=== PATIENT | male | born 1945 | race Caucasian/White ===

== ENCOUNTER 2018-02-11 10:30 | Day surgery (SDC) | payer MEDICARE, OTHER ==
[2018-02-05 13:27] VITALS: BMI 43.4
[2018-02-11 10:22] VITALS: PULSE 77; TEMP 98.1
[2018-02-11 10:30] LABS: Glucose,Whole Blood 316 mg/dL (75-99)
[~2018-02-11 10:30] MED LIST: ALPRAZolam 0.25 MG TAB PO PRN; ALPRAZolam 0.5 MG TAB PO PRN; ASPIRIN 325 MG TAB PO STA; ATORVASTATIN 80 MG TAB PO ONE; INSULIN ASPART 100 UNIT/ML 1 ML 10 ML VIAL SQ ONE; NITROGLYCERIN SL TABS 0.4 MG TAB SUBLINGUAL PRN; SODIUM CHLORIDE 0.9% 1,000 ML in EMPTY BAG 1 BAG IV ONE
[2018-02-11] MEDS ORDERED: IV FLUID CONTINUATION 1,000 ML IV ONE (11:02)
[2018-02-11] MEDS ORDERED: diphenhydrAMINE 50 MG/ML 1 ML VIAL ONE (11:04)
[2018-02-11] MEDS ORDERED: MIDAZOLAM 2 MG/2 ML VIAL ONE (11:04)
[2018-02-11] MEDS ORDERED: VERAPAMIL 2.5 MG/ML 2 ML AMP ONE (11:05)
[2018-02-11] MEDS ORDERED: diphenhydrAMINE 50 MG/ML 1 ML VIAL IVP ONE (11:20)
[2018-02-11] MEDS ORDERED: MIDAZOLAM 2 MG/2 ML VIAL IV ONE (11:20)
[2018-02-11] MEDS ORDERED: LIDOCAINE 2% SYG (PF) 100 MG/5 ML MISCELLANE ONE (11:27)
[2018-02-11] MEDS: VERAPAMIL SYRINGE (5 MG/10 ML) INTRAARTER ONE ×2 (11:31→11:59)
[2018-02-11] MEDS ORDERED: HEPARIN SODIUM 1,000 UN/ML (10ML VL) ONE (11:32)
[2018-02-11] MEDS ORDERED: HEPARIN SODIUM 1,000 UN/ML (10ML VL) IV ONE (11:33)
[2018-02-11] MEDS ORDERED: NITROGLYCERIN SL TABS 0.4 MG TAB SUBLINGUAL ONE ×4 (11:34→12:10)
[2018-02-11] MEDS ORDERED: IOPAMIDOL-370 100ML BTL INJ ONE ×2 (11:44→11:58)
[2018-02-11] MEDS ORDERED: RX INFO: IV CONTRAST WAS GIVEN 1 EACH MISC MISCELLANE PRN (12:10)
[2018-02-11] MEDS ORDERED: NON-FORMULARY DRUG (Dulaglutide [Trulicity] 1.5 MG) SQ SCH (12:30)
[2018-02-11] MEDS ORDERED: SODIUM CHLORIDE 0.9% 1,000 ML IV SCH (12:30)
--- NOTE | 2018-02-11 12:46 | CC ---
CARDIAC CATHETERIZATION REPORT DATE OF SERVICE: 02/11/2018 PROCEDURE: Left heart catheterization and coronary angiography. PERFORMED BY: Dr. Kike Cadena. Moderate conscious sedation time was 40 minutes. Patient was monitored very closely for his oxygen saturation, hemodynamics and EKG. He was administered a combination of Versed and Benadryl. CLINICAL INFORMATION: Mr. Erasto Rivas is a 72-year-old obese gentleman with history of hypertension, hyperlipidemia, type 2 diabetes mellitus with a positive stress test. He also has sleep apnea syndrome, but has been reluctant to have any sleep study performed. Because of an abnormal Lexiscan stress test with a moderate area of reversible defect to the lateral wall, he was advised coronary angiography. He also has significant risk factors as well. PROCEDURE NOTE: Under local anesthesia and strict aseptic precautions, a 6-Uruguayan introducer was placed in the right radial artery. I used Ultimate 1 catheter and performed selective coronary angiography of the left system. I then used a standard right Juliana catheter and performed selective coronary angiography of the right coronary artery. The same Ultimate 1 catheter was used to check LV pressures, but LV gram was not performed. There was extreme tortuosity in the innominate artery and also ascending aorta. LV pressures were obtained, but LV gram was not performed. I recommended that we will perform intervention from the right femoral approach at a later date. CARDIAC CATHETERIZATION FINDINGS: The left ventricular end-diastolic pressure was about 14 mmHg without any gradient across the aortic valve. CORONARY ANGIOGRAPHY FINDINGS: LEFT MAIN CORONARY ARTERY: A short patent disease-free vessel that bifurcates into LAD and circumflex. LEFT ANTERIOR DESCENDING CORONARY ARTERY: Good caliber vessel extends along the anterior wall gives off septal and diagonal branches runs all the way to the apex, has no significant disease, has minor diffuse irregularities in the distal one-third. No significant disease is noted. LEFT POSTERIOR CIRCUMFLEX CORONARY ARTERY: This vessel was not very well seen on multiple injections because of extreme obesity and also because of inadequate filling of this vessel. However, there appears to be a proximal lesion which is very eccentric best seen in the ANDORRAN cranial projection and this is about a 60% to 70% lesion and then it gives off an obtuse marginal which also has another 60% to 70% lesion and after the proximal lesion, there is an AV groove branch that comes off. The circumflex therefore has a proximal lesion as well as an obtuse marginal lesion of anywhere from 60% to 70% which could be significant when better angiograms are obtained. The groove branch appears to be small in caliber and diffusely diseased. RIGHT CORONARY ARTERY: This is a dominant vessel, it is of a good caliber and distribution. In the middle one-third, there is a long area of disease of about 60%. The caliber of the vessel then improves and then again distally before it bifurcates there is an eccentric 70% stenosis which I believe is a significant lesion. There is a lot of eccentricity in the lesion. It was best seen in the ANDORRAN cranial projection. The entire vessel is irregular and diseased and then the caliber improves and it trifurcates into 3 different branches mostly in the PDA distribution and also one branch in the PLV distribution. Distal RCA before bifurcation has therefore an eccentric 70% lesion and mid RCA has about a 60% lesion. RCA is a dominant vessel. LEFT VENTRICULOGRAM: This was not performed. FINAL IMPRESSION: This patient has a right dominant system, slightly elevated filling pressures. There is a distal RCA disease of about 70% just before bifurcation, also involves some smaller branches. Mid RCA has a 50% to 60% lesion. The circumflex is a nondominant one very proximally has an eccentric 60% to 70% lesion and the obtuse marginal also has an independent lesion. The LAD is free of significant disease. Left ventriculogram was not performed. RECOMMENDATIONS: I am recommending that we will pursue medical therapy. I will see him in the office in one week. He will be discharged today. I will recommend intervention of the RCA and probably circumflex as well after I get better angiograms. The patient will have elective PCI of RCA and will look at circumflex as well. The rationale, risks, benefits, and options related to this procedure were explained to the patient and . I will see him in the office and bring him back in 2 weeks. MMODL / IJN: [id number] /
--- NOTE | 2018-02-11 12:46 | LTR ---
February 11, 2018 Re: Erasto Rivas Dear Dr. Ron: Thank you for the opportunity to participate in the care of Mr. Rivas. This gentleman has significant disease in the distal RCA and moderate disease in the circumflex as well. I will perform PCI of RCA from the right femoral approach in the next couple of weeks. We will pursue medical therapy in the interim. I will also assess the significance of circumflex lesion as well. Thank you for your referral and please call for questions. With kindest regards. Sincerely yours, MD TIM Bunn / NICHON: [id number] /
[2018-02-11] MEDS ORDERED: amLODIPine 5 MG TAB PO STA ×2 (13:36→17:00)
[2018-02-11] MEDS ORDERED: NITROGLYCERIN SL TABS 0.4 MG TAB SUBLINGUAL STA (13:38)
[2018-02-11] MEDS ORDERED: ACARBOSE 50 MG PO SCH (16:00)
[2018-02-11] MEDS ORDERED: INSULIN ASPART 100 UNIT/ML 1 ML 10 ML VIAL SQ ONE ×2 (16:46→16:57)
[2018-02-11 16:48] LABS: Glucose,Whole Blood 290 mg/dL (75-99)
[2018-02-11] MEDS ORDERED: INSULIN LISPRO 20 UNIT SQ SCH ×2 (17:30→21:00)
[2018-02-11 17:32] VITALS: RESP 20
[2018-02-11 17:45] VITALS: BP 164/76
[2018-02-11] MEDS ORDERED: INSULIN DEGLUDEC 60 UNIT SQ SCH (21:00)
[2018-02-11] MEDS ORDERED: FENOFIBRATE 160 MG TAB PO SCH (21:00)
[2018-02-11] MEDS ORDERED: POTASSIUM CHLORIDE ER 10 MEQ TAB.ER.PRT PO SCH (21:00)
[2018-02-12] MEDS ORDERED: INSULIN ASPART 100 UNIT/ML 1 ML 10 ML VIAL SQ SCH (07:30)
[2018-02-12] MEDS ORDERED: LISINOPRIL 20 MG TAB PO SCH (09:00)
[2018-02-12] MEDS ORDERED: FUROSEMIDE 20 MG TAB PO SCH (09:00)
[2018-02-12] MEDS ORDERED: METOPROLOL TARTRATE 50 MG TAB PO SCH (09:00)
[2018-02-12] MEDS ORDERED: ATORVASTATIN 20 MG TAB PO SCH (09:00)
[2018-02-12] MEDS ORDERED: ASPIRIN 81 MG PO SCH (09:00)
== END 2018-02-11 14:20 | disposition home or self-care (01) ==
LOC: CATHCVL 10:30
PROVIDERS: ATTEND Internal Medicine Interventional Cardiology
DX: I77.1 Stricture of artery (principal); I25.110 Atherosclerotic heart disease of native coronary artery with unstable angina pectoris; I10 Essential (primary) hypertension; E78.00 Pure hypercholesterolemia, unspecified; E78.5 Hyperlipidemia, unspecified; F17.210 Nicotine dependence, cigarettes, uncomplicated; E11.9 Type 2 diabetes mellitus without complications; Z79.4 Long term (current) use of insulin; Z79.82 Long term (current) use of aspirin; Z79.899 Other long term (current) drug therapy; Z88.8 Allergy status to other drugs, medicaments and biological substances
CPT/HCPCS: 93458; C1769; C1894; J2250; J1200; J2001; J1644; Q9967

== ENCOUNTER → 2018-02-19 | Outpatient (CLI) | payer MEDICARE, OTHER ==
[2018-02-19 15:28] LABS: HCT 39.6 % (39.0-53.0); MCH 30.9 pg (25.0-35.0); MCHC 32.9 g/dL (31.0-37.0); MCV 93.9 fL (80.0-100.0); Mean Platelet Volume 7.2; Platelet Count 263 k/uL (150-450); RBC 4.22 m/uL (4.30-5.90); RDW 13.3 % (11.5-15.5)
[2018-02-19 15:36] LABS: Calcium 9.6 mg/dL (8.4-10.2); Potassium 5.1 mmol/L (3.5-5.1)
== END ==
LOC: LABPAT 14:20
PROVIDERS: ATTEND Internal Medicine Interventional Cardiology
DX: Z01.812 Encounter for preprocedural laboratory examination (principal); I25.118 Atherosclerotic heart disease of native coronary artery with other forms of angina pectoris; I10 Essential (primary) hypertension; E78.2 Mixed hyperlipidemia; I25.10 Atherosclerotic heart disease of native coronary artery without angina pectoris
CPT/HCPCS: 36415; 80048; 85027

== ENCOUNTER 2018-02-28 09:14 | Day surgery (SDC) | payer MEDICARE, OTHER ==
[2018-02-21 12:46] VITALS: BMI 44.5
[~2018-02-28 09:14] MED LIST changes: -ATORVASTATIN 80 MG TAB PO ONE; +ATORVASTATIN 80 MG TAB PO STA; -INSULIN ASPART 100 UNIT/ML 1 ML 10 ML VIAL SQ ONE
[2018-02-28] MEDS ORDERED: SODIUM CHLORIDE 0.9% 1,000 ML IV ONE (09:45)
[2018-02-28 09:52] LABS: Glucose,Whole Blood 307 mg/dL (75-99)
[2018-02-28 10:02] LABS: Basophils % (A) 1 %; Eosinophils # (A) 0.3 k/uL (0-0.7); Eosinophils % (A) 4 %; HCT 40.9 % (39.0-53.0); HGB 13.4 gm/dL (13.0-17.5); Lymphocytes # (A) 1.3 k/uL (1.0-4.8); Lymphocytes % (A) 21 %; MCH 30.6 pg (25.0-35.0); MCHC 32.7 g/dL (31.0-37.0); MCV 93.7 fL (80.0-100.0); Mean Platelet Volume 6.9; Monocytes # (A) 0.3 k/uL (0-1.0); Monocytes % (A) 5 %; Neutrophils # (A) 4.3 k/uL (1.3-7.7); Neutrophils % (A) 67 %; Platelet Count 296 k/uL (150-450); RBC 4.37 m/uL (4.30-5.90); RDW 13.4 % (11.5-15.5); WBC 6.4 k/uL (3.8-10.6)
[2018-02-28 10:07] LABS: Anion Gap 12 mmol/L; Blood Urea Nitrogen 19 mg/dL (9-20); Calcium 9.7 mg/dL (8.4-10.2); Carbon Dioxide 28 mmol/L (22-30); Chloride 101 mmol/L (98-107); Glucose 323 mg/dL (74-99); Potassium 4.6 mmol/L (3.5-5.1); Sodium 141 mmol/L (137-145)
[2018-02-28] MEDS: INSULIN ASPART 100 UNIT/ML 1 ML 10 ML VIAL SQ SCH ×4 (10:24→21:10)
[2018-02-28] MEDS ORDERED: diphenhydrAMINE 50 MG/ML 1 ML VIAL ONE (10:42)
[2018-02-28] MEDS ORDERED: LIDOCAINE 1% INJ 10MG/ML (20 ML MDV) ONE (10:42)
[2018-02-28] MEDS ORDERED: MIDAZOLAM 2 MG/2 ML VIAL ONE (10:42)
[2018-02-28] MEDS ORDERED: MIDAZOLAM 2 MG/2 ML VIAL IVP ONE (10:43)
[2018-02-28] MEDS ORDERED: diphenhydrAMINE 50 MG/ML 1 ML VIAL IVP ONE (10:43)
[2018-02-28] MEDS ORDERED: LIDOCAINE 1% INJ 10MG/ML (20 ML MDV) SQ ONE ×2 (10:44→10:45)
[2018-02-28] MEDS ORDERED: NITROGLYCERIN SL TABS 0.4 MG TAB SUBLINGUAL ONE ×3 (10:58→11:26)
[2018-02-28] MEDS: NITROGLYCERIN SL TABS 0.4 MG TAB SUBLINGUAL ONE ×3 (10:59→11:27)
[2018-02-28] MEDS ORDERED: BIVALIRUDIN BOLUS 250 MG/50 ML IV ONE (11:07)
[2018-02-28] MEDS ORDERED: BIVALIRUDIN 250 MG in SODIUM CHLORIDE 0.9% 50 ML IV ONE ×2 (11:07→11:25)
[2018-02-28] MEDS ORDERED: IOPAMIDOL-370 100ML BTL INJ ONE ×2 (11:26→11:33)
[2018-02-28] MEDS ORDERED: NITROGLYCERIN 1000MCG/10ML SYRINGE INTRACORON ONE (11:30)
[2018-02-28] MEDS ORDERED: TICAGRELOR 90 MG TAB ONE (11:35)
[2018-02-28] MEDS ORDERED: TICAGRELOR 90 MG TAB PO ONE (11:39)
[2018-02-28] MEDS ORDERED: ATROPINE SULFATE 0.1 MG/ML 10ML SYRINGE IV PRN (11:45)
[2018-02-28] MEDS ORDERED: NITROGLYCERIN SL TABS 0.4 MG TAB SUBLINGUAL PRN (11:45)
[2018-02-28] MEDS ORDERED: ZOLPIDEM 5 MG TAB PO PRN (11:45)
[2018-02-28] MEDS ORDERED: RX INFO: IV CONTRAST WAS GIVEN 1 EACH MISC MISCELLANE PRN (11:45)
[2018-02-28] MEDS ORDERED: MAG HYDROX/AL HYDROX/SIMETH 30 ML CUP PO PRN (11:45)
[2018-02-28] MEDS: SODIUM CHLORIDE 0.9% 1,000 ML IV SCH (12:33)
[2018-02-28 12:53] LABS: Glucose,Whole Blood 284 mg/dL (75-99)
[2018-02-28] MEDS ORDERED: MORPHINE SULFATE 2 MG/ML SYRINGE IVP STA (13:32)
[2018-02-28] MEDS ORDERED: amLODIPine 5 MG TAB PO STA (13:33)
[2018-02-28] MEDS ORDERED: NITROGLYCERIN SL TABS 0.4 MG TAB SUBLINGUAL STA (13:33)
[2018-02-28] MEDS ORDERED: MORPHINE SULFATE 4 MG/ML SYRINGE ONE (13:46)
[2018-02-28 16:32] LABS: Glucose,Whole Blood 305 mg/dL (75-99)
[2018-02-28] MEDS: ACARBOSE 25 MG TAB PO SCH (17:25)
[2018-02-28] MEDS ORDERED: INSULIN ASPART 100 UNIT/ML 1 ML 10 ML VIAL SQ SCH ×2 (17:30→21:00)
[2018-02-28] MEDS ORDERED: amLODIPine 5 MG TAB PO PRN (18:50)
[2018-02-28 20:41] LABS: Glucose,Whole Blood 235 mg/dL (75-99)
[2018-02-28] MEDS ORDERED: INSULIN DETEMIR 100 UNIT/ML 10 ML VIAL SQ SCH (21:00)
[2018-02-28] MEDS: POTASSIUM CHLORIDE ER 10 MEQ TAB.ER.PRT PO SCH (21:11)
--- NOTE | 2018-02-28 21:35 | PTCA ---
PERCUTANEOUSTRANS CORORONARY ANGIOGRAPHY DATE OF SERVICE: 02/28/2018. PROCEDURE PERFORMED: PTCA and stenting of proximal circumflex coronary artery as well as first obtuse marginal branch of circumflex with drug-eluting stents. PERFORMED BY: Dr. Selene Cadena. SEDATION: Moderate conscious sedation time was 53 minutes. CLINICAL INFORMATION: Mr. Erasto Rivas is a 72-year-old gentleman, history of type 2 diabetes, hypertension, hyperlipidemia, with abnormal stress test. His cardiac cath a week ago revealed that his RCA was dominant, had 2 areas of disease of 60-70 percent and I could not get a good image of circumflex because of a radial cath which was technically somewhat difficult given the tortuosity of his aorta and brachial artery. I therefore brought him in for the procedure were to check the AA. From the right femoral approach, 1st circumflex coronary artery injections and then consider intervention either of circumflex alone or of the RCA as well. He was brought in with this plan after explanation of the risks, benefits, and options. PROCEDURE NOTE: Under local anesthesia and strict aseptic precautions, a 6-Liberian introducer was placed in the right femoral artery. I had difficulty because of obesity and a lot of soft tissue between the femoral artery and the skin. I had to use a regular needle with a long wire and with this I was able to gain access. A 6-Liberian introducer was placed. I performed selective coronary angiography of the left coronary artery and noted that the circumflex had a 70% to 80% proximal lesion and the first obtuse marginal also had a 70% lesion. I recommend intervention of this vessel and to do RCA in a staged fashion in a couple of weeks. The patient was administered Angiomax as per bolus and protocol. He received 180 mg of Brilinta. I used a standard left Juliana guide catheter to cannulate the left coronary artery and a Whisper wire was used to cross the lesion wire was kept in the circumflex marginal. Predilatation was performed with a 2.5 caliber 12 mm long Trek balloon. I could not advance the stent to the first obtuse marginal and therefore I used a run- through wire as a mahsa wire. With the whisper as a mahsa wire and using the stent over the run-through wire, I advanced and positioned a 12 mm long 2.75 caliber Xience stent and deployed this in the first obtuse marginal. I then advanced and positioned an 8 mm long 3.0 caliber Xience stent in the proximal circumflex. Both stents were deployed at 13 atmospheres. Excellent angiographic result was achieved. Patient did not have symptoms or EKG changes. Excellent result was achieved. The sheath was taken out and Angio-Seal device used to secure hemostasis and he was sent to the room in stable condition. Results and findings were discussed in detail with the patient and family members. I expect he will be discharged tomorrow if he remains stable. MMODL / IJN: [id number] /
--- NOTE | 2018-02-28 21:41 | LTR ---
DATE OF SERVICE: 02/28/[address] Ron: Thank you for the opportunity to participate in the care of Mr. Rivas. Please find enclosed my detailed cardiac cath report for the records. I performed PCI of circumflex with excellent result. I will bring him back to perform staged intervention of RCA at a later date. Thank you for your referral and please call for questions. With kindest regards, Sincerely yours, MMAFSANEHL / IJN: [id number] /
[2018-03-01 03:18] VITALS: RESP 18
[2018-03-01 06:31] LABS: Glucose,Whole Blood 211 mg/dL (75-99)
[2018-03-01] MEDS: SODIUM CHLORIDE 0.9% 1,000 ML IV SCH (06:50)
[2018-03-01] MEDS: ACARBOSE 25 MG TAB PO SCH (07:04)
[2018-03-01] MEDS: INSULIN ASPART 100 UNIT/ML 1 ML 10 ML VIAL SQ SCH (07:05)
[2018-03-01 07:08] LABS: Basophils % (A) 1 %; Eosinophils # (A) 0.2 k/uL (0-0.7); Eosinophils % (A) 3 %; HCT 36.3 % (39.0-53.0); HGB 11.8 gm/dL (13.0-17.5); Lymphocytes % (A) 20 %; MCH 30.6 pg (25.0-35.0); MCHC 32.6 g/dL (31.0-37.0); Mean Platelet Volume 6.9; Monocytes # (A) 0.4 k/uL (0-1.0); Monocytes % (A) 7 %; Neutrophils # (A) 3.6 k/uL (1.3-7.7); Neutrophils % (A) 68 %; Platelet Count 246 k/uL (150-450); RBC 3.86 m/uL (4.30-5.90); RDW 13.5 % (11.5-15.5); WBC 5.2 k/uL (3.8-10.6)
[2018-03-01 07:19] LABS: Anion Gap 10 mmol/L; Blood Urea Nitrogen 19 mg/dL (9-20); Calcium 8.8 mg/dL (8.4-10.2); Carbon Dioxide 28 mmol/L (22-30); Chloride 103 mmol/L (98-107); Glucose 203 mg/dL (74-99); Potassium 4.2 mmol/L (3.5-5.1); Sodium 141 mmol/L (137-145)
[2018-03-01] MEDS ORDERED: INSULIN ASPART 100 UNIT/ML 1 ML 10 ML VIAL SQ SCH (07:30)
[2018-03-01] MEDS: POTASSIUM CHLORIDE ER 10 MEQ TAB.ER.PRT PO SCH (08:05)
[2018-03-01] MEDS ORDERED: amLODIPine 5 MG TAB PO SCH (09:00)
[2018-03-01] MEDS ORDERED: LISINOPRIL 20 MG TAB PO SCH (09:00)
[2018-03-01] MEDS ORDERED: METOPROLOL TARTRATE 50 MG TAB PO SCH (09:00)
[2018-03-01] MEDS ORDERED: ASPIRIN 81 MG PO SCH (09:00)
[2018-03-01] MEDS ORDERED: FENOFIBRATE 160 MG TAB PO SCH (09:00)
[2018-03-01] MEDS ORDERED: FUROSEMIDE 20 MG TAB PO SCH (09:00)
[2018-03-01] MEDS ORDERED: CLOPIDOGREL 75 MG TAB PO SCH (09:00)
[2018-03-01 10:12] VITALS: BP 149/73
[2018-03-01 10:30] VITALS: PULSE 89; TEMP 97.3
--- NOTE | 2018-03-01 20:18 | DS ---
DISCHARGE SUMMARY DATE OF ADMISSION: 02/28/2018 DATE OF DISCHARGE: 03/01/2018. DIAGNOSES: 1. Unstable angina. 2. Hypertension. 3. Type 2 diabetes mellitus. 4. Obesity. 5. Hypercholesterolemia. Mr. Rivas was admitted to the hospital for elective PCI. He underwent a cardiac cath from right radial approach a couple of weeks ago and was found to have significant disease in dominant RCA, but I did not get a good opacification of the left system, specifically the circumflex. He was advised a repeat catheterization and intervention of possibly circumflex and in a staged manner of RCA. Coronary angiography was performed from right femoral approach. He had a significant lesion in the circumflex proximally as well as in the first obtuse marginal. Both these lesions were addressed with a drug-eluting stent with excellent result. Post- procedure course was unremarkable. He is asymptomatic. He was slightly hypertensive, received an additional dose of Norvasc yesterday. He is asymptomatic at the time of my evaluation, resting comfortably. His right groin has a small area of ecchymosis. No hematoma or bruit is noted. Vital signs are stable. Physical exam revealed a blood pressure of 146/80, pulse rate 70 per minute. S1, S2 heard normally. Lungs are clear. Abdomen and lower extremity exam unchanged. We advise that he can be discharged today with the understanding that he should do limited activity for 48 hours and I will see him in the office within one week. Discharge instructions regarding activity, diet and medications, including dual antiplatelet therapy, were given. Patient will be discharged home later on today. MMODL / IJN: [id number] /
[2018-03-01] MEDS ORDERED: ATORVASTATIN 20 MG TAB PO SCH (21:00)
[2018-03-04] MEDS ORDERED: Dulaglutide [Trulicity] 1.5 MG SQ SCH (09:00)
== END 2018-03-01 11:15 | disposition home or self-care (01) ==
LOC: CATHCVL 09:14 → 6SEL 12:53 → CATHCVL 03-01 11:15
PROVIDERS: ATTEND Internal Medicine Interventional Cardiology
DX: I25.110 Atherosclerotic heart disease of native coronary artery with unstable angina pectoris (principal); I10 Essential (primary) hypertension; E78.2 Mixed hyperlipidemia; E66.9 Obesity, unspecified; E11.8 Type 2 diabetes mellitus with unspecified complications; Z79.4 Long term (current) use of insulin; Z79.899 Other long term (current) drug therapy; Z68.41 Body mass index [BMI] 40.0-44.9, adult; Z79.82 Long term (current) use of aspirin; Z88.8 Allergy status to other drugs, medicaments and biological substances; Z72.0 Tobacco use
CPT/HCPCS: 80048 ×2; 85025 ×2; C9600; C9601; C1760; C1769 ×4; C1887 ×2; C1725; C1894; C1874; J2250; J1200; J2001; J2270; J0583; Q9967

== ENCOUNTER → 2018-03-14 | Outpatient (CLI) | payer MEDICARE, OTHER ==
[2018-03-14 08:25] LABS: HCT 38.3 % (39.0-53.0); HGB 12.6 gm/dL (13.0-17.5); MCH 31.3 pg (25.0-35.0); MCHC 32.9 g/dL (31.0-37.0); MCV 95.2 fL (80.0-100.0); Platelet Count 249 k/uL (150-450); RBC 4.02 m/uL (4.30-5.90); RDW 13.5 % (11.5-15.5); WBC 6.8 k/uL (3.8-10.6)
[2018-03-14 08:35] LABS: Magnesium 1.6 mg/dL (1.6-2.3); Potassium 4.7 mmol/L (3.5-5.1)
== END | disposition home or self-care (01) ==
LOC: LABPAT 06:39
PROVIDERS: ATTEND Internal Medicine Interventional Cardiology
DX: Z01.812 Encounter for preprocedural laboratory examination (principal); I25.10 Atherosclerotic heart disease of native coronary artery without angina pectoris; E78.2 Mixed hyperlipidemia; E11.9 Type 2 diabetes mellitus without complications
CPT/HCPCS: 36415; 80051; 82565; 82947; 83735; 84520; 85027

== ENCOUNTER 2018-03-20 09:23 | Day surgery (SDC) | payer MEDICARE, OTHER ==
[~2018-03-20 09:23] MED LIST changes: +ASPIRIN 325 MG TAB PO ONE; -ASPIRIN 325 MG TAB PO STA; +ATORVASTATIN 80 MG TAB PO ONE; -ATORVASTATIN 80 MG TAB PO STA; +diphenhydrAMINE 25 MG CAP PO STA
[2018-03-20] MEDS ORDERED: INSULIN ASPART 100 UNIT/ML 1 ML 10 ML VIAL SQ ONE (10:02)
[2018-03-20 10:18] LABS: Glucose,Whole Blood 281 mg/dL (75-99)
[2018-03-20] MEDS ORDERED: MIDAZOLAM 2 MG/2 ML VIAL ONE (10:57)
[2018-03-20] MEDS ORDERED: diphenhydrAMINE 50 MG/ML 1 ML VIAL ONE (10:57)
[2018-03-20] MEDS ORDERED: LIDOCAINE 1% INJ 10MG/ML (20 ML MDV) ONE (10:57)
[2018-03-20] MEDS ORDERED: MIDAZOLAM 2 MG/2 ML VIAL IV ONE (11:23)
[2018-03-20] MEDS ORDERED: diphenhydrAMINE 50 MG/ML 1 ML VIAL IVP ONE (11:23)
[2018-03-20] MEDS ORDERED: LIDOCAINE 1% INJ 10MG/ML (20 ML MDV) SQ ONE ×2 (11:30)
[2018-03-20] MEDS ORDERED: NITROGLYCERIN SL TABS 0.4 MG TAB SUBLINGUAL ONE ×4 (11:34→11:40)
[2018-03-20] MEDS: NITROGLYCERIN 1000MCG/10ML SYRINGE INTRACORON ONE ×5 (11:37→12:01)
[2018-03-20] MEDS ORDERED: amLODIPine 5 MG TAB ONE (11:40)
[2018-03-20] MEDS ORDERED: amLODIPine 5 MG TAB PO ONE (11:41)
[2018-03-20] MEDS ORDERED: BIVALIRUDIN BOLUS 250 MG/50 ML IV ONE (11:45)
[2018-03-20] MEDS ORDERED: BIVALIRUDIN 250 MG in SODIUM CHLORIDE 0.9% 50 ML IV ONE (11:46)
[2018-03-20] MEDS ORDERED: IOPAMIDOL-370 125ML BTL INJ ONE (11:54)
[2018-03-20] MEDS ORDERED: CLOPIDOGREL 75 MG TAB ONE (12:01)
[2018-03-20] MEDS ORDERED: CLOPIDOGREL 75 MG TAB PO ONE (12:01)
[2018-03-20] MEDS ORDERED: IOPAMIDOL-370 100ML BTL INJ ONE (12:02)
[2018-03-20] MEDS ORDERED: MAG HYDROX/AL HYDROX/SIMETH 30 ML CUP PO PRN (12:07)
[2018-03-20] MEDS ORDERED: NITROGLYCERIN SL TABS 0.4 MG TAB SUBLINGUAL PRN (12:07)
[2018-03-20] MEDS ORDERED: RX INFO: IV CONTRAST WAS GIVEN 1 EACH MISC MISCELLANE PRN (12:07)
[2018-03-20] MEDS ORDERED: ATROPINE SULFATE 0.1 MG/ML 10ML SYRINGE IV PRN (12:07)
[2018-03-20] MEDS ORDERED: ZOLPIDEM 5 MG TAB PO PRN (12:07)
[2018-03-20 13:30] VITALS: BMI 43.7
[2018-03-20] MEDS: SODIUM CHLORIDE 0.9% 1,000 ML IV SCH (13:35)
--- NOTE | 2018-03-20 15:32 | CC ---
CARDIAC CATHETERIZATION REPORT DATE OF SERVICE: 03/20/2018. PROCEDURE PERFORMED: 1. Selective coronary angiography of the left circumflex coronary artery. 2. PTCA and stenting of proximal and distal RCA with a drug-eluting stents. PERFORMED BY: Dr. Selene Cadena. Moderate conscious sedation time was 30 minutes. Patient was monitored closely and was administered Versed and Benadryl. Oxygen saturation, hemodynamics and EKG were monitored closely. CLINICAL INFORMATION: Mr. Erasto Rivas is a gentleman with history of type 2 diabetes, hypertension, hyperlipidemia, CAD who underwent stenting of proximal circumflex and obtuse marginal on 02/28/2018, was brought in for elective PCI of RCA which had 2 long lesions and RCA was a dominant vessel. Risks, benefits, options and rationale were explained. PROCEDURE NOTE: Under local anesthesia and strict aseptic precautions, a 6-Divehi introducer was placed in the right femoral artery. I used a standard left Juliana catheter. I performed selective coronary angiography of the left coronary artery noted the circumflex was widely patent with very good flow. I then turned my attention to the RCA. A [facility] 6- Divehi guide catheter was used to cannulate the RCA. A run-through wire was used to cross the lesion. I used a 2.5 caliber 18 mm long Xience stent and deployed this in the distal RCA lesion with excellent angiographic result. Patient did not have any chest pain or EKG changes. I then addressed the proximal lesion with a 2.75 x 23 mm Xience drug-eluting stent. This was deployed at 14 atmospheres. Patient had excellent angiographic result without complication. The sheath was taken out and Angio-Seal device used to secure hemostasis. Patient received Angiomax bolus and infusion and he was already on aspirin and Plavix. He received additional 150 mg of Plavix. Patient tolerated procedure well without complication. Results were discussed with the patient and and I expect he will be discharged tomorrow if he remains stable. MMODL / IJN: [id number] /
[2018-03-20 16:55] LABS: Glucose,Whole Blood 274 mg/dL (75-99)
[2018-03-20] MEDS: ACARBOSE 25 MG TAB PO SCH ×2 (17:24→21:32)
[2018-03-20] MEDS ORDERED: INSULIN ASPART 100 UNIT/ML 1 ML 10 ML VIAL SQ SCH ×2 (17:30→21:00)
[2018-03-20] MEDS ORDERED: INSULIN DETEMIR 100 UNIT/ML 10 ML VIAL SQ SCH (21:00)
[2018-03-20] MEDS ORDERED: ATORVASTATIN 20 MG TAB PO SCH (21:00)
[2018-03-20] MEDS: amLODIPine 5 MG TAB PO SCH (21:32)
[2018-03-20] MEDS: POTASSIUM CHLORIDE ER 10 MEQ TAB.ER.PRT PO SCH (21:32)
[2018-03-20 21:47] LABS: Glucose,Whole Blood 202 mg/dL (75-99)
[2018-03-21 06:31] LABS: Glucose,Whole Blood 138 mg/dL (75-99)
[2018-03-21] MEDS: SODIUM CHLORIDE 0.9% 1,000 ML IV SCH (06:43)
[2018-03-21 06:55] LABS: Basophils % (A) 1 %; Eosinophils # (A) 0.3 k/uL (0-0.7); Eosinophils % (A) 4 %; HCT 38.9 % (39.0-53.0); Lymphocytes # (A) 1.2 k/uL (1.0-4.8); Lymphocytes % (A) 20 %; MCH 31.3 pg (25.0-35.0); MCHC 33.5 g/dL (31.0-37.0); MCV 93.4 fL (80.0-100.0); Mean Platelet Volume 6.7; Monocytes # (A) 0.5 k/uL (0-1.0); Monocytes % (A) 8 %; Neutrophils % (A) 66 %; Platelet Count 268 k/uL (150-450); RBC 4.17 m/uL (4.30-5.90); RDW 13.4 % (11.5-15.5)
[2018-03-21 07:14] LABS: Anion Gap 8 mmol/L; Blood Urea Nitrogen 15 mg/dL (9-20); Calcium 9.7 mg/dL (8.4-10.2); Carbon Dioxide 26 mmol/L (22-30); Chloride 105 mmol/L (98-107); Glucose 142 mg/dL (74-99); Potassium 4.3 mmol/L (3.5-5.1); Sodium 139 mmol/L (137-145)
[2018-03-21] MEDS ORDERED: INSULIN ASPART 100 UNIT/ML 1 ML 10 ML VIAL SQ SCH (07:30)
--- NOTE | 2018-03-21 07:33 | DS ---
DISCHARGE SUMMARY DATE OF ADMISSION: 03/20/2018 DATE OF DISCHARGE: 03/21/2018 DIAGNOSES: Unstable angina, hypertension, type 2 diabetes, hypercholesterolemia. PROCEDURES PERFORMED: PTCA and stenting of the dominant RCA in proximal and distal locations with 2 drug- eluting stents. Mr. Rivas was brought in for elective PCI of RCA. About 2 weeks ago, he underwent stenting of circumflex. I verified the patency of circumflex and then performed stenting of RCA uneventfully. Postprocedure course was uneventful. He is doing well this morning. PHYSICAL EXAMINATION: Blood pressure is 150/70, pulse rate is 70 per minute. No JVD or carotid bruit. S1, S2 with a short systolic murmur is audible. Lungs are clear. Abdomen is soft, nontender. Lower extremities reveal normal pulses. The right groin is clean and dry. Pulses excellent. EKG is unremarkable, revealed sinus mechanism with first-degree AV block. His laboratory data are pending. He will be discharged today once the laboratory data is reviewed. I will see him in the office in one week. Discharge instructions regarding activity, diet and medications were given. Patient has all his medications at home. No additional scripts are necessary at this time. MMODL / IJN: [id number] /
[2018-03-21 07:48] VITALS: BP 189/104; PULSE 99; RESP 16; TEMP 97
[2018-03-21] MEDS: ACARBOSE 25 MG TAB PO SCH (08:20)
[2018-03-21] MEDS: amLODIPine 5 MG TAB PO SCH (08:20)
[2018-03-21] MEDS: POTASSIUM CHLORIDE ER 10 MEQ TAB.ER.PRT PO SCH (08:20)
[2018-03-21] MEDS ORDERED: CLOPIDOGREL 75 MG TAB PO SCH (09:00)
[2018-03-21] MEDS ORDERED: LISINOPRIL 20 MG TAB PO SCH (09:00)
[2018-03-21] MEDS ORDERED: FENOFIBRATE 160 MG TAB PO SCH (09:00)
[2018-03-21] MEDS ORDERED: FUROSEMIDE 20 MG TAB PO SCH (09:00)
[2018-03-21] MEDS ORDERED: ASPIRIN 81 MG PO SCH (09:00)
[2018-03-21] MEDS ORDERED: METOPROLOL TARTRATE 50 MG TAB PO SCH (09:00)
== END 2018-03-21 09:12 | disposition home or self-care (01) ==
LOC: CATHCVL 09:23 → 3SCARD 12:03 → CATHCVL 03-21 09:12 → 3SCARD 03-21 09:15
PROVIDERS: ATTEND Internal Medicine Interventional Cardiology
DX: I25.110 Atherosclerotic heart disease of native coronary artery with unstable angina pectoris (principal); I44.0 Atrioventricular block, first degree; Z95.5 Presence of coronary angioplasty implant and graft; E11.9 Type 2 diabetes mellitus without complications; I10 Essential (primary) hypertension; E78.2 Mixed hyperlipidemia; Z79.02 Long term (current) use of antithrombotics/antiplatelets; Z79.4 Long term (current) use of insulin; Z79.899 Other long term (current) drug therapy; Z79.82 Long term (current) use of aspirin; Z72.0 Tobacco use; Z88.8 Allergy status to other drugs, medicaments and biological substances
CPT/HCPCS: 80048; 85025; C9600; C1760; C1887; C1769 ×3; C1894; C1874; J2250; J1200; J2001; J0583; Q9967 ×2; 93454

== ENCOUNTER 2020-05-04 17:04 | Observation (INO) | payer MEDICARE ==
[2020-05-04] MEDS ORDERED: INSULIN DETEMIR (LEVEMIR) 100 UNIT/ML SYR SQ SCH (21:00)
[2020-05-04] MEDS ORDERED: ATORVASTATIN 40 MG TAB PO SCH (21:00)
[2020-05-04] MEDS: SODIUM CHLORIDE 0.9% 1,000 ML IV SCH (21:02)
[2020-05-04 21:33] LABS: Glucose,Whole Blood 152 mg/dL (75-99)
[2020-05-04] MEDS: METOPROLOL TARTRATE 25 MG TAB PO SCH (21:38)
[2020-05-05] MEDS: METOPROLOL TARTRATE 25 MG TAB PO SCH (06:09)
[2020-05-05 06:16] LABS: Glucose,Whole Blood 185 mg/dL (75-99)
[2020-05-05 08:01] VITALS: RESP 16; TEMP 98.2
[2020-05-05 08:21] LABS: Basophils % (A) 0 %; Eosinophils # (A) 0.2 k/uL (0-0.7); Eosinophils % (A) 2 %; HCT 44.9 % (39.0-53.0); HGB 14.5 gm/dL (13.0-17.5); Lymphocytes # (A) 1.6 k/uL (1.0-4.8); Lymphocytes % (A) 23 %; MCH 30.8 pg (25.0-35.0); MCHC 32.3 g/dL (31.0-37.0); MCV 95.2 fL (80.0-100.0); Mean Platelet Volume 6.8; Monocytes # (A) 0.4 k/uL (0-1.0); Monocytes % (A) 6 %; Neutrophils # (A) 4.7 k/uL (1.3-7.7); Neutrophils % (A) 67 %; Platelet Count 262 k/uL (150-450); RBC 4.72 m/uL (4.30-5.90); RDW 13.4 % (11.5-15.5)
[2020-05-05 08:42] LABS: Potassium 4.2 mmol/L (3.5-5.1)
[2020-05-05] MEDS ORDERED: CLOPIDOGREL 75 MG TAB PO SCH (09:00)
[2020-05-05] MEDS ORDERED: POTASSIUM CHLORIDE ER 20 MEQ TAB.ER PO SCH (09:00)
[2020-05-05] MEDS ORDERED: ASPIRIN 81 MG PO SCH (09:00)
[2020-05-05] MEDS ORDERED: FUROSEMIDE 20 MG TAB PO SCH (09:00)
[2020-05-05] MEDS ORDERED: amLODIPine 5 MG TAB PO SCH (09:00)
[2020-05-05] MEDS ORDERED: FENOFIBRATE 160 MG TAB PO SCH (09:00)
[2020-05-05] MEDS ORDERED: SODIUM CHLORIDE 0.9% 1,000 ML IV ONE (10:40)
[2020-05-05] MEDS ORDERED: LIDOCAINE 1% INJ 10MG/ML (20 ML MDV) ONE (10:45)
[2020-05-05] MEDS: MIDAZOLAM 2 MG/2 ML VIAL IV ONE ×2 (10:59→11:05)
[2020-05-05] MEDS ORDERED: fentaNYL (PF) 50 MCG/ML 2 ML AMP IV ONE (11:05)
[2020-05-05] MEDS ORDERED: fentaNYL (PF) 50 MCG/ML 2 ML AMP ONE (11:05)
[2020-05-05] MEDS ORDERED: LIDOCAINE 1% INJ 10MG/ML (20 ML MDV) SQ ONE (11:06)
[2020-05-05] MEDS: NITROGLYCERIN 1000MCG/10ML SYRINGE INTRACORON ONE ×3 (11:16→11:46)
[2020-05-05] MEDS ORDERED: BIVALIRUDIN BOLUS 250 MG/50 ML IV ONE (11:27)
[2020-05-05] MEDS ORDERED: BIVALIRUDIN 250 MG in SODIUM CHLORIDE 0.9% 50 ML IV ONE (11:28)
[2020-05-05] MEDS ORDERED: IOPAMIDOL-370 100ML BTL INJ ONE (11:43)
[2020-05-05] MEDS ORDERED: amLODIPine 5 MG TAB ONE (11:44)
[2020-05-05] MEDS ORDERED: IOPAMIDOL-370 50ML BTL INJ ONE (11:46)
[2020-05-05] MEDS ORDERED: CLOPIDOGREL 75 MG TAB PO ONE (11:46)
[2020-05-05] MEDS ORDERED: amLODIPine 5 MG TAB PO ONE (11:46)
[2020-05-05] MEDS ORDERED: CLOPIDOGREL 75 MG TAB ONE (11:47)
[2020-05-05] MEDS ORDERED: HYDROmorphone 0.5 MG/0.5 ML SYRINGE IVP ONE (11:54)
[2020-05-05] MEDS: INSULIN ASPART (NovoLOG) 100 UNIT/ML VIAL SQ SCH ×3 (12:39→17:09)
[2020-05-05 12:44] LABS: Glucose,Whole Blood 343 mg/dL (75-99)
[2020-05-05] MEDS ORDERED: SODIUM CHLORIDE 0.9% 1,000 ML IV SCH (12:45)
[2020-05-05] MEDS: SODIUM CHLORIDE 0.9% 1,000 ML IV SCH (12:53)
--- NOTE | 2020-05-05 13:09 | CC ---
CARDIAC CATHETERIZATION REPORT DATE OF SERVICE: 05/05/2020 PROCEDURE: Cardiac catheterization and PCI report. PROCEDURES: 1. Left heart catheterization and coronary angiography. 2. PTCA and stenting of a tortuous circumflex marginal coronary artery with a drug- eluting stent. PERFORMED BY: Dr. Kike Cadena. Moderate conscious sedation time was 52 minutes. Patient was administered Versed, fentanyl and Dilaudid. Oxygen saturation, hemodynamics and EKG were monitored closely. CLINICAL INFORMATION: Mr. Erasto Rivas is a 74-year-old gentleman with a known history of type 2 diabetes with mild renal dysfunction, hypertension, hyperlipidemia and CAD. In February of 2018, he underwent stenting of a circumflex in the proximal portion as well as the circumflex marginal. He also had stenting of proximal and distal RCA performed on March 20. Because of an abnormal stress test and symptoms of angina, he was advised cardiac catheterization and brought into the hospital yesterday for IV hydration. His creatinine came down to 1.17. He was brought in for the procedure after due discussion regarding risks, benefits, and options. PROCEDURE NOTE: Under local anesthesia and strict aseptic precautions, a 6-Lebanese introducer was placed in the right femoral artery. I had to use an Amplatz wire and a 7-Lebanese dilator to gain access. Using standard Juliana catheters, I performed coronary angiography in the same right Juliana catheter was used to check LV pressure but LV gram was not performed. Following this, I went ahead and performed stenting of a lesion in the circumflex marginal just proximal to the previously placed stent. A drug-eluting stent was used. Excellent result was achieved. The sheath was then taken out and Angio-Seal device used to secure hemostasis and patient was sent to the room in a stable condition. CARDIAC CATHETERIZATION FINDINGS: The left ventricular end-diastolic pressure was about 30 mmHg without any gradient across the aortic valve. CORONARY ANGIOGRAPHY FINDINGS: RIGHT CORONARY ARTERY: A dominant vessel which is widely patent at the site of previous stenting in the proximal and distal portion. No significant disease. Distally bifurcates into branches which have mild to diffuse disease. Widely patent RCA in both proximal and distal areas where there was stenting performed. LEFT MAIN CORONARY ARTERY: Large patent disease-free vessel that bifurcates into LAD and circumflex. LEFT ANTERIOR DESCENDING CORONARY ARTERY: Good caliber vessel extends along the anterior wall, gives off septal and diagonal branches, runs all the way to the apex supplying a sizable amount of myocardium, curves over the apex to supply the inferoapical portion. There are minor irregularities no more than 30% to 35% narrowing in the good caliber LAD system. LEFT POSTERIOR CIRCUMFLEX CORONARY ARTERY: Nondominant vessel, which is widely patent at the site of previous stenting in the proximal circumflex in a tortuous area. The first obtuse marginal is also widely patent at the site of stenting, but proximal to the stent there was a 90% stenosis noted and also beyond the stent there was an area of about 40% narrowing. Flow is good. LV-gram was not performed. FINAL IMPRESSION: This patient has a right dominant system. No significant gradient across aortic valve with normal filling pressures. RCA that was stented in the proximal and distal portion is widely patent. Circumflex in the proximal portion is widely patent and the first obtuse marginal is also patent but just before the stented segment has a 90% stenosis and also distal to the stented segment is a 40% to 50% narrowing. LAD is free of significant disease. RECOMMENDATIONS: I recommended PCI of circumflex that was performed in the same setting. PCI PROCEDURE DETAILS: A JL4 guide catheter of 6-Lebanese caliber was used. A whisper wire was used to cross the lesion. Using a 2.5 caliber 20 mm NC Trek balloon. I pre-dilated the lesion. I then used another a mahsa wire. This was a run-through wire. With the whisper wire as the body and run-through wire as the main wire, I advanced a 23 mm long to 23 mm long 3.0 caliber Xience stent with some effort and deployed this at 12 atmospheres. Patient did not have any chest pain or EKG changes. Excellent angiographic result was achieved without complication. The sheath was taken out and Angio-Seal device used to secure hemostasis. Patient was already on aspirin and Plavix but he received additional 150 mg of Plavix. He also received Angiomax bolus and infusion as per protocol. The sheath was taken out and Angio-Seal device used to secure hemostasis and patient was sent to the room in stable condition. Results were discussed with the patient as well as with his by phone. MMODL / IJN: [id number] /
[2020-05-05 14:46] VITALS: BP 188/87; PULSE 80
[2020-05-05 16:57] LABS: Glucose,Whole Blood 183 mg/dL (75-99)
== END 2020-05-05 18:43 | disposition home or self-care (01) ==
LOC: 1SOBS 17:04 → INTOOBSV 17:04
PROVIDERS: ADMIT Internal Medicine Interventional Cardiology; ATTEND Internal Medicine Interventional Cardiology
DX: I25.110 Atherosclerotic heart disease of native coronary artery with unstable angina pectoris (principal); E11.9 Type 2 diabetes mellitus without complications; I10 Essential (primary) hypertension; E78.5 Hyperlipidemia, unspecified; Z95.5 Presence of coronary angioplasty implant and graft; N28.9 Disorder of kidney and ureter, unspecified; R94.39 Abnormal result of other cardiovascular function study; E78.00 Pure hypercholesterolemia, unspecified; Z87.891 Personal history of nicotine dependence
CPT/HCPCS: 93005; 93458; 80048; 85025; G0378; G0379; C9600; C1769 ×5; C1760; C1887; C1894; C1874; J2250; J2001; J3010; J0583; J1170; Q9967 ×2

== ENCOUNTER → 2021-02-16 | Outpatient (CLI) | payer MEDICARE ==
[2021-02-16 11:30] VITALS: BP 169/78; PULSE 81; RESP 18; TEMP 98
--- NOTE | 2021-02-16 12:07 | P.PAINCN ---
History of Present Illness - Reason for Consult Consult date: 02/16/21 - Chief Complaint lumbar back pain - History of Present Illness Mr. Rivas is a 75-year-old pleasant male came to [facility] pain clinic for initial evaluation, referred by his neurosurgeon for intervention procedure. Patient has ongoing chronic low back pain for many years. He tried physical therapy movements beneficial his MRI showed left side L4-L5, and L5-S1 neural foraminal narrowing without spinal canal stenosis. Patient tried different modalities of treatment including accupuncture, physical therapy, stretching exercises at home, and medications. He described his pain is aching, throbbing type of pain. Sometimes his pain radiating to his mid thigh area on left side. He rated his pain is 7-8 out of 10 in severity. Sometimes he has difficulty walking, doing his activities of daily living.his pain some days worse than others. Activities making his pain worse. Resting, medications sometimes helping in relieving his pain. Denied any bowel or bladder problems. Denied any suicidal tendency/homicidal ideas. Patient denied any red flag symptoms secondary to pain. Review of Systems 2- Ears : No ear ache , no tinnitus , no ear discharge , no change in hearing 3-Nose, Mouth ,Throat ; no bleeding gums, no sore throat , no epistaxis , no hoarseness , no nose pain , no voice change 4-Cardiovascular : Denies chest pain, denies lightheadedness , no orthopnea , no palpitation , no paroxysmal nocturnal dyspnea no syncope , no leg edema , no irregular heartbeat 5-Respiratory : Denies cough , no dyspnea , no hemoptysis , no sleep apnea, no wheezing , no excessive sputum 6-Gastrointestinal : No jaundice , no nausea , no vomiting ,No abdominal pain , no bloating , no coffee-ground emesis , no hematochezia , No melena , 7-Genitourinary : No hematuria , no discharge , no urinary frequency , no urinary hesitancy , no incontinence, No dysuria 8-Musculoskeletal : No gait dysfunction , report low back pain , 9- Neurological : no ataxia , no aphasia ,no balance difficulties , no change in visions , no change in speech , no tremor , no vertigo , no sezure , no memory loss 10-Psychatric : no anexity ,no depression , no suicidal ideation , no change in appetite , no memory loss , no hallucination 11- Endocrine : no cold intolerence , no nocturia , no polyuria , no polydypsia , no heat intolerance 12-Hematologic : no easy bleeding , no easy brusing , 13-Allergic / immunology : no angioedema , no wheezing ,no allergic rhinitis no glutean intolerence 14-Integumentary : no brttle nails , no change hair / nails , no hirsutism no depigmentation , no foot/leg ulcers Past Medical History Past Medical History: Coronary Artery Disease (CAD), Diabetes Mellitus, Hypertension, Osteoarthritis (OA) History of Any Multi-Drug Resistant Organisms: None Reported Past Surgical History: Heart Catheterization With Stent, Orthopedic Surgery Additional Past Surgical History / Comment(s): Right knee arthroscopy, bilateral cataract surgery, 5 cardiac stents. Past Anesthesia/Blood Transfusion Reactions: Previous Problems w/ Anesthesia Additional Past Anesthesia/Blood Transfusion Reaction / Comm: states pt has letter from previous knee surgery in 2010 that indicates that Erasto was a difficult intubation with difficult airway anterior. Date of Last Stent Placement:: 04/2019 Past Psychological History: No Psychological Hx Reported Smoking Status: Former smoker Past Alcohol Use History: Occasional Additional Past Alcohol Use History / Comment(s): Smoked 15 years, 1ppd, quit 16+ years ago. Past Drug Use History: None Reported - Past Family History Mother Family Medical History: Cancer Additional Family Medical History / Comment(s): Stomach cancer. Medications and Allergies Home Medications Medication Instructions Recorded Confirmed Type Aspirin [Adult Low Dose Aspirin EC] 81 mg PO DAILY 02/05/18 02/15/21 History Furosemide [Lasix] 20 mg PO DAILY 02/05/18 02/15/21 History INSULIN LISPRO (humaLOG) [humaLOG] 50 units SQ TID-W/MEALS 02/05/18 02/15/21 History Insulin Degludec [Tresiba 50 unit SQ HS 02/05/18 02/15/21 History Flextouch U-100 Pen] Metoprolol Tartrate [Lopressor] 50 mg PO BID 02/05/18 02/15/21 History Potassium Chloride ER [K-Dur 10] 10 meq PO BID 02/05/18 02/15/21 History Rosuvastatin [Crestor] 10 mg PO DAILY 02/05/18 02/15/21 History Fenofibrate Nanocrystallized 145 mg PO Q48H 02/28/18 02/15/21 History [Fenofibrate] Clopidogrel [Plavix] 75 mg PO DAILY #30 tab 03/01/18 02/15/21 Rx Nitroglycerin Sl Tabs [Nitrostat] 0.4 mg SUBLINGUAL Q5M PRN tab 03/20/18 02/15/21 Rx Fish Oil/Dha/Epa [Fish Oil 1,200 1,200 mg PO DAILY 05/04/20 02/15/21 History mg Fish Oil] Flaxseed Oil 1,000 mg PO DAILY 05/04/20 02/15/21 History amLODIPine [Norvasc] 5 mg PO W/SUPPER 05/04/20 02/15/21 History metFORMIN HCL [Glucophage] 500 mg PO PC-SUPPER 05/04/20 02/15/21 History Dulaglutide [Trulicity] 0.75 mg SQ MO 05/05/20 02/15/21 History Timolol 0.5% Ophth Soln [Timoptic 1 drop BOTH EYES DAILY 05/05/20 02/15/21 History 0.5% Ophth Soln] Gabapentin 300 mg PO TID PRN 02/15/21 02/15/21 History Allergies Allergy/AdvReac Type Severity Reaction Status Date / Time cyclobenzaprine Allergy Itching Verified 02/15/21 14:00 [From Flexeril] Physical Exam Vitals: Vital Signs Temp Pulse Resp BP Pulse Ox 02/16/21 11:24 98.0 F 81 18 169/78 95 General: Well-developed, well-nourished, no acute distress HEENT: Normocephalic, and atraumatic Neck: Supple, no neck swelling Psychiatric: Appropriate mood, and affect [employer] DES[employer] INTERN: No focal neurological deficits Musculoskeletal: Upper extremity: Normal strength, and range of motion. Sensation grossly intact Lower extremity: Normal strength, and decreased range of motion secondary to sandeep n Lumbar spine: Paravertebral tenderness: positive Lumbar facet load test : positive Sacroiliac joint tenderness: Positive Thigh thrust test: not performed secondary to pain SI joint compression test: Positive Fabere test: not performed secondary to pain Results Results: MRI of the lumbar spine done on01/01/2021 showed Minor degenerative disc changes in the lower lumbar spine. No fractures. Mild left side L4-L5, and L5-S1 neural foraminal narrowing without change. No fractures seen. No spinal canal stenosis. Assessment and Plan Assessment: lumbar spondylosis without myelopathy. Left side L4-L5, and L5-S1 neural foraminal narrowing Myofascial pain syndrome, and chronic pain syndrome Plan: 1 Opioid, and psychological risk tools, and scores were reviewed. Diagnoses, prognosis, and multiple treatment options including but not limited to physical therapy, interventional therapy, adjunct medication therapy, narcotic medication, and surgical options were discussed with the patient. And all questions were answered to the patient's satisfaction. #2 patient was thoroughly discussed regarding the treatment plan, and alternatives. #3 Patient was counseled on importance of regular exercise. Including meir chi, aerobic exercises as tolerated. Which helps for chronic pain, and overall well- being. Patient also counseled regarding importance of weight control rolling chronic pain, and overall other health issues. By altering diet habits, minimizing sugar intake, and processed foods helps in minimizing Inflammation. #4 consultation: none #5 investigations: MAPS -reviewed, urine drug test-not done #6 interventional procedures:lumbar L4-L5 epidural steroid injection#1 under fluoroscopic guidance. Procedure, complications, alternatives discussed with the patient. #7 medications : none none from the pain clinic #8 morphine milligrams equivalents dose ( MME) per day: none from the pain clinic #9 TENS unit's, and percussion massage device #10 disposition scheduled to follow up with pain clinic for above-mentioned procedure Time with Patient: Greater than 30 PQRS Measure Charge Sheet Measure #130: Documentation of Current Meds in Medical Chart: Patient's medications documented in chart Measure #226: Tobacco Use: Screen & Cessation Intervention: Pt not a tobacco user Measure #111: Pneumonia Vaccination: Pneumococcal vaccine administered or previously received Measure #47: Advance Care Plan: Advance care planning discussed & documented, plan or surrogate given Measure #408: Opioid Therapy Follow-up Evaluation: Patient had NO f/u eval minimum every 3 months during opioid therapy Measure #317: Preventitive Care & Scrn High Bld Press & F/U: Pre-hypertensive or hypertensive BP documented, pt will f/u with PCP Measure #128: Body Mass Index (BMI) Screening & Follow-up: BMI documented ABOVE normal parameters - f/u documented Measure #131: Pain Assessment & Follow-up: Pain positive & plan documented Measure #431: Unhealthy Alcohol Use Preventative Care & Scrn: Patient not identified as an unhealthy alcohol user Mode of Arrival: Ambulatory - Pain Location Lower Back Non-Pharmacological Interventions: Chiropractic Treatment, Heat, Ice, Physical Therapy Pharmacological Interventions: Medication PQRS Narrative: Smoking Status Former smoker Blood Pressure 169/78 Pain Intensity [Lower Back] 6 Scale Used Numeric (1 - 10) Hx Alcohol Use (MH) Yes Home Medications: Ambulatory Orders Aspirin [Adult Low Dose Aspirin EC] 81 mg PO DAILY 02/05/18 Furosemide [Lasix] 20 mg PO DAILY 02/05/18 INSULIN LISPRO (humaLOG) [humaLOG] 50 units SQ TID-W/MEALS 02/05/18 Insulin Degludec [Tresiba Flextouch U-100 Pen] 50 unit SQ HS 02/05/18 Metoprolol Tartrate [Lopressor] 50 mg PO BID 02/05/18 Potassium Chloride ER [K-Dur 10] 10 meq PO BID 02/05/18 Rosuvastatin [Crestor] 10 mg PO DAILY 02/05/18 Fenofibrate Nanocrystallized [Fenofibrate] 145 mg PO Q48H 02/28/18 Clopidogrel [Plavix] 75 mg PO DAILY #30 tab 03/01/18 Nitroglycerin Sl Tabs [Nitrostat] 0.4 mg SUBLINGUAL Q5M PRN tab 03/20/18 Fish Oil/Dha/Epa [Fish Oil 1,200 mg Fish Oil] 1,200 mg PO DAILY 05/04/20 Flaxseed Oil 1,000 mg PO DAILY 05/04/20 amLODIPine [Norvasc] 5 mg PO W/SUPPER 05/04/20 metFORMIN HCL [Glucophage] 500 mg PO PC-SUPPER 05/04/20 Dulaglutide [Trulicity] 0.75 mg SQ MO 05/05/20 Timolol 0.5% Ophth Soln [Timoptic 0.5% Ophth Soln] 1 drop BOTH EYES DAILY 05/05/20 Gabapentin 300 mg PO TID PRN 02/15/21
== END | disposition home or self-care (01) ==
LOC: PNWHC3 10:56
DX: M51.36 Other intervertebral disc degeneration, lumbar region (principal)
CPT/HCPCS: 99211

== ENCOUNTER 2021-03-22 06:18 | Day surgery (SDC) | payer MEDICARE ==
[2021-03-21 09:21] VITALS: BMI 43.0
[2021-03-22] MEDS ORDERED: LACTATED RINGERS 1,000 ML IV ONE (06:55)
[2021-03-22] MEDS ORDERED: INSULIN ASPART (NovoLOG) 100 UNIT/ML VIAL SQ ONE (07:01)
[2021-03-22] MEDS ORDERED: MIDAZOLAM 2 MG/2 ML VIAL ONE (07:03)
[2021-03-22] MEDS ORDERED: LIDOCAINE 1% INJ 10MG/ML (20 ML MDV) ONE (07:03)
[2021-03-22] MEDS ORDERED: fentaNYL (PF) 50 MCG/ML 2 ML AMP ONE (07:03)
[2021-03-22] MEDS ORDERED: IOPAMIDOL M200 10 ML VIAL ONE (07:03)
[2021-03-22] MEDS ORDERED: methylPREDNISolone ACETATE 40 MG/ML 1 ML VIAL ONE (07:03)
[2021-03-22 07:05] VITALS: TEMP 97.2
[2021-03-22 07:08] LABS: Glucose,Whole Blood 276 mg/dL (75-99)
[2021-03-22] MEDS ORDERED: IV FLUID CONTINUATION 1,000 ML IV ONE (07:39)
--- NOTE | 2021-03-22 07:39 | P.PCN ---
Date of Procedure: 03/22/21 Description of Procedure: 1. L4-L5 Epidural steroid injection under fluoroscopic guidance #05/23 , 2. Lumbar epidurogram PREOPERATIVE DIAGNOSIS: Lumbar degenerative disc disease, and Lumbar stenosis POSTOPERATIVE DIAGNOSIS: Lumbar degenerative disc disease, and Lumbar spine stenosis SURGEON: Tomi Dill ANESTHESIA: Local with 1% lidocaine, and IV sedation : Versed 1 mg , and 50 g of fentanyl EBL: None. Specimen removed: None Fluoroscopic image: saved to electronic medical records PROCEDURE INDICATION: The patient had history of Lumbar degenerative disc disease and Lumbar spinal stenosis. Failed to conservative therapy. Presented for epidural steroid injection. PROCEDURE DESCRIPTION: The patient was seen and identified in the preoperative area. Risks, benefits, complications, and alternatives were discussed with the patient. The patient agreed to proceed with the procedure and signed the consent. IV was started, and vital signs were stable. Patient was taken to the procedure area, and time out was completed. The patient was placed in the prone position on procedure table and a pillow was placed under the abdomen to reduce lumbar lordosis. The lumbosacral area was prepped and draped in the usual sterile fashion. Critical pause was taken. Vital signs were closely monitored during the procedure. Using anterior-posterior fluoroscopy, the L4-L5 interlaminar space was identified, and skin and deeper tissues were localized with 1% lidocaine. Using anterior-posterior fluoroscopy, lateral fluoroscopy, and [id number] technique, a 20 gauge 3.5 Tuohy epidural needle entered the epidural space. After negative aspiration of CSF and blood with no paresthesias, 2 ml of Feavpx150 contrast dye was injected and an excellent epidurogram was seen. Again after negative aspiration of CSF and blood with no paresthesias, 8 mL of block solution was injected into the epidural space. Block solution contained 40 mg of Depo-Medrol, and 7 mL of preservative-free normal saline. Needle was withdrawn intact, skin was cleansed, and bandages were applied. COMPLICATIONS: None. DISPOSITION / PLANS: The patient was placed in a supine position and transferred to the recovery area in a stable condition for observation. Patient was discharged from the recovery room after meeting discharge criteria. Home discharge instructions given to the patient by the staff. The patient was reexamined prior to discharge. The patient will schedule a follow up in the clinic in 4 weeks
[2021-03-22] MEDS ORDERED: LACTATED RINGERS 1,000 ML IV SCH (07:45)
[2021-03-22 07:46] LABS: Glucose,Whole Blood 294 mg/dL (75-99)
[2021-03-22 08:04] VITALS: BP 147/84; PULSE 77; RESP 18
--- NOTE | 2021-03-22 11:18 | FL ---
Fluoroscopy HISTORY: Pain 18 seconds fluoroscopy time supplied to the referring clinician. 3 intraoperative C-arm images docum ent the procedure. See dictated report from anesthesia.
== END 2021-03-22 08:12 | disposition home or self-care (01) ==
LOC: ORPAIN 06:18
DX: M51.36 Other intervertebral disc degeneration, lumbar region (principal); M48.061 Spinal stenosis, lumbar region without neurogenic claudication; Z95.5 Presence of coronary angioplasty implant and graft; Z98.890 Other specified postprocedural states; Z79.02 Long term (current) use of antithrombotics/antiplatelets; Z88.8 Allergy status to other drugs, medicaments and biological substances
CPT/HCPCS: 62323; J2250; J1030; J2001 ×2; J3010; Q9966; 99152

== ENCOUNTER → 2021-04-18 | Outpatient (CLI) | payer MEDICARE ==
[2021-04-18 13:09] VITALS: BP 139/70; PULSE 80; RESP 18; TEMP 96.7
--- NOTE | 2021-04-18 13:37 | P.PN ---
Subjective Progress Note Date: 04/18/21 This is a follow-up visit for this 75 years old male with a chronic history of severe low back pain, he is diagnosed with lumbar degenerative disc disease, foraminal stenosis and lumbar spondylosis with lumbar facet arthropathy, simply we have done lumbar epidural steroid injection at the L4 5 level. Patient reported that pain improved significantly he continued to feel some stiffness in his low back area and he has pain with radiation to the buttock, he denies any fever or night sweats he denies any change in the bowel movement or urination, he is able to ambulate on his own but he feels some weakness in his lower extremity, he is done physical therapy without any benefit and he has done chiropractors without any benefit and he continues to use Motrin [id number] for pain Objective - Vital Signs Vital signs: Vital Signs Temp 96.7 F L 04/18/21 13:03 Pulse 80 04/18/21 13:03 Resp 18 04/18/21 13:03 BP 139/70 04/18/21 13:03 Pulse Ox 94 L 04/18/21 13:03 Intake & Output 04/17/21 04/18/21 04/18/21 18:59 06:59 18:59 Weight 136.078 kg - Exam Physical Examinations : -Constitutiona : Cooperative , not in acute distress . -HEENT : nech : supple , no Lymphadenopathy , normal thyroid size . : eyes : no ptosis , no icterus, no photophobia . - neurologic : Cranial nerve II to XII intact , no focal neurological deffecit . -psychatric : alert , oriented X 3 , appropriate affect , intact judgment and insight . -Lymphatic : no Lymphadenopathy . - musculoskeltal : Lumber spine moter stegnth lower extremities ,thigh and legs 5/5 Right side , 5/5 Left side deep tendon reflexes : normal Knee Jerk , normal ankle Jerk lumber facet Loading Test =positive Right , positive Left Range of motion of the lumbar spine Flexion 30 degrees, extension 10 degrees strait leg raising test = positive at 45 degree Fabere test= positive Right , and positive LT . tenderness over the Sacroiliac joint on the Right , and Left sides . MRI of the lumbar spine= lumbar degenerative disc disease and lumbar foraminal stenosis Assessment and Plan Plan: Assessment and plan=1-lumbar foraminal stenosis. 2-lumbar degenerative disc disease. 3-lumbar spondylosis and lumbar facet arthropathy. 4 coronary artery disease with current use of Plavix. he could benefit from repeat lumbar epidural steroid injection at L4 5 levels but he has to hold Plavix for 1 week before the procedure. - PQRS measures = - Patient's medications are documented in the chart. -Tobacco use is negative and counseling.Given. -Patient's has not received pneumococcal vaccine. -Advanced care planning discussed, patient not eligible. -Opiate contract not signed. -Pain positive and follow-up visit/procedure is scheduled. -Patient's blood pressure measured [139/70 ] , and documented in the record ,and patient will follow up with the primary care. -Patient's weight was measured and body mass index [ 44 ] above the,normal limits and counseling was done. and patient instructed to follow-up with the primary care physician. -Patient was not identified as an unhealthy alcohol user Time with Patient: Less than 30
== END | disposition home or self-care (01) ==
LOC: PNWHC3 12:48
PROVIDERS: ATTEND Specialist
DX: M47.896 Other spondylosis, lumbar region (principal); M51.36 Other intervertebral disc degeneration, lumbar region; M48.061 Spinal stenosis, lumbar region without neurogenic claudication; I25.10 Atherosclerotic heart disease of native coronary artery without angina pectoris
CPT/HCPCS: 99211

== ENCOUNTER 2021-06-14 11:34 | Day surgery (SDC) | payer MEDICARE ==
[2021-06-09 09:25] VITALS: BMI 44.3
[~2021-06-14 11:34] MED LIST changes: -ALPRAZolam 0.25 MG TAB PO PRN; -ALPRAZolam 0.5 MG TAB PO PRN; -ASPIRIN 325 MG TAB PO ONE; -ATORVASTATIN 80 MG TAB PO ONE; +LACTATED RINGERS 1,000 ML IV SCH; -NITROGLYCERIN SL TABS 0.4 MG TAB SUBLINGUAL PRN; -SODIUM CHLORIDE 0.9% 1,000 ML in EMPTY BAG 1 BAG IV ONE; -diphenhydrAMINE 25 MG CAP PO STA
[2021-06-14 11:54] VITALS: RESP 18; TEMP 97.8
[2021-06-14] MEDS ORDERED: LACTATED RINGERS 1,000 ML IV ONE (11:54)
[2021-06-14 12:01] LABS: Glucose,Whole Blood 193 mg/dL (75-99)
[2021-06-14 12:54] LABS: Glucose,Whole Blood 185 mg/dL (75-99)
[2021-06-14] MEDS ORDERED: fentaNYL (PF) 50 MCG/ML 2 ML AMP ONE (12:55)
[2021-06-14] MEDS ORDERED: MIDAZOLAM 2 MG/2 ML VIAL ONE (12:55)
[2021-06-14] MEDS ORDERED: IOPAMIDOL M200 10 ML VIAL ONE (12:55)
[2021-06-14] MEDS ORDERED: methylPREDNISolone ACETATE 40 MG/ML 1 ML VIAL ONE (12:55)
[2021-06-14] MEDS ORDERED: IV FLUID CONTINUATION 1,000 ML IV ONE (13:14)
--- NOTE | 2021-06-14 13:14 | P.PCN ---
Date of Procedure: 06/14/21 Procedure(s) Performed: PREOPERATIVE DIAGNOSIS: 1- Lumbar Degenerative Disc Diseases 2-Lumbar spondylosis with Facet arthropathy without myelopathy POSTOPERATIVE DIAGNOSIS: Same as preop diagnosis. PROCEDURE 1. Lumbar epidural steroid injection under fluoroscopic guidance at the L4-5 level. (Fluoroscopy imaging was available in radiology department) 2. Lumbar epidurogram. ANESTHESIA: Local with 1% lidocaine 3 ml and , moderate sedation with intravenous Versed 1 mg ,and fentanyle 50 Mcg EBL: Minimal PROCEDURE INDICATION: The patient with low back pain and radiculitis symptoms unresponsive to conservative treatment. Fluoroscopy was used to optimize visualization of the needle placement and to maximize safety. PROCEDURE DESCRIPTION / TECHNIQUE: The patient was seen and identified in the preoperative area. Risks, benefits, complications including but not limited to infections ,bleeding ,allergic reaction to the medications ,nerve damage and not complete pain releife , and alternatives were discussed with the patient. The patient agreed to proceed with the procedure and signed the consent. IV was started, and vital signs were stable. Patient was taken to the OR and time out was completed. The patient was placed in the prone position on procedure table and a pillow was placed under the abdomen to reduce lumbar lordosis. The lumbosacral area was prepped and draped in the usual sterile fashion.ere closely monitored during the procedure. Consc ious sedation was used during the procedure to decrease patients anxiety. Vital signs was monitered during the entire procedure. Using anterior-posterior fluoroscopy, the L4-5 interlaminar space was identified and the skin over this site was marked and then infiltrated with 1% lidocaine subcutaneously. Subsequently, a 20-gauge Tuohy epidural needle was inserted and advanced toward the epidural space using the ``Loss of resistance technique and guided by AP and lateral fluoroscopy. The correct needle position in the epidural space was verified with the injection of 2 mL of the water soluble c ontrast dye Isovue 200 contrast and observing an excellent epidurogram with the epidural spread of the dye, after negative aspiration for blood and CSF and in the absence of paresthesias. Again after negative aspiration, a 6 ml mixture containing 40 mg of Depo-medrol , and 2 ml of preservative free Normal Saline, and 2 ml of preservative free lidocaine 1% solution was injected and a washout of epidurogram was seen. Needle was withdrawn intact, skin was cleansed, and bandages were applied. COMPLICATIONS: None DISPOSITION / PLANS: The patient was placed in a supine position and transferred to the recovery area in a stable condition for observation. There was no evidence of lower extremity motor or sensory deficit after the procedure. Patient was discharged from the recovery room after meeting discharge criteria. Home discharge instructions were given to the patient by the staff. The patient was reexamined prior to discharge. The patient will schedule a follow up in the clinic in 2-4 weeks.
[2021-06-14 13:21] VITALS: PULSE 78
[2021-06-14 13:46] VITALS: BP 156/67
--- NOTE | 2021-06-14 13:50 | FL ---
EXAMINATION TYPE: FL guided pain mgmt statistic DATE OF EXAM: 06/14/2021 HISTORY: Fluoroscopy time 6 seconds of fluoroscopy provided. IMPRESSION: 1. Fluoroscopy time.
== END 2021-06-14 13:51 | disposition home or self-care (01) ==
LOC: ORPAIN 11:34
PROVIDERS: ATTEND Specialist
DX: M51.16 Intervertebral disc disorders with radiculopathy, lumbar region (principal); M47.26 Other spondylosis with radiculopathy, lumbar region; I25.10 Atherosclerotic heart disease of native coronary artery without angina pectoris; E11.9 Type 2 diabetes mellitus without complications; Z79.02 Long term (current) use of antithrombotics/antiplatelets; Z88.8 Allergy status to other drugs, medicaments and biological substances
CPT/HCPCS: 62323; J2250; J1030; J3010; Q9966; 99152

== ENCOUNTER → 2021-07-07 | Outpatient (CLI) | payer MEDICARE ==
[2021-07-07 14:05] VITALS: BP 188/73; PULSE 78; RESP 18; TEMP 97.8
--- NOTE | 2021-07-07 14:18 | P.PN ---
Subjective Progress Note Date: 07/07/21 Principal diagnosis: A 76 yr old male with at side with a history of severe and chronic low back pain secondary to lumbar degenerative disc diseases and lumbar spondylosis with facet arthropathy presents today for evaluation of LESI L4-L5. Patient states he experienced 100% pain relief with the procedure and is still currently pain free. Patient admits to tightness in the right aspect of his lumbar spine that only experiences 30% relief with the procedure. Denies provocation, radiation of pain, tingling, numbness or weakness. Pain is alleviated with LESI injection, physical therapy 2 years ago, chiropractic treatments 6 months ago, daily stretching, repositioning and rest. Interventional pain procedures completed include LESI of the L4-L5 on 06/14/20 Patient is currently on no pain medicine or muscle relaxers Patient denies any side effects of the medication(s), denies excessive drowsiness or sleepiness, denies suicidal ideation and reports that the current pain medication is helping to control the pain and improve activities of daily living. Patient denies any motor or sensory deficits. Patient denies any fever or night sweats, denies any change in the bowel movements or urination. Physical Examination: -Constitutional: Cooperative. Not in acute distress . -HEENT: Neck is supple. No lymphadenopathy. No thyromegaly. Normal thyroid size. Eyes: No ptosis , no icterus, no photophobia. ENT: No auditory deficits. Normal oropharynx. No Thrush. - Respiratory: Chest clear to auscultations bilaterally. No wheezing. No rhonchi. - Cardiovascular: Regular rate and rhythm. S1 / S2 , no S3 , no S4. - Gastrointestinal: Abdomen soft no tenderness. Bowel sounds positive in all four quadrants. No organomegaly. - Genitourinary: Deferred. - Neurologic: Cranial nerve II to XII intact. No focal neurological deficits. - Psychatric: Alert & oriented x 3. Matching mood & appropriate affect. Judgment and insight intact. - Lymphatic: No Lymphadenopathy. - Musculoskeletal: Cervical spine: Muscle bulk/ tone/ strength in the bilateral upper extremities normal. Facet loading test cervical area positive. Lumbar spine: Motor bulk/ tone/ strength lower extremities , thigh and legs : 5/5 Deep tendon reflexes : Normal Knee Jerk. Normal Ankle Jerk . Vertebral body tenderness to palpation over Lumbar Facet Loading Test positive Paraspinal muscle spasm is noted over the right L4- L5, L5- S1 Straight Leg Raise: positive at 30 degrees right side/ left side Gaenslen's Test positive Sacral spine : Severe tenderness over the Sacroiliac joint: right side / left side Range of motion: Flexion of the lumbar spine <60 degrees Range of motion: Extension of the lumbar spine <20 degrees Gaenslen's Test positive Chikis test: positive right side / left side Assessment and plan: Chronic low back pain secondary to lumbar degenerative disc disease , lumbar spondylosis with facet arthropathy without myelopathy Diagnoses, prognosis and treatment options including but not limited to physical therapy, surgical interventions, interventional therapies and medication management including narcotics and adjuvant medication were discussed. All patient questions answered MAPS reviewed and it was appropriate. Prescription refill for Robaxin 500 mg up to twice a day when necessary spasms #60 with 1 refill I have spent 31 minutes on patient care today. Dr David was available by phone for the evaluation of this patient. The time was used to review the medical records including relevant urine studies and Prescription history (MAPs), review of the available imaging, evaluation and examination of the patient, coordination of care with the medical staff and if applicable referring physicians, as well as creation of the medical record Objective - Vital Signs Vital signs: Vital Signs Temp 97.8 F 07/07/21 13:54 Pulse 78 07/07/21 13:54 Resp 18 07/07/21 13:54 BP 188/73 07/07/21 13:54 Pulse Ox 95 07/07/21 13:54 PQRS Measure Charge Sheet Mode of Arrival: Ambulatory - Pain Location Lower Back Non-Pharmacological Interventions: Chiropractic Treatment, Heat, Home Exercise, Inactivity Pharmacological Interventions: Epidural, PRN Medication PQRS Narrative: Smoking Status Former smoker Blood Pressure 188/73 Pain Intensity [Lower Back] 2 Scale Used Numeric (1 - 10) Hx Alcohol Use (MH) Yes Home Medications: Ambulatory Orders Aspirin [Adult Low Dose Aspirin EC] 81 mg PO DAILY 02/05/18 Furosemide [Lasix] 20 mg PO DAILY 02/05/18 INSULIN LISPRO (humaLOG) [humaLOG] 50 units SQ TID-W/MEALS 02/05/18 Insulin Degludec [Tresiba Flextouch U-100 Pen] 50 unit SQ HS 02/05/18 Metoprolol Tartrate [Lopressor] 50 mg PO BID 02/05/18 Potassium Chloride ER [K-Dur 10] 10 meq PO BID 02/05/18 Rosuvastatin [Crestor] 10 mg PO 1900 02/05/18 Fenofibrate Nanocrystallized [Fenofibrate] 145 mg PO Q48H 02/28/18 Clopidogrel [Plavix] 75 mg PO DAILY #30 tab 03/01/18 Nitroglycerin Sl Tabs [Nitrostat] 0.4 mg SUBLINGUAL Q5M PRN tab 03/20/18 Fish Oil/Dha/Epa [Fish Oil 1,200 mg Fish Oil] 1,200 mg PO DAILY 05/04/20 Flaxseed Oil 1,000 mg PO DAILY 05/04/20 amLODIPine [Norvasc] 5 mg PO W/SUPPER 05/04/20 metFORMIN HCL [Glucophage] 500 mg PO PC-SUPPER 05/04/20 Dulaglutide [Trulicity] 0.75 mg SQ MO 05/05/20 Timolol 0.5% Ophth Soln [Timoptic 0.5% Ophth Soln] 1 drop BOTH EYES DAILY 05/05/20
== END | disposition home or self-care (01) ==
LOC: PNWHC3 13:28
PROVIDERS: ATTEND Physician Assistant Medical
DX: M51.36 Other intervertebral disc degeneration, lumbar region (principal); M47.896 Other spondylosis, lumbar region; M46.96 Unspecified inflammatory spondylopathy, lumbar region
CPT/HCPCS: 99211

== ENCOUNTER → 2021-10-21 | Outpatient (CLI) | payer MEDICARE | END | disposition home or self-care (01) | LOC: RADCTMAIN 07:54 | PROVIDERS: ATTEND Internal Medicine Interventional Cardiology | DX: I73.9 Peripheral vascular disease, unspecified (principal) | CPT/HCPCS: 82565; 84520 ==

== ENCOUNTER → 2021-12-01 | Outpatient (CLI) | payer MEDICARE ==
--- NOTE | 2021-12-01 16:39 | US ---
EXAMINATION TYPE: US kidneys/renal and bladder DATE OF EXAM: 12/01/2021 COMPARISON: NONE CLINICAL HISTORY: N18.3 CKD,E11.9 DM. Recent abnormal labs, CKD stage 3 EXAM MEASUREMENTS: Right Kidney: 11.9 x 6.4 x 6.4 cm Left Kidney: 13.1 x 7.3 x 6.2 cm Very large patient, with large/hard abdomen- difficult to penetrate and visualize organs Right Kidney: Limited visualization, no evidence of hydro, possible hypoechoic lesion mid/lateral= 3. 0 x 2.6 x 2.8 cm Left Kidney: Limited visualization, no evidence of hydro, possible cyst lower pole= 5.5 x 4.2 x 4.7 c m Bladder: wnl Bilateral Jets seen: No Suboptimal study due to large body habitus. Right kidney has 3.0 x 2.6 cm hypoechoic to anechoic lesi on. No gross right-sided hydronephrosis. Bladder adequately distended. Left kidney has incidental 5.5 cm exophytic thin-walled cyst lower pole level. IMPRESSION: No hydronephrosis seen bilaterally. Suboptimal study. Cannot exclude 3.0 cm simple cyst i n the right kidney. Consider further investigation with contrast-enhanced renal protocol CT or MRI.
== END | disposition home or self-care (01) ==
LOC: RADUSWWP 15:17
PROVIDERS: ATTEND Internal Medicine Interventional Cardiology
DX: E11.9 Type 2 diabetes mellitus without complications (principal); N18.30 Chronic kidney disease, stage 3 unspecified
CPT/HCPCS: 76770

== ENCOUNTER → 2021-12-08 | Outpatient (CLI) | payer MEDICARE ==
[2021-12-08 09:55] VITALS: BP 179/80; PULSE 76; RESP 18; TEMP 98.1
--- NOTE | 2021-12-08 10:16 | P.PAINPG ---
PQRS Measure Charge Sheet Comment: A 76 yr old male with a history of severe and chronic low back pain secondary to lumbar degenerative disc diseases and lumbar spondylosis with facet arthropathy presents today for LBP radiating towards the L hip. Pain level is 0/10 in intensity but escalates as high as 6/10 in intensity with sitting for periods of 30 min or more. Pain is sharp/ shooting towards the L glutes and L inner groin. Pain is alleviated with medications, topicals, home based exercise regimen, repositioning and rest. Interventional pain procedures completed include LESI L4-L5 Patient is currently on Robaxin Patient denies any side effects of the medication(s), denies excessive drowsiness or sleepiness, denies suicidal ideation and reports that the current pain medication is helping to control the pain and improve activities of daily living. Patient denies any motor or sensory deficits. Patient denies any fever or night sweats, denies any change in the bowel movements or urination. Physical Examination: -Constitutional: Cooperative. Not in acute distress . - Neurologic: Cranial nerve II to XII intact. No focal neurological deficits. - Psychatric: Alert & oriented x 3. Matching mood & appropriate affect. Judgment and insight intact. - Musculoskeletal: Cervical spine: Muscle bulk/ tone/ strength in the bilateral upper extremities normal Vertebral body tenderness to palpation over Spurling test positive Distraction test positive Facet loading test positive Thoracic spine Muscle bulk / tone/ strength in the bilateral paraspinal muscles normal Vertebral body tender to palpation over Facet loading test positive Lumbar spine: Motor bulk/ tone/ strength lower extremities , thigh and legs : 5/5 Deep tendon reflexes : Normal Knee Jerk. Normal Ankle Jerk . Vertebral body tenderness to palpation over Lumbar Facet Loading Test positive Straight Leg Raise: positive at 30 degrees right side/ left side Gaenslen's Test positive Sacral spine : Severe tenderness over the Sacroiliac joint: right side / left side Range of motion: Flexion of the lumbar spine <60 degrees Range of motion: Extension of the lumbar spine <20 degrees Gaenslen's Test positive L side Chikis test: positive right side / left side +L Thigh Thrust Test Sacral Thrust Test L side Assessment and plan: Chronic low back pain secondary to lumbar degenerative disc disease , L Sacroiliitis Recommendation of L SI joint injection. May need a series of injections, up to every 3 months, for optimal pain relief. Risks, benefits of procedure discussed and pt verbalized understanding. Admits to anticoagulant use and denies a medical history of diabetes. Protocol for discontinuation/ continuation of medications stephen procedure discussed. All patient questions answered MAPS reviewed and it was appropriate. I have spent less than 30 minutes on patient care today. Dr David was available by phone for the evaluation of this patient. The time was used to review the medical records including relevant urine studies and Prescription history (MAPs), review of the available imaging, evaluation and examination of the patient, coordination of care with the medical staff and if applicable referring physicians, as well as creation of the medical record PQRS Narrative: Smoking Status Former smoker Hx Alcohol Use (MH) Yes Home Medications: Ambulatory Orders Aspirin [Adult Low Dose Aspirin EC] 81 mg PO DAILY 02/05/18 Furosemide [Lasix] 20 mg PO DAILY 02/05/18 INSULIN LISPRO (humaLOG) [humaLOG] 50 units SQ TID-W/MEALS 02/05/18 Insulin Degludec [Tresiba Flextouch U-100 Pen] 50 unit SQ HS 02/05/18 Metoprolol Tartrate [Lopressor] 50 mg PO BID 02/05/18 Potassium Chloride ER [K-Dur 10] 10 meq PO BID 02/05/18 Rosuvastatin [Crestor] 10 mg PO 1900 02/05/18 Fenofibrate Nanocrystallized [Fenofibrate] 145 mg PO Q48H 02/28/18 Clopidogrel [Plavix] 75 mg PO DAILY #30 tab 03/01/18 Nitroglycerin Sl Tabs [Nitrostat] 0.4 mg SUBLINGUAL Q5M PRN tab 03/20/18 Fish Oil/Dha/Epa [Fish Oil 1,200 mg Fish Oil] 1,200 mg PO DAILY 05/04/20 amLODIPine [Norvasc] 5 mg PO W/SUPPER 05/04/20 flaxseed oiL [Flaxseed Oil] 1,000 mg PO DAILY 05/04/20 metFORMIN HCL [Glucophage] 500 mg PO PC-SUPPER 05/04/20 Dulaglutide [Trulicity] 0.75 mg SQ MO 05/05/20 Timolol 0.5% Ophth Soln [Timoptic 0.5% Ophth Soln] 1 drop BOTH EYES DAILY 05/05/20 Controlled Substance Measures - Controlled Substance Measures Is patient prescribed a controlled substance at discharge?: No
== END | disposition home or self-care (01) ==
LOC: PNWHC3 09:05
PROVIDERS: ATTEND Specialist
DX: M51.36 Other intervertebral disc degeneration, lumbar region (principal); M46.1 Sacroiliitis, not elsewhere classified
CPT/HCPCS: 99211

== ENCOUNTER 2022-01-19 05:58 | Day surgery (SDC) | payer MEDICARE ==
[2022-01-18 12:37] VITALS: BMI 42.3
[2022-01-19] MEDS ORDERED: LACTATED RINGERS 1,000 ML IV SCH ×2 (06:02→07:15)
[2022-01-19] MEDS ORDERED: LIDOCAINE 1% (10MG/ML) FOR IV START INTRADERMA PRN (06:02)
[2022-01-19 06:47] LABS: Glucose,Whole Blood 311 mg/dL (70-110)
[2022-01-19 06:52] VITALS: RESP 16; TEMP 97
[2022-01-19] MEDS ORDERED: INSULIN ASPART (NovoLOG) 100 UNIT/ML VIAL SQ ONE (06:53)
[2022-01-19] MEDS ORDERED: IOPAMIDOL M200 10 ML VIAL ONE (07:00)
[2022-01-19] MEDS ORDERED: fentaNYL (PF) 50 MCG/ML 2 ML AMP ONE (07:00)
[2022-01-19] MEDS ORDERED: TRIAMCINOLONE ACETONIDE 40 MG/ML 1 ML VIAL ONE (07:00)
[2022-01-19] MEDS ORDERED: MIDAZOLAM 2 MG/2 ML VIAL ONE (07:00)
[2022-01-19] MEDS ORDERED: IV FLUID CONTINUATION 750 ML IV ONE (07:16)
--- NOTE | 2022-01-19 07:18 | P.PCN ---
Date of Procedure: 01/19/22 Description of Procedure: PREOPERATIVE DIAGNOSIS: Sacroiliac joint dysfunction POSTOPERATIVE DIAGNOSIS: Sacroiliac joint dysfunction. PROCEDURES: 1. Left side Sacroiliac joint steroid injection #1 out of 2 2. Sacroiliac joint arthrogram. SURGEON: Tomi Dill ANESTHESIA: Local and IV sedation : Versed 2 mg, and fentanyl 50 g Sedation supervision start time : :07:00 am sedation Supervision end time: 0709 am EBL: None. Specimen removed: None Fluoroscopic image: saved to electronic medical records. PROCEDURE INDICATIONS: This patient with a history of chronic low back pain, and sacroiliac joint dysfunction. Patient tried conservative therapy. Came here for intervention management. PROCEDURE DESCRIPTION: The patient was seen and identified in the preoperative area. Risks, benefits, complications, and alternatives were discussed with the patient. The patient agreed to proceed with the procedure and signed the consent. IV was started, and vital signs were stable. Patient was taken to the OR and time out was completed. The patient was placed in the prone position on procedure table and a pillow was placed under the abdomen to reduce lumbar lordosis. The lumbosacral area was prepped and draped in the usual sterile fashion. Critical pause was taken. Vital signs were closely monitored during the procedure. For the left side, the fluoroscopic camera was placed in right oblique view and left SI joint lower pole was identified. Skin entry point was infiltrated with 1% lidocaine and 22-gauge 5 inch spinal needle was introduced into the inferior one-third of SI joint and after penetrating into the joint arthrogram was done. 0.5 ml of [id number] contrast was injected after negative aspiration for blood, and air and negative for paresthesia. Good spread of the contrast into the SI joint has been seen. Then again after negative aspiration of spinal fluid and blood and negative for neurological symptoms, 3 mL of a solution containing total 2 mL of 1% preservative-free lidocaine mixed with 40 mg of Kenalog was injected. Needle was withdrawn intact. Needle was withdrawn intact. Skin was cleansed, and bandages were applied. COMPLICATIONS: None. DISPOSITION / PLANS: The patient was placed in a supine position and transferred to the recovery area in a stable condition for observation and was discharged from the recovery room after meeting discharge criteria. Home discharge instructions given to the patient by the staff. The patient was reexamined prior to discharge. The patient will schedule for follow-up visit with the pain clinic in 4 weeks duration.
[2022-01-19 07:26] LABS: Glucose,Whole Blood 320 mg/dL (70-110)
[2022-01-19 07:39] VITALS: BP 142/68; PULSE 83
--- NOTE | 2022-01-19 07:39 | FL ---
Intraoperative/procedural fluoroscopic services were provided for left sacroiliac joint injection. To dennis fluoroscopy time is 2 seconds with a total of 1 submitted image to PACS. Please see the operative note for further details.
== END 2022-01-19 07:58 | disposition home or self-care (01) ==
LOC: ORPAIN 05:58
DX: M53.3 Sacrococcygeal disorders, not elsewhere classified (principal); I10 Essential (primary) hypertension; E11.9 Type 2 diabetes mellitus without complications; E78.00 Pure hypercholesterolemia, unspecified; I25.10 Atherosclerotic heart disease of native coronary artery without angina pectoris; Z88.6 Allergy status to analgesic agent
CPT/HCPCS: J2250; J3301; J3010; Q9966; G0260; 27096

== ENCOUNTER → 2022-03-16 | Outpatient (CLI) | payer MEDICARE ==
[2022-03-16 10:09] VITALS: BP 167/79; PULSE 69; RESP 18; TEMP 98.3
--- NOTE | 2022-03-16 14:34 | P.PAINPG ---
PQRS Measure Charge Sheet Comment: A 76 yr old male w at side with a history of severe and chronic low back pain secondary to BL Sacroiliitis presents today for evaluation s/p L SI injection. Pt states he experienced 90% pain relief x 4 wks s/p procedure. Pain level is currently at 0/10 in intensity, constant, localized in the L lower lumbar spine/ tailbone, dull in character without shooting pain. Pain is provoked by standing from a sitting position where a "jolt" will be elicited. Pain is alleviated with medications (Tyl), topicals, injections, PT 10 yrs ago, chiropractic treatments 3 times per week last year, repositioning and rest. Interventional pain procedures completed include L SI x1 Patient is currently on Tyl Patient denies any side effects of the medication(s), denies excessive drowsiness or sleepiness, denies suicidal ideation and reports that the current pain medication is helping to control the pain and improve activities of daily living. Patient denies any motor or sensory deficits. Patient denies any fever or night sweats, denies any change in the bowel movements or urination. Physical Examination: -Constitutional: Cooperative. Not in acute distress . - Neurologic: Cranial nerve II to XII intact. No focal neurological deficits. - Psychatric: Alert & oriented x 3. Matching mood & appropriate affect. Judgment and insight intact. - Musculoskeletal: Cervical spine: Muscle bulk/ tone/ strength in the bilateral upper extremities normal Vertebral body tenderness to palpation over Spurling test positive Distraction test positive Facet loading test positive Thoracic spine Muscle bulk / tone/ strength in the bilateral paraspinal muscles normal Vertebral body tender to palpation over Facet loading test positive Lumbar spine: Motor bulk/ tone/ strength lower extremities , thigh and legs : 5/5 Deep tendon reflexes : Normal Knee Jerk. Normal Ankle Jerk . Vertebral body tenderness to palpation over Lumbar Facet Loading Test positive Straight Leg Raise: positive at 30 degrees right side/ left side Gaenslen's Test positive Sacral spine : Severe tenderness over the Sacroiliac joint: right side / left side Range of motion: Flexion of the lumbar spine <60 degrees Range of motion: Extension of the lumbar spine <20 degrees Gaenslen's Test positive Chikis test: positive right side / left side Thigh Thrust Test Sacral Thrust Test Assessment and plan: Chronic low back pain secondary to BL Sacroiliitis Pt exhibited sufficient and substantial pain relief w prior procedure. He will manage residual pain w home modalities and may return to the clinic on an as needed basis. All patient questions answered I have spent less than 30 minutes on patient care today. Dr David was available by phone for the evaluation of this patient. The time was used to review the medical records including relevant urine studies and Prescription history (MAPs), review of the available imaging, evaluation and examination of the patient, coordination of care with the medical staff and if applicable referring physicians, as well as creation of the medical record PQRS Narrative: Smoking Status Former smoker Hx Alcohol Use (MH) Yes Home Medications: Ambulatory Orders Aspirin [Adult Low Dose Aspirin EC] 81 mg PO DAILY 02/05/18 Furosemide [Lasix] 20 mg PO DAILY 02/05/18 INSULIN LISPRO (humaLOG) [humaLOG] 50 units SQ TID-W/MEALS 02/05/18 Insulin Degludec [Tresiba Flextouch U-100 Pen] 50 unit SQ HS 02/05/18 Metoprolol Tartrate [Lopressor] 100 mg PO HS 02/05/18 Potassium Chloride ER [K-Dur 10] 10 meq PO BID 02/05/18 Rosuvastatin [Crestor] 10 mg PO 1900 02/05/18 Fenofibrate Nanocrystallized [Fenofibrate] 145 mg PO Q48H 02/28/18 Clopidogrel [Plavix] 75 mg PO DAILY #30 tab 03/01/18 Nitroglycerin Sl Tabs [Nitrostat] 0.4 mg SUBLINGUAL Q5M PRN tab 03/20/18 Fish Oil/Dha/Epa [Fish Oil 1,200 mg Fish Oil] 1,200 mg PO DAILY 05/04/20 amLODIPine [Norvasc] 5 mg PO W/SUPPER 05/04/20 flaxseed oiL [Flaxseed Oil] 1,000 mg PO DAILY 05/04/20 metFORMIN HCL [Glucophage] 500 mg PO PC-SUPPER 05/04/20 Dulaglutide [Trulicity] 0.75 mg SQ MO 05/05/20 Timolol 0.5% Ophth Soln [Timoptic 0.5% Ophth Soln] 1 drop BOTH EYES DAILY 05/05/20 Metoprolol Tartrate [Lopressor] 100 mg PO QAM 01/18/22 Losartan [Cozaar] 50 mg PO DAILY 01/19/22 Controlled Substance Measures - Controlled Substance Measures Is patient prescribed a controlled substance at discharge?: No
== END ==
LOC: PNWHC3 09:42
PROVIDERS: ATTEND Specialist
DX: M46.1 Sacroiliitis, not elsewhere classified (principal); M54.50 Low back pain, unspecified; Z87.891 Personal history of nicotine dependence; Z88.2 Allergy status to sulfonamides
CPT/HCPCS: 99211

== ENCOUNTER 2022-05-12 11:00 | Inpatient (IN) | payer MEDICARE ==
--- NOTE | 2022-05-12 11:22 | ED ---
General Adult HPI - General Chief complaint: Shortness of Breath Stated complaint: sob Time Seen by Provider: 05/12/22 11:05 Source: patient, family, RN notes reviewed Mode of arrival: wheelchair Limitations: no limitations - History of Present Illness Initial comments: Patient is a pleasant 76-year-old male presenting to the emergency department with dyspnea. Onset of symptoms was less than a week ago. No history of similar symptoms previously. Patient does have some leg swelling however this is chronic and unchanged. Patient has minimal chest discomfort. Patient denies any congestion however states she has noticed some congestion with him. No fevers. Patient states he is only able to walk around 3 feet before becoming very short of breath. Patient has to rest before even making it to the restroom. - Related Data Home Medications Medication Instructions Recorded Confirmed Aspirin [Adult Low Dose Aspirin EC] 81 mg PO DAILY 02/05/18 03/16/22 Furosemide [Lasix] 20 mg PO DAILY 02/05/18 03/16/22 INSULIN LISPRO (humaLOG) [humaLOG] 50 units SQ TID-W/MEALS 02/05/18 03/16/22 Insulin Degludec [Tresiba 50 unit SQ HS 02/05/18 03/16/22 Flextouch U-100 Pen] Metoprolol Tartrate [Lopressor] 100 mg PO HS 02/05/18 03/16/22 Potassium Chloride ER [K-Dur 10] 10 meq PO BID 02/05/18 03/16/22 Rosuvastatin [Crestor] 10 mg PO 1900 02/05/18 03/16/22 Fenofibrate Nanocrystallized 145 mg PO Q48H 02/28/18 03/16/22 [Fenofibrate] Fish Oil/Dha/Epa [Fish Oil 1,200 1,200 mg PO DAILY 05/04/20 03/16/22 mg Fish Oil] amLODIPine [Norvasc] 5 mg PO W/SUPPER 05/04/20 03/16/22 flaxseed oiL [Flaxseed Oil] 1,000 mg PO DAILY 05/04/20 03/16/22 metFORMIN HCL [Glucophage] 500 mg PO PC-SUPPER 05/04/20 03/16/22 Dulaglutide [Trulicity] 0.75 mg SQ MO 05/05/20 03/16/22 Timolol 0.5% Ophth Soln [Timoptic 1 drop BOTH EYES DAILY 05/05/20 03/16/22 0.5% Ophth Soln] Metoprolol Tartrate [Lopressor] 100 mg PO QAM 01/18/22 03/16/22 Losartan [Cozaar] 50 mg PO DAILY 01/19/22 03/16/22 Previous Rx's Medication Instructions Recorded Clopidogrel [Plavix] 75 mg PO DAILY #30 tab 03/01/18 Nitroglycerin Sl Tabs [Nitrostat] 0.4 mg SUBLINGUAL Q5M PRN tab 03/20/18 Allergies Allergy/AdvReac Type Severity Reaction Status Date / Time cyclobenzaprine Allergy Itching Verified 05/12/22 12:48 [From Flexeril] Review of Systems ROS Statement: Those systems with pertinent positive or pertinent negative responses have been documented in the HPI. ROS Other: All systems not noted in ROS Statement are negative. Constitutional: Denies: fever Eyes: Denies: eye pain ENT: Denies: ear pain Respiratory: Reports: as per HPI, dyspnea. Denies: cough Cardiovascular: Reports: as per HPI Endocrine: Denies: fatigue Gastrointestinal: Denies: abdominal pain Genitourinary: Denies: dysuria Musculoskeletal: Denies: back pain Skin: Denies: rash Neurological: Denies: weakness Past Medical History Past Medical History: Coronary Artery Disease (CAD), Diabetes Mellitus, Eye Disorder, Hearing Disorder / Deafness, Hypertension, Osteoarthritis (OA) Additional Past Medical History / Comment(s): GLAUCOMA. Hard of hearing. History of Any Multi-Drug Resistant Organisms: None Reported Past Surgical History: Heart Catheterization With Stent, Orthopedic Surgery Additional Past Surgical History / Comment(s): Right knee arthroscopy, bilateral cataract surgery, 5 cardiac stents, pain clinic procedure. Past Anesthesia/Blood Transfusion Reactions: Previous Problems w/ Anesthesia Additional Past Anesthesia/Blood Transfusion Reaction / Comment(s): states pt has letter from previous knee surgery in 2010 that indicates that Erasto was a difficult intubation with difficult airway anterior. Date of Last Stent Placement:: 04/2019 Past Psychological History: No Psychological Hx Reported Smoking Status: Former smoker Past Alcohol Use History: None Reported Past Drug Use History: None Reported - Past Family History Mother Family Medical History: Cancer Additional Family Medical History / Comment(s): Stomach cancer. General Exam Limitations: no limitations General appearance: alert Head exam: Present: normocephalic Eye exam: Present: normal appearance Neck exam: Present: normal inspection Respiratory exam: Present: normal lung sounds bilaterally Cardiovascular Exam: Present: regular rate, normal rhythm GI/Abdominal exam: Present: soft. Absent: tenderness Extremities exam: Present: pedal edema. Absent: calf tenderness Neurological exam: Present: alert Psychiatric exam: Present: normal affect, normal mood Skin exam: Present: normal color Course Vital Signs 05/12/22 05/12/22 05/12/22 11:01 11:04 12:45 Temperature 98.6 F 98.1 F Pulse Rate 82 63 Respiratory 24 20 16 Rate Blood Pressure 175/75 183/80 O2 Sat by Pulse 84 L 96 Oximetry EKG Findings - EKG Results: EKG: interpreted by ERMD (First-degree AV block), sinus rhythm, normal axis, normal QRS, normal ST/T Medical Decision Making - Medical Decision Making Patient reevaluated. Patient and family updated. Case discussed with Dr. Bruce, who admits for Dr. Shabazz. - Lab Data Result diagrams: 05/12/22 11:00 05/12/22 11:00 Lab Results 05/12/22 05/12/22 05/12/22 Range/Units 11:00 11:00 11:00 WBC 7.4 (3.8-10.6) k/uL RBC 4.38 (4.30-5.90) m/uL Hgb 13.4 (13.0-17.5) gm/dL Hct 41.7 (39.0-53.0) % MCV 95.2 (80.0-100.0) fL MCH 30.5 (25.0-35.0) pg MCHC 32.0 (31.0-37.0) g/dL RDW 14.5 (11.5-15.5) % Plt Count 256 (150-450) k/uL MPV 7.9 Neutrophils % 67 % Lymphocytes % 20 % Monocytes % 6 % Eosinophils % 3 % Basophils % 1 % Neutrophils # 5.0 (1.3-7.7) k/uL Lymphocytes # 1.5 (1.0-4.8) k/uL Monocytes # 0.5 (0-1.0) k/uL Eosinophils # 0.3 (0-0.7) k/uL Basophils # 0.1 (0-0.2) k/uL Hypochromasia Moderate PT 9.9 (9.0-12.0) sec INR 0.9 (<1.2) APTT 24.6 (22.0-30.0) sec D-Dimer 0.40 (<0.60) mg/L FEU Sodium 141 (137-145) mmol/L Potassium 4.2 (3.5-5.1) mmol/L Chloride 106 (98-107) mmol/L Carbon Dioxide 29 (22-30) mmol/L Anion Gap 6 mmol/L BUN 26 H (9-20) mg/dL Creatinine 1.54 H (0.66-1.25) mg/dL Est GFR (CKD-EPI)AfAm 50 (>60 ml/min/1.73 sqM) Est GFR (CKD-EPI)NonAf 43 (>60 ml/min/1.73 sqM) Glucose 272 H (74-99) mg/dL Plasma Lactic Acid Sage (0.7-2.0) mmol/L Calcium 7.9 L (8.4-10.2) mg/dL Total Bilirubin 0.3 (0.2-1.3) mg/dL AST 19 (17-59) U/L ALT 19 (4-49) U/L Alkaline Phosphatase 53 (38-126) U/L Troponin I (0.000-0.034) ng/mL NT-Pro-B Natriuret Pep pg/mL Total Protein 6.6 (6.3-8.2) g/dL Albumin 3.5 (3.5-5.0) g/dL Influenza Type A (PCR) (Not Detectd) Influenza Type B (PCR) (Not Detectd) RSV (PCR) (Not Detectd) SARS-CoV-2 (PCR) (Not Detectd) 05/12/22 05/12/22 05/12/22 Range/Units 11:00 11:00 11:00 WBC (3.8-10.6) k/uL RBC (4.30-5.90) m/uL Hgb (13.0-17.5) gm/dL Hct (39.0-53.0) % MCV (80.0-100.0) fL MCH (25.0-35.0) pg MCHC (31.0-37.0) g/dL RDW (11.5-15.5) % Plt Count (150-450) k/uL MPV Neutrophils % % Lymphocytes % % Monocytes % % Eosinophils % % Basophils % % Neutrophils # (1.3-7.7) k/uL Lymphocytes # (1.0-4.8) k/uL Monocytes # (0-1.0) k/uL Eosinophils # (0-0.7) k/uL Basophils # (0-0.2) k/uL Hypochromasia PT (9.0-12.0) sec INR (<1.2) APTT (22.0-30.0) sec D-Dimer (<0.60) mg/L FEU Sodium (137-145) mmol/L Potassium (3.5-5.1) mmol/L Chloride (98-107) mmol/L Carbon Dioxide (22-30) mmol/L Anion Gap mmol/L BUN (9-20) mg/dL Creatinine (0.66-1.25) mg/dL Est GFR (CKD-EPI)AfAm (>60 ml/min/1.73 sqM) Est GFR (CKD-EPI)NonAf (>60 ml/min/1.73 sqM) Glucose (74-99) mg/dL Plasma Lactic Acid Sage 1.9 (0.7-2.0) mmol/L Calcium (8.4-10.2) mg/dL Total Bilirubin (0.2-1.3) mg/dL AST (17-59) U/L ALT (4-49) U/L Alkaline Phosphatase (38-126) U/L Troponin I <0.012 (0.000-0.034) ng/mL NT-Pro-B Natriuret Pep 622 pg/mL Total Protein (6.3-8.2) g/dL Albumin (3.5-5.0) g/dL Influenza Type A (PCR) (Not Detectd) Influenza Type B (PCR) (Not Detectd) RSV (PCR) (Not Detectd) SARS-CoV-2 (PCR) (Not Detectd) 05/12/22 Range/Units 12:02 WBC (3.8-10.6) k/uL RBC (4.30-5.90) m/uL Hgb (13.0-17.5) gm/dL Hct (39.0-53.0) % MCV (80.0-100.0) fL MCH (25.0-35.0) pg MCHC (31.0-37.0) g/dL RDW (11.5-15.5) % Plt Count (150-450) k/uL MPV Neutrophils % % Lymphocytes % % Monocytes % % Eosinophils % % Basophils % % Neutrophils # (1.3-7.7) k/uL Lymphocytes # (1.0-4.8) k/uL Monocytes # (0-1.0) k/uL Eosinophils # (0-0.7) k/uL Basophils # (0-0.2) k/uL Hypochromasia PT (9.0-12.0) sec INR (<1.2) APTT (22.0-30.0) sec D-Dimer (<0.60) mg/L FEU Sodium (137-145) mmol/L Potassium (3.5-5.1) mmol/L Chloride (98-107) mmol/L Carbon Dioxide (22-30) mmol/L Anion Gap mmol/L BUN (9-20) mg/dL Creatinine (0.66-1.25) mg/dL Est GFR (CKD-EPI)AfAm (>60 ml/min/1.73 sqM) Est GFR (CKD-EPI)NonAf (>60 ml/min/1.73 sqM) Glucose (74-99) mg/dL Plasma Lactic Acid Sage (0.7-2.0) mmol/L Calcium (8.4-10.2) mg/dL Total Bilirubin (0.2-1.3) mg/dL AST (17-59) U/L ALT (4-49) U/L Alkaline Phosphatase (38-126) U/L Troponin I (0.000-0.034) ng/mL NT-Pro-B Natriuret Pep pg/mL Total Protein (6.3-8.2) g/dL Albumin (3.5-5.0) g/dL Influenza Type A (PCR) Not Detected (Not Detectd) Influenza Type B (PCR) Not Detected (Not Detectd) RSV (PCR) Not Detected (Not Detectd) SARS-CoV-2 (PCR) Not Detected (Not Detectd) - Radiology Data Interpreted by me: Chest x-ray concerning for CHF Disposition Clinical Impression: Congestive heart failure Disposition: ADMITTED IP TO THIS HOSP Is patient prescribed a controlled substance at d/c from ED?: No Referrals: Wellington Ron MD [Primary Care Provider] - 1-2 days Time of Disposition: 13:25
--- NOTE | 2022-05-12 11:47 | XR ---
EXAMINATION TYPE: XR chest 2V DATE OF EXAM: 05/12/2022 COMPARISON: NONE HISTORY: Difficulty in breathing. TECHNIQUE: Frontal and lateral views of the chest are obtained. FINDINGS: There is cardiomegaly with small to moderate-sized bilateral pleural effusions and mild to moderate bilateral interstitial edema. Multilevel spurring in thoracic spine is present. IMPRESSION: Findings consistent with CHF exacerbation are present as detailed above.
[2022-05-12 12:01] LABS: Basophils # (A) 0.1 k/uL (0-0.2); Basophils % (A) 1 %; Eosinophils # (A) 0.3 k/uL (0-0.7); Eosinophils % (A) 3 %; HCT 41.7 % (39.0-53.0); HGB 13.4 gm/dL (13.0-17.5); Hypochromasia Moderate; Lymphocytes # (A) 1.5 k/uL (1.0-4.8); Lymphocytes % (A) 20 %; MCH 30.5 pg (25.0-35.0); MCV 95.2 fL (80.0-100.0); Mean Platelet Volume 7.9; Monocytes # (A) 0.5 k/uL (0-1.0); Monocytes % (A) 6 %; Neutrophils % (A) 67 %; Platelet Count 256 k/uL (150-450); RBC 4.38 m/uL (4.30-5.90); RDW 14.5 % (11.5-15.5); WBC 7.4 k/uL (3.8-10.6)
[2022-05-12 12:06] LABS: Albumin 3.5 g/dL (3.5-5.0); Calcium 7.9 mg/dL (8.4-10.2); Potassium 4.2 mmol/L (3.5-5.1); Total Bilirubin 0.3 mg/dL (0.2-1.3); Total Protein 6.6 g/dL (6.3-8.2)
[2022-05-12 12:11] LABS: INR 0.9 (<1.2); Partial Thromboplastin Time 24.6 sec (22.0-30.0); Prothrombin Time 9.9 sec (9.0-12.0)
[2022-05-12] MEDS ORDERED: FUROSEMIDE 10 MG/ML 4 ML VIAL IV STA (13:06)
[2022-05-12] MEDS ORDERED: ASPIRIN 325 MG TAB PO STA (13:25)
[2022-05-12] MEDS ORDERED: NITROGLYCERIN SL TABS 0.4 MG TAB SUBLINGUAL PRN (13:50)
[2022-05-12] MEDS ORDERED: DEXTROSE 50% SYRINGE 50 ML IVP PRN ×2 (13:53)
[2022-05-12] MEDS ORDERED: INSULIN ASPART (NovoLOG) 100 UNIT/ML VIAL SQ SCH ×2 (14:00→18:30)
[2022-05-12 14:50] LABS: Glucose,Whole Blood 204 mg/dL (70-110)
[2022-05-12] MEDS: amLODIPine 10 MG TAB PO SCH (15:01)
[2022-05-12] MEDS: INSULIN ASPART (NovoLOG) 100 UNIT/ML VIAL SQ SCH ×4 (15:02→20:38)
[2022-05-12] MEDS: HEPARIN SODIUM,PORCINE/PF 5,000 UNIT/0.5 ML SYRINGE SQ SCH ×2 (15:02→21:40)
--- NOTE | 2022-05-12 16:25 | P.NPCON ---
History of Present Illness - Reason for Consult Consult date: 05/12/22 acute renal failure - Chief Complaint Shortness of breath. - History of Present Illness Coming to the hospital with the above complaints. He denies having similar complaints in the past. X-ray showed pulmonary vascular congestion. He has history of coronary artery disease status post stents, unclear history of CHF. He does take Lasix 20 mg by mouth daily at home. He admits making urine but does have incomplete emptying the bladder. Denies nausea vomiting diarrhea, no NSAID use or recent contrast studies. His line creatinine 0.8-1.0 MG per DL, recently in October 2021 creatinine was 1.5 MG per DL, creatinine today is around 1.6 MG per DL. Review of Systems Constitutional: Reports as per HPI Past Medical History Past Medical History: Coronary Artery Disease (CAD), Diabetes Mellitus, Eye Disorder, Hearing Disorder / Deafness, Hypertension, Osteoarthritis (OA) Additional Past Medical History / Comment(s): GLAUCOMA. Hard of hearing. History of Any Multi-Drug Resistant Organisms: None Reported Past Surgical History: Heart Catheterization With Stent, Orthopedic Surgery Additional Past Surgical History / Comment(s): Right knee arthroscopy, bilateral cataract surgery, 5 cardiac stents, pain clinic procedure. Past Anesthesia/Blood Transfusion Reactions: Previous Problems w/ Anesthesia Additional Past Anesthesia/Blood Transfusion Reaction / Comment(s): states pt has letter from previous knee surgery in 2010 that indicates that Erasto was a difficult intubation with difficult airway anterior. Date of Last Stent Placement:: 04/2019 Past Psychological History: No Psychological Hx Reported Smoking Status: Former smoker Past Alcohol Use History: None Reported Past Drug Use History: None Reported - Past Family History Mother Family Medical History: Cancer Additional Family Medical History / Comment(s): Stomach cancer. Medications and Allergies Home Medications Medication Instructions Recorded Confirmed Type Aspirin [Adult Low Dose Aspirin EC] 81 mg PO DAILY 02/05/18 05/12/22 History Furosemide [Lasix] 20 mg PO DAILY 02/05/18 05/12/22 History INSULIN LISPRO (humaLOG) [humaLOG] See Protocol SQ 5XD PRN 02/05/18 05/12/22 History Metoprolol Tartrate [Lopressor] 50 mg PO HS 02/05/18 05/12/22 History Potassium Chloride ER [K-Dur 10] 10 meq PO BID 02/05/18 05/12/22 History Rosuvastatin [Crestor] 10 mg PO DAILY 02/05/18 05/12/22 History Fenofibrate Nanocrystallized 145 mg PO Q48H 02/28/18 05/12/22 History [Fenofibrate] Clopidogrel [Plavix] 75 mg PO DAILY #30 tab 03/01/18 05/12/22 Rx Nitroglycerin Sl Tabs [Nitrostat] 0.4 mg SUBLINGUAL Q5M PRN tab 03/20/1805/12 Rx Fish Oil/Dha/Epa [Fish Oil 1,200 1,200 mg PO DAILY 05/04/20 05/12/22 History mg Fish Oil] amLODIPine [Norvasc] 5 mg PO W/SUPPER 05/04/20 05/12/22 History flaxseed oiL [Flaxseed Oil] 1,000 mg PO DAILY 05/04/20 05/12/22 History metFORMIN HCL [Glucophage] 500 mg PO PC-SUPPER 05/04/20 05/12/22 History Dulaglutide [Trulicity] 0.75 mg SQ MO 05/05/20 05/12/22 History Timolol 0.5% Ophth Soln [Timoptic 1 drop BOTH EYES DAILY 05/05/20 05/12/22 History 0.5% Ophth Soln] Metoprolol Tartrate [Lopressor] 100 mg PO QAM 01/18/22 05/12/22 History Cholecalciferol [Vitamin D3 (10 10 mcg PO DAILY 05/12/22 05/12/22 History Mcg = 400 Iu)] Cyanocobalamin [Vitamin B-12] 500 mcg PO DAILY 05/12/22 05/12/22 History Elderberry Fruit and Flower [Black 1 cap PO DAILY 05/12/22 05/12/22 History Elderberry 575 mg Cap] INSULIN LISPRO (HumaLOG) [humaLOG] 30 units SQ PC-BRKFST 05/12/22 05/12/22 History INSULIN LISPRO (HumaLOG) [humaLOG] 30 units SQ PC-LUNCH 05/12/22 05/12/22 History INSULIN LISPRO (HumaLOG) [humaLOG] 30 units SQ PC-SUPPER 05/12/22 05/12/22 History INSULIN LISPRO (HumaLOG) [humaLOG] 35 units SQ PC-BRKFST 05/12/22 05/12/22 History Insulin Glargine,Hum.rec.anlog 50 units SQ HS 05/12/22 05/12/22 History [Julio Milian] Losartan Potassium 100 mg PO DAILY 05/12/22 05/12/22 History Allergies Allergy/AdvReac Type Severity Reaction Status Date / Time cyclobenzaprine Allergy Itching Verified 05/12/22 12:48 [From Flexeril] Physical Exam Vitals: Vital Signs Temp Pulse Resp BP Pulse Ox 05/12/22 15:09 97.8 F 82 16 173/84 94 L 05/12/22 14:00 94 L 05/12/22 12:45 98.1 F 63 16 183/80 96 05/12/22 11:04 20 05/12/22 11:01 98.6 F 82 24 175/75 84 L Intake and Output 05/12/22 05/12/22 05/12/22 06:59 14:59 22:59 Other: Weight 133.81 kg No acute distress S1-S2 heard Decreased breath sounds Abdomen distended Edema Results - Lab Results Most recent lab results Calcium 7.9 mg/dL (8.4-10.2) L 05/12/22 11:00 05/12/22 11:00 05/12/22 11:00 Assessment and Plan Assessment: #1 acute kidney injury suspect CRS. Rule out urinary retention. -Baseline creatinine 0.8-1.0 MG per DL. Lately creatinine around 1.5 MG per DL. #2 hypertension, uncontrolled. On losartan at home. #3 volume overload #4 CAD with CHF #5 diabetes Plan: #1 agree with Lasix, currently at 40 mg milligrams every 8. #2 continue with losartan for now. #3 check urine analysis, urine electrolytes. #4 daily renal labs #5 strict ins and outs.
[2022-05-12 16:31] LABS: Glucose,Whole Blood 148 mg/dL (70-110)
--- NOTE | 2022-05-12 16:57 | US ---
EXAMINATION TYPE: US kidneys/renal and bladder DATE OF EXAM: 05/12/2022 COMPARISON: NONE CLINICAL HISTORY: brooke. BROOKE, known left renal cyst, no symptoms EXAM MEASUREMENTS: Right Kidney: 13.3 x 6.5 x 6.0 cm Left Kidney: 12.7 x 5.8 x 7.7 cm Right Kidney: No hydronephrosis or masses seen Left Kidney: inferior pole cyst = 5.6 x 5.1 x 4.9cm Bladder: not distended There is no evidence for hydronephrosis at this point in time. No nephrolithiasis is seen. No cheyanne s are identified. The urinary bladder is anechoic. Bilateral ureteral jets are seen. There is no cortical thinning or abnormal echotexture. IMPRESSION: No significant abnormality seen.
[2022-05-12] MEDS ORDERED: NITROGLYCERIN OINT 1 INCH/GM PACKET TOPICAL SCH (18:00)
[2022-05-12 18:33] LABS: Appearance,Urine Clear (Clear); Bacteria,Urine Rare /hpf; Bilirubin,Urine Negative (Negative); Blood,Urine Negative (Negative); Color,Urine Colorless; Glucose,Urine (UA) 2+ (Negative); Hyaline Casts,Urine 1 /lpf (0-2); Ketones,Urine Negative (Negative); Leukocyte Esterase,Urine Negative (Negative); Mucus,Urine Rare /hpf; Nitrite,Urine Negative (Negative); Protein,Urine 3+ (Negative); RBC,Urine 1 /hpf (0-5); Specific Gravity,Urine 1.011 (1.001-1.035); Squamous Epithelial Cell,Urine <1 /hpf (0-4); Urobilinogen,Urine <2.0 mg/dL (<2.0); WBC,Urine 1 /hpf (0-5)
[2022-05-12 18:34] LABS: Creatinine,Urine Random 34.5 mg/dL
[2022-05-12 20:07] LABS: Glucose,Whole Blood 73 mg/dL (70-110)
[2022-05-12] MEDS: METOPROLOL TARTRATE 50 MG TAB PO SCH (20:48)
[2022-05-12] MEDS: POTASSIUM CHLORIDE ER 10 MEQ TAB.ER.PRT PO SCH (20:48)
[2022-05-12] MEDS: FENOFIBRATE 160 MG TAB PO SCH (20:48)
[2022-05-12] MEDS: FUROSEMIDE 10 MG/ML 4 ML VIAL IV SCH (20:49)
[2022-05-12 21:33] LABS: Glucose,Whole Blood 72 mg/dL (70-110)
[2022-05-13 00:06] LABS: Glucose,Whole Blood 77 mg/dL (70-110)
--- NOTE | 2022-05-13 00:32 | HP ---
HISTORY AND PHYSICAL CHIEF COMPLAINT: Shortness of breath. HISTORY OF PRESENT ILLNESS: This is a 76-year-old gentleman with a past medical history of multiple medical problems including CAD, diabetes mellitus, was complaining of increasing weakness, shortness of breath and generalized swelling and swelling of the bilateral legs. The patient came to [facility]. Chest x-ray showed evidence of CHF There is no history of any fever, rigors, chills. PAST MEDICAL HISTORY: Reviewed, include CAD, diabetes mellitus. The rest of the history in the chart is also reviewed. HOME MEDICATIONS: Again reviewed include insulin. Dose and rest of medications reviewed. ALLERGIES: Flexeril. FAMILY HISTORY: History of stomach cancer in family. SOCIAL HISTORY: Previous history of smoking. REVIEW OF SYSTEMS: Fourteen-point review of systems negative except as mentioned earlier. PHYSICAL EXAMINATION: VITAL SIGNS: Pulse is 63, blood pressure 183/80, respirations 16. HEENT: Conjunctivae normal. NECK: No JVD. CARDIOVASCULAR: S1, S2. RESPIRATORY: Breath sounds diminished at the bases. A few scattered rhonchi and crackles. ABDOMEN: Soft, obese. LEGS: Bilateral leg edema. NERVOUS SYSTEM: Higher functions as mentioned earlier. No focal deficits. SKIN: No ulcer, rash, or bleeding. JOINTS: No active deforming arthropathy. LABS: CBC within normal limits. The rest of the labs noted. ASSESSMENT: 1. Generalized swelling, shortness of breath, possible congestive heart failure acute exacerbation. 2. Diabetes mellitus, type 2. 3. Hypertension. 4. Degenerative joint disease. 5. History of coronary artery disease. RECOMMENDATIONS: This is a 76-year-old gentleman who presented with multiple complex medical issues, we will monitor the patient closely, initiate aggressive diuresis, fluid restriction. Cardiology consultation. Cardiac workup, including 2D echo. Resume the home medications. Monitor closely. Prognosis guarded because of multiple complex medical history which we discussed at length with the patient and his family at the bedside. Further recommendations to follow. MMODL / IJN: [id number] / MTDD
[2022-05-13] MEDS: INSULIN DETEMIR (LEVEMIR) 100 UNIT/ML SYR SQ SCH ×2 (03:22→22:21)
[2022-05-13] MEDS: FUROSEMIDE 10 MG/ML 4 ML VIAL IV SCH ×3 (04:39→22:18)
[2022-05-13 07:24] LABS: Glucose,Whole Blood 133 mg/dL (70-110)
[2022-05-13] MEDS: INSULIN ASPART (NovoLOG) 100 UNIT/ML VIAL SQ SCH ×8 (07:29→22:20)
[2022-05-13 08:42] LABS: Basophils % (A) 1 %; Eosinophils # (A) 0.2 k/uL (0-0.7); Eosinophils % (A) 3 %; HCT 40.4 % (39.0-53.0); HGB 12.7 gm/dL (13.0-17.5); Hypochromasia Marked; Lymphocytes # (A) 1.7 k/uL (1.0-4.8); Lymphocytes % (A) 26 %; MCH 30.7 pg (25.0-35.0); MCHC 31.5 g/dL (31.0-37.0); MCV 97.5 fL (80.0-100.0); Mean Platelet Volume 7.8; Monocytes # (A) 0.5 k/uL (0-1.0); Monocytes % (A) 7 %; Neutrophils # (A) 3.9 k/uL (1.3-7.7); Neutrophils % (A) 61 %; Platelet Count 256 k/uL (150-450); RBC 4.14 m/uL (4.30-5.90); WBC 6.5 k/uL (3.8-10.6)
[2022-05-13 08:59] LABS: Calcium 7.9 mg/dL (8.4-10.2); Potassium 4.4 mmol/L (3.5-5.1)
[2022-05-13] MEDS ORDERED: ASPIRIN 325 MG TAB PO SCH (09:00)
[2022-05-13] MEDS ORDERED: NON FORMULARY DRUG (Flaxseed Oil [Flaxseed Oil] 1,000 MG Capsule) PO SCH (09:00)
[2022-05-13] MEDS: ASPIRIN 81 MG PO SCH (09:01)
[2022-05-13] MEDS: HEPARIN SODIUM,PORCINE/PF 5,000 UNIT/0.5 ML SYRINGE SQ SCH ×2 (09:01→22:18)
[2022-05-13] MEDS: ATORVASTATIN 20 MG TAB PO SCH (09:02)
[2022-05-13] MEDS: amLODIPine 10 MG TAB PO SCH (09:02)
[2022-05-13] MEDS: CLOPIDOGREL 75 MG TAB PO SCH (09:02)
[2022-05-13] MEDS: CYANOCOBALAMIN 500 MCG TAB PO SCH (09:02)
[2022-05-13] MEDS: POTASSIUM CHLORIDE ER 10 MEQ TAB.ER.PRT PO SCH ×2 (09:02→22:18)
[2022-05-13] MEDS: METOPROLOL TARTRATE 50 MG TAB PO SCH ×2 (09:02→22:18)
[2022-05-13] MEDS: LOSARTAN 50 MG TAB PO SCH (09:02)
[2022-05-13] MEDS: TIMOLOL 0.5% OPHTH DROPS 5 ML BTL BOTH EYES SCH (09:03)
[2022-05-13] MEDS: CHOLECALCIFEROL 10 MCG (400 IU) TABLET PO SCH (09:03)
--- NOTE | 2022-05-13 11:39 | CA ---
Transthoracic Echo Report Name: Erasto Rivas Age: 76 Gender: M : 1945 Exam Date: 05/13/2022 09:15 Exam Location: [facility] Ht (in): 70 Wt (lb): 311 Ordering Physician: Lima Bruce MD Attending/Referring Phys: Arts Administrator Or Manager Emma Alexander RDCS Procedure CPT: Indications: chf Cardiac Hx: Technical Quality: Fair Contrast 1: Total Dose (mL): Contrast 2: Total Dose (mL): MEASUREMENTS (Male / Female) Normal Values 2D ECHO LV Diastolic Diameter PLAX 3.4 cm 4.2 - 5.9 / 3.9 - 5.3 cm LV Systolic Diameter PLAX 2.6 cm IVS Diastolic Thickness 2.2 cm 0.6 - 1.0 / 0.6 - 0.9 cm LVPW Diastolic Thickness 2.1 cm 0.6 - 1.0 / 0.6 - 0.9 cm LV Relative Wall Thickness 1.3 LA Volume 107.7 cm??? 18 - 58 / 22 - 52 cm??? M-MODE Aortic Root Diameter MM 3.4 cm LA Systolic Diameter MM 5.0 cm LA Ao Ratio MM 1.5 AV Cusp Separation MM 2.3 cm DOPPLER AV Peak Velocity 125.4 cm/s AV Peak Gradient 6.3 mmHg MV Peak Velocity 146.5 cm/s MV Peak Gradient 8.6 mmHg MV Mean Velocity 77.4 cm/s MV Mean Gradient 3.0 mmHg MV Velocity Time Integral 24.5 cm FINDINGS Left Ventricle Severely increased left ventricular wall thickness. Normal left ventricular systolic function with no obvious regional wall motion abnormalities. Left ventricular ejection fraction is estimated at 55 %. Right Ventricle Right ventricle not well visualized. Right Atrium Right atrium not well visualized. Left Atrium Severely increased left atrial volume. Mildly increased left atrial area. Mitral Valve Mild mitral regurgitation. Moderate mitral annular calcification. Aortic Valve No aortic valve stenosis or regurgitation. Tricuspid Valve Structurally normal tricuspid valve. Mild tricuspid regurgitation. Pulmonic Valve Trace pulmonic regurgitation. Pericardium No pericardial effusion. Aorta Normal size aortic root and proximal ascending aorta. CONCLUSIONS Concentric left ventricular hypertrophy with normal LV function Mild mitral regurgitation Previewed by: Dr. Jian Case MD (Electronically Signed) Final Date: 13 May 2022 11:37
[2022-05-13 11:41] VITALS: BMI 44.6
[2022-05-13 12:08] LABS: Glucose,Whole Blood 206 mg/dL (70-110)
--- NOTE | 2022-05-13 15:45 | P.PN ---
Subjective Progress Note Date: 05/13/22 Follow-up for acute kidney injury. Urine output of 2 L in the last 24 hours. Still has lower extremity edema. Denies any nausea vomiting or diarrhea. Denies incomplete emptying of the bladder. Objective - Vital Signs Vital signs: Vital Signs Temp 97.5 F L 05/13/22 09:00 Pulse 53 L 05/13/22 12:16 Resp 17 05/13/22 09:00 BP 182/66 05/13/22 12:16 Pulse Ox 94 L 05/13/22 12:16 FiO2 Intake & Output 05/12/22 05/13/22 05/13/22 18:59 06:59 18:59 Intake Total 240 358 Output Total 700 1580 400 Balance -460 -1580 -42 Weight 139.7 kg 141.3 kg 141.3 kg Intake: Oral 240 358 Output: Urine 700 1580 400 Other: Voiding Method Urinal Toilet Urinal - Exam No acute distress S1-S2 heard Decreased breath sounds Abdomen distended Edema - Labs CBC & Chem 7: 05/13/22 08:18 05/13/22 08:18 Labs: Abnormal Lab Results - Last 24 Hours (Table) 05/12/22 05/12/22 05/12/22 Range/Units 11:00 16:29 18:16 RBC (4.30-5.90) m/uL Hgb (13.0-17.5) gm/dL Carbon Dioxide (22-30) mmol/L BUN (9-20) mg/dL Creatinine (0.66-1.25) mg/dL Glucose (74-99) mg/dL POC Glucose (mg/dL) 148 H (70-110) mg/dL Hemoglobin A1c 7.7 H (0.0-6.0) % Calcium (8.4-10.2) mg/dL Urine Protein 3+ H (Negative) Urine Glucose (UA) 2+ H (Negative) Urine Bacteria Rare H (None) /hpf Urine Mucus Rare H (None) /hpf 05/13/22 05/13/22 05/13/22 Range/Units 07:21 08:18 08:18 RBC 4.14 L (4.30-5.90) m/uL Hgb 12.7 L (13.0-17.5) gm/dL Carbon Dioxide 34 H (22-30) mmol/L BUN 24 H (9-20) mg/dL Creatinine 1.68 H (0.66-1.25) mg/dL Glucose 230 H (74-99) mg/dL POC Glucose (mg/dL) 133 H (70-110) mg/dL Hemoglobin A1c (0.0-6.0) % Calcium 7.9 L (8.4-10.2) mg/dL Urine Protein (Negative) Urine Glucose (UA) (Negative) Urine Bacteria (None) /hpf Urine Mucus (None) /hpf 05/13/22 Range/Units 12:05 RBC (4.30-5.90) m/uL Hgb (13.0-17.5) gm/dL Carbon Dioxide (22-30) mmol/L BUN (9-20) mg/dL Creatinine (0.66-1.25) mg/dL Glucose (74-99) mg/dL POC Glucose (mg/dL) 206 H (70-110) mg/dL Hemoglobin A1c (0.0-6.0) % Calcium (8.4-10.2) mg/dL Urine Protein (Negative) Urine Glucose (UA) (Negative) Urine Bacteria (None) /hpf Urine Mucus (None) /hpf Assessment and Plan Assessment: #1 acute kidney injury suspect CRS. -With proteinuria quantify to rule out nephrotic syndrome. -Baseline creatinine 0.8-1.0 MG per DL. Lately creatinine around 1.5 MG per DL. #2 hypertension, uncontrolled. On losartan at home. #3 volume overload #4 CAD with CHF #5 diabetes Plan: #1 agree with Lasix, currently at 40 mg milligrams every 8. #2 continue with losartan for now. Renal function stable. #3 proteinuria on UA, quantify to rule out nephrotic syndrome #4 daily renal labs #5 strict ins and outs.
[2022-05-13 17:11] LABS: Glucose,Whole Blood 83 mg/dL (70-110)
[2022-05-13] MEDS: hydrALAZINE HCL 50 MG TAB PO SCH ×2 (17:15→23:56)
[2022-05-13 20:56] LABS: Glucose,Whole Blood 183 mg/dL (70-110)
[2022-05-13 22:15] LABS: Glucose,Whole Blood 232 mg/dL (70-110)
--- NOTE | 2022-05-13 22:44 | CONS ---
CONSULTATION CHIEF COMPLAINT: Shortness of breath and leg edema. HISTORY: This is a 76-year-old gentleman with history of coronary artery disease, status post prior angioplasty; hypertension; diabetes; dyslipidemia, who has been becoming progressively short of breath for the last several weeks. He does not have any chest pain. Denies any PND or orthopnea, but also had significant bilateral leg edema. An echocardiogram shows concentric left ventricular hypertrophy with normal LV systolic function. Chest x-ray showed changes suggestive of congestive heart failure. He has evidence of renal insufficiency. PAST MEDICAL HISTORY: Significant for coronary artery disease, status post angioplasty; hypertension; diabetes; dyslipidemia. MEDICATIONS: At home included: 1. Trulicity. 2. Aspirin. 3. Plavix. 4. Norvasc. 5. Insulin. 6. Lopressor. 7. Losartan. ALLERGIES: Allergic to Flexeril. FAMILY HISTORY: Negative for premature coronary artery disease. SOCIAL HISTORY: Negative for current smoking, EtOH abuse, or drug abuse. REVIEW OF SYSTEMS: HEENT: Unremarkable. CARDIAC: As described above. RESPIRATORY: As described above. GI: Negative. GENITOURINARY: Negative. ALLERGY/IMMUNOLOGY: Negative. SKIN: Negative. MUSCULOSKELETAL: Significant for arthritis. PSYCHOSOCIAL: Negative. DERM: Negative. CONSTITUTIONAL: Negative. ONCOLOGICAL: Negative. SEGMENTAL PAVER INSTALLER: Negative. Rest of the system review is not relevant. PHYSICAL EXAMINATION: VITAL SIGNS: The patient is afebrile. Heart rate is 85 beats per minute. Blood pressure is 163/78. Respiratory rate is 18. CHEST: Reveals good air entry bilaterally. HEART: Reveals first and second heart sounds. S4 is heard. ABDOMEN: Soft. EXTREMITIES: Revealed bilateral pitting edema. DIAGNOSTIC DATA: EKG shows sinus rhythm with nonspecific ST-T wave changes. Echocardiogram showed normal LV systolic function. ASSESSMENT: 1. Acute-onset diastolic heart failure. 2. Uncontrolled hypertension. 3. Coronary artery disease, status post angioplasty. 4. Acute renal insufficiency. PLAN: We will try to control the blood pressure with Norvasc, beta-blockers, and losartan. If this does not get us optimal blood pressure control, we will add hydralazine to what he is on. The patient is on IV Lasix, which I am going to continue. I will also check a D-dimer to rule out pulmonary embolism. MMODL / IJN: [id number] /
[2022-05-14 02:06] LABS: Glucose,Whole Blood 212 mg/dL (70-110)
[2022-05-14] MEDS: FUROSEMIDE 10 MG/ML 4 ML VIAL IV SCH ×3 (05:59→20:48)
[2022-05-14 07:33] LABS: Glucose,Whole Blood 115 mg/dL (70-110)
[2022-05-14] MEDS: INSULIN ASPART (NovoLOG) 100 UNIT/ML VIAL SQ SCH ×8 (07:36→20:49)
[2022-05-14] MEDS: hydrALAZINE HCL 50 MG TAB PO SCH ×3 (09:02→20:48)
[2022-05-14] MEDS: ASPIRIN 81 MG PO SCH (09:02)
[2022-05-14] MEDS: METOPROLOL TARTRATE 50 MG TAB PO SCH ×2 (09:02→20:48)
[2022-05-14] MEDS: LOSARTAN 50 MG TAB PO SCH (09:02)
[2022-05-14] MEDS: POTASSIUM CHLORIDE ER 10 MEQ TAB.ER.PRT PO SCH ×2 (09:02→20:49)
[2022-05-14] MEDS: CLOPIDOGREL 75 MG TAB PO SCH (09:02)
[2022-05-14] MEDS: amLODIPine 10 MG TAB PO SCH (09:02)
[2022-05-14] MEDS: ATORVASTATIN 20 MG TAB PO SCH (09:02)
[2022-05-14] MEDS: CYANOCOBALAMIN 500 MCG TAB PO SCH (09:02)
[2022-05-14] MEDS: HEPARIN SODIUM,PORCINE/PF 5,000 UNIT/0.5 ML SYRINGE SQ SCH ×2 (09:03→20:48)
[2022-05-14] MEDS: TIMOLOL 0.5% OPHTH DROPS 5 ML BTL BOTH EYES SCH (09:03)
[2022-05-14] MEDS: CHOLECALCIFEROL 10 MCG (400 IU) TABLET PO SCH (09:03)
--- NOTE | 2022-05-14 10:58 | P.PN ---
Subjective Progress Note Date: 05/14/22 Principal diagnosis: 76-year-old male seen in consultation because of acute kidney injury from cardiorenal syndrome Came in because of shortness of breath and congestive heart failure. Started on the Lasix. He is known with coronary disease diabetes mellitus. Baseline creatinine is 0.8 mg to 1 mg. His responded well to Lasix, with urine output of 34 20 mL His creatinine on admission was 1.54 and as of yesterday was 1.68 today's labs are pending Objective - Vital Signs Vital signs: Vital Signs Temp 98.3 F 05/14/22 08:55 Pulse 89 05/14/22 09:51 Resp 18 05/14/22 09:51 BP 166/70 05/14/22 08:55 Pulse Ox 94 L 05/14/22 08:55 FiO2 Intake & Output 05/13/22 05/14/22 05/14/22 18:59 06:59 18:59 Intake Total 598 180 Output Total 1600 1820 1100 Balance -1002 -1820 -920 Weight 141.3 kg 136.3 kg Intake: Oral 598 180 Output: Urine 1600 1820 1100 Other: Voiding Method Toilet Urinal Urinal Urinal On examination awake alert oriented HEENT exam no JVP neck is supple no facial asymmetry He is on nasal cannula oxygen Lungs are clear to auscultation good air entry bilaterally Heart sounds unremarkable for any murmur rub gallop Abdomen soft nontender. Extremity exam was 2+ edema Neurologically awake alert oriented - Labs CBC & Chem 7: 05/13/22 08:18 05/13/22 08:18 Labs: Abnormal Lab Results - Last 24 Hours (Table) 05/13/22 05/13/22 05/13/22 Range/Units 12:05 20:55 22:13 POC Glucose (mg/dL) 206 H 183 H 232 H (70-110) mg/dL 05/14/22 05/14/22 Range/Units 02:05 07:30 POC Glucose (mg/dL) 212 H 115 H (70-110) mg/dL Assessment and Plan Assessment: Impression 1. Acute kidney injury secondary to cardiorenal syndrome responding with good urine output on Lasix. Creatinine went up from 1.54-1.6 yesterday today's labs are pending 2. Congestive heart failure improved 3. Bicarb is 34 secondary to diuretics. We will watch it. Recommendation 1. Maintain Lasix 40 mg every 8 hours 2. Labs tomorrow
[2022-05-14] MEDS ORDERED: hydrALAZINE HCL 50 MG TAB PO STA (11:50)
--- NOTE | 2022-05-14 11:55 | P.PN ---
Subjective Progress Note Date: 05/14/22 HISTORY OF PRESENT ILLNESS This is a 76-year-old male with past medical history of coronary artery disease status post prior angioplasty, hypertension, diabetes, hyperlipidemia. Patient presented to progressive shortness of breath over the past several weeks. No chest pain. Positive bilateral lower extremity edema. Echocardiogram reveals concentric left undergone hypertrophy with normal LV systolic function. Chest x-ray suggestive heart failure. Patient was started on Lasix 40 mg IV every 8 hours. Blood pressure was noted to be elevated and hydralazine was added to his home regime. 05/14 Patient states that his breathing is significantly improved from yesterday. Also edema is improved from yesterday. D-dimer came back at 0.5. BMP ordered for today. He has been maintained on Lasix 40 mg IV every 8 hours. And feels he is diuresing well. Blood pressure has been elevated despite changes made yesterday and hydralazine will be increased to 100 mg every 8 hours. REVIEW OF SYSTEMS Constitutional: No fever, no chills. No weakness, fatigue or lethargy. EENT: No headache. No dizziness. Lungs: No shortness of breath, cough, no sputum production. No wheezing. Cardiovascular: No chest pain, no lower extremity edema. No palpitations. No paroxysmal nocturnal dyspnea. No orthopnea. No lightheadedness or dizziness. No syncopal episodes. Abdominal: No abdominal pain. No nausea, vomiting. No diarrhea. No constipation. No bloody or tarry stools. No loss of appetite. Genitourinary: No dysuria.. No urinary retention. Musculoskeletal: No myalgias. No muscle weakness, no gait dysfunction, no frequent falls. No back pain. No neck pain. Integumentary: No wounds, no lesions. No rash or pruritus. No unusual bruising. Neurologic: No aphasia. No facial droop. No change in mentation. No head injury. No headache. No paralysis. No paresthesia. Psychiatric: No depression. No anxiety. Endocrine: No abnormal blood sugars. PHYSICAL EXAMINATION Gen: This is a 76-year-old male. He is resting in the chair and appears to be comfortable VS: reviewed HEENT: Head is atraumatic, normocephalic. Pupils equal, round. Sclerae is anicteric. NECK: Supple. No JVD. No lymphadenopathy. No thyromegaly. LUNGS: Clear to auscultation. No wheezes or rhonchi. No intercostal retractions. HEART: Regular rate and rhythm. No murmur. ABDOMEN: Soft. Bowel sounds are present. No masses. No tenderness. EXTREMITIES: 1+ pedal edema. No calf tenderness. NEUROLOGICAL: Patient is awake, alert and oriented x3. Cranial nerves 2 through 12 are grossly intact. ASSESSMENT Acute onset diastolic heart failure Uncontrolled hypertension and hypertensive cardio vascular disease Coronary artery disease status post angioplasty Acute renal failure PLAN Continue patient on Lasix IV 40 mg every 8 hours Monitor I&O, daily weights, electrolyte and renal function Increase hydralazine to 100 mg every 8 hours Continue amlodipine 10 mg daily, losartan 100 mg daily, Lopressor 100 mg in the a.m. and 50 mild grams at bedtime Also continue patient on aspirin and Lipitor. Further recommendations to follow based upon clinical course Thank you kindly for this consultation. Nurse practitioner note has been reviewed, I agree with documented findings and plan of care. Patient was seen and examined. Objective - Vital Signs Vital signs: Vital Signs Temp 98.3 F 05/14/22 08:55 Pulse 89 05/14/22 09:51 Resp 18 05/14/22 09:51 BP 166/70 05/14/22 08:55 Pulse Ox 94 L 05/14/22 08:55 FiO2 Intake & Output 05/13/22 05/14/22 05/14/22 18:59 06:59 18:59 Intake Total 598 Output Total 1600 1820 1100 Balance -1002 -1820 -1100 Weight 141.3 kg 136.3 kg Intake: Oral 598 Output: Urine 1600 1820 1100 Other: Voiding Method Toilet Urinal Urinal Urinal - Labs CBC & Chem 7: 05/13/22 08:18 05/13/22 08:18 Labs: Abnormal Lab Results - Last 24 Hours (Table) 05/13/22 05/13/22 05/13/22 Range/Units 12:05 20:55 22:13 POC Glucose (mg/dL) 206 H 183 H 232 H (70-110) mg/dL 05/14/22 05/14/22 Range/Units 02:05 07:30 POC Glucose (mg/dL) 212 H 115 H (70-110) mg/dL
[2022-05-14 12:04] LABS: Calcium 7.9 mg/dL (8.4-10.2)
[2022-05-14 12:24] LABS: Glucose,Whole Blood 158 mg/dL (70-110)
[2022-05-14 17:06] LABS: Glucose,Whole Blood 306 mg/dL (70-110)
[2022-05-14 20:09] LABS: Glucose,Whole Blood 188 mg/dL (70-110)
[2022-05-14] MEDS: FENOFIBRATE 160 MG TAB PO SCH (20:48)
[2022-05-14] MEDS: INSULIN DETEMIR (LEVEMIR) 100 UNIT/ML SYR SQ SCH (20:49)
--- NOTE | 2022-05-14 21:33 | PN ---
PROGRESS NOTE DATE OF SERVICE: 05/13/2022 SUBJECTIVE: This is a 76-year-old gentleman, who was admitted with CHF acute exacerbation and also renal failure. No chest pain. No palpitations. No fever. Cardiology is following the patient closely. The bladder ultrasound showed no abnormality. OBJECTIVE: VITAL SIGNS: Pulse is 53, blood pressure 132/66, respirations 17. HEENT: Conjunctivae are normal. NECK: No jugular venous distention. CARDIOVASCULAR: S1 and S2. RESPIRATORY: Breath sounds diminished at the bases. A few scattered rhonchi. ABDOMEN: Soft. LEGS: Bilateral leg edema. NERVOUS SYSTEM: Nonfocal. LABORATORY DATA: Creatinine 1.68. ASSESSMENT: 1. Generalized swelling, shortness of breath, possible congestive heart failure acute exacerbation. 2. Diabetes mellitus, type 2. 3. Hypertension. 4. Chronic kidney disease, stage 3. 5. Degenerative joint disease. 6. History of coronary artery disease. RECOMMENDATIONS: Recommend to continue current medications and symptomatic treatment. Closely follow with Nephrology and Cardiology. Guarded prognosis. Further recommendations to follow. See orders for details. MMODL / IJN: [id number] /
[2022-05-15 02:24] LABS: Glucose,Whole Blood 71 mg/dL (70-110)
--- NOTE | 2022-05-15 03:54 | PN ---
PROGRESS NOTE DATE OF SERVICE: 05/14/2022 SUBJECTIVE: This 76-year-old gentleman admitted with CHF exacerbation, closely monitored, no chest pain, no palpitations, no fever. The patient is still on Lasix 40 IV q.8. Renal functions are 1.82. OBJECTIVE: VITAL SIGNS: Pulse is 71, blood pressure 160/70, respirations 18. CHEST: A few scattered rhonchi and crackles. ABDOMEN: Soft. NERVOUS SYSTEM: Nonfocal. LABORATORY DATA: Reviewed. ASSESSMENT: 1. Congestive heart failure acute exacerbation. 2. Diabetes mellitus, type 2. 3. Hypertension. 4. Chronic kidney disease, stage 3. 5. Degenerative joint disease. 6. History of coronary artery disease. RECOMMENDATIONS: Continue current medications, symptomatic treatment. Otherwise, closely follow. Repeat labs. Continue the diuretics. Monitor fluid restriction. Cardiology and Nephrology evaluation. Further recommendations to follow. TIM / REYES: [id number] /
[2022-05-15] MEDS: FUROSEMIDE 10 MG/ML 4 ML VIAL IV SCH (04:27)
[2022-05-15] MEDS: hydrALAZINE HCL 50 MG TAB PO SCH ×3 (04:27→20:43)
[2022-05-15 06:11] LABS: Glucose,Whole Blood 158 mg/dL (70-110)
[2022-05-15] MEDS: INSULIN ASPART (NovoLOG) 100 UNIT/ML VIAL SQ SCH ×8 (06:34→20:44)
[2022-05-15 07:20] LABS: Glucose,Whole Blood 148 mg/dL (70-110)
[2022-05-15] MEDS: HEPARIN SODIUM,PORCINE/PF 5,000 UNIT/0.5 ML SYRINGE SQ SCH ×2 (08:38→20:43)
[2022-05-15] MEDS: METOPROLOL TARTRATE 50 MG TAB PO SCH ×2 (08:39→20:43)
[2022-05-15] MEDS: TIMOLOL 0.5% OPHTH DROPS 5 ML BTL BOTH EYES SCH (08:39)
[2022-05-15] MEDS: LOSARTAN 50 MG TAB PO SCH (08:39)
[2022-05-15] MEDS: amLODIPine 10 MG TAB PO SCH (08:40)
[2022-05-15] MEDS: CLOPIDOGREL 75 MG TAB PO SCH (08:40)
[2022-05-15] MEDS: ATORVASTATIN 20 MG TAB PO SCH (08:40)
[2022-05-15] MEDS: CYANOCOBALAMIN 500 MCG TAB PO SCH (08:40)
[2022-05-15] MEDS: ASPIRIN 81 MG PO SCH (08:40)
[2022-05-15] MEDS: POTASSIUM CHLORIDE ER 10 MEQ TAB.ER.PRT PO SCH ×2 (08:40→20:43)
[2022-05-15] MEDS: CHOLECALCIFEROL 10 MCG (400 IU) TABLET PO SCH (08:40)
[2022-05-15 08:46] LABS: Basophils % (A) 0 %; Eosinophils # (A) 0.2 k/uL (0-0.7); Eosinophils % (A) 3 %; HCT 38.6 % (39.0-53.0); HGB 12.4 gm/dL (13.0-17.5); Hypochromasia Moderate; Lymphocytes # (A) 1.4 k/uL (1.0-4.8); Lymphocytes % (A) 22 %; MCH 31.1 pg (25.0-35.0); MCHC 32.2 g/dL (31.0-37.0); MCV 96.3 fL (80.0-100.0); Mean Platelet Volume 7.9; Monocytes # (A) 0.4 k/uL (0-1.0); Monocytes % (A) 7 %; Neutrophils # (A) 4.3 k/uL (1.3-7.7); Neutrophils % (A) 67 %; Platelet Count 255 k/uL (150-450); WBC 6.4 k/uL (3.8-10.6)
[2022-05-15 08:56] LABS: Calcium 7.7 mg/dL (8.4-10.2); Potassium 3.6 mmol/L (3.5-5.1)
[2022-05-15] MEDS ORDERED: DULAGLUTIDE 0.75 MG/0.5 ML SQ SCH (09:00)
--- NOTE | 2022-05-15 11:08 | P.PN ---
Subjective Progress Note Date: 05/15/22 Principal diagnosis: 76-year-old male seen in consultation because of acute kidney injury from cardiorenal syndrome Came in because of shortness of breath and congestive heart failure. Started on the Lasix. He is known with coronary disease diabetes mellitus. Baseline creatinine is 0.8 mg to 1 mg. His responded well to Lasix, with urine output of 34 20 mL, 3325 over the last 2 days His vital signs are stable His creatinine on admission was 1.54, 1.68, 1.8 to , 1.76 this morning He continues to feel short of breath is on oxygen nasal cannula. Denies any chest pain dizziness. Good appetite Objective - Vital Signs Vital signs: Vital Signs Temp 98.4 F 05/15/22 07:30 Pulse 92 05/15/22 07:30 Resp 18 05/15/22 07:30 BP 155/67 05/15/22 07:30 Pulse Ox 92 L 05/15/22 07:30 FiO2 Intake & Output 05/14/22 05/15/22 05/15/22 18:59 06:59 18:59 Intake Total 600 180 Output Total 1100 2225 400 Balance -500 -2225 -220 Weight 135.1 kg Intake: Oral 600 180 Output: Urine 1100 2225 400 Other: Voiding Method Urinal Urinal Urinal On examination awake alert oriented HEENT exam no JVP neck is supple no facial asymmetry He is on nasal cannula oxygen Lungs are clear to auscultation good air entry bilaterally Heart sounds unremarkable for any murmur rub gallop Abdomen soft nontender. Extremity exam was 2+ edema Neurologically awake alert oriented - Labs CBC & Chem 7: 05/15/22 08:26 05/15/22 08:26 Labs: Abnormal Lab Results - Last 24 Hours (Table) 05/14/22 05/14/22 05/14/22 Range/Units 11:22 12:23 17:04 RBC (4.30-5.90) m/uL Hgb (13.0-17.5) gm/dL Hct (39.0-53.0) % Carbon Dioxide 37 H (22-30) mmol/L BUN 26 H (9-20) mg/dL Creatinine 1.82 H (0.66-1.25) mg/dL Glucose 167 H (74-99) mg/dL POC Glucose (mg/dL) 158 H 306 H (70-110) mg/dL Calcium 7.9 L (8.4-10.2) mg/dL 05/14/22 05/15/22 05/15/22 Range/Units 20:08 06:09 07:19 RBC (4.30-5.90) m/uL Hgb (13.0-17.5) gm/dL Hct (39.0-53.0) % Carbon Dioxide (22-30) mmol/L BUN (9-20) mg/dL Creatinine (0.66-1.25) mg/dL Glucose (74-99) mg/dL POC Glucose (mg/dL) 188 H 158 H 148 H (70-110) mg/dL Calcium (8.4-10.2) mg/dL 05/15/22 05/15/22 Range/Units 08:26 08:26 RBC 4.00 L (4.30-5.90) m/uL Hgb 12.4 L (13.0-17.5) gm/dL Hct 38.6 L (39.0-53.0) % Carbon Dioxide 34 H (22-30) mmol/L BUN 32 H (9-20) mg/dL Creatinine 1.76 H (0.66-1.25) mg/dL Glucose 205 H (74-99) mg/dL POC Glucose (mg/dL) (70-110) mg/dL Calcium 7.7 L (8.4-10.2) mg/dL Assessment and Plan Assessment: Impression 1. Acute kidney injury secondary to cardiorenal syndrome responding with good urine output on Lasix 40 IV every 8. Creatinine 1.54 on admission, patient did 1.8 to 06/01/2024 yesterday and is 1.7 seconds this morning 2. Congestive heart failure improved 3. Mild metabolic alkalosis secondary to diuretics Bicarb is 32 We will watch it. Recommendation 1. Will change the Lasix to Demadex in preparation for his discharge was started 80 mg a day 2. Labs tomorrow
[2022-05-15] MEDS: TORSEMIDE 20 MG TAB PO SCH (12:15)
[2022-05-15 12:21] LABS: Glucose,Whole Blood 70 mg/dL (70-110)
--- NOTE | 2022-05-15 12:56 | P.PN ---
Subjective Progress Note Date: 05/15/22 HISTORY OF PRESENT ILLNESS This is a 76-year-old male with past medical history of coronary artery disease status post prior angioplasty, hypertension, diabetes, hyperlipidemia. Patient presented to progressive shortness of breath over the past several weeks. No chest pain. Positive bilateral lower extremity edema. Echocardiogram reveals concentric left undergone hypertrophy with normal LV systolic function. Chest x-ray suggestive heart failure. Patient was started on Lasix 40 mg IV every 8 hours. Blood pressure was noted to be elevated and hydralazine was added to his home regime. 05/14 Patient states that his breathing is significantly improved from yesterday. Also edema is improved from yesterday. D-dimer came back at 0.5. BMP ordered for today. He has been maintained on Lasix 40 mg IV every 8 hours. And feels he is diuresing well. Blood pressure has been elevated despite changes made yesterday and hydralazine will be increased to 100 mg every 8 hours. 05/15 The patient states he is having some shortness of breath with exertion. No chest pain. No lightheadedness or dizziness. Lower extremity edema is improving. Potassium today 3.6, BUN 32 and creatinine 1.76. He is on Lasix 40 mg IV every 8 hours and diuresing well. Nephrology has transitioned IV Lasix to Demadex 80 mg daily oral Echocardiogram reveals concentric left ventricular hypertrophy with normal LV fu nction. Mild mitral regurgitation. PHYSICAL EXAMINATION Gen: This is a 76-year-old male. He is resting in the chair and appears to be comfortable VS: reviewed HEENT: Head is atraumatic, normocephalic. Pupils equal, round. Sclerae is anicteric. NECK: Supple. No JVD. No lymphadenopathy. No thyromegaly. LUNGS: Clear to auscultation. No wheezes or rhonchi. No intercostal retraction s. HEART: Regular rate and rhythm. No murmur. ABDOMEN: Soft. Bowel sounds are present. No masses. No tenderness. EXTREMITIES: 1+ pedal edema. No calf tenderness. NEUROLOGICAL: Patient is awake, alert and oriented x3. Cranial nerves 2 through 12 are grossly intact. ASSESSMENT Acute onset diastolic heart failure Uncontrolled hypertension and hypertensive cardio vascular disease Coronary artery disease status post angioplasty Acute renal failure PLAN IV Lasix transitioned to Demadex 80 mg oral daily by nephrology Monitor I&O, daily weights, electrolyte and renal function Continue increased dose of hydralazine 100 mg every 8 hours Continue amlodipine 10 mg daily, losartan 100 mg daily, Lopressor 100 mg in the a.m. and 50 mg at bedtime Also continue patient on aspirin and Lipitor. Further recommendations to follow based upon clinical course Thank you kindly for this consultation. Nurse practitioner note has been reviewed, I agree with documented findings and plan of care. Patient was seen and examined. Objective - Vital Signs Vital signs: Vital Signs Temp 98.4 F 05/15/22 07:30 Pulse 92 05/15/22 07:30 Resp 18 05/15/22 07:30 BP 155/67 05/15/22 07:30 Pulse Ox 92 L 05/15/22 07:30 FiO2 Intake & Output 05/14/22 05/15/22 05/15/22 18:59 06:59 18:59 Intake Total 600 180 Output Total 1100 2225 400 Balance -500 -2225 -220 Weight 135.1 kg Intake: Oral 600 180 Output: Urine 1100 2225 400 Other: Voiding Method Urinal Urinal Urinal - Labs CBC & Chem 7: 05/15/22 08:26 05/15/22 08:26 Labs: Abnormal Lab Results - Last 24 Hours (Table) 05/14/22 05/14/22 05/14/22 Range/Units 11:22 12:23 17:04 RBC (4.30-5.90) m/uL Hgb (13.0-17.5) gm/dL Hct (39.0-53.0) % Carbon Dioxide 37 H (22-30) mmol/L BUN 26 H (9-20) mg/dL Creatinine 1.82 H (0.66-1.25) mg/dL Glucose 167 H (74-99) mg/dL POC Glucose (mg/dL) 158 H 306 H (70-110) mg/dL Calcium 7.9 L (8.4-10.2) mg/dL 05/14/22 05/15/22 05/15/22 Range/Units 20:08 06:09 07:19 RBC (4.30-5.90) m/uL Hgb (13.0-17.5) gm/dL Hct (39.0-53.0) % Carbon Dioxide (22-30) mmol/L BUN (9-20) mg/dL Creatinine (0.66-1.25) mg/dL Glucose (74-99) mg/dL POC Glucose (mg/dL) 188 H 158 H 148 H (70-110) mg/dL Calcium (8.4-10.2) mg/dL 05/15/22 05/15/22 Range/Units 08:26 08:26 RBC 4.00 L (4.30-5.90) m/uL Hgb 12.4 L (13.0-17.5) gm/dL Hct 38.6 L (39.0-53.0) % Carbon Dioxide 34 H (22-30) mmol/L BUN 32 H (9-20) mg/dL Creatinine 1.76 H (0.66-1.25) mg/dL Glucose 205 H (74-99) mg/dL POC Glucose (mg/dL) (70-110) mg/dL Calcium 7.7 L (8.4-10.2) mg/dL
[2022-05-15 16:54] LABS: Glucose,Whole Blood 237 mg/dL (70-110)
[2022-05-15 19:55] LABS: Glucose,Whole Blood 241 mg/dL (70-110)
[2022-05-15] MEDS: INSULIN DETEMIR (LEVEMIR) 100 UNIT/ML SYR SQ SCH (20:43)
--- NOTE | 2022-05-15 21:52 | PN ---
PROGRESS NOTE DATE OF SERVICE: 05/15/2022 SUBJECTIVE: This 76-year-old gentleman, who was admitted with CHF acute exacerbation, also had diabetes mellitus type 2. The patient is being closely monitored. No chest pain. No palpitations. No fever. Nephrology is following the patient closely also. OBJECTIVE: VITAL SIGNS: Pulse is 77, blood pressure 152/79, respirations 18. CHEST: Few scattered rhonchi. ABDOMEN: Soft. LEGS: No edema. NERVOUS SYSTEM: Nonfocal. LABORATORY DATA: Creatinine 1.76. ASSESSMENT: 1. Congestive heart failure acute exacerbation. 2. Acute renal failure. 3. Diabetes mellitus, type 2. 4. Hypertension. 5. Chronic kidney disease, stage 3. 6. Degenerative joint disease. 7. History of coronary artery disease. RECOMMENDATIONS: I recommend to continue current management and symptomatic treatment. Repeat labs. Continue with diuretics. Closely follow with Nephrology and Cardiology. Probable discharge in the next 24 to 48 hours. MMODL / IJN: [id number] /
[2022-05-16 01:59] LABS: Glucose,Whole Blood 118 mg/dL (70-110)
[2022-05-16] MEDS: hydrALAZINE HCL 50 MG TAB PO SCH ×2 (03:15→12:26)
[2022-05-16 03:30] VITALS: RESP 18
[2022-05-16 06:19] LABS: Glucose,Whole Blood 82 mg/dL (70-110)
[2022-05-16] MEDS: INSULIN ASPART (NovoLOG) 100 UNIT/ML VIAL SQ SCH ×4 (06:40→12:26)
[2022-05-16] MEDS: TIMOLOL 0.5% OPHTH DROPS 5 ML BTL BOTH EYES SCH (06:50)
--- NOTE | 2022-05-16 07:28 | XR ---
EXAMINATION TYPE: XR chest 1V portable DATE OF EXAM: 05/16/2022 Comparison: 05/12/2022 Clinical History: 76-year-old male Pleural effusion Findings: Heart mildly enlarged. Mild interstitial prominence. Ongoing small bilateral pleural effusions with b ibasilar opacities. Impression: Correlate for ongoing CHF with mild pulmonary vascular congestion. Ongoing small bilateral pleural ef fusions with adjacent atelectasis and/or consolidation.
[2022-05-16 07:36] LABS: Glucose,Whole Blood 83 mg/dL (70-110)
[2022-05-16 08:01] LABS: Basophils % (A) 1 %; Eosinophils # (A) 0.3 k/uL (0-0.7); Eosinophils % (A) 4 %; HGB 12.5 gm/dL (13.0-17.5); Hypochromasia Moderate; Lymphocytes # (A) 1.3 k/uL (1.0-4.8); Lymphocytes % (A) 19 %; MCH 30.2 pg (25.0-35.0); MCHC 31.3 g/dL (31.0-37.0); MCV 96.5 fL (80.0-100.0); Monocytes # (A) 0.5 k/uL (0-1.0); Monocytes % (A) 8 %; Neutrophils # (A) 4.4 k/uL (1.3-7.7); Neutrophils % (A) 67 %; Platelet Count 270 k/uL (150-450); RBC 4.14 m/uL (4.30-5.90); WBC 6.6 k/uL (3.8-10.6)
[2022-05-16 08:14] LABS: Potassium 3.8 mmol/L (3.5-5.1)
[2022-05-16] MEDS: ATORVASTATIN 20 MG TAB PO SCH (09:37)
[2022-05-16] MEDS: CLOPIDOGREL 75 MG TAB PO SCH (09:37)
[2022-05-16] MEDS: HEPARIN SODIUM,PORCINE/PF 5,000 UNIT/0.5 ML SYRINGE SQ SCH (09:37)
[2022-05-16] MEDS: ASPIRIN 81 MG PO SCH (09:37)
[2022-05-16] MEDS: LOSARTAN 50 MG TAB PO SCH (09:37)
[2022-05-16] MEDS: amLODIPine 10 MG TAB PO SCH (09:37)
[2022-05-16] MEDS: CYANOCOBALAMIN 500 MCG TAB PO SCH (09:38)
[2022-05-16] MEDS: CHOLECALCIFEROL 10 MCG (400 IU) TABLET PO SCH (09:38)
[2022-05-16] MEDS: POTASSIUM CHLORIDE ER 10 MEQ TAB.ER.PRT PO SCH (09:38)
[2022-05-16] MEDS: TORSEMIDE 20 MG TAB PO SCH (09:38)
[2022-05-16] MEDS: METOPROLOL TARTRATE 50 MG TAB PO SCH (09:38)
[2022-05-16 09:47] LABS: Glucose,Whole Blood 170 mg/dL (70-110)
[2022-05-16 12:18] LABS: Glucose,Whole Blood 176 mg/dL (70-110)
[2022-05-16 13:01] VITALS: BP 144/68; PULSE 77; TEMP 97.8
--- NOTE | 2022-05-16 13:05 | P.PN ---
Subjective Patient is seen in follow-up for acute kidney injury on chronic kidney disease. Patient has chronic kidney disease stage III with baseline creatinine near 1.5 secondary to diabetic kidney disease. Edema improved. On oral torsemide. Has been voiding. No vomiting or diarrhea. No chest pain or shortness of breath. Vital signs are stable. General: Awake. No acute distress. HEENT: Head exam is unremarkable. LUNGS: Breath sounds decreased. HEART: Rate and Rhythm are regular. ABDOMEN: Soft, no distention. EXTREMITITES: 1+ edema. Objective - Vital Signs Vital signs: Vital Signs Temp 98.1 F 05/16/22 07:30 Pulse 91 05/16/22 07:30 Resp 18 05/16/22 07:30 BP 130/64 05/16/22 07:30 Pulse Ox 93 L 05/16/22 07:30 FiO2 Intake & Output 05/15/22 05/16/22 05/16/22 18:59 06:59 18:59 Intake Total 780 180 Output Total 1400 1300 200 Balance -620 -1300 -20 Weight 135.1 kg Intake: Oral 780 180 Output: Urine 1400 1300 200 Other: Voiding Method Urinal Urinal Urinal # Bowel Movements 0 - Labs CBC & Chem 7: 05/16/22 07:43 05/16/22 07:43 Labs: Abnormal Lab Results - Last 24 Hours (Table) 05/15/22 05/15/22 05/16/22 Range/Units 16:53 19:53 01:57 RBC (4.30-5.90) m/uL Hgb (13.0-17.5) gm/dL Carbon Dioxide (22-30) mmol/L BUN (9-20) mg/dL Creatinine (0.66-1.25) mg/dL POC Glucose (mg/dL) 237 H 241 H 118 H (70-110) mg/dL Calcium (8.4-10.2) mg/dL 05/16/22 05/16/22 05/16/22 Range/Units 07:43 07:43 09:46 RBC 4.14 L (4.30-5.90) m/uL Hgb 12.5 L (13.0-17.5) gm/dL Carbon Dioxide 38 H (22-30) mmol/L BUN 33 H (9-20) mg/dL Creatinine 1.97 H (0.66-1.25) mg/dL POC Glucose (mg/dL) 170 H (70-110) mg/dL Calcium 8.0 L (8.4-10.2) mg/dL 05/16/22 Range/Units 12:17 RBC (4.30-5.90) m/uL Hgb (13.0-17.5) gm/dL Carbon Dioxide (22-30) mmol/L BUN (9-20) mg/dL Creatinine (0.66-1.25) mg/dL POC Glucose (mg/dL) 176 H (70-110) mg/dL Calcium (8.4-10.2) mg/dL Assessment and Plan Plan: Assessment: 1. Acute kidney injury mostly prerenal secondary to cardiorenal syndrome. Creatinine 1.92 today. 2. Chronic kidney disease stage III with baseline creatinine near 1.5 secondary to diabetic kidney disease. 3. Volume overload. 4. Acute on chronic diastolic CHF. 5. Diabetes mellitus. 6. Hypertension with chronic any disease. Stable. Plan: Maintain torsemide. Advised patient to follow low salt diet and 40-45 pounds fluid restriction per day upon discharge. Also advised to monitor his weight closely at home and to notify physician if develops worsening edema of gains more than 3 pounds in 1 week duration. Repeat BMP and magnesium level 2-3 days post discharge. Follow up outpatient in 1 week. Case discussed with primary team. If GFR remains stable, will benefit from [id number] inhibitor.
--- NOTE | 2022-05-16 20:28 | DS ---
DISCHARGE SUMMARY FINAL DIAGNOSES: 1. Acute on chronic diastolic dysfunction. 2. Congestive heart failure acute exacerbation. 3. Acute renal failure. 4. Diabetes mellitus, type 2. 5. Hypertension. 6. Chronic kidney disease, stage 3. 7. Degenerative joint disease. 8. History of coronary artery disease. DISCHARGE DISPOSITION: The patient will be discharged in stable condition and guarded prognosis. Discharge cleared by Cardiology and Nephrology. HISTORY OF PRESENT ILLNESS: This 76-year-old gentleman was admitted with CHF acute exacerbation. The patient also had some renal failure. Creatinine is 1.97. Nephrology and Cardiology saw the patient. The patient improved significantly. PHYSICAL EXAMINATION: VITAL SIGNS: Stable. CARDIOVASCULAR: S1, S2 normal. ABDOMEN: Soft. NERVOUS SYSTEM: No focal deficit. DISCHARGE MEDICATIONS: 1. Resume the home medications. 2. Stop the Lasix. 3. Demadex 80 mg p.o. daily. 4. Hydralazine 100 mg q.8. 5. Norvasc 10 mg daily. Follow up with Dr. Ron in 2 to 3 days. CBC and BMP. Follow up with Dr. Eduardo. I recommend to follow up with Dr. Korin Case as recommended. Once again, the patient will be discharged in stable condition and guarded prognosis. MMODL / IJN: [id number] /
--- NOTE | 2022-05-17 09:02 | PN ---
PROGRESS NOTE SUBJECTIVE: This gentleman has diabetes with chronic kidney disease, cardiac cath with previous PCI, and also peripheral artery disease. He came in with shortness of breath. There was no evidence of heart failure even though chest x-ray shows increased vascular markings, his BNP is normal, he is not in heart failure, and echo revealed good systolic function. The patient has some diastolic dysfunction and poor conditioning. There is no evidence of any clear-cut pneumonia. Vitals are stable. Labs revealed creatinine is up to 1.6. The patient's diuresis is being addressed by Nephrology. I am suggesting that he can be discharged on current medical therapy. Follow with Nephrology in 1 week, and I will see him in the office in 2 weeks. PHYSICAL EXAMINATION: VITALS: Stable. NECK: JVD 1 cm. No carotid bruit. HEART: S1, S2 heard normally, short systolic murmur in left sternal border. LUNGS: Reveal improved air entry. ABDOMEN: Soft. LOWER EXTREMITIES: Reveal bilateral mild edema. CENTRAL NERVOUS SYSTEM: Grossly no focal deficits. MMODL / IJN: [id number] /
== END 2022-05-16 15:25 | disposition home or self-care (01) | DRG 291 ==
LOC: EC 11:00 → 3SCARD 13:27
PROVIDERS: ADMIT Hospitalist; ATTEND Hospitalist
PROC: B246ZZ4 Ultrasonography of Right and Left Heart, Transesophageal (ICD-10-PCS; principal; 2022-05-13)
DX: I13.0 Hypertensive heart and chronic kidney disease with heart failure and stage 1 through stage 4 chronic kidney disease, or unspecified chronic kidney disease (principal); I50.33 Acute on chronic diastolic (congestive) heart failure; N17.9 Acute kidney failure, unspecified; E87.3 Alkalosis; Z20.822 Contact with and (suspected) exposure to COVID-19; M19.90 Unspecified osteoarthritis, unspecified site; I25.10 Atherosclerotic heart disease of native coronary artery without angina pectoris; N18.30 Chronic kidney disease, stage 3 unspecified; E11.22 Type 2 diabetes mellitus with diabetic chronic kidney disease; E11.51 Type 2 diabetes mellitus with diabetic peripheral angiopathy without gangrene; T50.2X5A Adverse effect of carbonic-anhydrase inhibitors, benzothiadiazides and other diuretics, initial encounter; I34.0 Nonrheumatic mitral (valve) insufficiency; E78.5 Hyperlipidemia, unspecified; H91.90 Unspecified hearing loss, unspecified ear; Z79.02 Long term (current) use of antithrombotics/antiplatelets; Z79.4 Long term (current) use of insulin; Z79.82 Long term (current) use of aspirin; Z79.84 Long term (current) use of oral hypoglycemic drugs; Z79.899 Other long term (current) drug therapy; Z87.891 Personal history of nicotine dependence; Z95.5 Presence of coronary angioplasty implant and graft; Z88.1 Allergy status to other antibiotic agents; X58.XXXA Exposure to other specified factors, initial encounter; Z98.42 Cataract extraction status, left eye; Z98.41 Cataract extraction status, right eye
CPT/HCPCS: 36415; 71045; 71046; 76770; 80048; 80053; 81001; 82570; 83036; 83605; 83880; 84300; 84484; 84540; 85025; 85379; 85610; 85730; 87636; 93005; 93306; 94760; 96372; 96374; 99285

== ENCOUNTER → 2022-10-25 | Outpatient (CLI) | payer MEDICARE ==
[2022-10-25 13:17] VITALS: BP 145/79; PULSE 83; RESP 18; TEMP 97.7
--- NOTE | 2022-10-25 14:53 | P.PAINPG ---
PQRS Measure Charge Sheet Comment: A 77 yr old male with a history of severe and chronic LBP secondary to lumbar DDD and spondylosis with facet arthropathy without myelopathy presents today for evaluation. Pain level is provoked at 6 /10 in intensity, intermittent, localized in the lumbar spine, tight in character w shooting towards the BLEs. Pain is provoked by standing/ walking for periods of 10 min or more. Pain is alleviated with PT yrs ago, medications, topical, sitting, repositioning and rest. Interventional pain procedures completed include JOHNATHON L4-L5 x2, L SI x1 Patient is currently on Robaxin Patient denies any side effects of the medication(s), denies excessive drowsiness or sleepiness, denies suicidal ideation and reports that the current pain medication is helping to control the pain and improve activities of daily living. Patient denies any motor or sensory deficits. Patient denies any fever or night sweats, denies any change in the bowel movements or urination. Physical Examination: -Constitutional: Cooperative. Not in acute distress . - Neurologic: Cranial nerve II to XII intact. No focal neurological deficits. - Psychatric: Alert & oriented x 3. Matching mood & appropriate affect. Judgment and insight intact. - Musculoskeletal: Cervical spine: Muscle bulk/ tone/ strength in the bilateral upper extremities normal Vertebral body tenderness to palpation over Spurling test positive Distraction test positive Facet loading test positive TTP Thoracic spine Muscle bulk / tone/ strength in the bilateral paraspinal muscles normal Vertebral body tender to palpation over Facet loading test positive TTP Lumbar spine: Motor bulk/ tone/ strength lower extremities , thigh and legs : 5/5 Deep tendon reflexes : Normal Knee Jerk. Normal Ankle Jerk . Vertebral body tenderness to palpation over L4 Angel Test positive Lumbar Facet Loading Test positive Straight Leg Raise: positive at 30 degrees right side/ left side Gaenslen's Test positive Sacral spine : Severe tenderness over the Sacroiliac joint: right side / left side Range of motion: Flexion of the lumbar spine <60 degrees Range of motion: Extension of the lumbar spine <20 degrees Gaenslen's Test positive right side / left side Chikis test: positive right side / left side Thigh Thrust Test positive right side / left side Sacral Thrust Test positive right side / left side Assessment and plan: Chronic LBP secondary to lumbar DDD, spondylosis with facet arthropathy without myelopathy Recommendation of JOHNATHON L4-L5. May need a series of injections for optimal pain relief. Risks, benefits of procedure discussed and pt verbalized understanding. Admits to anticoagulant use or medical history of diabetes. Protocol for discontinuation/ continuation of medications stephen procedure discussed. Minimal anesthesia provided, if clinically indicated, consisting of Versed and Fentanyl. Discontinue Robaxin. Start Zanaflex TID prn spasms #90 w 1 RF. All questions answered. I have spent less than 30 minutes on patient care today. Dr David was available by phone for the evaluation of this patient. The time was used to review the medical records including relevant urine studies and Prescription history (MAPs), review of the available imaging, evaluation and examination of the patient, coordination of care with the medical staff and if applicable referring physicians, as well as creation of the medical record PQRS Narrative: Smoking Status Former smoker Hx Alcohol Use (MH) Yes Home Medications: Ambulatory Orders Aspirin [Adult Low Dose Aspirin EC] 81 mg PO DAILY 02/05/18 INSULIN LISPRO (humaLOG) [humaLOG] See Protocol SQ 5XD PRN 02/05/18 Metoprolol Tartrate [Lopressor] 50 mg PO HS 02/05/18 Potassium Chloride ER [K-Dur 10] 10 meq PO BID 02/05/18 Rosuvastatin [Crestor] 10 mg PO DAILY 02/05/18 Fenofibrate Nanocrystallized [Fenofibrate] 145 mg PO Q48H 02/28/18 Clopidogrel [Plavix] 75 mg PO DAILY #30 tab 03/01/18 Nitroglycerin Sl Tabs [Nitrostat] 0.4 mg SUBLINGUAL Q5M PRN tab 03/20/18 Fish Oil/Dha/Epa [Fish Oil 1,200 mg Fish Oil] 1,200 mg PO DAILY 05/04/20 flaxseed oiL [Flaxseed Oil] 1,000 mg PO DAILY 05/04/20 metFORMIN HCL [Glucophage] 500 mg PO PC-SUPPER 05/04/20 Dulaglutide [Trulicity] 0.75 mg SQ MO 05/05/20 Timolol 0.5% Ophth Soln [Timoptic 0.5% Ophth Soln] 1 drop BOTH EYES DAILY 05/05/20 Metoprolol Tartrate [Lopressor] 100 mg PO QAM 01/18/22 Cholecalciferol [Vitamin D3 (10 Mcg = 400 Iu)] 10 mcg PO DAILY 05/12/22 Cyanocobalamin [Vitamin B-12] 500 mcg PO DAILY 05/12/22 Elderberry Fruit and Flower [Black Elderberry 575 mg Cap] 1 cap PO DAILY 05/12/22 INSULIN LISPRO (HumaLOG) [humaLOG] 30 units SQ PC-BRKFST 05/12/22 INSULIN LISPRO (HumaLOG) [humaLOG] 30 units SQ PC-LUNCH 05/12/22 INSULIN LISPRO (HumaLOG) [humaLOG] 30 units SQ PC-SUPPER 05/12/22 INSULIN LISPRO (HumaLOG) [humaLOG] 35 units SQ PC-BRKFST 05/12/22 Insulin Glargine,Hum.rec.anlog [Toujeo Solostar] 50 units SQ HS 05/12/22 Losartan Potassium 100 mg PO DAILY 05/12/22 Torsemide [Demadex] 80 mg PO DAILY 30 Days #120 tab 05/16/22 amLODIPine [Norvasc] 10 mg PO DAILY 30 Days #30 tab 05/16/22 hydrALAZINE HCL [Apresoline] 100 mg PO Q8H 30 Days #180 tab 05/16/22 Controlled Substance Measures - Controlled Substance Measures Is patient prescribed a controlled substance at discharge?: No
== END ==
LOC: PNWHC3 12:34
PROVIDERS: ATTEND Specialist
DX: M51.36 Other intervertebral disc degeneration, lumbar region (principal); M47.816 Spondylosis without myelopathy or radiculopathy, lumbar region; E11.9 Type 2 diabetes mellitus without complications; Z87.891 Personal history of nicotine dependence; G89.29 Other chronic pain; Z79.4 Long term (current) use of insulin; Z88.8 Allergy status to other drugs, medicaments and biological substances; Z79.84 Long term (current) use of oral hypoglycemic drugs; Z79.82 Long term (current) use of aspirin; Z79.85 Long-term (current) use of injectable non-insulin antidiabetic drugs
CPT/HCPCS: 99211

== ENCOUNTER 2022-11-28 07:34 | Day surgery (SDC) | payer MEDICARE ==
[2022-11-23 10:19] VITALS: BMI 42.3
[2022-11-28 08:13] VITALS: PULSE 77; TEMP 97.2
[2022-11-28 08:24] LABS: Glucose,Whole Blood 292 mg/dL (70-110)
[2022-11-28] MEDS ORDERED: INSULIN ASPART (NovoLOG) 100 UNIT/ML VIAL SQ ONE (08:37)
[2022-11-28] MEDS ORDERED: IOPAMIDOL M200 10 ML VIAL ONE (08:46)
[2022-11-28] MEDS ORDERED: ROPIVACAINE 5 MG/ML 20 ML AMPULE ONE (08:46)
[2022-11-28] MEDS ORDERED: TRIAMCINOLONE ACETONIDE 40 MG/ML 1 ML VIAL ONE (08:46)
--- NOTE | 2022-11-28 08:55 | P.PCN ---
Date of Procedure: 11/28/22 Surgeon: Jose Perry Pathology: none sent Condition: stable Disposition: PACU Description of Procedure: PREOPERATIVE DIAGNOSIS: Lumbar stenosis Lumbar DDD POSTOPERATIVE DIAGNOSIS: 1-Lumbar stenosis 2-Lumbar Degenerative Disc Diseases PROCEDURE 1. Lumbar epidural steroid injection under fluoroscopic guidance at the L4-5 level. 2. Lumbar epidurogram. ANESTHESIA: Local only with 1% lidocaine EBL: Minimal PROCEDURE INDICATION: The patient with low back pain and radiculitis symptoms unresponsive to conservative treatment. Fluoroscopy was used to optimize visualization of the needle placement and to maximize safety. PROCEDURE DESCRIPTION / TECHNIQUE: The patient was seen and identified in the preoperative area. Risks, benefits, complications including but not limited to infections ,bleeding ,allergic reaction to the medications ,nerve damage and not complete pain relief , and alternatives were discussed with the patient. The patient agreed to proceed with the procedure and signed the consent. IV was started, and vital signs were stable. Patient was taken to the OR and time out was completed. The patient was placed in the prone position on procedure table and a pillow was placed under the abdomen to reduce lumbar lordosis. The lumbosacral area was prepped and draped in the usual sterile fashion with ChloraPrep.Patient was closely monitored during the procedure. Conscious sedation was used during the procedure to decrease patients anxiety. Vital signs were monitered during the entire procedure. Using anterior-posterior fluoroscopy, the L4-5 interlaminar space was identified and the skin over this site was marked and then infiltrated with 1% lidocaine subcutaneously. Subsequently, a 20-gauge Tuohy epidural needle was inserted and advanced toward the epidural space using the Loss of resistance to air technique and guided by AP and lateral fluoroscopy. The correct needle position in the epidural space was verified with the injection of 1 mL of the water soluble contrast dye Omnipaque 180 contrast and observing an excellent epidurogram with the epidural spread of the dye, after negative aspiration for blood and CSF and in the absence of paresthesias. Again after negative aspiration, a 7 ml mixture containing 40 mg of Kenalog and 5 ml of preservative free Normal Saline, and 2 ml of preservative free Ropivacaine 0.5% solution was injected and a washout of epidurogram was seen. Needle was withdrawn intact, skin was cleansed, and bandages were applied. patient tolerated procedure well and was transferred to PACU in stable condition.A copy of the needle placement picture was saved to the fluoroscopy machine. COMPLICATIONS: None
[2022-11-28 09:01] VITALS: RESP 18
[2022-11-28 09:08] LABS: Glucose,Whole Blood 294 mg/dL (70-110)
--- NOTE | 2022-11-28 09:13 | FL ---
Intraoperative/procedural fluoroscopic services were provided. Total fluoroscopy time is 3.1 seconds with a total of 1 submitted images to PACS. Please see the operative/procedural note for further deta ils. DAP: [id number] mGym2
[2022-11-28 09:22] VITALS: BP 119/67
== END 2022-11-28 09:32 | disposition home or self-care (01) ==
LOC: ORPAIN 07:34
PROVIDERS: ATTEND Anesthesiology
DX: M51.16 Intervertebral disc disorders with radiculopathy, lumbar region (principal); M48.061 Spinal stenosis, lumbar region without neurogenic claudication; I25.10 Atherosclerotic heart disease of native coronary artery without angina pectoris; E11.9 Type 2 diabetes mellitus without complications; Z88.2 Allergy status to sulfonamides
CPT/HCPCS: 62323; J3301; Q9966; J2795

== ENCOUNTER → 2022-12-20 | Outpatient (CLI) | payer MEDICARE ==
[2022-12-20 14:52] VITALS: BP 125/73; PULSE 86; RESP 16; TEMP 98.4
--- NOTE | 2022-12-20 15:16 | P.PAINPG ---
PQRS Measure Charge Sheet Comment: HISTORY OF PRESENT ILLNESS: A 77 yr old male w at side with a history of severe and chronic LBP secondary to lumbar DDD and spondylosis with facet arthropathy without myelopathy presents today for evaluation s/p JOHNATHON L4-L5. Pt states he experienced 50 % pain relief x 3 wks s/p procedure. Pain level is provoked at 6 /10 in intensity, intermittent, localized in the lumbar spine, tight in character w shooting towards the BLEs. Pain is provoked by standing/ walking for periods of 10 min or more. Pain is alleviated with PT yrs ago, physician guided home exercises and stretches 3-5 times weekly since his stent w PT years ago, medications, topical, sitting, repositioning and rest. Oswestry axial pain score of 28. Interventional pain procedures completed include JOHNATHON L4-L5 x3, L SI x1 Patient is currently on Robaxin Patient denies any side effects of the medication(s), denies excessive drowsiness or sleepiness, denies suicidal ideation and reports that the current pain medication is helping to control the pain and improve activities of daily living. Patient denies any motor or sensory deficits. Patient denies any fever or night sweats, denies any change in the bowel movements or urination. Physical Examination: -Constitutional: Cooperative. Not in acute distress . - Neurologic: Cranial nerve II to XII intact. No focal neurological deficits. - Psychatric: Alert & oriented x 3. Matching mood & appropriate affect. Judgment and insight intact. - Musculoskeletal: Cervical spine: Muscle bulk/ tone/ strength in the bilateral upper extremities normal Vertebral body tenderness to palpation over Spurling test positive Distraction test positive Facet loading test positive TTP Thoracic spine Muscle bulk / tone/ strength in the bilateral paraspinal muscles normal Vertebral body tender to palpation over Facet loading test positive TTP Lumbar spine: Motor bulk/ tone/ strength lower extremities , thigh and legs : 5/5 Deep tendon reflexes : Normal Knee Jerk. Normal Ankle Jerk . Vertebral body tenderness to palpation Angel Test positive Taut bands w twitch response over BL L1-S1 Lumbar Facet Loading Test positive Straight Leg Raise: positive at 30 degrees right side/ left side Gaenslen's Test positive Sacral spine : Severe tenderness over the Sacroiliac joint: right side / left side Range of motion: Flexion of the lumbar spine <60 degrees Range of motion: Extension of the lumbar spine <20 degrees Gaenslen's Test positive right side / left side Chikis test: positive right side / left side Thigh Thrust Test positive right side / left side Sacral Thrust Test positive right side / left side Assessment and plan: Chronic LBP secondary to lumbar DDD, spondylosis with facet arthropathy without myelopathy Recommendation of BL Lumbosacral TPIs. May need a series of injections for optimal pain relief. Risks, benefits of procedure discussed and pt verbalized understanding. Admits to anticoagulant use or medical history of diabetes. Protocol for discontinuation/ continuation of medications stephen procedure discussed. Minimal anesthesia provided, if clinically indicated, consisting of Versed and Fentanyl. Zanaflex TID prn spasms. All questions answered. I have spent less than 30 minutes on patient care today. Dr David was available by phone for the evaluation of this patient. The time was used to review the medical records including relevant urine studies and Prescription history (MAPs), review of the available imaging, evaluation and examination of the patient, coordination of care with the medical staff and if applicable referring physicians, as well as creation of the medical record PQRS Narrative: Smoking Status Former smoker Hx Alcohol Use (MH) Yes Home Medications: Ambulatory Orders Aspirin [Adult Low Dose Aspirin EC] 81 mg PO DAILY 02/05/18 INSULIN LISPRO (humaLOG) [humaLOG] See Protocol SQ TID-W/MEALS PRN 02/05/18 Metoprolol Tartrate [Lopressor] 50 mg PO W/LUNCH 02/05/18 Potassium Chloride ER [K-Dur 10] 10 meq PO BID 02/05/18 Rosuvastatin [Crestor] 10 mg PO DAILY 02/05/18 Fenofibrate Nanocrystallized [Fenofibrate] 145 mg PO Q48H 02/28/18 Clopidogrel [Plavix] 75 mg PO DAILY #30 tab 03/01/18 Nitroglycerin Sl Tabs [Nitrostat] 0.4 mg SUBLINGUAL Q5M PRN tab 03/20/18 metFORMIN HCL [Glucophage] 500 mg PO DAILY 05/04/20 Dulaglutide [Trulicity] 1.5 mg SQ Q7D 05/05/20 Timolol 0.5% Ophth Soln [Timoptic 0.5% Ophth Soln] 1 drop BOTH EYES DAILY 05/05/20 Metoprolol Tartrate [Lopressor] 100 mg PO QAM 01/18/22 INSULIN LISPRO (HumaLOG) [humaLOG] 30 units SQ TID-W/MEALS 05/12/22 Insulin Glargine,Hum.rec.anlog [Toujeo Solostar] 50 units SQ HS 05/12/22 Losartan Potassium 100 mg PO DAILY 05/12/22 Empagliflozin [Jardiance] 10 mg PO DAILY 11/23/22 Furosemide [Lasix] 20 mg PO BID 11/23/22 Metoprolol Tartrate [Lopressor] 50 mg PO W/SUPPER 11/23/22 amLODIPine [Norvasc] 5 mg PO DAILY 11/23/22 Controlled Substance Measures - Controlled Substance Measures Is patient prescribed a controlled substance at discharge?: No
== END ==
LOC: PNWHC3 13:50
PROVIDERS: ATTEND Specialist
DX: M51.37 Other intervertebral disc degeneration, lumbosacral region (principal); M47.817 Spondylosis without myelopathy or radiculopathy, lumbosacral region; G89.29 Other chronic pain; Z87.891 Personal history of nicotine dependence; Z79.82 Long term (current) use of aspirin; Z88.8 Allergy status to other drugs, medicaments and biological substances
CPT/HCPCS: 99211

== ENCOUNTER 2023-01-09 06:46 | Day surgery (SDC) | payer MEDICARE ==
[2023-01-09] MEDS ORDERED: LACTATED RINGERS 1,000 ML IV SCH (07:00)
[2023-01-09 07:20] VITALS: TEMP 96.8
[2023-01-09 07:26] LABS: Glucose,Whole Blood 110 mg/dL (70-110)
[2023-01-09] MEDS ORDERED: ROPIVACAINE 5 MG/ML 20 ML AMPULE ONE (07:42)
[2023-01-09] MEDS ORDERED: TRIAMCINOLONE ACETONIDE 40 MG/ML 1 ML VIAL ONE (07:42)
--- NOTE | 2023-01-09 07:50 | P.PCN ---
Date of Procedure: 01/09/23 Description of Procedure: Pre and postop diagnosis: Lumbar Myofascial pain syndrome Procedure: Trigger point injections X 4 Muscle group X right side lumbar paraspinal muscles, and bilateral iliocostal lumborum muscle Surgeon: Tomi Dill Anesthesia: None Complications: None Estimated blood loss: None Specimen removed: None Procedure indications: Patient had a history of myofascial pain syndrome. Patient tried conservative therapy. Came here for intervention procedure for better pain relief. Procedure description: Patient was seen and identified in the holding area risk benefits competitions alternative discussed with the patient. Patient agreed to proceed for the procedure signed the consent. Patient taken to the procedure area. Timeout was completed. A total number of 4 - trigger point area was marked with a sterile marker. After ChloraPrep used to clean the area. Critical pause was taken. Using 25-gauge 1-1/2 inch needle entered in each market site 2mL of block solution injected at each level. The block solution containing 8ml of 0.5% preservative-free ropivacaine with Kenlog 40 MG. Needle removed intact skin cleaned and Band-Aid applied. Patient tolerated the procedure well. Disposition: Patient discharge home after meeting the discharge criteria from the recovery. Patient scheduled to follow up with the pain clinic in 4 weeks for follow-up visit.
[2023-01-09 07:54] VITALS: RESP 18
[2023-01-09 08:09] VITALS: BP 117/59; PULSE 80
== END 2023-01-09 08:14 | disposition home or self-care (01) ==
LOC: ORPAIN 06:46
DX: M79.18 Myalgia, other site (principal); I48.91 Unspecified atrial fibrillation; E11.22 Type 2 diabetes mellitus with diabetic chronic kidney disease; N18.9 Chronic kidney disease, unspecified; Z79.4 Long term (current) use of insulin; Z79.84 Long term (current) use of oral hypoglycemic drugs; I25.10 Atherosclerotic heart disease of native coronary artery without angina pectoris; F32.A Depression, unspecified; M19.90 Unspecified osteoarthritis, unspecified site; Z95.1 Presence of aortocoronary bypass graft; Z98.890 Other specified postprocedural states; Z79.899 Other long term (current) drug therapy
CPT/HCPCS: 20553; J3301; J2795

== ENCOUNTER → 2023-02-01 | Outpatient (CLI) | payer MEDICARE ==
[2023-02-01 16:08] VITALS: BP 128/76; PULSE 84; RESP 116; TEMP 97.8
--- NOTE | 2023-02-01 16:08 | P.PAINPG ---
PQRS Measure Charge Sheet Comment: HISTORY OF PRESENT ILLNESS: A 77 yr old male w at side with a history of severe and chronic LBP secondary to lumbar DDD and spondylosis with facet arthropathy without myelopathy presents today for evaluation s/p Lumbar TPIs. Pt states he experienced 60 % pain relief x 3 wks s/p procedure. Pt no longer has pain, but pressure/ tightness is provoked at 6 /10 in intensity, intermittent, localized in the lumbar spine, tight in character w shooting towards the BLEs. It is provoked by standing/ walking for periods of 10 min or more. Pain is alleviated with PT yrs ago, physician guided home exercises and stretches 3-5 times weekly since his stent w PT years ago, medications, topical, sitting, repositioning and rest. Oswestry axial pain score of 28. Interventional pain procedures completed include JOHNATHON L4-L5 x3, L SI x1, Lumbar TPIs Patient is currently on Robaxin Patient denies any side effects of the medication(s), denies excessive drowsiness or sleepiness, denies suicidal ideation and reports that the current pain medication is helping to control the pain and improve activities of daily living. Patient denies any motor or sensory deficits. Patient denies any fever or night sweats, denies any change in the bowel movements or urination. Physical Examination: -Constitutional: Cooperative. Not in acute distress . - Neurologic: Cranial nerve II to XII intact. No focal neurological deficits. - Psychatric: Alert & oriented x 3. Matching mood & appropriate affect. Judgment and insight intact. - Musculoskeletal: Cervical spine: Muscle bulk/ tone/ strength in the bilateral upper extremities normal Vertebral body tenderness to palpation over Spurling test positive Distraction test positive Facet loading test positive TTP Thoracic spine Muscle bulk / tone/ strength in the bilateral paraspinal muscles normal Vertebral body tender to palpation over Facet loading test positive TTP Lumbar spine: Motor bulk/ tone/ strength lower extremities , thigh and legs : 5/5 Deep tendon reflexes : Normal Knee Jerk. Normal Ankle Jerk . Vertebral body tenderness to palpation Angel Test positive Taut bands w twitch response over BL L1-S1 Lumbar Facet Loading Test positive Straight Leg Raise: positive at 30 degrees right side/ left side Gaenslen's Test positive Sacral spine : Severe tenderness over the Sacroiliac joint: right side / left side Range of motion: Flexion of the lumbar spine <60 degrees Range of motion: Extension of the lumbar spine <20 degrees Gaenslen's Test positive right side / left side Chikis test: positive right side / left side Thigh Thrust Test positive right side / left side Sacral Thrust Test positive right side / left side Assessment and plan: Chronic LBP secondary to lumbar DDD, spondylosis with facet arthropathy without myelopathy Recommendation of PT w a focus on therapeutic massage x 6 wks Dx: M 51.36. All questions answered. I have spent less than 30 minutes on patient care today. Dr David was available by phone for the evaluation of this patient. The time was used to review the medical records including relevant urine studies and Prescription h istory (MAPs), review of the available imaging, evaluation and examination of the patient, coordination of care with the medical staff and if applicable referring physicians, as well as creation of the medical record PQRS Narrative: Smoking Status Former smoker Hx Alcohol Use (MH) Yes Home Medications: Ambulatory Orders Aspirin [Adult Low Dose Aspirin EC] 81 mg PO DAILY 02/05/18 INSULIN LISPRO (humaLOG) [humaLOG] See Protocol SQ TID-W/MEALS PRN 02/05/18 Potassium Chloride ER [K-Dur 10] 10 meq PO BID 02/05/18 Rosuvastatin [Crestor] 10 mg PO DAILY 02/05/18 Fenofibrate Nanocrystallized [Fenofibrate] 145 mg PO Q48H 02/28/18 Clopidogrel [Plavix] 75 mg PO DAILY #30 tab 03/01/18 Nitroglycerin Sl Tabs [Nitrostat] 0.4 mg SUBLINGUAL Q5M PRN tab 03/20/18 metFORMIN HCL [Glucophage] 500 mg PO DAILY 05/04/20 Dulaglutide [Trulicity] 1.5 mg SQ Q7D 05/05/20 Timolol 0.5% Ophth Soln [Timoptic 0.5% Ophth Soln] 1 drop BOTH EYES DAILY 05/05/20 Metoprolol Tartrate [Lopressor] 100 mg PO QAM 01/18/22 INSULIN LISPRO (HumaLOG) [humaLOG] 30 units SQ TID-W/MEALS 05/12/22 Insulin Glargine,Hum.rec.anlog [Toujeo Solostar] 50 units SQ HS 05/12/22 Losartan Potassium 100 mg PO DAILY 05/12/22 Empagliflozin [Jardiance] 10 mg PO DAILY 11/23/22 Furosemide [Lasix] 20 mg PO BID 11/23/22 amLODIPine [Norvasc] 5 mg PO DAILY 11/23/22 Controlled Substance Measures - Controlled Substance Measures Is patient prescribed a controlled substance at discharge?: No
== END ==
LOC: PNWHC3 13:40
PROVIDERS: ATTEND Specialist
DX: M51.37 Other intervertebral disc degeneration, lumbosacral region (principal); M47.817 Spondylosis without myelopathy or radiculopathy, lumbosacral region; G89.29 Other chronic pain; Z87.891 Personal history of nicotine dependence; Z79.82 Long term (current) use of aspirin; Z88.8 Allergy status to other drugs, medicaments and biological substances
CPT/HCPCS: 99211

== ENCOUNTER 2023-05-03 07:27 | Inpatient (IN) | payer MEDICARE ==
[2023-05-03] MEDS ORDERED: SODIUM CHLORIDE 0.9% 500 ML 250 ML IV STA (07:50)
[2023-05-03 07:59] LABS: Glucose,Whole Blood 329 mg/dL (70-110)
--- NOTE | 2023-05-03 08:01 | ED ---
General Adult HPI - General Chief complaint: Fall Stated complaint: sob weakness fall hit head Time Seen by Provider: 05/03/23 07:41 Source: patient, family, RN notes reviewed, old records reviewed Mode of arrival: wheelchair Limitations: no limitations - History of Present Illness Initial comments: Patient is a 77-year-old male who presents emergency Department for evaluation for progressive weakness, shortness of breath, fall. Patient has been feeling more progressively weak and short of breath for multiple weeks to months. Seems to be worse over the last few weeks. Patient has a history of CAD with history of angioplasty, diabetes, hypertension. States he's been feeling more progressively weak with shortness of breath for multiple weeks. The turning point today was that he fell. He states he may have hit his head. Denies any pain or injuries. Denies any back pain. Denies any chest pain, abdominal pain, nausea, vomiting, constipation. States at rest she has no shortness breath with it but with any exertion it is worse. Denies any worsening leg edema. Denies any worsening orthopnea. Denies any PND. States he is compliant with medications. Has been seen at outside hospitals but discharged home has not yet followed up with his physicians. Presents for further evaluation at this time. Does endorse a mild nonproductive cough. Has decreased oral intake at home. - Related Data Home Medications Medication Instructions Recorded Confirmed Aspirin [Adult Low Dose Aspirin EC] 81 mg PO W/BRKFST 02/05/18 05/03/23 INSULIN LISPRO (humaLOG) [humaLOG] See Protocol SQ BID-W/MEALS 02/05/18 05/03/23 Potassium Chloride ER [K-Dur 10] 10 meq PO BID-W/MEALS 02/05/18 05/03/23 Rosuvastatin [Crestor] 10 mg PO PC-SUPPER 02/05/18 05/03/23 Fenofibrate Nanocrystallized 145 mg PO Q2D@1800 02/28/18 05/03/23 [Fenofibrate] metFORMIN HCL [Glucophage] 500 mg PO PC-SUPPER 05/04/20 05/03/23 Dulaglutide [Trulicity] 1.5 mg SQ Q7D 05/05/20 05/03/23 Timolol 0.5% Ophth Soln [Timoptic 1 drop BOTH EYES DAILY 05/05/20 05/03/23 0.5% Ophth Soln] Metoprolol Tartrate [Lopressor] 100 mg PO W/BRKFST 01/18/22 05/03/23 Insulin Glargine,Hum.rec.anlog 50 units SQ HS 05/12/22 05/03/23 [Noejessica Solostar] Losartan Potassium 100 mg PO W/LUNCH 05/12/22 05/03/23 Empagliflozin [Jardiance] 10 mg PO DAILY 11/23/22 05/03/23 Furosemide [Lasix] 40 mg PO W/BRKFST 11/23/22 05/03/23 Clopidogrel [Plavix] 75 mg PO W/LUNCH 05/03/23 05/03/23 Isosorbide Mononitrate ER [Imdur] 30 mg PO W/BRKFST 05/03/23 05/03/23 Metoprolol Tartrate [Lopressor] 50 mg PO AC-BID@1200,1800 05/03/23 05/03/23 Nitroglycerin Sl Tabs [Nitrostat] 0.4 mg SL Q5M PRN 05/03/23 05/03/23 Tamsulosin [Flomax] 0.4 mg PO W/LUNCH 05/03/23 05/03/23 amLODIPine [Norvasc] 5 mg PO BID-W/MEALS 05/03/23 05/03/23 cycloSPORINE 0.05% OPHTH SOLN 1 drop BOTH EYES BID 05/03/23 05/03/23 [Restasis] polyethylene glycoL 3350 [Miralax] 17 gm PO DAILY PRN 05/03/23 05/03/23 Allergies Allergy/AdvReac Type Severity Reaction Status Date / Time cyclobenzaprine Allergy Itching Verified 05/03/23 07:39 [From Flexeril] Review of Systems ROS Statement: Those systems with pertinent positive or pertinent negative responses have been documented in the HPI. Review of Systems: CONST: Denies fever EYES: Denies blurry vision ENT: Denies nasal congestion C/V: Denies Chest pain RESP: Endorses exertional dyspnea GI: Denies abdominal pain : Denies dysuria SKIN: Denies rash. MSK: Denies joint pain. NEURO: Denies headache ROS Other: All systems not noted in ROS Statement are negative. Past Medical History Past Medical History: Coronary Artery Disease (CAD), Diabetes Mellitus, Eye Disorder, Hearing Disorder / Deafness, Hypertension, Osteoarthritis (OA) Additional Past Medical History / Comment(s): GLAUCOMA. Hard of hearing. History of Any Multi-Drug Resistant Organisms: None Reported Past Surgical History: Heart Catheterization With Stent, Orthopedic Surgery Additional Past Surgical History / Comment(s): Right knee arthroscopy, bilateral cataract surgery, 5 cardiac stents, pain clinic procedure. Past Anesthesia/Blood Transfusion Reactions: Previous Problems w/ Anesthesia Additional Past Anesthesia/Blood Transfusion Reaction / Comment(s): states pt has letter from previous knee surgery in 2010 that indicates that Erasto was a difficult intubation with difficult airway anterior. Date of Last Stent Placement:: 04/2019 Past Psychological History: No Psychological Hx Reported Smoking Status: Former smoker Past Alcohol Use History: None Reported Past Drug Use History: None Reported - Past Family History Mother Family Medical History: Cancer Additional Family Medical History / Comment(s): Stomach cancer. Father Family Medical History: CVA/TIA General Exam - General Exam Comments Initial Comments: General: Appears in no acute distress. HEAD: Normal with no signs of head trauma. Negative snyder sign. Negative raccoon eyes. EYES: PERRLA, EOMI, conjunctiva normal, no discharge. Pupils are 3 mm equal bilaterally. ENT: Hearing grossly intact, normal oropharynx. RESPIRATORY: No obvious wheezes or rhonchi. Somewhat reduced breath sounds bilaterally possibly secondary to body habitus. Hypoxic on room air to 88-89% C/V: Regular rate and rhythm. S1 and S2 auscultated, mild bilateral lower extremity symmetrical edema, peripheral pulses 2+ and intact throughout ABD: Abd is soft, nontender, nondistended EXT: Normal range of motion, no obvious deformity. Pelvis stable. No midline spinal tenderness palpation or deformities. SKIN: No rashes or lesions observed on exposed skin. NEURO: Alert and oriented x 4. GCS of 15. No focal deficits. Generalized weakness. Limitations: no limitations Course Vital Signs 05/03/23 05/03/23 05/03/23 07:35 08:00 08:30 Temperature 98.6 F Pulse Rate 104 H 92 92 Respiratory 20 14 16 Rate Blood Pressure 74/40 143/65 137/62 O2 Sat by Pulse 88 L 95 95 Oximetry 05/03/23 05/03/23 05/03/23 09:00 09:30 10:00 Temperature Pulse Rate 89 90 88 Respiratory 20 14 14 Rate Blood Pressure 104/52 139/64 154/73 O2 Sat by Pulse 97 95 95 Oximetry Medical Decision Making - Medical Decision Making Was pt. sent in by a medical professional or institution (, [place], SEC ACCOUNTANT, urgent care, hospital, or prison...) When possible be specific @ -No Did you speak to anyone other than the patient for history (EMS, parent, family, police, friend...)? What history was obtained from this source @ -I spoke with patient's and son who agreed with patient's recent past medical history. Did you review nursing and triage notes (agree or disagree)? Why? @ -I reviewed and agree with nursing and triage notes Were old charts reviewed (outside hosp., previous admission, EMS record, old EKG, old radiological studies, urgent care reports/EKG's, prison records)? Report findings @ -Old charts reviewed Differential Diagnosis (chest pain, altered mental status, abdominal pain women, abdominal pain men, vaginal bleeding, weakness, fever, dyspnea, syncope, headache, dizziness, GI bleed, back pain, seizure, CVA, palpatations, mental health, musculoskeletal)? @ -Differential Dyspnea: Coronary syndrome, arrhythmia, tamponade, asthma, COPD, pulmonary embolism, pneumonia, pneumothorax, pulmonary effusion, anaphylaxis, diabetic ketoacidosis, flailed chest, pulmonary contusion, diaphragmatic rupture, anemia, neuromuscular, this is not meant to be an all-inclusive list. Differential Weakness: Hypoglycemia, shock, sepsis, hyponatremia, anemia, infection, HI, ETOH, adverse medicine reaction, overdose, stroke, this is not meant to be an all-inclusive list. EKG interpreted by me (3pts min.). @ -As above X-rays interpreted by me (1pt min.). @ -Chest x-ray does reveal pulmonary vascular congestion as well as bilateral pleural effusions. CT interpreted by me (1pt min.). @ -CT brain shows no obvious acute intracranial process. U/S interpreted by me (1pt. min.). @ -None done What testing was considered but not performed or refused? (CT, X-rays, U/S, labs)? Why? @ -None What meds were considered but not given or refused? Why? @ -None Did you discuss the management of the patient with other professionals (professionals i.e. , PA, SEC ACCOUNTANT, lab, RT, psych nurse, high school social science teacher, trail maintenance worker, teacher, commanding officer traffic division, case mgr)? Give summary @ -I spoke with the admitting team, JOE Aguirre of [facility] who accepted the patient. Was smoking cessation discussed for >3mins.? @ -No Was critical care preformed (if so, how long)? @ -yes, 35 min Were there social determinants of health that impacted care today? How? (Denny elessness, low income, unemployed, alcoholism, drug addiction, transportation, low edu. Level, literacy, decrease access to med. care, longterm, rehab)? @ -No Was there de-escalation of care discussed even if they declined (Discuss DNR or withdrawal of care, Hospice)? DNR status @ -No What co-morbidities impacted this encounter? (DM, HTN, Smoking, COPD, CAD, Cancer, CVA, ARF, Chemo, Hep., AIDS, mental health diagnosis, sleep apnea, morbid obesity)? @ -None Was patient admitted / discharged? Hospital course, mention meds given and route, prescriptions, significant lab abnormalities, going to OR and other pertinent info. @ -Based on the patient's presentation and physical exam, presents primarily for progressive weakness and dyspnea for multiple weeks, associated with the fall today on Plavix. Believes he may have hit his head. No loss of consciousness. Vital signs remarkable for mild hypoxia on room air to 88-89%. Patient was found to be slightly hypotensive in triage but immediate blood pressure resulted in normal blood pressure. We will continue to monitor. Patient will not be given IV fluids at this time as he does have a history of CHF. This could be contributory to his current symptoms and therefore we will continue to monitor. Patient was in agreement this plan. We will obtain cardiopulmonary workup as well as CT brain. Patient placed on 2 L nasal cannula oxygen. Family and patient in agreement this plan. Patient does not meet cr iteria for trauma activation. EKG shows no signs of acute ischemia.Past x-ray shows findings concerning for CHF. Patient's BNP does support this. Slightly elevated troponin likely secondary to CHF. Patient is also hyperglycemic. Remainder the workup unremarkable. Urine is still pending at this time. I discussed the findings with the patient. He will be admitted to the hospital at this time. He was in agreement this plan. I spoke with the admitting team, JOE Aguirre of [facility] who accepted the patient. Cardiology consulted. We'll continue with diuretics IV Lasix. After patient was administered, urinalysis returned positive for UTI. I ordered urine culture and placed patient on Rocephin. Undiagnosed new problem with uncertain prognosis? @ -No Drug Therapy requiring intensive monitoring for toxicity (Heparin, Nitro, Insulin, Cardizem)? @ -No Were any procedures done? @ -No Diagnosis/symptom? @ -CHF, hypoxic respiratory failure, elevated troponin, UTI Acute, or Chronic, or Acute on Chronic? @ -Acute Uncomplicated (without systemic symptoms) or Complicated (systemic symptoms)? @ -Complicated Side effects of treatment? @ -none Exacerbation, Progression, or Severe Exacerbation] @ -no Poses a threat to life or bodily function? @ -Yes - Lab Data Result diagrams: 05/03/23 07:52 05/03/23 07:52 Lab Results 05/03/23 05/03/23 05/03/23 Range/Units 07:52 07:52 07:52 WBC 15.9 H (3.8-10.6) k/uL RBC 4.13 L (4.30-5.90) m/uL Hgb 12.0 L (13.0-17.5) gm/dL Hct 39.2 (39.0-53.0) % MCV 94.8 (80.0-100.0) fL MCH 29.1 (25.0-35.0) pg MCHC 30.8 L (31.0-37.0) g/dL RDW 15.2 (11.5-15.5) % Plt Count 363 (150-450) k/uL MPV 7.5 Neutrophils % 89 % Lymphocytes % 5 % Monocytes % 5 % Eosinophils % 1 % Basophils % 0 % Neutrophils # 14.1 H (1.3-7.7) k/uL Lymphocytes # 0.8 L (1.0-4.8) k/uL Monocytes # 0.8 (0-1.0) k/uL Eosinophils # 0.1 (0-0.7) k/uL Basophils # 0.0 (0-0.2) k/uL Hypochromasia Marked PT 11.6 (10.0-12.5) sec INR 1.1 (<1.2) APTT 27.6 (22.0-30.0) sec Sodium (137-145) mmol/L Potassium (3.5-5.1) mmol/L Chloride (98-107) mmol/L Carbon Dioxide (22-30) mmol/L Anion Gap mmol/L BUN (9-20) mg/dL Creatinine (0.66-1.25) mg/dL Est GFR (CKD-EPI)AfAm (>60 ml/min/1.73 sqM) Est GFR (CKD-EPI)NonAf (>60 ml/min/1.73 sqM) Glucose (74-99) mg/dL POC Glucose (mg/dL) (70-110) mg/dL POC Glu Test Fixture Designer ID Plasma Lactic Acid Sage (0.7-2.0) mmol/L Calcium (8.4-10.2) mg/dL Magnesium (1.6-2.3) mg/dL Total Bilirubin (0.2-1.3) mg/dL AST (17-59) U/L ALT (4-49) U/L Alkaline Phosphatase (38-126) U/L Troponin I (0.000-0.034) ng/mL NT-Pro-B Natriuret Pep pg/mL Total Protein (6.3-8.2) g/dL Albumin (3.5-5.0) g/dL Urine Color Yellow Urine Appearance Cloudy (Clear) Urine pH 5.0 (5.0-8.0) Ur Specific [place] 1.020 (1.001-1.035) Urine Protein 4+ H (Negative) Urine Glucose (UA) 4+ (Negative) Urine Ketones Trace (Negative) Urine Blood Moderate (Negative) Urine Nitrite Positive (Negative) Urine Bilirubin Negative (Negative) Urine Urobilinogen 0.2 (<2.0) mg/dL Ur Leukocyte Esterase Small (Negative) Urine RBC 8 H (0-5) /hpf Urine WBC 180 H (0-5) /hpf Urine WBC Clumps Many H (None) /hpf Ur Squamous Epith Cells 1 (0-4) /hpf Urine Bacteria Many H (None) /hpf Hyaline Casts 21 H (0-2) /lpf Urine Mucus Occasional H (None) /hpf Influenza Type A (PCR) (Not Detectd) Influenza Type B (PCR) (Not Detectd) RSV (PCR) (Not Detectd) SARS-CoV-2 (PCR) (Not Detectd) 05/03/23 05/03/23 05/03/23 Range/Units 07:52 07:52 07:52 WBC (3.8-10.6) k/uL RBC (4.30-5.90) m/uL Hgb (13.0-17.5) gm/dL Hct (39.0-53.0) % MCV (80.0-100.0) fL MCH (25.0-35.0) pg MCHC (31.0-37.0) g/dL RDW (11.5-15.5) % Plt Count (150-450) k/uL MPV Neutrophils % % Lymphocytes % % Monocytes % % Eosinophils % % Basophils % % Neutrophils # (1.3-7.7) k/uL Lymphocytes # (1.0-4.8) k/uL Monocytes # (0-1.0) k/uL Eosinophils # (0-0.7) k/uL Basophils # (0-0.2) k/uL Hypochromasia PT (10.0-12.5) sec INR (<1.2) APTT (22.0-30.0) sec Sodium 137 (137-145) mmol/L Potassium 4.4 (3.5-5.1) mmol/L Chloride 100 (98-107) mmol/L Carbon Dioxide 22 (22-30) mmol/L Anion Gap 15 mmol/L BUN 27 H (9-20) mg/dL Creatinine 1.99 H (0.66-1.25) mg/dL Est GFR (CKD-EPI)AfAm 36 (>60 ml/min/1.73 sqM) Est GFR (CKD-EPI)NonAf 31 (>60 ml/min/1.73 sqM) Glucose 336 H (74-99) mg/dL POC Glucose (mg/dL) (70-110) mg/dL POC Glu Test Fixture Designer ID Plasma Lactic Acid Sage 1.7 (0.7-2.0) mmol/L Calcium 9.0 (8.4-10.2) mg/dL Magnesium 1.9 (1.6-2.3) mg/dL Total Bilirubin 0.7 (0.2-1.3) mg/dL AST 17 (17-59) U/L ALT 15 (4-49) U/L Alkaline Phosphatase 69 (38-126) U/L Troponin I 0.041 H* (0.000-0.034) ng/mL NT-Pro-B Natriuret Pep 1880 pg/mL Total Protein 6.9 (6.3-8.2) g/dL Albumin 3.6 (3.5-5.0) g/dL Urine Color Urine Appearance (Clear) Urine pH (5.0-8.0) Ur Specific [place] (1.001-1.035) Urine Protein (Negative) Urine Glucose (UA) (Negative) Urine Ketones (Negative) Urine Blood (Negative) Urine Nitrite (Negative) Urine Bilirubin (Negative) Urine Urobilinogen (<2.0) mg/dL Ur Leukocyte Esterase (Negative) Urine RBC (0-5) /hpf Urine WBC (0-5) /hpf Urine WBC Clumps (None) /hpf Ur Squamous Epith Cells (0-4) /hpf Urine Bacteria (None) /hpf Hyaline Casts (0-2) /lpf Urine Mucus (None) /hpf Influenza Type A (PCR) (Not Detectd) Influenza Type B (PCR) (Not Detectd) RSV (PCR) (Not Detectd) SARS-CoV-2 (PCR) (Not Detectd) 05/03/23 05/03/23 05/03/23 Range/Units 07:52 07:56 12:36 WBC (3.8-10.6) k/uL RBC (4.30-5.90) m/uL Hgb (13.0-17.5) gm/dL Hct (39.0-53.0) % MCV (80.0-100.0) fL MCH (25.0-35.0) pg MCHC (31.0-37.0) g/dL RDW (11.5-15.5) % Plt Count (150-450) k/uL MPV Neutrophils % % Lymphocytes % % Monocytes % % Eosinophils % % Basophils % % Neutrophils # (1.3-7.7) k/uL Lymphocytes # (1.0-4.8) k/uL Monocytes # (0-1.0) k/uL Eosinophils # (0-0.7) k/uL Basophils # (0-0.2) k/uL Hypochromasia PT (10.0-12.5) sec INR (<1.2) APTT (22.0-30.0) sec Sodium (137-145) mmol/L Potassium (3.5-5.1) mmol/L Chloride (98-107) mmol/L Carbon Dioxide (22-30) mmol/L Anion Gap mmol/L BUN (9-20) mg/dL Creatinine (0.66-1.25) mg/dL Est GFR (CKD-EPI)AfAm (>60 ml/min/1.73 sqM) Est GFR (CKD-EPI)NonAf (>60 ml/min/1.73 sqM) Glucose (74-99) mg/dL POC Glucose (mg/dL) 329 H 297 H (70-110) mg/dL POC Glu Test Fixture Designer ID Danyell ShadiaSherry Silver Plasma Lactic Acid Sage (0.7-2.0) mmol/L Calcium (8.4-10.2) mg/dL Magnesium (1.6-2.3) mg/dL Total Bilirubin (0.2-1.3) mg/dL AST (17-59) U/L ALT (4-49) U/L Alkaline Phosphatase (38-126) U/L Troponin I (0.000-0.034) ng/mL NT-Pro-B Natriuret Pep pg/mL Total Protein (6.3-8.2) g/dL Albumin (3.5-5.0) g/dL Urine Color Urine Appearance (Clear) Urine pH (5.0-8.0) Ur Specific [place] (1.001-1.035) Urine Protein (Negative) Urine Glucose (UA) (Negative) Urine Ketones (Negative) Urine Blood (Negative) Urine Nitrite (Negative) Urine Bilirubin (Negative) Urine Urobilinogen (<2.0) mg/dL Ur Leukocyte Esterase (Negative) Urine RBC (0-5) /hpf Urine WBC (0-5) /hpf Urine WBC Clumps (None) /hpf Ur Squamous Epith Cells (0-4) /hpf Urine Bacteria (None) /hpf Hyaline Casts (0-2) /lpf Urine Mucus (None) /hpf Influenza Type A (PCR) Not Detected (Not Detectd) Influenza Type B (PCR) Not Detected (Not Detectd) RSV (PCR) Not Detected (Not Detectd) SARS-CoV-2 (PCR) Not Detected (Not Detectd) - EKG Data -: EKG Interpreted by Me EKG Comments: 12-lead Electrocardiogram Interpretation Note EKG was reviewed and interpreted by myself. 12-lead ECG performed at 0751 is interpreted by me as revealing normal sinus rhythm at a rate of 97 beats per minute. [place] is normal. VA interval is 180 ms, QRS duration is 115 ms, QTc is 422 ms.. There were no ST or T wave abnormalities to suggest myocardial ischemia or injury. R wave progression across the precordium was satisfactory. By my interpretation this EKG is non-diagnostic for acute ischemia. Critical Care Time Critical Care Time: Yes Total Critical Care Time: 35 Disposition Clinical Impression: UTI (urinary tract infection), CHF (congestive heart failure), Hypoxic respiratory failure, Elevated troponin Disposition: ADMITTED IP TO THIS [facility] Condition: Stable Referrals: Wellington Ron MD [Primary Care Provider] - 1-2 days Time of Disposition: 09:15
[2023-05-03 08:12] LABS: Basophils % (A) 0 %; Eosinophils # (A) 0.1 k/uL (0-0.7); Eosinophils % (A) 1 %; HCT 39.2 % (39.0-53.0); Hypochromasia Marked; Lymphocytes # (A) 0.8 k/uL (1.0-4.8); Lymphocytes % (A) 5 %; MCH 29.1 pg (25.0-35.0); MCHC 30.8 g/dL (31.0-37.0); MCV 94.8 fL (80.0-100.0); Mean Platelet Volume 7.5; Monocytes # (A) 0.8 k/uL (0-1.0); Monocytes % (A) 5 %; Neutrophils # (A) 14.1 k/uL (1.3-7.7); Neutrophils % (A) 89 %; Platelet Count 363 k/uL (150-450); RBC 4.13 m/uL (4.30-5.90); RDW 15.2 % (11.5-15.5); WBC 15.9 k/uL (3.8-10.6)
[2023-05-03 08:25] LABS: ALT 15 U/L (4-49); AST 17 U/L (17-59); African American GFR (CKD) 36 (>60 ml/min/1.73 sqM); Albumin 3.6 g/dL (3.5-5.0); Alkaline Phosphatase 69 U/L (38-126); Anion Gap 15 mmol/L; Blood Urea Nitrogen 27 mg/dL (9-20); Carbon Dioxide 22 mmol/L (22-30); Chloride 100 mmol/L (98-107); Glucose 336 mg/dL (74-99); Magnesium 1.9 mg/dL (1.6-2.3); Non-African American GFR(CKD) 31 (>60 ml/min/1.73 sqM); Potassium 4.4 mmol/L (3.5-5.1); Sodium 137 mmol/L (137-145); Total Bilirubin 0.7 mg/dL (0.2-1.3); Total Protein 6.9 g/dL (6.3-8.2)
[2023-05-03 08:28] LABS: INR 1.1 (<1.2); Partial Thromboplastin Time 27.6 sec (22.0-30.0); Prothrombin Time 11.6 sec (10.0-12.5)
[2023-05-03 08:32] LABS: NT-Pro-B-Type Natriuretic Pept 1880 pg/mL
--- NOTE | 2023-05-03 08:33 | CT ---
EXAMINATION TYPE: CT brain wo con CT DLP: 1095.2 mGycm, Automated exposure control for dose reduction was used. DATE OF EXAM: 05/03/2023 8:21 AM COMPARISON: None. CLINICAL INDICATION:Male, 77 years old with history of fall, Fall TECHNIQUE: Brain: Axial CT images of the brain were obtained with coronal and sagittal reformats created and rev iewed. Contrast used: None. Oral contrast used: None. FINDINGS: Brain: Extra-axial spaces: No abnormal extra-axial fluid collections. Ventricular system: Dilatation in proportion to cerebral atrophy. Cerebral parenchyma: Cerebral atrophy. No acute intraparenchymal hemorrhage or mass effect. The manning -white junction is well differentiated. Scattered hypoattenuating areas are seen within the white mat ter. Cerebellum: Unremarkable. Mass effect: No evidence of midline shift. Intracranial vasculature: Atherosclerotic calcifications of the intracranial vessels. Soft tissues: Normal. Calvarium/osseous structures: No depressed skull fracture. Paranasal sinuses and mastoid air cells: Mild scattered paranasal sinus disease. Visualized orbits: Lateral aphakia IMPRESSION: 1. No acute intracranial process. 2. Nonspecific white matter changes, likely secondary to chronic small vessel ischemic disease.
--- NOTE | 2023-05-03 08:41 | XR ---
EXAMINATION TYPE: XR chest 2V DATE OF EXAM: 05/03/2023 COMPARISON: 05/16/2022 HISTORY: Shortness of breath TECHNIQUE: Frontal and lateral views of the chest are obtained. FINDINGS: Scattered senescent parenchymal changes noted. Hyperinflation compatible with COPD. Persistent small right basilar effusion. Underlying atelectasis or infiltrate difficult to exclude. S mall left-sided effusion suggested as well. Heart size is stable. Mediastinal structures are stable and grossly unremarkable. No evidence for hilar prominence. Degenerative changes dorsal spine. IMPRESSION: 1. Persistent small right basilar effusion. Underlying atelectasis or infiltrate difficult to exclude . Small left-sided effusion suggested as well.
[2023-05-03] MEDS ORDERED: ASPIRIN 81 MG PO STA (08:55)
[2023-05-03] MEDS ORDERED: NALOXONE 0.4 MG/ML 1 ML VIAL IV PRN (09:28)
[2023-05-03] MEDS ORDERED: ONDANSETRON 4 MG/2 ML VIAL IVP PRN (09:28)
[2023-05-03] MEDS ORDERED: DEXTROSE 50% SYRINGE 50 ML IVP PRN ×2 (09:32)
[2023-05-03] MEDS: FUROSEMIDE 10 MG/ML 4 ML VIAL IV SCH ×2 (10:31→21:37)
[2023-05-03] MEDS: cycloSPORINE 0.05% OPHTH 0.4 ML DROPERETTE BOTH EYES SCH ×2 (10:33→23:30)
[2023-05-03] MEDS: amLODIPine 5 MG TAB PO SCH ×2 (10:33→19:12)
[2023-05-03] MEDS: ISOSORBIDE MONONITRATE ER 30 MG TAB.ER.24H PO SCH (10:34)
[2023-05-03] MEDS: POTASSIUM CHLORIDE ER 10 MEQ TAB.ER.PRT PO SCH ×2 (10:34→19:12)
[2023-05-03] MEDS: METOPROLOL TARTRATE 50 MG TAB PO SCH ×3 (10:34→19:13)
[2023-05-03] MEDS: TIMOLOL 0.5% OPHTH DROPS 5 ML BTL BOTH EYES SCH (10:35)
[2023-05-03] MEDS ORDERED: NON FORMULARY DRUG (Dulaglutide [Trulicity] 0.75 MG/0.5 ML Pen.Injctr) SQ SCH (12:00)
--- NOTE | 2023-05-03 12:10 | P.HPIM ---
History of Present Illness Patient was on 7-year-old male came in with compensative shortness of breath and progressive weakness patient has shortness of breath upon ablation. Patient had a normal ejection fraction the past but here patient chest x-ray did show pulmonary edema. Patient denied any chest pain at this time patient denied any orthopnea actually he doesn't know if she had has orthopnea as patient usually sleeps in the chair denied any paroxysmal nocturnal dyspnea. Denied any fever was comparing of dry cough. Patient has minimally elevated BNP of 1800. Flu,RSV are negative. Patient denied any chest pain but does have minimally elevated troponin of 0.41 patient's baseline creatinine is around 1.7 present creatinine is 1.99 patient does have highly elevated blood sugars patient is on multiple medications for uncontrolled elevated blood sugars at home. REVIEW OF SYSTEMS: CONSTITUTIONAL: No fever HEENT: No recent visual problems or hearing problems. Denied any sore throat. CARDIOVASCULAR: No chest pain, orthopnea, PND, no palpitations, no syncope. PULMONARY: no hemoptysis. GASTROINTESTINAL: No diarrhea, no nausea, no vomiting, no abdominal pain. NEUROLOGICAL: No headaches, no weakness, no numbness. HEMATOLOGICAL: Denies any bleeding or petechiae. GENITOURINARY: Denies any burning micturition, frequency, or urgency. MUSCULOSKELETAL/RHEUMATOLOGICAL: Denies any joint pain, swelling, or any muscle pain. ENDOCRINE: Denies any polyuria or polydipsia. The rest of the 14-point review of systems is negative. PHYSICAL EXAMINATION: GENERAL: The patient is alert and oriented x3, not in any acute distress. Well developed, well nourished. HEENT: Pupils are round and equally reacting to light. EOMI. No scleral icterus. No conjunctival pallor. Normocephalic, atraumatic. No pharyngeal erythema. No thyromegaly. CARDIOVASCULAR: S1 and S2 present. No murmurs, rubs, or gallops. PULMONARY: Chest is clear to auscultation, no wheezing or crackles. ABDOMEN: Soft, nontender, nondistended, normoactive bowel sounds. No palpable organomegaly. MUSCULOSKELETAL: No joint swelling or deformity. EXTREMITIES: No cyanosis, clubbing, mild bilateral pitting pedal edema NEUROLOGICAL: Gross neurological examination did not reveal any focal deficits. SKIN: No rashes. Assessment and plan -Shortness of breath possibly congestive heart failure exacerbation, patient doesn't have any significant elevation of BNP because of which are the other consideration is atypical pneumonia will obtain urinary Legionella and Mycopla sma antigen along with pro-calcitonin patient will be continued on IV Lasix. -Uncontrolled elevated blood sugars patient will be resumed on 9 his home regimen including SGLP inhibitors. -Carotid artery disease with stents in the past last and was 2 years ago patient remains on nebulized beta therapy will be continued cardiology will evaluate the patient -hypertension patient will be resumed on home medications - chronic kidney disease stage IV secondary to diabetic nephropathy -Mild elevated troponin secondary to chronic kidney disease and heart failure exacerbation -Osteoarthritis -Mild possible acute renal failure secondary to prerenal azotemia from cut his heart failure expected to improve with IV Lasix -Hyperlipidemia -Benign prostatic hypertrophy -Generalized deconditioning physical therapy and occupational Evaluation DVT prophylaxis: Subcutaneous heparin Past Medical History Past Medical History: Coronary Artery Disease (CAD), Diabetes Mellitus, Eye Disorder, Hearing Disorder / Deafness, Hypertension, Osteoarthritis (OA) Additional Past Medical History / Comment(s): GLAUCOMA. Hard of hearing. History of Any Multi-Drug Resistant Organisms: None Reported Past Surgical History: Heart Catheterization With Stent, Orthopedic Surgery Additional Past Surgical History / Comment(s): Right knee arthroscopy, bilateral cataract surgery, 5 cardiac stents, pain clinic procedure. Past Anesthesia/Blood Transfusion Reactions: Previous Problems w/ Anesthesia Additional Past Anesthesia/Blood Transfusion Reaction / Comment(s): states pt has letter from previous knee surgery in 2010 that indicates that Erasto was a difficult intubation with difficult airway anterior. Date of Last Stent Placement:: 04/2019 Past Psychological History: No Psychological Hx Reported Smoking Status: Former smoker Past Alcohol Use History: None Reported Past Drug Use History: None Reported - Past Family History Mother Family Medical History: Cancer Additional Family Medical History / Comment(s): Stomach cancer. Father Family Medical History: CVA/TIA Medications and Allergies Home Medications Medication Instructions Recorded Confirmed Type Aspirin [Adult Low Dose Aspirin EC] 81 mg PO W/BRKFST 02/05/18 05/03/23 History INSULIN LISPRO (humaLOG) [humaLOG] See Protocol SQ BID-W/MEALS 02/05/18 05/03/23 History Potassium Chloride ER [K-Dur 10] 10 meq PO BID-W/MEALS 02/05/18 05/03/23 History Rosuvastatin [Crestor] 10 mg PO PC-SUPPER 02/05/18 05/03/23 History Fenofibrate Nanocrystallized 145 mg PO Q2D@1800 02/28/18 05/03/23 History [Fenofibrate] metFORMIN HCL [Glucophage] 500 mg PO PC-SUPPER 05/04/20 05/03/23 History Dulaglutide [Trulicity] 1.5 mg SQ Q7D 05/05/20 05/03/23 History Timolol 0.5% Ophth Soln [Timoptic 1 drop BOTH EYES DAILY 05/05/20 05/03/23 History 0.5% Ophth Soln] Metoprolol Tartrate [Lopressor] 100 mg PO W/BRKFST 01/18/22 05/03/23 History Insulin Glargine,Hum.rec.anlog 50 units SQ HS 05/12/22 05/03/23 History [Toujeo Solostar] Losartan Potassium 100 mg PO W/LUNCH 05/12/22 05/03/23 History Empagliflozin [Jardiance] 10 mg PO DAILY 11/23/22 05/03/23 History Furosemide [Lasix] 40 mg PO W/BRKFST 11/23/22 05/03/23 History Clopidogrel [Plavix] 75 mg PO W/LUNCH 05/03/23 05/03/23 History Isosorbide Mononitrate ER [Imdur] 30 mg PO W/BRKFST 05/03/23 05/03/23 History Metoprolol Tartrate [Lopressor] 50 mg PO AC-BID@1200,1800 05/03/23 05/03/23 History Nitroglycerin Sl Tabs [Nitrostat] 0.4 mg SL Q5M PRN 05/03/23 05/03/23 History Tamsulosin [Flomax] 0.4 mg PO W/LUNCH 05/03/23 05/03/23 History amLODIPine [Norvasc] 5 mg PO BID-W/MEALS 05/03/23 05/03/23 History cycloSPORINE 0.05% OPHTH SOLN 1 drop BOTH EYES BID 05/03/23 05/03/23 History [Restasis] polyethylene glycoL 3350 [Miralax] 17 gm PO DAILY PRN 05/03/23 05/03/23 History Allergies Allergy/AdvReac Type Severity Reaction Status Date / Time cyclobenzaprine Allergy Itching Verified 05/03/23 07:39 [From Flexeril] Physical Exam Vitals: Vital Signs Temp Pulse Resp BP Pulse Ox 05/03/23 10:00 88 14 154/73 95 05/03/23 09:30 90 14 139/64 95 05/03/23 09:00 89 20 104/52 97 05/03/23 08:30 92 16 137/62 95 05/03/23 08:00 92 14 143/65 95 05/03/23 07:35 98.6 F 104 H 20 74/40 88 L Intake and Output 05/02/23 05/03/23 05/03/23 22:59 06:59 14:59 Other: Weight 122.47 kg Results CBC & Chem 7: 05/03/23 07:52 05/03/23 07:52 Labs: Abnormal Lab Results - Last 24 Hours (Table) 05/03/23 05/03/23 05/03/23 Range/Units 07:52 07:52 07:52 WBC 15.9 H (3.8-10.6) k/uL RBC 4.13 L (4.30-5.90) m/uL Hgb 12.0 L (13.0-17.5) gm/dL MCHC 30.8 L (31.0-37.0) g/dL Neutrophils # 14.1 H (1.3-7.7) k/uL Lymphocytes # 0.8 L (1.0-4.8) k/uL BUN 27 H (9-20) mg/dL Creatinine 1.99 H (0.66-1.25) mg/dL Glucose 336 H (74-99) mg/dL POC Glucose (mg/dL) (70-110) mg/dL Troponin I 0.041 H* (0.000-0.034) ng/mL 05/03/23 Range/Units 07:56 WBC (3.8-10.6) k/uL RBC (4.30-5.90) m/uL Hgb (13.0-17.5) gm/dL MCHC (31.0-37.0) g/dL Neutrophils # (1.3-7.7) k/uL Lymphocytes # (1.0-4.8) k/uL BUN (9-20) mg/dL Creatinine (0.66-1.25) mg/dL Glucose (74-99) mg/dL POC Glucose (mg/dL) 329 H (70-110) mg/dL Troponin I (0.000-0.034) ng/mL
[2023-05-03 12:37] LABS: Glucose,Whole Blood 297 mg/dL (70-110)
[2023-05-03] MEDS: LOSARTAN 50 MG TAB PO SCH (12:50)
[2023-05-03] MEDS: INSULIN ASPART (NovoLOG) 100 UNIT/ML VIAL SQ SCH ×2 (12:50→19:23)
[2023-05-03] MEDS: TAMSULOSIN 0.4 MG CAP.ER.24H PO SCH (12:50)
[2023-05-03] MEDS: CLOPIDOGREL 75 MG TAB PO SCH (12:50)
[2023-05-03 13:16] LABS: Appearance,Urine Cloudy (Clear); Color,Urine Yellow; Glucose,Urine (UA) 4+ (Negative); Protein,Urine 4+ (Negative)
[2023-05-03 13:17] LABS: Bilirubin,Urine Negative (Negative); Blood,Urine Moderate (Negative); Ketones,Urine Trace (Negative); Leukocyte Esterase,Urine Small (Negative); Nitrite,Urine Positive (Negative); Urobilinogen,Urine 0.2 mg/dL (<2.0)
[2023-05-03 13:23] LABS: Bacteria,Urine Many /hpf; Hyaline Casts,Urine 21 /lpf (0-2); Mucus,Urine Occasional /hpf; RBC,Urine 8 /hpf (0-5); Squamous Epithelial Cell,Urine 1 /hpf (0-4); WBC,Urine 180 /hpf (0-5)
[2023-05-03] MEDS ORDERED: metFORMIN 500 MG TAB PO SCH (18:30)
[2023-05-03 18:58] LABS: Glucose,Whole Blood 305 mg/dL (70-110)
[2023-05-03] MEDS: ATORVASTATIN 20 MG TAB PO SCH (19:12)
[2023-05-03] MEDS ORDERED: HEPARIN SODIUM,PORCINE 5,000 UNIT/ML 1 ML VIAL SQ SCH (21:00)
[2023-05-03] MEDS: HEPARIN SODIUM,PORCINE 5,000 UNIT/ML 1 ML VIAL SQ SCH (21:37)
[2023-05-03] MEDS: INSULIN DETEMIR (LEVEMIR) 100 UNIT/ML SYR SQ SCH (21:37)
[2023-05-04 06:14] LABS: Glucose,Whole Blood 260 mg/dL (70-110)
[2023-05-04] MEDS: POTASSIUM CHLORIDE ER 10 MEQ TAB.ER.PRT PO SCH ×2 (06:26→16:48)
[2023-05-04] MEDS: ASPIRIN 81 MG PO SCH (06:26)
[2023-05-04] MEDS: amLODIPine 5 MG TAB PO SCH ×2 (06:26→16:48)
[2023-05-04] MEDS: INSULIN ASPART (NovoLOG) 100 UNIT/ML VIAL SQ SCH ×5 (06:27→21:29)
[2023-05-04] MEDS: METOPROLOL TARTRATE 50 MG TAB PO SCH ×4 (06:27→21:20)
[2023-05-04] MEDS: ISOSORBIDE MONONITRATE ER 30 MG TAB.ER.24H PO SCH (06:27)
[2023-05-04] MEDS: DAPAGLIFLOZIN PROPANEDIOL 5 MG TABLET PO SCH (08:17)
[2023-05-04] MEDS: FUROSEMIDE 10 MG/ML 4 ML VIAL IV SCH (08:17)
[2023-05-04] MEDS: cycloSPORINE 0.05% OPHTH 0.4 ML DROPERETTE BOTH EYES SCH ×2 (08:17→21:24)
[2023-05-04] MEDS: TIMOLOL 0.5% OPHTH DROPS 5 ML BTL BOTH EYES SCH (08:17)
[2023-05-04] MEDS: HEPARIN SODIUM,PORCINE 5,000 UNIT/ML 1 ML VIAL SQ SCH ×2 (08:18→21:20)
[2023-05-04 08:43] LABS: Basophils # (A) 0.1 k/uL (0-0.2); Basophils % (A) 0 %; Eosinophils # (A) 0.1 k/uL (0-0.7); Eosinophils % (A) 1 %; HCT 32.5 % (39.0-53.0); HGB 10.3 gm/dL (13.0-17.5); Hypochromasia Marked; Lymphocytes % (A) 10 %; MCH 29.7 pg (25.0-35.0); MCHC 31.6 g/dL (31.0-37.0); MCV 93.9 fL (80.0-100.0); Mean Platelet Volume 7.4; Monocytes # (A) 0.6 k/uL (0-1.0); Monocytes % (A) 6 %; Neutrophils # (A) 8.4 k/uL (1.3-7.7); Neutrophils % (A) 81 %; Platelet Count 326 k/uL (150-450); RBC 3.46 m/uL (4.30-5.90); RDW 15.3 % (11.5-15.5); WBC 10.3 k/uL (3.8-10.6)
[2023-05-04 08:48] LABS: African American GFR (CKD) 32 (>60 ml/min/1.73 sqM); Anion Gap 13 mmol/L; Blood Urea Nitrogen 40 mg/dL (9-20); Carbon Dioxide 23 mmol/L (22-30); Chloride 98 mmol/L (98-107); Glucose 239 mg/dL (74-99); Magnesium 1.9 mg/dL (1.6-2.3); Non-African American GFR(CKD) 27 (>60 ml/min/1.73 sqM); Potassium 4.3 mmol/L (3.5-5.1); Sodium 134 mmol/L (137-145)
[2023-05-04 11:25] LABS: Glucose,Whole Blood 310 mg/dL (70-110)
[2023-05-04] MEDS: LOSARTAN 50 MG TAB PO SCH (11:27)
[2023-05-04] MEDS: TAMSULOSIN 0.4 MG CAP.ER.24H PO SCH (11:27)
[2023-05-04] MEDS: CLOPIDOGREL 75 MG TAB PO SCH (11:27)
--- NOTE | 2023-05-04 11:33 | CA ---
Transthoracic Echo Report Name: Erasto Rivas Age: 77 Gender: M : 1945 Exam Date: 05/03/2023 16:55 Exam Location: [facility] Echo Ht (in): 70 Wt (lb): 270 Ordering Physician: Nguyễn Fernandes MD Attending/Referring Phys: Engine Service Repairer Luma Pruitt RDCS Procedure CPT: Indications: chf Cardiac Hx: stents Technical Quality: Technically difficult study Contrast 1: Definity Total Dose (mL): 3 Contrast 2: Total Dose (mL): MEASUREMENTS (Male / Female) Normal Values 2D ECHO LV Diastolic Diameter PLAX 4.6 cm 4.2 - 5.9 / 3.9 - 5.3 cm LV Systolic Diameter PLAX 3.6 cm IVS Diastolic Thickness 1.4 cm 0.6 - 1.0 / 0.6 - 0.9 cm LVPW Diastolic Thickness 1.3 cm 0.6 - 1.0 / 0.6 - 0.9 cm LV Relative Wall Thickness 0.6 RV Internal Dim ED PLAX 3.3 cm LA Systolic Diameter LX 4.2 cm 3.0 - 4.0 / 2.7 - 3.8 cm LV Diastolic Volume MOD BP 47.8 cm??? 67 - 155 / 56 - 104 cm??? LV Systolic Volume MOD BP 20.2 cm??? 22 - 58 / 19 - 49 cm??? LV Ejection Fraction MOD BP 57.6 % >= 55 % LV Cardiac Index MOD BP 910.6 cm???/min???m??? LV Diastolic Volume MOD 4C 46.8 cm??? LV Systolic Volume MOD 4C 22.5 cm??? LV Ejection Fraction MOD 4C 52.0 % LV Cardiac Index MOD 4C 804.8 cm???/min???m??? LV Diastolic Length 4C 7.9 cm LV Systolic Length 4C 7.6 cm LV Diastolic Volume MOD 2C 48.9 cm??? LV Systolic Volume MOD 2C 18.1 cm??? LV Ejection Fraction MOD 2C 63.0 % LV Cardiac Index MOD 2C 1018.8 cm???/min???m??? LV Diastolic Length 2C 8.0 cm LV Systolic Length 2C 7.2 cm LA Volume 87.1 cm??? 18 - 58 / 22 - 52 cm??? LA Volume Index 34.7 cm???/m??? 16 - 28 cm???/m??? M-MODE Aortic Root Diameter MM 3.4 cm MV E Point Septal Separation 0.8 cm AV Cusp Separation MM 2.5 cm DOPPLER AV Peak Velocity 129.8 cm/s AV Peak Gradient 6.7 mmHg MV Area PHT 5.6 cm??? Mitral E Point Velocity 77.3 cm/s Mitral A Point Velocity 106.6 cm/s Mitral E to A Ratio 0.7 MV Deceleration Time 135.9 ms MV E' Velocity 6.6 cm/s Mitral E to MV E' Ratio 11.7 TR Peak Velocity 287.7 cm/s TR Peak Gradient 33.1 mmHg Right Ventricular Systolic Press 38.1 mmHg FINDINGS Left Ventricle Left ventricular ejection fraction is estimated at 55-60 %. Left ventricular cavity size normal. Mildly increased septal wall thickness. Right Ventricle Mild right ventricular dilatation. Mild pulmonary hypertension. Right Atrium Normal right atrial size. Left Atrium Mild left atrial dilatation. Mitral Valve Mitral valve thickened. No mitral stenosis, regurgitation or prolapse. Moderate mitral annular calcification. Aortic Valve Trileaflet aortic valve. Thickened aortic valve without stenosis. Tricuspid Valve Structurally normal tricuspid valve. Mild tricuspid regurgitation. Pulmonic Valve Structurally normal pulmonic valve. No pulmonic regurgitation. Pericardium No pericardial effusion. Aorta Normal size aortic root and proximal ascending aorta. CONCLUSIONS Technically difficult study. Left ventricular ejection fraction is estimated at 55-60 %. Moderate mitral annular calcification. Mild left atrial dilatation. Mild pulmonary hypertension. RVSP 38 mmHg Previewed by: Dr Dorian Acuna (Electronically Signed) Final Date: 04 May 2023 11:33
--- NOTE | 2023-05-04 14:14 | P.CRDCN ---
History of Present Illness History of present illness: HISTORY OF PRESENT ILLNESS: This is a 77-year-old male with a past medical history significant for coronary artery disease with previous stenting, hypertension, hyperlipidemia, chronic kidney disease, diabetes, peripheral vascular disease, and former nicotine dependence. Patient follows in the office with Dr. Cadena. We have been asked to see the patient in consultation for congestive heart failure. Patient examined at the bedside. The patient states he has been feeling short of breath and weak for the past several months. He states yesterday he fell after using the bathroom but did not loss consciousness. He does report feeling lightheaded when he came into the hospital. His blood pressure was low upon arrival to the ER but has since improved. He was started on IV antibiotics for a urinary tract infection and possible pneumonia. * EKG reveals sinus mechanism with no signs of acute ischemia * Chest xray persistent small right basilar effusion. Underlying atelectasis or infiltrate difficult to exclude. Small left-sided effusion suggested as well. * Laboratory data: W BC 15.9. Hemoglobin 12.0. Platelet count 363. BUN 27. Creatinine 1.99. ProBNP 1818. Troponin 0.041. 0.053. 0.051. Pro- calcitonin 17.0 * Current home cardiac medications include aspirin 81 mg daily, Plavix 75 mg daily, Lasix 40 mg daily, fenofibrate 145 mg every 2 days, Imdur 30 mg daily, losartan 100 mg daily, metoprolol tartrate 100 mg with breakfast, 50 mg at noon and 50 mg at 6 PM, rosuvastatin 10 mg daily, amlodipine 5 mg twice a day * Most recent echocardiogram obtained in April 2022 revealed ejection fraction 55%, mild MR, mild TR * Cardiac catheterization history: April 2020 revealing patent stent in RCA. Left circumflex proximal stent was patent. OM was also patent but just before the OM stenting there was a new 95% stenosis and also distal to the stent there was a 50% narrowing. Entire area was stented with a new drug-eluting stent. REVIEW OF SYSTEMS: At the time of my exam: CONSTITUTIONAL: Denies fever or chills. HEENT: Denies blurred vision, vision changes, or eye pain. Denies hemoptysis CARDIOVASCULAR: Denies chest pain. Denies orthopnea. Denies PND. Denies palpitations RESPIRATORY: Denies shortness of breath. GASTROINTESTINAL: Denies abdominal pain. Denies nausea or vomiting. HEMATOLOGIC: Denies bleeding disorders. GENITOURINARY: Denies any blood in urine. SKIN: Denies pruitis. Denies rash. PHYSICAL EXAM: VITAL SIGNS: Reviewed. GENERAL: Well-developed in no acute distress. HEENT: Head is normocephalic. Pupils are equal, round. Sclerae anicteric. Mucous membranes of the mouth are moist. Neck supple. No JVD or thyromegaly LUNGS: Respirations even and unlabored. Lungs essentially clear to auscultation bilaterally. HEART: Regular rate and rhythm. S1 and S2 heard. ABDOMEN: Soft. Nondistended. Nontender. EXTREMITIES: Normal range of motion. No clubbing or cyanosis. Peripheral pulses intact. No lower extremity edema NEUROLOGIC: Awake and alert. Oriented x 3. ASSESSMENT: Shortness of breath Generalized weakness Urinary tract infection Possible pneumonia S/P fall without loss of consciousness Hypotension on admission, improving Coronary artery disease with previous stenting Hypertension Hyperlipidemia Chronic heart failure with preserved EF, currently euvolemic Diabetes with hyperglycemia Chronic kidney disease Peripheral vascular disease Former nicotine dependence PLAN: Obtain 2-D echo to assess cardiac structure and function Discontinue IV Lasix Begin oral Lasix 40 mg daily Decrease metoprolol to 50 mg 3 times a day Decrease losartan to 50 mg daily Continue to monitor blood pressure Further recommendations pending patient's course Nurse practitioner note has been reviewed by physician. Signing provider agrees with the documented findings, assessment, and plan of care. Past Medical History Past Medical History: Coronary Artery Disease (CAD), Diabetes Mellitus, Eye Disorder, Hearing Disorder / Deafness, Hypertension, Osteoarthritis (OA) Additional Past Medical History / Comment(s): GLAUCOMA. Hard of hearing. History of Any Multi-Drug Resistant Organisms: None Reported Past Surgical History: Heart Catheterization With Stent, Orthopedic Surgery Additional Past Surgical History / Comment(s): Right knee arthroscopy, bilateral cataract surgery, 5 cardiac stents, pain clinic procedure. Past Anesthesia/Blood Transfusion Reactions: Previous Problems w/ Anesthesia Additional Past Anesthesia/Blood Transfusion Reaction / Comment(s): states pt has letter from previous knee surgery in 2010 that indicates that Erasto was a difficult intubation with difficult airway anterior. Date of Last Stent Placement:: 04/2019 Past Psychological History: No Psychological Hx Reported Smoking Status: Former smoker Past Alcohol Use History: None Reported Additional Past Alcohol Use History / Comment(s): Smoked 15 years, 1ppd, quit 16+ years ago. Past Drug Use History: None Reported - Past Family History Mother Family Medical History: Cancer Additional Family Medical History / Comment(s): Stomach cancer. Father Family Medical History: CVA/TIA Medications and Allergies Home Medications Medication Instructions Recorded Confirmed Type Aspirin [Adult Low Dose Aspirin EC] 81 mg PO W/BRKFST 02/05/18 05/03/23 History INSULIN LISPRO (humaLOG) [humaLOG] See Protocol SQ BID-W/MEALS 02/05/18 05/03/23 History Potassium Chloride ER [K-Dur 10] 10 meq PO BID-W/MEALS 02/05/18 05/03/23 History Rosuvastatin [Crestor] 10 mg PO PC-SUPPER 02/05/18 05/03/23 History Fenofibrate Nanocrystallized 145 mg PO Q2D@1800 02/28/18 05/03/23 History [Fenofibrate] metFORMIN HCL [Glucophage] 500 mg PO PC-SUPPER 05/04/20 05/03/23 History Dulaglutide [Trulicity] 1.5 mg SQ Q7D 05/05/20 05/03/23 History Timolol 0.5% Ophth Soln [Timoptic 1 drop BOTH EYES DAILY 05/05/20 05/03/23 Hist ory 0.5% Ophth Soln] Metoprolol Tartrate [Lopressor] 100 mg PO W/BRKFST 01/18/22 05/03/23 History Insulin Glargine,Hum.rec.anlog 50 units SQ HS 05/12/22 05/03/23 History [Toujeo Solostar] Losartan Potassium 100 mg PO W/LUNCH 05/12/22 05/03/23 History Empagliflozin [Jardiance] 10 mg PO DAILY 11/23/22 05/03/23 History Furosemide [Lasix] 40 mg PO W/BRKFST 11/23/22 05/03/23 History Clopidogrel [Plavix] 75 mg PO W/LUNCH 05/03/23 05/03/23 History Isosorbide Mononitrate ER [Imdur] 30 mg PO W/BRKFST 05/03/23 05/03/23 History Metoprolol Tartrate [Lopressor] 50 mg PO AC-BID@1200,1800 05/03/23 05/03/23 History Nitroglycerin Sl Tabs [Nitrostat] 0.4 mg SL Q5M PRN 05/03/23 05/03/23 History Tamsulosin [Flomax] 0.4 mg PO W/LUNCH 05/03/23 05/03/23 History amLODIPine [Norvasc] 5 mg PO BID-W/MEALS 05/03/23 05/03/23 History cycloSPORINE 0.05% OPHTH SOLN 1 drop BOTH EYES BID 05/03/23 05/03/23 History [Restasis] polyethylene glycoL 3350 [Miralax] 17 gm PO DAILY PRN 05/03/23 05/03/23 History Allergies Allergy/AdvReac Type Severity Reaction Status Date / Time cyclobenzaprine Allergy Itching Verified 05/03/23 07:39 [facility] Physical Exam Vitals: Vital Signs Temp Pulse Pulse Resp BP BP Pulse Ox 05/04/23 04:00 98.4 F 96 18 132/64 94 L 05/04/23 02:00 18 05/04/23 00:00 98.2 F 93 18 138/67 93 L 05/03/23 20:00 98.6 F 84 18 147/65 94 L 05/03/23 10:00 88 14 154/73 95 05/03/23 09:30 90 14 139/64 95 05/03/23 09:00 89 20 104/52 97 05/03/23 08:30 92 16 137/62 95 Intake and Output 05/03/23 05/04/23 05/04/23 22:59 06:59 14:59 Intake Total 335 Output Total 1350 Balance -1350 335 Intake: Oral 335 Output: Urine 1350 Other: Voiding Method Urinal Urinal Weight 122.47 kg 119.9 kg Results 05/04/23 08:08 05/04/23 08:08 Cardiac Enzymes 05/03/23 05/03/23 05/03/23 Range/Units 07:52 07:52 14:11 AST 17 (17-59) U/L Troponin I 0.041 H* 0.053 H* (0.000-0.034) ng/mL 05/03/23 Range/Units 17:25 AST (17-59) U/L Troponin I 0.051 H* (0.000-0.034) ng/mL Coagulation 05/03/23 Range/Units 07:52 PT 11.6 (10.0-12.5) sec APTT 27.6 (22.0-30.0) sec Comprehensive Metabolic Panel 05/03/23 Range/Units 07:52 Sodium 137 (137-145) mmol/L Potassium 4.4 (3.5-5.1) mmol/L Chloride 100 (98-107) mmol/L Carbon Dioxide 22 (22-30) mmol/L BUN 27 H (9-20) mg/dL Creatinine 1.99 H (0.66-1.25) mg/dL Glucose 336 H (74-99) mg/dL Calcium 9.0 (8.4-10.2) mg/dL AST 17 (17-59) U/L ALT 15 (4-49) U/L Alkaline Phosphatase 69 (38-126) U/L Total Protein 6.9 (6.3-8.2) g/dL Albumin 3.6 (3.5-5.0) g/dL Current Medications Generic Name Dose Route Start Last Admin Trade Name Freq PRN Reason Stop Dose Admin Amlodipine Besylate 5 mg 05/03/23 09:45 05/04/23 06:26 Amlodipine 5 Mg Tab PO 5 mg BID-W/MEALS JOSH Administration Aspirin 81 mg 05/04/23 07:30 05/04/23 06:26 Aspirin 81 Mg PO 81 mg W/BRKFST JOSH Administration Atorvastatin Calcium 20 mg 05/03/23 18:30 05/03/23 19:12 Atorvastatin 20 Mg Tab PO 20 mg PC-SUPPER JOSH Administration Clopidogrel Bisulfate 75 mg 05/03/23 12:30 05/03/23 12:50 Clopidogrel 75 Mg Tab PO 75 mg W/LUNCH JOSH Administration Cyclosporine 1 drops 05/03/23 09:45 05/03/23 23:30 Cyclosporine 0.05% Ophth 0.4 Ml Droperette BOTH EYES 1 drops BID JOSH Administration Dapagliflozin 5 mg 05/04/23 09:00 Dapagliflozin Propanediol 5 Mg Tablet PO DAILY JOSH Dextrose/Water 25 ml 05/03/23 09:32 Dextrose 50% Syringe 50 Ml IVP PER PROTOCOL PRN Hypoglycemia Protocol Dextrose/Water 50 ml 05/03/23 09:32 Dextrose 50% Syringe 50 Ml IVP PER PROTOCOL PRN Hypoglycemia Protocol Furosemide 40 mg 05/03/23 09:00 05/03/23 21:37 Furosemide 10 Mg/Ml 4 Ml Vial IV 40 mg Q12HR JOSH Administration Heparin Sodium (Porcine) 5,000 unit 05/03/23 21:00 05/03/23 21:37 Heparin Sodium,Porcine 5,000 Unit/Ml 1 Ml Vial SQ 5,000 unit Q12HR JOSH Administration Ceftriaxone Sodium 1 gm/ 50 mls @ 100 mls/hr 05/03/23 15:00 05/03/23 19:13 Sodium Chloride IVPB 100 mls/hr Q24HR JOSH Administration Protocol Insulin Aspart 0 unit 05/03/23 12:30 05/04/23 06:27 Insulin Aspart (Novolog) 100 Unit/Ml Vial SQ 6 unit AC-TID JOSH Administration Protocol Insulin Detemir 50 unit 05/03/23 21:00 05/03/23 21:37 Insulin Detemir (Levemir) 100 Unit/Ml Syr SQ 50 unit HS JOSH Administration Isosorbide Mononitrate 30 mg 05/03/23 09:45 05/04/23 06:27 Isosorbide Mononitrate Er 30 Mg Tab.Er.24h PO 30 mg W/BRKFST JOSH Administration Losartan Potassium 100 mg 05/03/23 12:30 05/03/23 12:50 Losartan 50 Mg Tab PO 100 mg W/LUNCH JOSH Administration Metoprolol Tartrate 50 mg 05/03/23 12:00 05/03/23 19:13 Metoprolol Tartrate 50 Mg Tab PO 50 mg AC-BID@1200,1800 JOSH Administration Metoprolol Tartrate 100 mg 05/03/23 09:45 05/04/23 06:27 Metoprolol Tartrate 50 Mg Tab PO 100 mg W/BRKFST JOSH Administration Naloxone HCl 0.2 mg 05/03/23 09:28 Naloxone 0.4 Mg/Ml 1 Ml Vial IV Q2M PRN Opioid Reversal Non-Formulary Medication 1.5 mg 05/03/23 12:00 05/03/23 12:37 Dulaglutide [Trulicity] SQ Not Given Q7D [facility] Ondansetron HCl 4 mg 05/03/23 09:28 Ondansetron 4 Mg/2 Ml Vial IVP Q8HR PRN Nausea And Vomiting Potassium Chloride 10 meq 05/03/23 09:45 05/04/23 06:26 Potassium Chloride Er 10 Meq Tab.Er.Prt PO 10 meq BID-W/MEALS JOSH Administration Tamsulosin HCl 0.4 mg 05/03/23 12:30 05/03/23 12:50 Tamsulosin 0.4 Mg Cap.Er.24h PO 0.4 mg W/LUNCH JOSH Administration Timolol Maleate 1 drops 05/03/23 09:45 05/03/23 10:35 Timolol 0.5% Ophth Drops 5 Ml Btl BOTH EYES 1 drops DAILY JOSH Administration Intake and Output 05/03/23 05/04/23 05/04/23 22:59 06:59 14:59 Intake Total 335 Output Total 1350 Balance -1350 335 Intake: Oral 335 Output: Urine 1350 Other: Voiding Method Urinal Urinal Weight 122.47 kg 119.9 kg 05/03/23 07:52 05/03/23 07:52
[2023-05-04] MEDS ORDERED: ACETAMINOPHEN TAB 325 MG TAB PO PRN (15:19)
--- NOTE | 2023-05-04 15:26 | P.PN ---
Subjective Progress Note Date: 05/04/23 Patient was on 7-year-old male came in with compensative shortness of breath and progressive weakness patient has shortness of breath upon ablation. Patient had a normal ejection fraction the past but here patient chest x-ray did show pulmonary edema. Patient denied any chest pain at this time patient denied any orthopnea actually he doesn't know if she had has orthopnea as patient usually sleeps in the chair denied any paroxysmal nocturnal dyspnea. Denied any fever was comparing of dry cough. Patient has minimally elevated BNP of 1800. Flu,RSV are negative. Patient denied any chest pain but does have minimally elevated troponin of 0.41 patient's baseline creatinine is around 1.7 present creatinine is 1.99 patient does have highly elevated blood sugars patient is on multiple medications for uncontrolled elevated blood sugars at home. 05/04/2023 Patient evaluated today a floor with at the bedside. He continues to report mild shortness of breath generalized achiness and chills. He did have a fever developed this afternoon. He continues on 2 L nasal cannula. His pro- calcitonin level came back elevated at 17 remains on a course of antibiotics with IV ceftriaxone. Echocardiogram showing an EF of 55-60% with mild pulmonary hypertension and mild TR. His creatinine has increased to 2.24 today and IV Lasix has been discontinued and transitioned to 40 mg of Lasix daily. Additi onally metformin and losartan are being held. BP normotensive in the 110 systolic. Blood glucose remains elevated in the 300s. REVIEW OF SYSTEMS: CONSTITUTIONAL: Reports fatigue and chills. HEENT: No recent visual problems or hearing problems. Denied any sore throat. CARDIOVASCULAR: No chest pain, orthopnea, PND, no palpitations, no syncope. PULMONARY: no hemoptysis. Has shortness of breath and dry mild cough. GASTROINTESTINAL: No diarrhea, no nausea, no vomiting, no abdominal pain. NEUROLOGICAL: No headaches, no weakness, no numbness. PHYSICAL EXAMINATION: GENERAL: The patient is alert and oriented x3, not in any acute distress. Well developed, well nourished. HEENT: Pupils are round and equally reacting to light. EOMI. No scleral icterus. No conjunctival pallor. Normocephalic, atraumatic. No pharyngeal erythema. No thyromegaly. CARDIOVASCULAR: S1 and S2 present. No murmurs, rubs, or gallops. PULMONARY: Chest is clear to auscultation, no wheezing or crackles. Diminished. ABDOMEN: Soft, nontender, nondistended, normoactive bowel sounds. No palpable organomegaly. MUSCULOSKELETAL: No joint swelling or deformity. EXTREMITIES: No cyanosis, clubbing, mild bilateral pitting pedal edema NEUROLOGICAL: Gross neurological examination did not reveal any focal deficits. Generalized weakness. SKIN: No rashes. Assessment and plan -Shortness of breath -Acute community acquired pneumonia and sepsis currently on course of IV ceftriaxone. Viral panel and legionella mycoplasma testing are negative. Patient will receive supportive care. -Uncontrolled elevated blood sugars patient continued on his home regimen including SGLP inhibitors. Scheduled insulin has been added. -Carotid artery disease with stents in the past -Hypertension patient is normotensive and recommending to hold losartan at this time creatinine increased up to 2.24. -Chronic kidney disease stage IV secondary to diabetic nephropathy -Mild elevated troponin secondary to chronic kidney disease and heart failure exacerbation -Osteoarthritis -Mild possible acute renal failure secondary to prerenal azotemia worsened with diuresis -Hyperlipidemia continue on statin therapy -Benign prostatic hypertrophy remains on flomax -Generalized deconditioning physical therapy and occupational Evaluation DVT prophylaxis: Subcutaneous heparin Gi prophylaixs Full Code The impression and plan of care has been dictated by Lynn Beltran Nurse Practitioner as directed. Dr. Ruperto MD I have performed a history and physical examination and medical decision making of this patient, discussed the same with the dictator, and agree with the dictators assessment and plan as written, documented as a scribe. Based on total visit time, I have performed more than 50% of this visit. Objective - Vital Signs Vital signs: Vital Signs Temp 98.1 F 05/04/23 08:15 Pulse 88 05/04/23 13:08 Resp 20 05/04/23 11:19 BP 113/61 05/04/23 11:19 Pulse Ox 93 L 05/04/23 11:19 FiO2 Intake & Output 05/03/23 05/04/23 05/04/23 18:59 06:59 18:59 Intake Total 560 Output Total 1350 Balance -1350 560 Weight 122.47 kg 119.9 kg Intake: Oral 560 Output: Urine 1350 Other: Voiding Method Urinal External Catheter - Labs CBC & Chem 7: 05/04/23 08:08 05/04/23 08:08 Labs: Abnormal Lab Results - Last 24 Hours (Table) 05/03/23 05/03/23 05/03/23 Range/Units 07:52 14:11 14:11 RBC (4.30-5.90) m/uL Hgb (13.0-17.5) gm/dL Hct (39.0-53.0) % Neutrophils # (1.3-7.7) k/uL Sodium (137-145) mmol/L BUN (9-20) mg/dL Creatinine (0.66-1.25) mg/dL Glucose (74-99) mg/dL POC Glucose (mg/dL) (70-110) mg/dL Hemoglobin A1c (<=6.0) % Calcium (8.4-10.2) mg/dL Troponin I 0.053 H* (0.000-0.034) ng/mL Procalcitonin 17.00 H (0.02-0.09) ng/mL Urine RBC 8 H (0-5) /hpf Urine WBC 180 H (0-5) /hpf Urine WBC Clumps Many H (None) /hpf Urine Bacteria Many H (None) /hpf Hyaline Casts 21 H (0-2) /lpf Urine Mucus Occasional H (None) /hpf 05/03/23 05/03/23 05/04/23 Range/Units 17:25 18:56 06:13 RBC (4.30-5.90) m/uL Hgb (13.0-17.5) gm/dL Hct (39.0-53.0) % Neutrophils # (1.3-7.7) k/uL Sodium (137-145) mmol/L BUN (9-20) mg/dL Creatinine (0.66-1.25) mg/dL Glucose (74-99) mg/dL POC Glucose (mg/dL) 305 H 260 H (70-110) mg/dL Hemoglobin A1c (<=6.0) % Calcium (8.4-10.2) mg/dL Troponin I 0.051 H* (0.000-0.034) ng/mL Procalcitonin (0.02-0.09) ng/mL Urine RBC (0-5) /hpf Urine WBC (0-5) /hpf Urine WBC Clumps (None) /hpf Urine Bacteria (None) /hpf Hyaline Casts (0-2) /lpf Urine Mucus (None) /hpf 05/04/23 05/04/23 05/04/23 Range/Units 08:08 08:08 08:08 RBC 3.46 L (4.30-5.90) m/uL Hgb 10.3 L (13.0-17.5) gm/dL Hct 32.5 L (39.0-53.0) % Neutrophils # 8.4 H (1.3-7.7) k/uL Sodium 134 L (137-145) mmol/L BUN 40 H (9-20) mg/dL Creatinine 2.24 H (0.66-1.25) mg/dL Glucose 239 H (74-99) mg/dL POC Glucose (mg/dL) (70-110) mg/dL Hemoglobin A1c 6.8 H (<=6.0) % Calcium 8.0 L (8.4-10.2) mg/dL Troponin I (0.000-0.034) ng/mL Procalcitonin (0.02-0.09) ng/mL Urine RBC (0-5) /hpf Urine WBC (0-5) /hpf Urine WBC Clumps (None) /hpf Urine Bacteria (None) /hpf Hyaline Casts (0-2) /lpf Urine Mucus (None) /hpf 05/04/23 Range/Units 11:22 RBC (4.30-5.90) m/uL Hgb (13.0-17.5) gm/dL Hct (39.0-53.0) % Neutrophils # (1.3-7.7) k/uL Sodium (137-145) mmol/L BUN (9-20) mg/dL Creatinine (0.66-1.25) mg/dL Glucose (74-99) mg/dL POC Glucose (mg/dL) 310 H (70-110) mg/dL Hemoglobin A1c (<=6.0) % Calcium (8.4-10.2) mg/dL Troponin I (0.000-0.034) ng/mL Procalcitonin (0.02-0.09) ng/mL Urine RBC (0-5) /hpf Urine WBC (0-5) /hpf Urine WBC Clumps (None) /hpf Urine Bacteria (None) /hpf Hyaline Casts (0-2) /lpf Urine Mucus (None) /hpf Assessment and Plan Time with Patient: Less than 30
[2023-05-04 16:24] LABS: Glucose,Whole Blood 263 mg/dL (70-110)
[2023-05-04] MEDS: ATORVASTATIN 20 MG TAB PO SCH (18:03)
[2023-05-04 19:21] LABS: Glucose,Whole Blood 329 mg/dL (70-110)
[2023-05-04] MEDS: INSULIN DETEMIR (LEVEMIR) 100 UNIT/ML SYR SQ SCH (21:20)
[2023-05-05] MEDS: INSULIN ASPART (NovoLOG) 100 UNIT/ML VIAL SQ SCH ×7 (06:16→20:20)
[2023-05-05] MEDS: amLODIPine 5 MG TAB PO SCH (06:17)
[2023-05-05] MEDS: POTASSIUM CHLORIDE ER 10 MEQ TAB.ER.PRT PO SCH ×2 (06:17→17:03)
[2023-05-05] MEDS: ISOSORBIDE MONONITRATE ER 30 MG TAB.ER.24H PO SCH (06:17)
[2023-05-05] MEDS: ASPIRIN 81 MG PO SCH (06:17)
[2023-05-05 06:23] LABS: Glucose,Whole Blood 201 mg/dL (70-110)
[2023-05-05 07:42] LABS: HCT 31.8 % (39.0-53.0); HGB 10.1 gm/dL (13.0-17.5); Hypochromasia Marked; MCH 29.8 pg (25.0-35.0); MCHC 31.9 g/dL (31.0-37.0); MCV 93.4 fL (80.0-100.0); Mean Platelet Volume 7.8; RDW 15.5 % (11.5-15.5); WBC 9.2 k/uL (3.8-10.6)
[2023-05-05 08:34] LABS: African American GFR (CKD) 32 (>60 ml/min/1.73 sqM); Anion Gap 14 mmol/L; Blood Urea Nitrogen 50 mg/dL (9-20); Calcium 7.8 mg/dL (8.4-10.2); Carbon Dioxide 23 mmol/L (22-30); Chloride 98 mmol/L (98-107); Glucose 187 mg/dL (74-99); Non-African American GFR(CKD) 28 (>60 ml/min/1.73 sqM); Potassium 4.1 mmol/L (3.5-5.1); Sodium 135 mmol/L (137-145)
[2023-05-05] MEDS ORDERED: FUROSEMIDE 40 MG TAB PO SCH (09:00)
[2023-05-05] MEDS: SODIUM CHLORIDE 0.9% 1,000 ML IV SCH (10:19)
[2023-05-05] MEDS: HEPARIN SODIUM,PORCINE 5,000 UNIT/ML 1 ML VIAL SQ SCH ×3 (10:19→23:55)
[2023-05-05] MEDS: METOPROLOL TARTRATE 50 MG TAB PO SCH ×2 (10:20→20:20)
[2023-05-05] MEDS: cycloSPORINE 0.05% OPHTH 0.4 ML DROPERETTE BOTH EYES SCH ×2 (10:21→20:22)
[2023-05-05] MEDS: DAPAGLIFLOZIN PROPANEDIOL 5 MG TABLET PO SCH (10:21)
[2023-05-05] MEDS: TIMOLOL 0.5% OPHTH DROPS 5 ML BTL BOTH EYES SCH (10:22)
[2023-05-05 11:39] LABS: Band Neutrophils % 1 %; Eosinophils # (M) 0.18 k/uL (0-0.7); Monocytes # (M) 0.55 k/uL (0-1.0); Neutrophils % (M) 78 %; Nucleated Red Blood Cells 0 /100 WBC (0-0); Total Cells Counted 100
[2023-05-05 11:41] LABS: Platelet Count 337 k/uL (150-450)
[2023-05-05 11:45] LABS: Glucose,Whole Blood 229 mg/dL (70-110)
[2023-05-05] MEDS: CLOPIDOGREL 75 MG TAB PO SCH (12:44)
[2023-05-05] MEDS: TAMSULOSIN 0.4 MG CAP.ER.24H PO SCH (12:44)
[2023-05-05] MEDS ORDERED: ALBUTEROL NEBULIZED 2.5 MG/3 ML INHALATION PRN (14:05)
--- NOTE | 2023-05-05 14:06 | P.PN ---
Subjective Progress Note Date: 05/05/23 Patient was on 7-year-old male came in with compensative shortness of breath and progressive weakness patient has shortness of breath upon ablation. Patient had a normal ejection fraction the past but here patient chest x-ray did show pulmonary edema. Patient denied any chest pain at this time patient denied any orthopnea actually he doesn't know if she had has orthopnea as patient usually sleeps in the chair denied any paroxysmal nocturnal dyspnea. Denied any fever was comparing of dry cough. Patient has minimally elevated BNP of 1800. Flu,RSV are negative. Patient denied any chest pain but does have minimally elevated troponin of 0.41 patient's baseline creatinine is around 1.7 present creatinine is 1.99 patient does have highly elevated blood sugars patient is on multiple medications for uncontrolled elevated blood sugars at home. 05/04/2023 Patient evaluated today a floor with at the bedside. He continues to report mild shortness of breath generalized achiness and chills. He did have a fever developed this afternoon. He continues on 2 L nasal cannula. His pro- calcitonin level came back elevated at 17 remains on a course of antibiotics with IV ceftriaxone. Echocardiogram showing an EF of 55-60% with mild pulmonary hypertension and mild TR. His creatinine has increased to 2.24 today and IV Lasix has been discontinued and transitioned to 40 mg of Lasix daily. Additi onally metformin and losartan are being held. BP normotensive in the 110 systolic. Blood glucose remains elevated in the 300s. 05/05/2023 Patient is evaluated today in the stepdown unit. He continues on 2 L of oxygen and he does have a dry cough. His chest x-ray shows evidence of right sided inf iltrate inserting foreign developing pneumonia patient's white count is normal today at 9.2. He did have a significant elevated pro-calcitonin level for this reason we consult infectious disease for evaluation. He continues on a course of antibiotics with IV ceftriaxone. He is having some urinary retention recommending to continue with postvoid residuals and may need indwelling catheter. His creatinine is up to 2.21 today we'll recommend hold Lasix at the time patient will be gently hydrated. Fever has improved with T-max of 99.2. REVIEW OF SYSTEMS: CONSTITUTIONAL: Reports fatigue and chills. HEENT: No recent visual problems or hearing problems. Denied any sore throat. CARDIOVASCULAR: No chest pain, orthopnea, PND, no palpitations, no syncope. PULMONARY: no hemoptysis. Has shortness of breath and dry mild cough. GASTROINTESTINAL: No diarrhea, no nausea, no vomiting, no abdominal pain. NEUROLOGICAL: No headaches, no weakness, no numbness. PHYSICAL EXAMINATION: GENERAL: The patient is alert and oriented x3, not in any acute distress. Well developed, well nourished. HEENT: Pupils are round and equally reacting to light. EOMI. No scleral icterus. No conjunctival pallor. Normocephalic, atraumatic. No pharyngeal erythema. No thyromegaly. CARDIOVASCULAR: S1 and S2 present. No murmurs, rubs, or gallops. PULMONARY: Chest is clear to auscultation, no wheezing or crackles. Diminished. ABDOMEN: Soft, nontender, nondistended, normoactive bowel sounds. No palpable organomegaly. MUSCULOSKELETAL: No joint swelling or deformity. EXTREMITIES: No cyanosis, clubbing, mild bilateral pitting pedal edema NEUROLOGICAL: Gross neurological examination did not reveal any focal deficits. Generalized weakness. SKIN: No rashes. Assessment and plan -Shortness of breath -Acute community acquired pneumonia and sepsis currently on course of IV ceftriaxone. Viral panel and legionella mycoplasma testing are negative. Patient will receive supportive care. -Uncontrolled elevated blood sugars patient continued on his home regimen including SGLP inhibitors. Scheduled insulin has been added. Blood sugars are improving -Carotid artery disease with stents in the past -Hypertension patient is normotensive and recommending to hold losartan at this time creatinine increased up to 2.24. -Chronic kidney disease stage IV secondary to diabetic nephropathy -Mild elevated troponin secondary to chronic kidney disease and heart failure exacerbation -Osteoarthritis -Mild possible acute renal failure secondary to prerenal azotemia worsened with diuresis -Hyperlipidemia continue on statin therapy -Benign prostatic hypertrophy remains on flomax -Generalized deconditioning physical therapy and occupational Evaluation DVT prophylaxis: Subcutaneous heparin Gi prophylaixs Full Code The impression and plan of care has been dictated by Nurse Veronika Pra ctitioner as directed. Dr. Ruperto MD I have performed a history and physical examination and medical decision making of this patient, discussed the same with the dictator, and agree with the dictat ors assessment and plan as written, documented as a scribe. Based on total visit time, I have performed more than 50% of this visit. Objective - Vital Signs Vital signs: Vital Signs Temp 98.8 F 05/05/23 11:37 Pulse 79 05/05/23 11:37 Resp 18 05/05/23 11:37 BP 102/60 05/05/23 11:37 Pulse Ox 91 L 05/05/23 11:37 FiO2 Intake & Output 05/04/23 05/05/23 05/05/23 18:59 06:59 18:59 Intake Total 670 480 Output Total 1350 950 Balance -680 -950 480 Weight 95.5 kg Intake: Oral 670 480 Output: Urine 1350 950 Uretheral (Mariee) 425 600 Other: Voiding Method External Catheter Self-Catheterization Self-Catheterization External Catheter External Catheter # Voids 0 # Bowel Movements 1 - Labs CBC & Chem 7: 05/05/23 06:45 05/05/23 06:45 Labs: Abnormal Lab Results - Last 24 Hours (Table) 05/04/23 05/04/23 05/05/23 Range/Units 16:20 19:20 06:07 RBC (4.30-5.90) m/uL Hgb (13.0-17.5) gm/dL Hct (39.0-53.0) % Sodium (137-145) mmol/L BUN (9-20) mg/dL Creatinine (0.66-1.25) mg/dL Glucose (74-99) mg/dL POC Glucose (mg/dL) 263 H 329 H 201 H (70-110) mg/dL Calcium (8.4-10.2) mg/dL 05/05/23 05/05/23 05/05/23 Range/Units 06:45 06:45 11:44 RBC 3.40 L (4.30-5.90) m/uL Hgb 10.1 L (13.0-17.5) gm/dL Hct 31.8 L (39.0-53.0) % Sodium 135 L (137-145) mmol/L BUN 50 H (9-20) mg/dL Creatinine 2.21 H (0.66-1.25) mg/dL Glucose 187 H (74-99) mg/dL POC Glucose (mg/dL) 229 H (70-110) mg/dL Calcium 7.8 L (8.4-10.2) mg/dL Assessment and Plan Time with Patient: Less than 30
--- NOTE | 2023-05-05 15:22 | P.PN ---
Subjective Progress Note Date: 05/05/23 HISTORY OF PRESENT ILLNESS: This is a 77-year-old male with a past medical history significant for coronary artery disease with previous stenting, hypertension, hyperlipidemia, chronic kidney disease, diabetes, peripheral vascular disease, and former nicotine dependence. Patient follows in the office with Dr. Cadena. We have been asked to see the patient in consultation for congestive heart failure. Patient examined at the bedside. The patient states he has been feeling short of breath and weak for the past several months. He states yesterday he fell after using the bathroom but did not loss consciousness. He does report feeling lightheaded when he came into the hospital. His blood pressure was low upon arrival to the ER but has since improved. He was started on IV antibiotics for a urinary tract infection and possible pneumonia. * EKG reveals sinus mechanism with no signs of acute ischemia * Chest xray persistent small right basilar effusion. Underlying atelectasis or infiltrate difficult to exclude. Small left-sided effusion suggested as well. * Laboratory data: W BC 15.9. Hemoglobin 12.0. Platelet count 363. BUN 27. Creatinine 1.99. ProBNP 1818. Troponin 0.041. 0.053. 0.051. Pro- calcitonin 17.0 * Current home cardiac medications include aspirin 81 mg daily, Plavix 75 mg daily, Lasix 40 mg daily, fenofibrate 145 mg every 2 days, Imdur 30 mg daily, losartan 100 mg daily, metoprolol tartrate 100 mg with breakfast, 50 mg at noon and 50 mg at 6 PM, rosuvastatin 10 mg daily, amlodipine 5 mg twice a day * Most recent echocardiogram obtained in April 2022 revealed ejection fraction 55%, mild MR, mild TR * Cardiac catheterization history: April 2020 revealing patent stent in RCA. Left circumflex proximal stent was patent. OM was also patent but just before the OM stenting there was a new 95% stenosis and also distal to the stent there was a 50% narrowing. Entire area was stented with a new drug-eluting stent. 05/05/2023 ECHO with EF 55-60%, RVSP 38. Creat 2.21. He has a robledo for urinary retention. He reports that he does have pneumonia. He is feeling a little better today. Blood pressures are still on the lower side. PHYSICAL EXAM: VITAL SIGNS: Reviewed. GENERAL: Well-developed in no acute distress. HEENT: Head is normocephalic. Pupils are equal, round. Sclerae anicteric. Mucous membranes of the mouth are moist. No JVD LUNGS: Respirations even and unlabored. Lungs essentially clear to auscultation bilaterally. HEART: Regular rate and rhythm. S1 and S2 heard. ABDOMEN: Soft. Nondistended. Nontender. EXTREMITIES: Normal range of motion. No clubbing or cyanosis. Peripheral pulses intact. No lower extremity edema NEUROLOGIC: Awake and alert. Oriented x 3. ASSESSMENT: Shortness of breath Generalized weakness Urinary tract infection Pneumonia S/P fall without loss of consciousness Hypotension on admission, improving Coronary artery disease with previous stenting Hypertension Hyperlipidemia Chronic heart failure with preserved EF, currently euvolemic Diabetes with hyperglycemia Chronic kidney disease Peripheral vascular disease Former nicotine dependence PLAN: ECHO reviewed and stable. Decrease metoprolol to 50 mg 2 times a day. Continue to monitor blood pressure, may need to slowly come off some medications as tolerates. Further recommendations pending patient's course. Nurse practitioner note has been reviewed by physician. Signing provider agrees with the documented findings, assessment, and plan of care. Objective - Vital Signs Vital signs: Vital Signs Temp 98.4 F 05/05/23 15:17 Pulse 85 05/05/23 15:17 Resp 16 05/05/23 15:17 BP 112/62 05/05/23 15:17 Pulse Ox 92 L 05/05/23 15:17 FiO2 Intake & Output 05/04/23 05/05/23 05/05/23 18:59 06:59 18:59 Intake Total 670 480 Output Total 0552 704 9625 Balance -680 -950 -670 Weight 95.5 kg Intake: Oral 670 480 Output: Urine 2429 600 1636 Uretheral (Robledo) 425 600 600 Other: Voiding Method External Catheter Self-Catheterization Self-Catheterization External Catheter External Catheter # Voids 0 # Bowel Movements 1 - Labs CBC & Chem 7: 05/05/23 06:45 05/05/23 06:45 Labs: Abnormal Lab Results - Last 24 Hours (Table) 05/04/23 05/04/23 05/05/23 Range/Units 16:20 19:20 06:07 RBC (4.30-5.90) m/uL Hgb (13.0-17.5) gm/dL Hct (39.0-53.0) % Sodium (137-145) mmol/L BUN (9-20) mg/dL Creatinine (0.66-1.25) mg/dL Glucose (74-99) mg/dL POC Glucose (mg/dL) 263 H 329 H 201 H (70-110) mg/dL Calcium (8.4-10.2) mg/dL 05/05/23 05/05/23 05/05/23 Range/Units 06:45 06:45 11:44 RBC 3.40 L (4.30-5.90) m/uL Hgb 10.1 L (13.0-17.5) gm/dL Hct 31.8 L (39.0-53.0) % Sodium 135 L (137-145) mmol/L BUN 50 H (9-20) mg/dL Creatinine 2.21 H (0.66-1.25) mg/dL Glucose 187 H (74-99) mg/dL POC Glucose (mg/dL) 229 H (70-110) mg/dL Calcium 7.8 L (8.4-10.2) mg/dL
[2023-05-05 16:12] LABS: Glucose,Whole Blood 240 mg/dL (70-110)
[2023-05-05] MEDS: ALBUTEROL NEBULIZED 2.5 MG/3 ML INHALATION SCH ×2 (16:27→19:44)
[2023-05-05] MEDS: ATORVASTATIN 20 MG TAB PO SCH (17:03)
[2023-05-05] MEDS: BUDESONIDE 0.5 MG/2 ML NEBU INHALATION SCH (19:44)
[2023-05-05 20:06] LABS: Glucose,Whole Blood 306 mg/dL (70-110)
[2023-05-05] MEDS: INSULIN DETEMIR (LEVEMIR) 100 UNIT/ML SYR SQ SCH (20:19)
--- NOTE | 2023-05-05 22:52 | P.CONS ---
History of Present Illness - Reason for Consult Consult date: 05/05/23 - History of Present Illness Patient is a 77-year-old male with a past medical history significant for diabetes mellitus hypertension osteoarthritis coronary artery disease patient presenting to the hospital 2 days ago for evaluation of progressive weakness shortness of breath and fall patient symptom has been getting worse for about a week has been complaining of increasing shortness of breath he also have a cough mild to moderate intensity mostly dry in nature patient denies having any nausea no vomiting no choking on the food no abdominal pain no diarrhea on presentation to the hospital the patient was afebrile however he did spike a fever 100.7 yesterday afternoon patient was mildly tachycardic on admission also hypoxic with O2 sats of 88% is currently 93% on 2 L nasal cannula oxygen patient did have a white count of 15.9 on admission with a left shift creatinine is mildly elevated limits of the normal troponins are positive he did have a procalcitonin of 17 that prompted this infectious disease consultation patient did have a chest x-ray persistent small right basilar effusion underlying ate lectasis or differential difficult to exclude small left-sided effusion patient currently on ceftriaxone Past Medical History Past Medical History: Coronary Artery Disease (CAD), Diabetes Mellitus, Eye Disorder, Hearing Disorder / Deafness, Hypertension, Osteoarthritis (OA) Additional Past Medical History / Comment(s): GLAUCOMA. Hard of hearing. History of Any Multi-Drug Resistant Organisms: None Reported Past Surgical History: Heart Catheterization With Stent, Orthopedic Surgery Additional Past Surgical History / Comment(s): Right knee arthroscopy, bilateral cataract surgery, 5 cardiac stents, pain clinic procedure. Past Anesthesia/Blood Transfusion Reactions: Previous Problems w/ Anesthesia Additional Past Anesthesia/Blood Transfusion Reaction / Comm: states pt has letter from previous knee surgery in 2010 that indicates that Erasto was a difficult intubation with difficult airway anterior. Date of Last Stent Placement:: 04/2019 Past Psychological History: No Psychological Hx Reported Smoking Status: Former smoker Past Alcohol Use History: None Reported Additional Past Alcohol Use History / Comment(s): Smoked 15 years, 1ppd, quit 16+ years ago. Past Drug Use History: None Reported - Past Family History Mother Family Medical History: Cancer Additional Family Medical History / Comment(s): Stomach cancer. Father Family Medical History: CVA/TIA Medications and Allergies Home Medications Medication Instructions Recorded Confirmed Type Aspirin [Adult Low Dose Aspirin EC] 81 mg PO W/BRKFST 02/05/18 05/03/23 History INSULIN LISPRO (humaLOG) [humaLOG] See Protocol SQ BID-W/MEALS 02/05/18 05/03/23 History Potassium Chloride ER [K-Dur 10] 10 meq PO BID-W/MEALS 02/05/18 05/03/23 History Rosuvastatin [Crestor] 10 mg PO PC-SUPPER 02/05/18 05/03/23 History Fenofibrate Nanocrystallized 145 mg PO Q2D@1800 02/28/18 05/03/23 History [Fenofibrate] metFORMIN HCL [Glucophage] 500 mg PO PC-SUPPER 05/04/20 05/03/23 History Dulaglutide [Trulicity] 1.5 mg SQ Q7D 05/05/20 05/03/23 History Timolol 0.5% Ophth Soln [Timoptic 1 drop BOTH EYES DAILY 05/05/20 05/03/23 History 0.5% Ophth Soln] Metoprolol Tartrate [Lopressor] 100 mg PO W/BRKFST 01/18/22 05/03/23 History Insulin Glargine,Hum.rec.anlog 50 units SQ HS 05/12/22 05/03/23 History [Toujeo Solostar] Losartan Potassium 100 mg PO W/LUNCH 05/12/22 05/03/23 History Empagliflozin [Jardiance] 10 mg PO DAILY 11/23/22 05/03/23 History Furosemide [Lasix] 40 mg PO W/BRKFST 11/23/22 05/03/23 History Clopidogrel [Plavix] 75 mg PO W/LUNCH 05/03/23 05/03/23 History Isosorbide Mononitrate ER [Imdur] 30 mg PO W/BRKFST 05/03/23 05/03/23 History Metoprolol Tartrate [Lopressor] 50 mg PO AC-BID@1200,1800 05/03/23 05/03/23 History Nitroglycerin Sl Tabs [Nitrostat] 0.4 mg SL Q5M PRN 05/03/23 05/03/23 History Tamsulosin [Flomax] 0.4 mg PO W/LUNCH 05/03/23 05/03/23 History amLODIPine [Norvasc] 5 mg PO BID-W/MEALS 05/03/23 05/03/23 History cycloSPORINE 0.05% OPHTH SOLN 1 drop BOTH EYES BID 05/03/23 05/03/23 History [Restasis] polyethylene glycoL 3350 [Miralax] 17 gm PO DAILY PRN 05/03/23 05/03/23 History Allergies Allergy/AdvReac Type Severity Reaction Status Date / Time cyclobenzaprine Allergy Itching Verified 05/03/23 07:39 [From Flexeril] Physical Exam Vitals: Vital Signs Temp Pulse Resp BP Pulse Ox 05/05/23 07:39 92 L 05/05/23 04:00 99.2 F 91 18 114/65 92 L 05/05/23 02:00 99 F 75 18 05/05/23 00:00 98 F 75 18 123/70 94 L 05/04/23 20:00 98 F 74 18 117/66 94 L 05/04/23 16:51 99.6 F 05/04/23 15:13 100.7 F H 86 20 116/66 92 L 05/04/23 13:08 88 05/04/23 11:19 88 20 113/61 93 L Intake and Output 05/04/23 05/05/23 05/05/23 22:59 06:59 14:59 Intake Total 110 240 Output Total 950 Balance 110 -950 240 Intake: Oral 110 240 Output: Urine 950 Uretheral (Mariee) 600 Other: Voiding Method External Catheter Self-Catheterization External Catheter # Voids 0 # Bowel Movements 1 Weight 95.5 kg Results CBC & Chem 7: 05/05/23 06:45 05/05/23 06:45 Labs: Abnormal Lab Results - Last 24 Hours (Table) 05/04/23 05/04/23 05/04/23 Range/Units 08:08 11:22 16:20 RBC (4.30-5.90) m/uL Hgb (13.0-17.5) gm/dL Hct (39.0-53.0) % Sodium (137-145) mmol/L BUN (9-20) mg/dL Creatinine (0.66-1.25) mg/dL Glucose (74-99) mg/dL POC Glucose (mg/dL) 310 H 263 H (70-110) mg/dL Hemoglobin A1c 6.8 H (<=6.0) % Calcium (8.4-10.2) mg/dL 05/04/23 05/05/23 05/05/23 Range/Units 19:20 06:07 06:45 RBC 3.40 L (4.30-5.90) m/uL Hgb 10.1 L (13.0-17.5) gm/dL Hct 31.8 L (39.0-53.0) % Sodium (137-145) mmol/L BUN (9-20) mg/dL Creatinine (0.66-1.25) mg/dL Glucose (74-99) mg/dL POC Glucose (mg/dL) 329 H 201 H (70-110) mg/dL Hemoglobin A1c (<=6.0) % Calcium (8.4-10.2) mg/dL 05/05/23 Range/Units 06:45 RBC (4.30-5.90) m/uL Hgb (13.0-17.5) gm/dL Hct (39.0-53.0) % Sodium 135 L (137-145) mmol/L BUN 50 H (9-20) mg/dL Creatinine 2.21 H (0.66-1.25) mg/dL Glucose 187 H (74-99) mg/dL POC Glucose (mg/dL) (70-110) mg/dL Hemoglobin A1c (<=6.0) % Calcium 7.8 L (8.4-10.2) mg/dL Assessment and Plan Plan: 1patient presented to hospital with sepsis in this patient who did have a fever of 100.7 F the patient was tachycardic did have elevated white count source likely left lower lobe pneumonia in this patient also have elevated procalcitonin 2-try to obtain a sputum for Gram stain and culture 3-continue with Rocephin and add Zithromax Multiple question concern answered We will follow on clinical condition and cultures to further adjust medication if needed Thank you for this consultation we will follow the patient along with you Dictation was produced using [employer] software. please excuse any grammatical, word or spelling errors. Time with Patient: Greater than 30
[2023-05-06] MEDS: SODIUM CHLORIDE 0.9% 1,000 ML IV SCH (05:38)
[2023-05-06 06:10] LABS: Glucose,Whole Blood 199 mg/dL (70-110)
[2023-05-06] MEDS: ISOSORBIDE MONONITRATE ER 30 MG TAB.ER.24H PO SCH (06:26)
[2023-05-06] MEDS: ASPIRIN 81 MG PO SCH (06:26)
[2023-05-06] MEDS: POTASSIUM CHLORIDE ER 10 MEQ TAB.ER.PRT PO SCH ×2 (06:26→17:20)
[2023-05-06] MEDS: INSULIN ASPART (NovoLOG) 100 UNIT/ML VIAL SQ SCH ×7 (06:27→20:36)
[2023-05-06 07:35] LABS: Basophils % (A) 1 %; Eosinophils # (A) 0.2 k/uL (0-0.7); Eosinophils % (A) 5 %; HCT 31.5 % (39.0-53.0); HGB 9.6 gm/dL (13.0-17.5); Hypochromasia Marked; Lymphocytes # (A) 1.1 k/uL (1.0-4.8); Lymphocytes % (A) 21 %; MCH 28.6 pg (25.0-35.0); MCHC 30.6 g/dL (31.0-37.0); MCV 93.3 fL (80.0-100.0); Mean Platelet Volume 7.2; Monocytes # (A) 0.5 k/uL (0-1.0); Monocytes % (A) 9 %; Neutrophils # (A) 3.3 k/uL (1.3-7.7); Neutrophils % (A) 62 %; Platelet Count 298 k/uL (150-450); RBC 3.38 m/uL (4.30-5.90); RDW 15.3 % (11.5-15.5); WBC 5.3 k/uL (3.8-10.6)
[2023-05-06 07:56] LABS: African American GFR (CKD) 35 (>60 ml/min/1.73 sqM); Anion Gap 11 mmol/L; Blood Urea Nitrogen 48 mg/dL (9-20); Calcium 7.8 mg/dL (8.4-10.2); Carbon Dioxide 23 mmol/L (22-30); Chloride 103 mmol/L (98-107); Glucose 186 mg/dL (74-99); Non-African American GFR(CKD) 30 (>60 ml/min/1.73 sqM); Sodium 137 mmol/L (137-145)
[2023-05-06] MEDS: cycloSPORINE 0.05% OPHTH 0.4 ML DROPERETTE BOTH EYES SCH ×2 (08:31→20:40)
[2023-05-06] MEDS: DAPAGLIFLOZIN PROPANEDIOL 5 MG TABLET PO SCH (08:31)
[2023-05-06] MEDS: AZITHROMYCIN 250 MG TAB PO SCH (08:31)
[2023-05-06] MEDS: METOPROLOL TARTRATE 50 MG TAB PO SCH ×2 (08:31→20:36)
[2023-05-06] MEDS: TIMOLOL 0.5% OPHTH DROPS 5 ML BTL BOTH EYES SCH (08:32)
[2023-05-06] MEDS: HEPARIN SODIUM,PORCINE 5,000 UNIT/ML 1 ML VIAL SQ SCH ×3 (08:32→22:32)
[2023-05-06] MEDS: ALBUTEROL NEBULIZED 2.5 MG/3 ML INHALATION SCH ×4 (08:57→20:41)
[2023-05-06] MEDS: BUDESONIDE 0.5 MG/2 ML NEBU INHALATION SCH ×2 (08:57→20:41)
[2023-05-06 11:31] LABS: Glucose,Whole Blood 226 mg/dL (70-110)
[2023-05-06] MEDS: CLOPIDOGREL 75 MG TAB PO SCH (12:21)
[2023-05-06] MEDS: TAMSULOSIN 0.4 MG CAP.ER.24H PO SCH (12:21)
--- NOTE | 2023-05-06 13:18 | P.PN ---
Subjective Progress Note Date: 05/06/23 HISTORY OF PRESENT ILLNESS: This is a 77-year-old male with a past medical history significant for coronary artery disease with previous stenting, hypertension, hyperlipidemia, chronic kidney disease, diabetes, peripheral vascular disease, and former nicotine dependence. Patient follows in the office with Dr. Cadena. We have been asked to see the patient in consultation for congestive heart failure. Patient examined at the bedside. The patient states he has been feeling short of breath and weak for the past several months. He states yesterday he fell after using the bathroom but did not loss consciousness. He does report feeling lightheaded when he came into the hospital. His blood pressure was low upon arrival to the ER but has since improved. He was started on IV antibiotics for a urinary tract infection and possible pneumonia. * EKG reveals sinus mechanism with no signs of acute ischemia * Chest xray persistent small right basilar effusion. Underlying atelectasis or infiltrate difficult to exclude. Small left-sided effusion suggested as well. * Laboratory data: W BC 15.9. Hemoglobin 12.0. Platelet count 363. BUN 27. Creatinine 1.99. ProBNP 1818. Troponin 0.041. 0.053. 0.051. Pro- calcitonin 17.0 * Current home cardiac medications include aspirin 81 mg daily, Plavix 75 mg daily, Lasix 40 mg daily, fenofibrate 145 mg every 2 days, Imdur 30 mg daily, losartan 100 mg daily, metoprolol tartrate 100 mg with breakfast, 50 mg at noon and 50 mg at 6 PM, rosuvastatin 10 mg daily, amlodipine 5 mg twice a day * Most recent echocardiogram obtained in April 2022 revealed ejection fraction 55%, mild MR, mild TR * Cardiac catheterization history: April 2020 revealing patent stent in RCA. Left circumflex proximal stent was patent. OM was also patent but just before the OM stenting there was a new 95% stenosis and also distal to the stent there was a 50% narrowing. Entire area was stented with a new drug-eluting stent. 05/05/2023 ECHO with EF 55-60%, RVSP 38. Creat 2.21. He has a robledo for urinary retention. He reports that he does have pneumonia. He is feeling a little better today. Blood pressures are still on the lower side. 05/06 Patient complains of cough. He states he has been up to the bathroom only and has done well with this. Patient was started yesterday on IV fluids at 50 mL per hour. Blood pressure 120/65, heart rate in the 80s, afebrile, pulse ox 93% on 2 L. Repeat blood work reveals hemoglobin of 9.6, BUN 48 and creatinine 2.07. PHYSICAL EXAM: VITAL SIGNS: Reviewed. GENERAL: Well-developed in no acute distress. HEENT: Head is normocephalic. Pupils are equal, round. Sclerae anicteric. Mucous membranes of the mouth are moist. No JVD LUNGS: Respirations even and unlabored. Lungs essentially clear to auscultation bilaterally. HEART: Regular rate and rhythm. S1 and S2 heard. ABDOMEN: Soft. Nondistended. Nontender. EXTREMITIES: Normal range of motion. No clubbing or cyanosis. Peripheral pulses intact. No lower extremity edema NEUROLOGIC: Awake and alert. Oriented x 3. ASSESSMENT: Shortness of breath Generalized weakness Urinary tract infection Pneumonia S/P fall without loss of consciousness Hypotension on admission, improving Coronary artery disease with previous stenting Hypertension Hyperlipidemia Chronic heart failure with preserved EF, currently euvolemic Diabetes with hyperglycemia Chronic kidney disease Peripheral vascular disease Former nicotine dependence PLAN: ECHO reviewed and stable. Continue decreased metoprolol 50 mg 2 times a day. Continue to monitor blood pressure. Further recommendations pending patient's course. Nurse practitioner note has been reviewed by physician. Signing provider agrees with the documented findings, assessment, and plan of care. Objective - Vital Signs Vital signs: Vital Signs Temp 98.2 F 05/06/23 08:00 Pulse 85 05/06/23 09:09 Resp 18 05/06/23 08:00 BP 120/65 05/06/23 08:00 Pulse Ox 93 L 05/06/23 08:57 FiO2 Intake & Output 05/05/23 05/06/23 05/06/23 18:59 06:59 18:59 Intake Total 598 Output Total 1150 1500 700 Balance -552 -1500 -700 Weight 121.3 kg Intake: Oral 598 Output: Urine 1150 1500 700 Uretheral (Robledo) 600 700 Other: Voiding Method Indwelling Catheter Indwelling Catheter Indwelling Catheter # Bowel Movements 1 1 - Labs CBC & Chem 7: 05/06/23 06:51 05/06/23 06:51 Labs: Abnormal Lab Results - Last 24 Hours (Table) 05/05/23 05/05/23 05/05/23 Range/Units 11:44 16:11 20:04 RBC (4.30-5.90) m/uL Hgb (13.0-17.5) gm/dL Hct (39.0-53.0) % MCHC (31.0-37.0) g/dL BUN (9-20) mg/dL Creatinine (0.66-1.25) mg/dL Glucose (74-99) mg/dL POC Glucose (mg/dL) 229 H 240 H 306 H (70-110) mg/dL Calcium (8.4-10.2) mg/dL 05/06/23 05/06/23 05/06/23 Range/Units 06:09 06:51 06:51 RBC 3.38 L (4.30-5.90) m/uL Hgb 9.6 L (13.0-17.5) gm/dL Hct 31.5 L (39.0-53.0) % MCHC 30.6 L (31.0-37.0) g/dL BUN 48 H (9-20) mg/dL Creatinine 2.07 H (0.66-1.25) mg/dL Glucose 186 H (74-99) mg/dL POC Glucose (mg/dL) 199 H (70-110) mg/dL Calcium 7.8 L (8.4-10.2) mg/dL 05/06/23 Range/Units 11:29 RBC (4.30-5.90) m/uL Hgb (13.0-17.5) gm/dL Hct (39.0-53.0) % MCHC (31.0-37.0) g/dL BUN (9-20) mg/dL Creatinine (0.66-1.25) mg/dL Glucose (74-99) mg/dL POC Glucose (mg/dL) 226 H (70-110) mg/dL Calcium (8.4-10.2) mg/dL
[2023-05-06 16:30] LABS: Glucose,Whole Blood 280 mg/dL (70-110)
[2023-05-06] MEDS: ATORVASTATIN 20 MG TAB PO SCH (17:20)
--- NOTE | 2023-05-06 18:29 | P.PN ---
Subjective Progress Note Date: 05/06/23 Patient was on 7-year-old male came in with compensative shortness of breath and progressive weakness patient has shortness of breath upon ablation. Patient had a normal ejection fraction the past but here patient chest x-ray did show pulmonary edema. Patient denied any chest pain at this time patient denied any orthopnea actually he doesn't know if she had has orthopnea as patient usually sleeps in the chair denied any paroxysmal nocturnal dyspnea. Denied any fever was comparing of dry cough. Patient has minimally elevated BNP of 1800. Flu,RSV are negative. Patient denied any chest pain but does have minimally elevated troponin of 0.41 patient's baseline creatinine is around 1.7 present creatinine is 1.99 patient does have highly elevated blood sugars patient is on multiple medications for uncontrolled elevated blood sugars at home. 05/04/2023 Patient evaluated today a floor with at the bedside. He continues to report mild shortness of breath generalized achiness and chills. He did have a fever developed this afternoon. He continues on 2 L nasal cannula. His pro- calcitonin level came back elevated at 17 remains on a course of antibiotics with IV ceftriaxone. Echocardiogram showing an EF of 55-60% with mild pulmonary hypertension and mild TR. His creatinine has increased to 2.24 today and IV Lasix has been discontinued and transitioned to 40 mg of Lasix daily. Additi onally metformin and losartan are being held. BP normotensive in the 110 systolic. Blood glucose remains elevated in the 300s. 05/05/2023 Patient is evaluated today in the stepdown unit. He continues on 2 L of oxygen and he does have a dry cough. His chest x-ray shows evidence of right sided inf iltrate inserting foreign developing pneumonia patient's white count is normal today at 9.2. He did have a significant elevated pro-calcitonin level for this reason we consult infectious disease for evaluation. He continues on a course of antibiotics with IV ceftriaxone. He is having some urinary retention recommending to continue with postvoid residuals and may need indwelling catheter. His creatinine is up to 2.21 today we'll recommend hold Lasix at the time patient will be gently hydrated. Fever has improved with T-max of 99.2. 05/06/2023 Patient evaluated today resting in bed encouraged to get up and ambulate. He has not been out of bed much and is also pending PT evaluation on Sunday. He remains on IV ceftriaxone. Cardiology is following and has increased metoprolol today. Heart rate in the 80s. He is continued on normal saline at 50 mls/hr. REVIEW OF SYSTEMS: CONSTITUTIONAL: Reports fatigue and chills. HEENT: No recent visual problems or hearing problems. Denied any sore throat. CARDIOVASCULAR: No chest pain, orthopnea, PND, no palpitations, no syncope. PULMONARY: no hemoptysis. Has shortness of breath and dry mild cough. GASTROINTESTINAL: No diarrhea, no nausea, no vomiting, no abdominal pain. NEUROLOGICAL: No headaches, no weakness, no numbness. PHYSICAL EXAMINATION: GENERAL: The patient is alert and oriented x3, not in any acute distress. Well developed, well nourished. HEENT: Pupils are round and equally reacting to light. EOMI. No scleral icterus. No conjunctival pallor. Normocephalic, atraumatic. No pharyngeal erythema. No thyromegaly. CARDIOVASCULAR: S1 and S2 present. No murmurs, rubs, or gallops. PULMONARY: Chest is clear to auscultation, no wheezing or crackles. Diminished. ABDOMEN: Soft, nontender, nondistended, normoactive bowel sounds. No palpable organomegaly. MUSCULOSKELETAL: No joint swelling or deformity. EXTREMITIES: No cyanosis, clubbing, mild bilateral pitting pedal edema NEUROLOGICAL: Gross neurological examination did not reveal any focal deficits. Generalized weakness. SKIN: No rashes. Assessment and plan -Shortness of breath -Acute community acquired pneumonia and sepsis currently on course of IV ceftriaxone. Viral panel and legionella mycoplasma testing are negative. Patient will receive supportive care. -Uncontrolled elevated blood sugars patient continued on his home regimen including SGLP inhibitors. Scheduled insulin has been added. Blood sugars are improving -Carotid artery disease with stents in the past -Hypertension patient is normotensive and recommending to hold losartan at this time creatinine increased up to 2.24. -Chronic kidney disease stage IV secondary to diabetic nephropathy -Mild elevated troponin secondary to chronic kidney disease and heart failure exacerbation -Osteoarthritis -Mild possible acute renal failure secondary to prerenal azotemia worsened with diuresis -Hyperlipidemia continue on statin therapy -Benign prostatic hypertrophy remains on flomax -Generalized deconditioning physical therapy and occupational Evaluation DVT prophylaxis: Subcutaneous heparin Gi prophylaixs Full Code The impression and plan of care has been dictated by Lynn Beltran, Nurse Practitioner as directed. Dr. Ruperto MD I have performed a history and physical examination and medical decision making of this patient, discussed the same with the dictator, and agree with the dictators assessment and plan as written, documented as a scribe. Based on total visit time, I have performed more than 50% of this visit. Objective - Vital Signs Vital signs: Vital Signs Temp 98.9 F 05/06/23 04:00 Pulse 83 05/06/23 08:58 Resp 18 05/06/23 04:00 BP 132/71 05/06/23 04:00 Pulse Ox 93 L 05/06/23 08:57 FiO2 Intake & Output 05/05/23 05/06/23 05/06/23 18:59 06:59 18:59 Intake Total 598 Output Total 1150 1500 Balance -552 -1500 Weight 121.3 kg Intake: Oral 598 Output: Urine 1150 1500 Uretheral (Mariee) 600 700 Other: Voiding Method Indwelling Catheter Indwelling Catheter # Bowel Movements 1 1 - Labs CBC & Chem 7: 05/06/23 06:51 05/06/23 06:51 Labs: Abnormal Lab Results - Last 24 Hours (Table) 05/05/23 05/05/23 05/05/23 Range/Units 11:44 16:11 20:04 RBC (4.30-5.90) m/uL Hgb (13.0-17.5) gm/dL Hct (39.0-53.0) % MCHC (31.0-37.0) g/dL BUN (9-20) mg/dL Creatinine (0.66-1.25) mg/dL Glucose (74-99) mg/dL POC Glucose (mg/dL) 229 H 240 H 306 H (70-110) mg/dL Calcium (8.4-10.2) mg/dL 05/06/23 05/06/23 05/06/23 Range/Units 06:09 06:51 06:51 RBC 3.38 L (4.30-5.90) m/uL Hgb 9.6 L (13.0-17.5) gm/dL Hct 31.5 L (39.0-53.0) % MCHC 30.6 L (31.0-37.0) g/dL BUN 48 H (9-20) mg/dL Creatinine 2.07 H (0.66-1.25) mg/dL Glucose 186 H (74-99) mg/dL POC Glucose (mg/dL) 199 H (70-110) mg/dL Calcium 7.8 L (8.4-10.2) mg/dL Assessment and Plan Time with Patient: Less than 30
[2023-05-06 20:01] LABS: Glucose,Whole Blood 321 mg/dL (70-110)
[2023-05-06] MEDS: INSULIN DETEMIR (LEVEMIR) 100 UNIT/ML SYR SQ SCH (20:36)
[2023-05-07] MEDS: SODIUM CHLORIDE 0.9% 1,000 ML IV SCH ×2 (04:28→20:59)
[2023-05-07 05:58] LABS: Glucose,Whole Blood 128 mg/dL (70-110)
[2023-05-07] MEDS: INSULIN ASPART (NovoLOG) 100 UNIT/ML VIAL SQ SCH ×7 (06:01→20:59)
[2023-05-07] MEDS: ISOSORBIDE MONONITRATE ER 30 MG TAB.ER.24H PO SCH (06:21)
[2023-05-07] MEDS: POTASSIUM CHLORIDE ER 10 MEQ TAB.ER.PRT PO SCH ×2 (06:21→17:03)
[2023-05-07] MEDS: ASPIRIN 81 MG PO SCH (06:21)
[2023-05-07] MEDS: BUDESONIDE 0.5 MG/2 ML NEBU INHALATION SCH ×2 (08:21→21:31)
[2023-05-07] MEDS: ALBUTEROL NEBULIZED 2.5 MG/3 ML INHALATION SCH ×4 (08:21→21:31)
[2023-05-07] MEDS: HEPARIN SODIUM,PORCINE 5,000 UNIT/ML 1 ML VIAL SQ SCH ×2 (08:49→17:04)
[2023-05-07] MEDS: DAPAGLIFLOZIN PROPANEDIOL 5 MG TABLET PO SCH (08:49)
[2023-05-07] MEDS: METOPROLOL TARTRATE 50 MG TAB PO SCH ×2 (08:49→20:58)
[2023-05-07] MEDS: AZITHROMYCIN 250 MG TAB PO SCH (08:49)
[2023-05-07] MEDS: TIMOLOL 0.5% OPHTH DROPS 5 ML BTL BOTH EYES SCH (08:50)
[2023-05-07] MEDS: cycloSPORINE 0.05% OPHTH 0.4 ML DROPERETTE BOTH EYES SCH (08:50)
[2023-05-07 09:10] LABS: African American GFR (CKD) 48 (>60 ml/min/1.73 sqM); Anion Gap 9 mmol/L; Blood Urea Nitrogen 41 mg/dL (9-20); Carbon Dioxide 24 mmol/L (22-30); Chloride 105 mmol/L (98-107); Glucose 171 mg/dL (74-99); Non-African American GFR(CKD) 42 (>60 ml/min/1.73 sqM); Potassium 4.2 mmol/L (3.5-5.1); Sodium 138 mmol/L (137-145)
[2023-05-07] MEDS: FUROSEMIDE 40 MG TAB PO SCH (10:59)
[2023-05-07 11:36] LABS: Glucose,Whole Blood 162 mg/dL (70-110)
[2023-05-07] MEDS: TAMSULOSIN 0.4 MG CAP.ER.24H PO SCH (12:20)
[2023-05-07] MEDS: CLOPIDOGREL 75 MG TAB PO SCH (12:20)
--- NOTE | 2023-05-07 12:55 | XR ---
EXAMINATION TYPE: XR chest 2V DATE OF EXAM: 05/07/2023 COMPARISON: 05/03/2023 TECHNIQUE: PA and lateral views submitted. HISTORY: Hypoxia FINDINGS: Right-sided consolidation and small pleural effusion. Heart is enlarged. Left lung clear. No pneumoth orax. Arthropathy of the shoulders with the hypertrophic and degenerative change of the spine. Slight ly elevated right clavicle can be associated with AC joint separation. IMPRESSION: 1. Right-sided consolidation and pleural effusion is stable from prior exam.
--- NOTE | 2023-05-07 13:22 | P.PN ---
Subjective Progress Note Date: 05/07/23 HISTORY OF PRESENT ILLNESS: This is a 77-year-old male with a past medical history significant for coronary artery disease with previous stenting, hypertension, hyperlipidemia, chronic kidney disease, diabetes, peripheral vascular disease, and former nicotine dependence. Patient follows in the office with Dr. Cadena. We have been asked to see the patient in consultation for congestive heart failure. Patient examined at the bedside. The patient states he has been feeling short of breath and weak for the past several months. He states yesterday he fell after using the bathroom but did not loss consciousness. He does report feeling lightheaded when he came into the hospital. His blood pressure was low upon arrival to the ER but has since improved. He was started on IV antibiotics for a urinary tract infection and possible pneumonia. * EKG reveals sinus mechanism with no signs of acute ischemia * Chest xray persistent small right basilar effusion. Underlying atelectasis or infiltrate difficult to exclude. Small left-sided effusion suggested as well. * Laboratory data: W BC 15.9. Hemoglobin 12.0. Platelet count 363. BUN 27. Creatinine 1.99. ProBNP 1818. Troponin 0.041. 0.053. 0.051. Pro- calcitonin 17.0 * Current home cardiac medications include aspirin 81 mg daily, Plavix 75 mg daily, Lasix 40 mg daily, fenofibrate 145 mg every 2 days, Imdur 30 mg daily, losartan 100 mg daily, metoprolol tartrate 100 mg with breakfast, 50 mg at noon and 50 mg at 6 PM, rosuvastatin 10 mg daily, amlodipine 5 mg twice a day * Most recent echocardiogram obtained in April 2022 revealed ejection fraction 55%, mild MR, mild TR * Cardiac catheterization history: April 2020 revealing patent stent in RCA. Left circumflex proximal stent was patent. OM was also patent but just before the OM stenting there was a new 95% stenosis and also distal to the stent there was a 50% narrowing. Entire area was stented with a new drug-eluting stent. 05/05/2023 ECHO with EF 55-60%, RVSP 38. Creat 2.21. He has a robledo for urinary retention. He reports that he does have pneumonia. He is feeling a little better today. Blood pressures are still on the lower side. 05/06 Patient complains of cough. He states he has been up to the bathroom only and has done well with this. Patient was started yesterday on IV fluids at 50 mL per hour. Blood pressure 120/65, heart rate in the 80s, afebrile, pulse ox 93% on 2 L. Repeat blood work reveals hemoglobin of 9.6, BUN 48 and creatinine 2.07. 05/07 Patient's weight is down about 1 kg totals since admission. He has been maintained on oral Lasix 40 mg daily. Heart rate is in the 80s, blood pressure 145/68, pulse ox 95% on 3 L nasal cannula. Potassium 4.2, BUN 41 creatinine 1.58. Repeat chest x-ray reveals right-sided consolidation and pleural effusion stable. PHYSICAL EXAM: VITAL SIGNS: Reviewed. GENERAL: Well-developed in no acute distress. HEENT: Head is normocephalic. Pupils are equal, round. Sclerae anicteric. Mucous membranes of the mouth are moist. No JVD LUNGS: Respirations even and unlabored. Lungs essentially clear to auscultation bilaterally. HEART: Regular rate and rhythm. S1 and S2 heard. ABDOMEN: Soft. Nondistended. Nontender. EXTREMITIES: Normal range of motion. No clubbing or cyanosis. Peripheral pulses intact. No lower extremity edema NEUROLOGIC: Awake and alert. Oriented x 3. ASSESSMENT: Shortness of breath Generalized weakness Urinary tract infection Pneumonia S/P fall without loss of consciousness Hypotension on admission, improving Coronary artery disease with previous stenting Hypertension Hyperlipidemia Chronic heart failure with preserved EF, currently euvolemic Diabetes with hyperglycemia Chronic kidney disease Peripheral vascular disease Former nicotine dependence PLAN: ECHO reviewed and stable. Continue current cardiac medications. Increase atorvastatin to 40 mg daily Continue to monitor blood pressure. Further recommendations pending patient's course. Nurse practitioner note has been reviewed by physician. Signing provider agrees with the documented findings, assessment, and plan of care. Objective - Vital Signs Vital signs: Vital Signs Temp 97.6 F 05/07/23 08:00 Pulse 88 05/07/23 08:38 Resp 18 05/07/23 08:00 BP 145/66 05/07/23 08:00 Pulse Ox 94 L 05/07/23 08:21 FiO2 21 05/07/23 08:21 Intake & Output 05/06/23 05/07/23 05/07/23 18:59 06:59 18:59 Intake Total 558 240 Output Total 700 2100 Balance -142 -2100 240 Intake: Oral 558 240 Output: Urine 700 2100 Other: Voiding Method Indwelling Catheter Indwelling Catheter - Labs CBC & Chem 7: 05/06/23 06:51 05/07/23 08:25 Labs: Abnormal Lab Results - Last 24 Hours (Table) 05/06/23 05/06/23 05/06/23 Range/Units 11:29 16:27 19:59 BUN (9-20) mg/dL Creatinine (0.66-1.25) mg/dL Glucose (74-99) mg/dL POC Glucose (mg/dL) 226 H 280 H 321 H (70-110) mg/dL Calcium (8.4-10.2) mg/dL 05/07/23 05/07/23 Range/Units 05:56 08:25 BUN 41 H (9-20) mg/dL Creatinine 1.58 H (0.66-1.25) mg/dL Glucose 171 H (74-99) mg/dL POC Glucose (mg/dL) 128 H (70-110) mg/dL Calcium 8.0 L (8.4-10.2) mg/dL Microbiology - Last 24 Hours (Table) 05/05/23 09:03 Blood Culture - Preliminary Blood
[2023-05-07 16:34] LABS: Glucose,Whole Blood 267 mg/dL (70-110)
[2023-05-07] MEDS: ATORVASTATIN 40 MG TAB PO SCH (17:03)
[2023-05-07 20:15] LABS: Glucose,Whole Blood 296 mg/dL (70-110)
--- NOTE | 2023-05-07 20:16 | P.PN ---
Subjective Progress Note Date: 05/07/23 Patient was on 7-year-old male came in with compensative shortness of breath and progressive weakness patient has shortness of breath upon ablation. Patient had a normal ejection fraction the past but here patient chest x-ray did show pulmonary edema. Patient denied any chest pain at this time patient denied any orthopnea actually he doesn't know if she had has orthopnea as patient usually sleeps in the chair denied any paroxysmal nocturnal dyspnea. Denied any fever was comparing of dry cough. Patient has minimally elevated BNP of 1800. Flu,RSV are negative. Patient denied any chest pain but does have minimally elevated troponin of 0.41 patient's baseline creatinine is around 1.7 present creatinine is 1.99 patient does have highly elevated blood sugars patient is on multiple medications for uncontrolled elevated blood sugars at home. 05/04/2023 Patient evaluated today a floor with at the bedside. He continues to report mild shortness of breath generalized achiness and chills. He did have a fever developed this afternoon. He continues on 2 L nasal cannula. His pro- calcitonin level came back elevated at 17 remains on a course of antibiotics with IV ceftriaxone. Echocardiogram showing an EF of 55-60% with mild pulmonary hypertension and mild TR. His creatinine has increased to 2.24 today and IV Lasix has been discontinued and transitioned to 40 mg of Lasix daily. Additi onally metformin and losartan are being held. BP normotensive in the 110 systolic. Blood glucose remains elevated in the 300s. 05/05/2023 Patient is evaluated today in the stepdown unit. He continues on 2 L of oxygen and he does have a dry cough. His chest x-ray shows evidence of right sided inf iltrate inserting foreign developing pneumonia patient's white count is normal today at 9.2. He did have a significant elevated pro-calcitonin level for this reason we consult infectious disease for evaluation. He continues on a course of antibiotics with IV ceftriaxone. He is having some urinary retention recommending to continue with postvoid residuals and may need indwelling catheter. His creatinine is up to 2.21 today we'll recommend hold Lasix at the time patient will be gently hydrated. Fever has improved with T-max of 99.2. 05/06/2023 Patient evaluated today resting in bed encouraged to get up and ambulate. He has not been out of bed much and is also pending PT evaluation on Sunday. He remains on IV ceftriaxone. Cardiology is following and has increased metoprolol today. Heart rate in the 80s. He is continued on normal saline at 50 mls/hr. Patient evaluated today on the stepdown unit. Being seen by ID for the right lobe infiltrate. Chest xray today shows right sided consolidation and pleural effusion which is stable from prior exam. Cardiology has signed off and patient continues on oral lasix. He had indwelling catheter placed for urinary retention has moved his bowels. Creatinine improving and will recommending for trial of void today. Patient is continued on flomax. He is continued on inhaled steroids will recommending to add IV steroids. REVIEW OF SYSTEMS: CONSTITUTIONAL: Reports fatigue and chills. HEENT: No recent visual problems or hearing problems. Denied any sore throat. CARDIOVASCULAR: No chest pain, orthopnea, PND, no palpitations, no syncope. PULMONARY: no hemoptysis. Has shortness of breath and dry mild cough. GASTROINTESTINAL: No diarrhea, no nausea, no vomiting, no abdominal pain. NEUROLOGICAL: No headaches, no weakness, no numbness. PHYSICAL EXAMINATION: GENERAL: The patient is alert and oriented x3, not in any acute distress. Well developed, well nourished. HEENT: Pupils are round and equally reacting to light. EOMI. No scleral icterus. No conjunctival pallor. Normocephalic, atraumatic. No pharyngeal erythema. No thyromegaly. CARDIOVASCULAR: S1 and S2 present. No murmurs, rubs, or gallops. PULMONARY: Mild right basilar crackles. ABDOMEN: Soft, nontender, nondistended, normoactive bowel sounds. No palpable organomegaly. MUSCULOSKELETAL: No joint swelling or deformity. EXTREMITIES: No cyanosis, clubbing, mild bilateral pitting pedal edema NEUROLOGICAL: Gross neurological examination did not reveal any focal deficits. Generalized weakness. SKIN: No rashes. Assessment and plan -Shortness of breath -Acute community acquired pneumonia and sepsis currently on course of IV ceftriaxone. Viral panel and legionella mycoplasma testing are negative. Patient will receive supportive care. Recommending to add IV solumedrol at this time he continues on inhaled steroids. Chest xray continues to show consolidation of the right lung. -Acute hypoxic respiratory failure failed home Oxygen test. -Uncontrolled elevated blood sugars patient continued on his home regimen including SGLP inhibitors. Scheduled insulin has been added. Blood sugars are improving -Carotid artery disease with stents in the past -Hypertension patient is normotensive and recommending to hold losartan at this time creatinine increased up to 2.24. -Chronic kidney disease stage IV secondary to diabetic nephropathy -Mild elevated troponin secondary to chronic kidney disease and heart failure exacerbation -Osteoarthritis -Mild possible acute renal failure secondary to prerenal azotemia worsened with diuresis -Hyperlipidemia continue on statin therapy -Benign prostatic hypertrophy remains on flomax -Generalized deconditioning physical therapy and occupational Evaluation DVT prophylaxis: Subcutaneous heparin Gi prophylaixs Full Code The impression and plan of care has been dictated by Lynn Beltran, Nurse Practitioner as directed. Dr. Ruperto MD I have performed a history and physical examination and medical decision making of this patient, discussed the same with the dictator, and agree with the dictators assessment and plan as written, documented as a scribe. Based on total visit time, I have performed more than 50% of this visit. Objective - Vital Signs Vital signs: Vital Signs Temp 97.7 F 05/07/23 15:41 Pulse 88 05/07/23 15:58 Resp 18 05/07/23 15:41 BP 148/69 05/07/23 15:41 Pulse Ox 94 L 05/07/23 15:41 FiO2 21 05/07/23 08:21 Intake & Output 05/07/23 05/07/23 05/08/23 06:59 18:59 06:59 Intake Total 956 Output Total 2100 1300 Balance -2100 -344 Intake: Oral 956 Output: Urine 2100 1300 Uretheral (Mariee) 1300 Other: Voiding Method Indwelling Catheter Indwelling Catheter - Labs CBC & Chem 7: 05/06/23 06:51 05/07/23 08:25 Labs: Abnormal Lab Results - Last 24 Hours (Table) 05/07/23 05/07/23 05/07/23 Range/Units 05:56 08:25 11:34 BUN 41 H (9-20) mg/dL Creatinine 1.58 H (0.66-1.25) mg/dL Glucose 171 H (74-99) mg/dL POC Glucose (mg/dL) 128 H 162 H (70-110) mg/dL Calcium 8.0 L (8.4-10.2) mg/dL 05/07/23 Range/Units 16:33 BUN (9-20) mg/dL Creatinine (0.66-1.25) mg/dL Glucose (74-99) mg/dL POC Glucose (mg/dL) 267 H (70-110) mg/dL Calcium (8.4-10.2) mg/dL Microbiology - Last 24 Hours (Table) 05/05/23 09:03 Blood Culture - Preliminary Blood Assessment and Plan Time with Patient: Less than 30
[2023-05-07] MEDS: guaiFENesin 600 MG TABLET.ER PO SCH (20:58)
[2023-05-07] MEDS: INSULIN DETEMIR (LEVEMIR) 100 UNIT/ML SYR SQ SCH (20:58)
[2023-05-07] MEDS: methylPREDNISolone SOD SUCCI 40 MG/ML 1 ML VIAL IV SCH (20:58)
[2023-05-08] MEDS: cycloSPORINE 0.05% OPHTH 0.4 ML DROPERETTE BOTH EYES SCH ×3 (00:03→21:00)
[2023-05-08] MEDS: HEPARIN SODIUM,PORCINE 5,000 UNIT/ML 1 ML VIAL SQ SCH ×4 (00:03→23:14)
[2023-05-08 06:12] LABS: Glucose,Whole Blood 285 mg/dL (70-110)
[2023-05-08] MEDS: ASPIRIN 81 MG PO SCH (06:36)
[2023-05-08] MEDS: ISOSORBIDE MONONITRATE ER 30 MG TAB.ER.24H PO SCH (06:36)
[2023-05-08] MEDS: POTASSIUM CHLORIDE ER 10 MEQ TAB.ER.PRT PO SCH ×2 (06:36→17:47)
[2023-05-08] MEDS: INSULIN ASPART (NovoLOG) 100 UNIT/ML VIAL SQ SCH ×7 (06:36→20:59)
[2023-05-08 07:02] LABS: Basophils % (A) 0 %; Eosinophils % (A) 0 %; HCT 33.7 % (39.0-53.0); HGB 10.1 gm/dL (13.0-17.5); Hypochromasia Marked; Lymphocytes # (A) 0.6 k/uL (1.0-4.8); Lymphocytes % (A) 11 %; MCH 28.2 pg (25.0-35.0); MCHC 29.9 g/dL (31.0-37.0); MCV 94.1 fL (80.0-100.0); Mean Platelet Volume 7.6; Monocytes # (A) 0.1 k/uL (0-1.0); Monocytes % (A) 2 %; Neutrophils # (A) 4.6 k/uL (1.3-7.7); Neutrophils % (A) 85 %; Platelet Count 366 k/uL (150-450); RBC 3.58 m/uL (4.30-5.90); RDW 15.6 % (11.5-15.5); WBC 5.4 k/uL (3.8-10.6)
--- NOTE | 2023-05-08 07:02 | P.CNPUL ---
History of Present Illness Consult date: 05/08/23 Requesting physician: Lynn Beltran Reason for consult: dyspnea Chief complaint: Fall, weakness History of present illness: I am seeing this patient in consultation today 05/08/2023 for exertional dyspnea/hypoxemic respiratory failure. Patient was actually admitted several days ago, on May 03, after he fell at home. Patient is a 77-year-old white male with past medical history significant for coronary artery disease with previous stents, diabetes mellitus, CKD, hypertension, obesity, and remote history of tobacco use. His PCP is Dr. Ron. Patient actually presented to the hospital after his legs "gave out" and he fell into the fireplace mantel. Denies losing conscious. Did reportedly hit his head. States that he's been progressively more weak over the last 3 weeks. Has had a poor appetite. Reportedly lost over 40 pounds in one month. Reportedly had a recent hospital a dmission at [facility] for urinary retention. He did have a Mariee catheter. Denies any further urinary complaints. As far as his exertional shortness of breath, this is been chronic over the last year and 1 half. Mostly on exertion. Denies any history of pulmonary disease. He does have intermittent dry cough over a similar time frame. Denies any sputum production or hemoptysis. States that he quit smoking over 30 years ago. He sleeps in a recliner at home. He does take diuretics at home. He has been urinating. Denies any worsening lower extremity swelling than usual. No chest pain, heart palpitations, syncope. Patient is currently sitting up in bed, on 3 L/m nasal cannula, in no acute distress. Chest x-ray on arrival showed a small persistent right basilar effusion with underlying atelectasis and/or infiltrate. Negative for influenza, RSV, COVID-19, Legionella. Echocardiogram done this admission showed a preserved left ventricular ejection fraction of 55-60% and mild pulmonary hypertension with RVSP of 38. NT proBNP was 1880. Mildly elevated troponins, flat. Urinalysis on arrival was consistent with a UTI. Procalcitonin level was elevated at 17. Patient has been receiving antibiotics in the form of Rocephin and azithromycin per infectious disease. Most recent CBC from 2 days ago shows a WBC count down to 5.3, hemoglobin 9.6, hematocrit 31.5, platelets 298. BMP from yesterday shows a sodium of 138, potassium 4.2, chloride 105, serum bicarb 24, BUN 41, creatinine 1.58, glucose 171. Patient is hemodynamically stable. Review of Systems REVIEW OF SYSTEMS: CONSTITUTIONAL: Admits a 40 pound weight loss over the last month. Denies any history of cancer. Denies fevers. EYES: Denies change in vision. EARS, NOSE, MOUTH, THROAT: Denies headaches, denies sore throat. CARDIOVASCULAR: Denies chest pain, palpitations or syncopal episodes. RESPIRATORY: Does admit a chronic dry intermittent cough and shortness of breath over the last 1-2 years. Denies any sputum production or hemoptysis. GASTROINTESTINAL: Denies abdominal pain, nausea and vomiting, diarrhea, or bleeding. Admits reduced appetite. GENITOURINARY: Denies hematuria, denies infections. Admits urinary retention as described in HPI MUSKULOSKELETAL: Denies pain, denies swelling. INTEGUMENTARY: Denies rash, denies eczema. NEUROLOGICAL: Denies recent memory loss, no recent seizure activity. PSYCHIATRIC: Denies anxiety, denies depression. HEMATOLOGIC/LYMPHATIC: Denies anemia, denies enlarged lymph node Past Medical History Past Medical History: Coronary Artery Disease (CAD), Diabetes Mellitus, Eye Disorder, Hearing Disorder / Deafness, Hypertension, Osteoarthritis (OA) Additional Past Medical History / Comment(s): GLAUCOMA. Hard of hearing. History of Any Multi-Drug Resistant Organisms: None Reported Past Surgical History: Heart Catheterization With Stent, Orthopedic Surgery Additional Past Surgical History / Comment(s): Right knee arthroscopy, bilateral cataract surgery, 5 cardiac stents, pain clinic procedure. Past Anesthesia/Blood Transfusion Reactions: Previous Problems w/ Anesthesia Additional Past Anesthesia/Blood Transfusion Reaction / Comment(s): states pt has letter from previous knee surgery in 2010 that indicates that Erasto was a difficult intubation with difficult airway anterior. Date of Last Stent Placement:: 04/2019 Past Psychological History: No Psychological Hx Reported Smoking Status: Former smoker Past Alcohol Use History: None Reported Additional Past Alcohol Use History / Comment(s): Smoked 15 years, 1ppd, quit 16+ years ago. Past Drug Use History: None Reported - Past Family History Mother Family Medical History: Cancer Additional Family Medical History / Comment(s): Stomach cancer. Father Family Medical History: CVA/TIA Medications and Allergies Home Medications Medication Instructions Recorded Confirmed Type Aspirin [Adult Low Dose Aspirin EC] 81 mg PO W/BRKFST 02/05/18 05/03/23 History INSULIN LISPRO (humaLOG) [humaLOG] See Protocol SQ BID-W/MEALS 02/05/18 05/03/23 History Potassium Chloride ER [K-Dur 10] 10 meq PO BID-W/MEALS 02/05/18 05/03/23 History Rosuvastatin [Crestor] 10 mg PO PC-SUPPER 02/05/18 05/03/23 History Fenofibrate Nanocrystallized 145 mg PO Q2D@1800 02/28/18 05/03/23 History [Fenofibrate] metFORMIN HCL [Glucophage] 500 mg PO PC-SUPPER 05/04/20 05/03/23 History Dulaglutide [Trulicity] 1.5 mg SQ Q7D 05/05/20 05/03/23 History Timolol 0.5% Ophth Soln [Timoptic 1 drop BOTH EYES DAILY 05/05/20 05/03/23 History 0.5% Ophth Soln] Metoprolol Tartrate [Lopressor] 100 mg PO W/BRKFST 01/18/22 05/03/23 History Insulin Glargine,Hum.rec.anlog 50 units SQ HS 05/12/22 05/03/23 History [Toujeo Solostar] Losartan Potassium 100 mg PO W/LUNCH 05/12/22 05/03/23 History Empagliflozin [Jardiance] 10 mg PO DAILY 11/23/22 05/03/23 History Furosemide [Lasix] 40 mg PO W/BRKFST 11/23/22 05/03/23 History Clopidogrel [Plavix] 75 mg PO W/LUNCH 05/03/23 05/03/23 History Isosorbide Mononitrate ER [Imdur] 30 mg PO W/BRKFST 05/03/23 05/03/23 History Metoprolol Tartrate [Lopressor] 50 mg PO AC-BID@1200,1800 05/03/23 05/03/23 History Nitroglycerin Sl Tabs [Nitrostat] 0.4 mg SL Q5M PRN 05/03/23 05/03/23 History Tamsulosin [Flomax] 0.4 mg PO W/LUNCH 05/03/23 05/03/23 History amLODIPine [Norvasc] 5 mg PO BID-W/MEALS 05/03/23 05/03/23 History cycloSPORINE 0.05% OPHTH SOLN 1 drop BOTH EYES BID 05/03/23 05/03/23 History [Restasis] polyethylene glycoL 3350 [Miralax] 17 gm PO DAILY PRN 05/03/23 05/03/23 History Allergies Allergy/AdvReac Type Severity Reaction Status Date / Time cyclobenzaprine Allergy Itching Verified 05/03/23 07:39 [From Flexeril] Physical Exam Vitals: Vital Signs Temp Pulse Pulse Pulse Pulse Resp BP 05/08/23 01:03 79 20 05/08/23 00:00 79 20 155/74 05/07/23 21:49 88 05/07/23 21:32 86 05/07/23 20:00 97.9 F 86 20 150/70 05/07/23 15:58 88 05/07/23 15:43 84 05/07/23 15:41 97.7 F 81 18 148/69 05/07/23 14:00 81 18 05/07/23 12:33 86 98 05/07/23 12:15 97.6 F 86 17 145/68 05/07/23 08:38 88 05/07/23 08:21 86 05/07/23 08:00 97.6 F 86 18 145/66 05/07/23 04:00 98.5 F 82 18 148/75 Pulse Ox Pulse Ox Pulse Ox FiO2 05/08/23 01:03 05/08/23 00:00 94 L 05/07/23 21:49 05/07/23 21:32 05/07/23 20:00 92 L 05/07/23 15:58 05/07/23 15:43 05/07/23 15:41 94 L 05/07/23 14:00 05/07/23 12:33 96 82 L 05/07/23 12:15 95 05/07/23 08:38 05/07/23 08:21 94 L 21 05/07/23 08:00 95 05/07/23 04:00 95 Intake and Output 05/07/23 05/07/23 05/08/23 14:59 22:59 06:59 Intake Total 838 118 Output Total 1300 Balance -462 118 Intake: Oral 838 118 Output: Urine 1300 Uretheral (Mariee) 1300 Other: Voiding Method Indwelling Catheter Toilet Toilet Urinal Urinal # Voids 4 GENERAL EXAM: Alert, 77-year-old white male, comfortable in no apparent distress. HEAD: Normocephalic and atraumatic EYES: Normal reaction of pupils, equal size. NOSE: Clear with pink turbinates. THROAT: No erythema or exudates. NECK: No masses, no JVD. CHEST: No chest wall deformity. LUNGS: Equal air entry with no crackles, wheeze, rhonchi. Diminished right lower lobe lung sounds. On 3 L/m nasal cannula. No conversational dyspnea or accessory muscle use.. CVS: S1 and S2 normal with no audible murmur, regular rhythm. No extra heart sounds ABDOMEN: Obese abdomen, no hepatosplenomegaly, active bowel sounds, no guarding or rigidity. SPINE: No scoliosis or deformity SKIN: No rashes CENTRAL NERVOUS SYSTEM: No focal deficits, tone is normal in all 4 extremities. EXTREMITIES: There is mild nonpitting bilateral lower extremity edema. No clubbing, or cyanosis. Peripheral pulses are intact. Results - Laboratory Findings CBC and BMP: 05/06/23 06:51 05/07/23 08:25 PT/INR, D-dimer PT 11.6 sec (10.0-12.5) 05/03/23 07:52 INR 1.1 (<1.2) 05/03/23 07:52 Abnormal lab findings: Abnormal Labs 05/03/23 05/03/23 05/03/23 07:52 07:52 07:52 WBC 15.9 H RBC 4.13 L Hgb 12.0 L Hct MCHC 30.8 L Neutrophils # 14.1 H Lymphocytes # 0.8 L Sodium BUN 27 H Creatinine 1.99 H Glucose 336 H POC Glucose (mg/dL) Hemoglobin A1c Calcium Troponin I Procalcitonin Urine Protein 4+ H Urine RBC 8 H Urine WBC 180 H Urine WBC Clumps Many H Urine Bacteria Many H Hyaline Casts 21 H Urine Mucus Occasional H 05/03/23 05/03/23 05/03/23 07:52 07:56 12:36 WBC RBC Hgb Hct MCHC Neutrophils # Lymphocytes # Sodium BUN Creatinine Glucose POC Glucose (mg/dL) 329 H 297 H Hemoglobin A1c Calcium Troponin I 0.041 H* Procalcitonin Urine Protein Urine RBC Urine WBC Urine WBC Clumps Urine Bacteria Hyaline Casts Urine Mucus 05/03/23 05/03/23 05/03/23 14:11 14:11 17:25 WBC RBC Hgb Hct MCHC Neutrophils # Lymphocytes # Sodium BUN Creatinine Glucose POC Glucose (mg/dL) Hemoglobin A1c Calcium Troponin I 0.053 H* 0.051 H* Procalcitonin 17.00 H Urine Protein Urine RBC Urine WBC Urine WBC Clumps Urine Bacteria Hyaline Casts Urine Mucus 05/03/23 05/04/23 05/04/23 18:56 06:13 08:08 WBC RBC Hgb Hct MCHC Neutrophils # Lymphocytes # Sodium BUN Creatinine Glucose POC Glucose (mg/dL) 305 H 260 H Hemoglobin A1c 6.8 H Calcium Troponin I Procalcitonin Urine Protein Urine RBC Urine WBC Urine WBC Clumps Urine Bacteria Hyaline Casts Urine Mucus 05/04/23 05/04/23 05/04/23 08:08 08:08 11:22 WBC RBC 3.46 L Hgb 10.3 L Hct 32.5 L MCHC Neutrophils # 8.4 H Lymphocytes # Sodium 134 L BUN 40 H Creatinine 2.24 H Glucose 239 H POC Glucose (mg/dL) 310 H Hemoglobin A1c Calcium 8.0 L Troponin I Procalcitonin Urine Protein Urine RBC Urine WBC Urine WBC Clumps Urine Bacteria Hyaline Casts Urine Mucus 05/04/23 05/04/23 05/05/23 16:20 19:20 06:07 WBC RBC Hgb Hct MCHC Neutrophils # Lymphocytes # Sodium BUN Creatinine Glucose POC Glucose (mg/dL) 263 H 329 H 201 H Hemoglobin A1c Calcium Troponin I Procalcitonin Urine Protein Urine RBC Urine WBC Urine WBC Clumps Urine Bacteria Hyaline Casts Urine Mucus 05/05/23 05/05/23 05/05/23 06:45 06:45 11:44 WBC RBC 3.40 L Hgb 10.1 L Hct 31.8 L MCHC Neutrophils # Lymphocytes # Sodium 135 L BUN 50 H Creatinine 2.21 H Glucose 187 H POC Glucose (mg/dL) 229 H Hemoglobin A1c Calcium 7.8 L Troponin I Procalcitonin Urine Protein Urine RBC Urine WBC Urine WBC Clumps Urine Bacteria Hyaline Casts Urine Mucus 05/05/23 05/05/23 05/06/23 16:11 20:04 06:09 WBC RBC Hgb Hct MCHC Neutrophils # Lymphocytes # Sodium BUN Creatinine Glucose POC Glucose (mg/dL) 240 H 306 H 199 H Hemoglobin A1c Calcium Troponin I Procalcitonin Urine Protein Urine RBC Urine WBC Urine WBC Clumps Urine Bacteria Hyaline Casts Urine Mucus 05/06/23 05/06/23 05/06/23 06:51 06:51 11:29 WBC RBC 3.38 L Hgb 9.6 L Hct 31.5 L MCHC 30.6 L Neutrophils # Lymphocytes # Sodium BUN 48 H Creatinine 2.07 H Glucose 186 H POC Glucose (mg/dL) 226 H Hemoglobin A1c Calcium 7.8 L Troponin I Procalcitonin Urine Protein Urine RBC Urine WBC Urine WBC Clumps Urine Bacteria Hyaline Casts Urine Mucus 05/06/23 05/06/23 05/07/23 16:27 19:59 05:56 WBC RBC Hgb Hct MCHC Neutrophils # Lymphocytes # Sodium BUN Creatinine Glucose POC Glucose (mg/dL) 280 H 321 H 128 H Hemoglobin A1c Calcium Troponin I Procalcitonin Urine Protein Urine RBC Urine WBC Urine WBC Clumps Urine Bacteria Hyaline Casts Urine Mucus 05/07/23 05/07/23 05/07/23 08:25 11:34 16:33 WBC RBC Hgb Hct MCHC Neutrophils # Lymphocytes # Sodium BUN 41 H Creatinine 1.58 H Glucose 171 H POC Glucose (mg/dL) 162 H 267 H Hemoglobin A1c Calcium 8.0 L Troponin I Procalcitonin Urine Protein Urine RBC Urine WBC Urine WBC Clumps Urine Bacteria Hyaline Casts Urine Mucus 05/07/23 20:14 WBC RBC Hgb Hct MCHC Neutrophils # Lymphocytes # Sodium BUN Creatinine Glucose POC Glucose (mg/dL) 296 H Hemoglobin A1c Calcium Troponin I Procalcitonin Urine Protein Urine RBC Urine WBC Urine WBC Clumps Urine Bacteria Hyaline Casts Urine Mucus - Diagnostic Findings Chest x-ray: image reviewed Assessment and Plan Assessment: Acute hypoxemic respiratory failure, on 3 L/m nasal cannula, possibly secondary to a right basilar pleural effusion with underlying atelectasis or infectious infiltrate. Negative for influenza, RSV, COVID-19. Suspected urinary tract infection Acute on chronic kidney disease, improving. Anemia of chronic disease, no reported acute blood loss Elevated troponins, flat Coronary artery disease, with previous coronary stents History of chronic diastolic CHF Diabetes mellitus type 2, insulin-dependent Hypertension Hyperlipidemia Unexplained weight loss, reportedly losing 40 pounds in the last month Obesity, with a BMI of 38.4 kg/m Remote history of tobacco use Plan: Patient's medications, labs, chest x-ray reviewed. Continue supplemental oxygen. Patient's right pleural effusion was previously demonstrated and appears loculated, underlying infectious process was not ruled out. Obtain chest ultrasound. Procalcitonin elevated 17. On empiric antibiotics. Negative for COVID-19, influenza, RSV. Urine Legionella antigen negative. Repeat procalcitonin level. Patient was having urinary retention issues earlier. Urinalysis was concerning for UTI. Symptoms reportedly improved. Home Lasix dose continued. We will continue to follow, and further recommendations are forthcoming. I have personally seen and examined the patient, performed the documentation and the assessment and plan as written. Number of minutes spent on the visit:20 Time with Patient: Greater than 30
[2023-05-08 08:26] LABS: African American GFR (CKD) 53 (>60 ml/min/1.73 sqM); Calcium 8.7 mg/dL (8.4-10.2); Carbon Dioxide 21 mmol/L (22-30); Chloride 104 mmol/L (98-107); Non-African American GFR(CKD) 46 (>60 ml/min/1.73 sqM)
[2023-05-08 08:27] LABS: Anion Gap 13 mmol/L; Blood Urea Nitrogen 34 mg/dL (9-20); Glucose 289 mg/dL (74-99); Potassium 5.5 mmol/L (3.5-5.1); Sodium 138 mmol/L (137-145)
[2023-05-08] MEDS: methylPREDNISolone SOD SUCCI 40 MG/ML 1 ML VIAL IV SCH ×2 (08:37→20:59)
[2023-05-08] MEDS: METOPROLOL TARTRATE 50 MG TAB PO SCH ×2 (08:37→20:59)
[2023-05-08] MEDS: DAPAGLIFLOZIN PROPANEDIOL 5 MG TABLET PO SCH (08:38)
[2023-05-08] MEDS: AZITHROMYCIN 250 MG TAB PO SCH (08:38)
[2023-05-08] MEDS: TIMOLOL 0.5% OPHTH DROPS 5 ML BTL BOTH EYES SCH (08:40)
[2023-05-08] MEDS: FUROSEMIDE 40 MG TAB PO SCH (08:42)
[2023-05-08] MEDS: guaiFENesin 600 MG TABLET.ER PO SCH ×2 (08:42→20:59)
[2023-05-08] MEDS: BUDESONIDE 0.5 MG/2 ML NEBU INHALATION SCH ×2 (09:07→20:20)
[2023-05-08] MEDS: ALBUTEROL NEBULIZED 2.5 MG/3 ML INHALATION SCH ×4 (09:07→20:20)
--- NOTE | 2023-05-08 09:11 | US ---
EXAMINATION TYPE: US chest DATE OF EXAM: 05/08/2023 COMPARISON: NONE CLINICAL INDICATION: Male, 77 years old with history of right pleural effusion; xray showed right ple ural effusion TECHNIQUE: Targeted ultrasound of the posterior lower Right EXAM MEASUREMENTS: Right Pleural Effusion pocket size: 3.5 cm Right skin surface to fluid distance: 5.3 cm Right side marked for possible thoracentesis outside the dept. Pulmonologists are able to review the images in the patient?s EMR. IMPRESSIONS: Small right pleural effusion.
[2023-05-08 09:35] VITALS: BMI 38.3
[2023-05-08 11:51] LABS: Glucose,Whole Blood 351 mg/dL (70-110)
--- NOTE | 2023-05-08 12:35 | P.PN ---
Subjective Progress Note Date: 05/08/23 HISTORY OF PRESENT ILLNESS: This is a 77-year-old male with a past medical history significant for coronary artery disease with previous stenting, hypertension, hyperlipidemia, chronic kidney disease, diabetes, peripheral vascular disease, and former nicotine dependence. Patient follows in the office with Dr. Cadena. We have been asked to see the patient in consultation for congestive heart failure. Patient examined at the bedside. The patient states he has been feeling short of breath and weak for the past several months. He states yesterday he fell after using the bathroom but did not loss consciousness. He does report feeling lightheaded when he came into the hospital. His blood pressure was low upon arrival to the ER but has since improved. He was started on IV antibiotics for a urinary tract infection and possible pneumonia. * EKG reveals sinus mechanism with no signs of acute ischemia * Chest xray persistent small right basilar effusion. Underlying atelectasis or infiltrate difficult to exclude. Small left-sided effusion suggested as well. * Laboratory data: W BC 15.9. Hemoglobin 12.0. Platelet count 363. BUN 27. Creatinine 1.99. ProBNP 1818. Troponin 0.041. 0.053. 0.051. Pro- calcitonin 17.0 * Current home cardiac medications include aspirin 81 mg daily, Plavix 75 mg daily, Lasix 40 mg daily, fenofibrate 145 mg every 2 days, Imdur 30 mg daily, losartan 100 mg daily, metoprolol tartrate 100 mg with breakfast, 50 mg at noon and 50 mg at 6 PM, rosuvastatin 10 mg daily, amlodipine 5 mg twice a day * Most recent echocardiogram obtained in April 2022 revealed ejection fraction 55%, mild MR, mild TR * Cardiac catheterization history: April 2020 revealing patent stent in RCA. Left circumflex proximal stent was patent. OM was also patent but just before the OM stenting there was a new 95% stenosis and also distal to the stent there was a 50% narrowing. Entire area was stented with a new drug-eluting stent. 05/05/2023 ECHO with EF 55-60%, RVSP 38. Creat 2.21. He has a robledo for urinary retention. He reports that he does have pneumonia. He is feeling a little better today. Blood pressures are still on the lower side. 05/06 Patient complains of cough. He states he has been up to the bathroom only and has done well with this. Patient was started yesterday on IV fluids at 50 mL per hour. Blood pressure 120/65, heart rate in the 80s, afebrile, pulse ox 93% on 2 L. Repeat blood work reveals hemoglobin of 9.6, BUN 48 and creatinine 2.07. 05/07 Patient's weight is down about 1 kg totals since admission. He has been maintained on oral Lasix 40 mg daily. Heart rate is in the 80s, blood pressure 145/68, pulse ox 95% on 3 L nasal cannula. Potassium 4.2, BUN 41 creatinine 1.58. Repeat chest x-ray reveals right-sided consolidation and pleural effusion stable. 05/08 Patient states that his breathing status is better today. Renal function continues to improve. Patient has been seen by pulmonary medicine, possible thoracentesis today. Chest ultrasound revealed old right pleural effusion pocket 3.5 cm. Blood pressure 170/66, heart rate in the 80s, pulse ox 97% on 3 L. The blood work reveals hemoglobin 10.1, potassium 5.5, BUN 34 and creatinine 1.46. PHYSICAL EXAM: VITAL SIGNS: Reviewed. GENERAL: Well-developed in no acute distress. HEENT: Head is normocephalic. Pupils are equal, round. Sclerae anicteric. Mucous membranes of the mouth are moist. No JVD LUNGS: Respirations even and unlabored. Lungs essentially clear to auscultation bilaterally. HEART: Regular rate and rhythm. S1 and S2 heard. ABDOMEN: Soft. Nondistended. Nontender. EXTREMITIES: Normal range of motion. No clubbing or cyanosis. Peripheral pulses intact. No lower extremity edema NEUROLOGIC: Awake and alert. Oriented x 3. ASSESSMENT: Shortness of breath Generalized weakness Urinary tract infection Pneumonia S/P fall without loss of consciousness Hypotension on admission, improving Coronary artery disease with previous stenting Hypertension Hyperlipidemia Chronic heart failure with preserved EF, currently euvolemic Diabetes with hyperglycemia Chronic kidney disease Peripheral vascular disease Former nicotine dependence PLAN: ECHO reviewed and stable. Continue current cardiac medications. Continue to monitor blood pressure. Further recommendations pending patient's course. Nurse practitioner note has been reviewed by physician. Signing provider agrees with the documented findings, assessment, and plan of care. Objective - Vital Signs Vital signs: Vital Signs Temp 97.9 F 05/08/23 08:05 Pulse 81 05/08/23 08:05 Resp 17 12/19/23 08:05 BP 170/66 05/08/23 08:05 Pulse Ox 97 05/08/23 08:05 FiO2 21 05/07/23 08:21 Intake & Output 05/07/23 05/08/23 05/08/23 18:59 06:59 18:59 Intake Total 956 Output Total 1300 Balance -344 Intake: Oral 956 Output: Urine 1300 Uretheral (Robledo) 1300 Other: Voiding Method Indwelling Catheter Toilet Urinal # Voids 1 - Labs CBC & Chem 7: 05/08/23 06:19 05/08/23 06:19 Labs: Abnormal Lab Results - Last 24 Hours (Table) 05/07/23 05/07/23 05/07/23 Range/Units 08:25 11:34 16:33 RBC (4.30-5.90) m/uL Hgb (13.0-17.5) gm/dL Hct (39.0-53.0) % MCHC (31.0-37.0) g/dL RDW (11.5-15.5) % Lymphocytes # (1.0-4.8) k/uL Potassium (3.5-5.1) mmol/L Carbon Dioxide (22-30) mmol/L BUN 41 H (9-20) mg/dL Creatinine 1.58 H (0.66-1.25) mg/dL Glucose 171 H (74-99) mg/dL POC Glucose (mg/dL) 162 H 267 H (70-110) mg/dL Calcium 8.0 L (8.4-10.2) mg/dL 05/07/23 05/08/23 05/08/23 Range/Units 20:14 06:10 06:19 RBC 3.58 L (4.30-5.90) m/uL Hgb 10.1 L (13.0-17.5) gm/dL Hct 33.7 L (39.0-53.0) % MCHC 29.9 L (31.0-37.0) g/dL RDW 15.6 H (11.5-15.5) % Lymphocytes # 0.6 L (1.0-4.8) k/uL Potassium (3.5-5.1) mmol/L Carbon Dioxide (22-30) mmol/L BUN (9-20) mg/dL Creatinine (0.66-1.25) mg/dL Glucose (74-99) mg/dL POC Glucose (mg/dL) 296 H 285 H (70-110) mg/dL Calcium (8.4-10.2) mg/dL 05/08/23 Range/Units 06:19 RBC (4.30-5.90) m/uL Hgb (13.0-17.5) gm/dL Hct (39.0-53.0) % MCHC (31.0-37.0) g/dL RDW (11.5-15.5) % Lymphocytes # (1.0-4.8) k/uL Potassium 5.5 H (3.5-5.1) mmol/L Carbon Dioxide 21 L (22-30) mmol/L BUN 34 H (9-20) mg/dL Creatinine 1.46 H (0.66-1.25) mg/dL Glucose 289 H (74-99) mg/dL POC Glucose (mg/dL) (70-110) mg/dL Calcium (8.4-10.2) mg/dL Microbiology - Last 24 Hours (Table) 05/05/23 09:03 Blood Culture - Preliminary Blood
[2023-05-08] MEDS: CLOPIDOGREL 75 MG TAB PO SCH (12:49)
[2023-05-08] MEDS: TAMSULOSIN 0.4 MG CAP.ER.24H PO SCH (12:49)
[2023-05-08 16:12] LABS: Glucose,Whole Blood 378 mg/dL (70-110)
[2023-05-08] MEDS: SODIUM CHLORIDE 0.9% 1,000 ML IV SCH (17:15)
[2023-05-08] MEDS: ATORVASTATIN 40 MG TAB PO SCH (17:47)
[2023-05-08 19:58] LABS: Glucose,Whole Blood 388 mg/dL (70-110)
[2023-05-08] MEDS: INSULIN DETEMIR (LEVEMIR) 100 UNIT/ML SYR SQ SCH (20:59)
--- NOTE | 2023-05-08 23:01 | P.PN ---
Subjective Progress Note Date: 05/08/23 Patient was on 7-year-old male came in with compensative shortness of breath and progressive weakness patient has shortness of breath upon ablation. Patient had a normal ejection fraction the past but here patient chest x-ray did show pulmonary edema. Patient denied any chest pain at this time patient denied any orthopnea actually he doesn't know if she had has orthopnea as patient usually sleeps in the chair denied any paroxysmal nocturnal dyspnea. Denied any fever was comparing of dry cough. Patient has minimally elevated BNP of 1800. Flu,RSV are negative. Patient denied any chest pain but does have minimally elevated troponin of 0.41 patient's baseline creatinine is around 1.7 present creatinine is 1.99 patient does have highly elevated blood sugars patient is on multiple medications for uncontrolled elevated blood sugars at home. 05/04/2023 Patient evaluated today a floor with at the bedside. He continues to report mild shortness of breath generalized achiness and chills. He did have a fever developed this afternoon. He continues on 2 L nasal cannula. His pro- calcitonin level came back elevated at 17 remains on a course of antibiotics with IV ceftriaxone. Echocardiogram showing an EF of 55-60% with mild pulmonary hypertension and mild TR. His creatinine has increased to 2.24 today and IV Lasix has been discontinued and transitioned to 40 mg of Lasix daily. Additi onally metformin and losartan are being held. BP normotensive in the 110 systolic. Blood glucose remains elevated in the 300s. 05/05/2023 Patient is evaluated today in the stepdown unit. He continues on 2 L of oxygen and he does have a dry cough. His chest x-ray shows evidence of right sided inf iltrate inserting foreign developing pneumonia patient's white count is normal today at 9.2. He did have a significant elevated pro-calcitonin level for this reason we consult infectious disease for evaluation. He continues on a course of antibiotics with IV ceftriaxone. He is having some urinary retention recommending to continue with postvoid residuals and may need indwelling catheter. His creatinine is up to 2.21 today we'll recommend hold Lasix at the time patient will be gently hydrated. Fever has improved with T-max of 99.2. 05/06/2023 Patient evaluated today resting in bed encouraged to get up and ambulate. He has not been out of bed much and is also pending PT evaluation on Sunday. He remains on IV ceftriaxone. Cardiology is following and has increased metoprolol today. Heart rate in the 80s. He is continued on normal saline at 50 mls/hr. Patient evaluated today on the stepdown unit. Being seen by ID for the right lobe infiltrate. Chest xray today shows right sided consolidation and pleural effusion which is stable from prior exam. Cardiology has signed off and patient continues on oral lasix. He had indwelling catheter placed for urinary retention has moved his bowels. Creatinine improving and will recommending for trial of void today. Patient is continued on flomax. He is continued on inhaled steroids will recommending to add IV steroids. 05/08/2023 Patient evaluated sitting up in the chair today. He failed his home oxygen test yesterday down to 82% on room air. He was seen in consultation by pulmonary for the pleural effusion and respiratory failure. He had chest ultrasound and not enough fluid for thoracentesis. He is complaining for dry cough unable to expectorate and he has been placed on mucinex for this. He is on systemic steroids and IV and PO antibiotics. His indwelling catheter was removed he passed his voiding trial. His creatinine has improved to 1.46. Potassium today 5.5. REVIEW OF SYSTEMS: CONSTITUTIONAL: Reports fatigue and chills. HEENT: No recent visual problems or hearing problems. Denied any sore throat. CARDIOVASCULAR: No chest pain, orthopnea, PND, no palpitations, no syncope. PULMONARY: no hemoptysis. Has shortness of breath and dry mild cough. GASTROINTESTINAL: No diarrhea, no nausea, no vomiting, no abdominal pain. NEUROLOGICAL: No headaches, no weakness, no numbness. PHYSICAL EXAMINATION: GENERAL: The patient is alert and oriented x3, not in any acute distress. Well developed, well nourished. HEENT: Pupils are round and equally reacting to light. EOMI. No scleral icterus. No conjunctival pallor. Normocephalic, atraumatic. No pharyngeal erythema. No thyromegaly. CARDIOVASCULAR: S1 and S2 present. No murmurs, rubs, or gallops. PULMONARY: Diminished. ABDOMEN: Soft, nontender, nondistended, normoactive bowel sounds. No palpable organomegaly. MUSCULOSKELETAL: No joint swelling or deformity. EXTREMITIES: No cyanosis, clubbing, mild bilateral pitting pedal edema NEUROLOGICAL: Gross neurological examination did not reveal any focal deficits. Generalized weakness. SKIN: No rashes. Assessment and plan -Shortness of breath -Acute community acquired pneumonia and sepsis currently on course of IV ceftriaxone. Viral panel and legionella mycoplasma testing are negative. Patient will receive supportive care. Continues on inhaled and systemic steroids. Pleural effusion not large enough to perform thoracentesis. On oral lasix. -Acute hypoxic respiratory failure failed home Oxygen test. -Uncontrolled elevated blood sugars patient continued on his home regimen including SGLP inhibitors. Scheduled insulin has been added. Blood sugars are improving -Carotid artery disease with stents in the past -Hypertension patient is normotensive and recommending to hold losartan at this time due to the BROOKE -Chronic kidney disease stage IV secondary to diabetic nephropathy -Mild elevated troponin secondary to chronic kidney disease and heart failure exacerbation -Osteoarthritis -Mild possible acute renal failure secondary to prerenal azotemia worsened with diuresis -Hyperlipidemia continue on statin therapy -Benign prostatic hypertrophy remains on flomax -Generalized deconditioning physical therapy and occupational Evaluation DVT prophylaxis: Subcutaneous heparin Gi prophylaixs Full Code Potential DC home tomorrow The impression and plan of care has been dictated by Lynn Beltran, Nurse Practitioner as directed. Dr. Ruperto MD I have performed a history and physical examination and medical decision making of this patient, discussed the same with the dictator, and agree with the dictators assessment and plan as written, documented as a scribe. Based on total visit time, I have performed more than 50% of this visit. Objective - Vital Signs Vital signs: Vital Signs Temp 97.9 F 05/08/23 20:00 Pulse 78 05/08/23 20:33 Resp 18 05/08/23 20:00 BP 171/73 05/08/23 20:00 Pulse Ox 91 L 05/08/23 20:00 FiO2 21 05/07/23 08:21 Intake & Output 05/08/23 05/08/23 05/09/23 06:59 18:59 06:59 Intake Total 472 Balance 472 Weight 121.3 kg Intake: Oral 472 Other: Voiding Method Toilet Toilet Toilet Urinal Urinal Urinal # Voids 1 1 - Labs CBC & Chem 7: 05/08/23 06:19 05/08/23 06:19 Labs: Abnormal Lab Results - Last 24 Hours (Table) 05/08/23 05/08/23 05/08/23 Range/Units 06:10 06:19 06:19 RBC 3.58 L (4.30-5.90) m/uL Hgb 10.1 L (13.0-17.5) gm/dL Hct 33.7 L (39.0-53.0) % MCHC 29.9 L (31.0-37.0) g/dL RDW 15.6 H (11.5-15.5) % Lymphocytes # 0.6 L (1.0-4.8) k/uL Potassium 5.5 H (3.5-5.1) mmol/L Carbon Dioxide 21 L (22-30) mmol/L BUN 34 H (9-20) mg/dL Creatinine 1.46 H (0.66-1.25) mg/dL Glucose 289 H (74-99) mg/dL POC Glucose (mg/dL) 285 H (70-110) mg/dL Procalcitonin (0.02-0.09) ng/mL 05/08/23 05/08/23 05/08/23 Range/Units 06:19 11:50 16:11 RBC (4.30-5.90) m/uL Hgb (13.0-17.5) gm/dL Hct (39.0-53.0) % MCHC (31.0-37.0) g/dL RDW (11.5-15.5) % Lymphocytes # (1.0-4.8) k/uL Potassium (3.5-5.1) mmol/L Carbon Dioxide (22-30) mmol/L BUN (9-20) mg/dL Creatinine (0.66-1.25) mg/dL Glucose (74-99) mg/dL POC Glucose (mg/dL) 351 H 378 H (70-110) mg/dL Procalcitonin 2.01 H (0.02-0.09) ng/mL 05/08/23 Range/Units 19:53 RBC (4.30-5.90) m/uL Hgb (13.0-17.5) gm/dL Hct (39.0-53.0) % MCHC (31.0-37.0) g/dL RDW (11.5-15.5) % Lymphocytes # (1.0-4.8) k/uL Potassium (3.5-5.1) mmol/L Carbon Dioxide (22-30) mmol/L BUN (9-20) mg/dL Creatinine (0.66-1.25) mg/dL Glucose (74-99) mg/dL POC Glucose (mg/dL) 388 H (70-110) mg/dL Procalcitonin (0.02-0.09) ng/mL Microbiology - Last 24 Hours (Table) 05/05/23 09:03 Blood Culture - Preliminary Blood Assessment and Plan Time with Patient: Less than 30
[2023-05-09 06:09] LABS: Glucose,Whole Blood 267 mg/dL (70-110)
[2023-05-09] MEDS: ASPIRIN 81 MG PO SCH (06:42)
[2023-05-09] MEDS: INSULIN ASPART (NovoLOG) 100 UNIT/ML VIAL SQ SCH ×4 (06:42→12:20)
[2023-05-09] MEDS: ISOSORBIDE MONONITRATE ER 30 MG TAB.ER.24H PO SCH (06:42)
[2023-05-09] MEDS: POTASSIUM CHLORIDE ER 10 MEQ TAB.ER.PRT PO SCH (06:42)
[2023-05-09 07:01] LABS: African American GFR (CKD) 55 (>60 ml/min/1.73 sqM); Anion Gap 9 mmol/L; Blood Urea Nitrogen 41 mg/dL (9-20); Calcium 8.8 mg/dL (8.4-10.2); Carbon Dioxide 25 mmol/L (22-30); Chloride 104 mmol/L (98-107); Glucose 267 mg/dL (74-99); Non-African American GFR(CKD) 47 (>60 ml/min/1.73 sqM); Potassium 4.8 mmol/L (3.5-5.1); Sodium 138 mmol/L (137-145)
[2023-05-09] MEDS: ALBUTEROL NEBULIZED 2.5 MG/3 ML INHALATION SCH ×2 (08:29→11:57)
[2023-05-09] MEDS: BUDESONIDE 0.5 MG/2 ML NEBU INHALATION SCH (08:29)
[2023-05-09 08:55] VITALS: RESP 16
[2023-05-09] MEDS ORDERED: FAMOTIDINE 20 MG/2 ML VIAL IV SCH (09:00)
[2023-05-09] MEDS: AZITHROMYCIN 250 MG TAB PO SCH (10:21)
[2023-05-09] MEDS: METOPROLOL TARTRATE 50 MG TAB PO SCH (10:21)
[2023-05-09] MEDS: DAPAGLIFLOZIN PROPANEDIOL 5 MG TABLET PO SCH (10:21)
[2023-05-09] MEDS: HEPARIN SODIUM,PORCINE 5,000 UNIT/ML 1 ML VIAL SQ SCH (10:21)
[2023-05-09] MEDS: cycloSPORINE 0.05% OPHTH 0.4 ML DROPERETTE BOTH EYES SCH (10:22)
[2023-05-09] MEDS: FUROSEMIDE 40 MG TAB PO SCH (10:22)
[2023-05-09] MEDS: guaiFENesin 600 MG TABLET.ER PO SCH (10:22)
[2023-05-09] MEDS: TIMOLOL 0.5% OPHTH DROPS 5 ML BTL BOTH EYES SCH (10:52)
[2023-05-09 11:28] LABS: Glucose,Whole Blood 336 mg/dL (70-110)
--- NOTE | 2023-05-09 11:29 | P.PN ---
Subjective Progress Note Date: 05/09/23 Principal diagnosis: Pleural effusion. I am seeing this patient in consultation today 05/08/2023 for exertional dyspnea/hypoxemic respiratory failure. Patient was actually admitted several days ago, on May 03, after he fell at home. Patient is a 77-year-old white male with past medical history significant for coronary artery disease with previous stents, diabetes mellitus, CKD, hypertension, obesity, and remote history of tobacco use. His PCP is Dr. Ron. Patient actually presented to the hospital after his legs "gave out" and he fell into the fireplace mantel. Denies losing conscious. Did reportedly hit his head. States that he's been progressively more weak over the last 3 weeks. Has had a poor appetite. Reportedly lost over 40 pounds in one month. Reportedly had a recent hospital admission at [facility] for urinary retention. He did have a Mariee catheter. Denies any further urinary complaints. As far as his exertional shortness of breath, this is been chronic over the last year and 1 half. Mostly on exertion. Denies any history of pulmonary disease. He does have intermittent dry cough over a similar time frame. Denies any sputum production or hemoptysis. States that he quit smoking over 30 years ago. He sleeps in a recliner at home. He does take diuretics at home. He has been urinating. Denies any worsening lower extremity swelling than usual. No chest pain, heart palpitations, syncope. Patient is currently sitting up in bed, on 3 L/m nasal cannula, in no acute distress. Chest x-ray on arrival showed a small persistent right basilar effusion with underlying atelectasis and/or infiltrate. Negative for influenza, RSV, COVID-19, Legionella. Echocardiogram done this admission showed a preserved left ventricular ejection fraction of 55-60% and mild pulmonary hypertension with RVSP of 38. NT proBNP was 1880. Mildly elevated troponins, flat. Urinalysis on arrival was consistent with a UTI. Procalcitonin level was elevated at 17. Patient has been receiving antibiotics in the form of Rocephin and azithromycin per infectious disease. Most recent CBC from 2 days ago shows a WBC count down to 5.3, hemoglobin 9.6, hematocrit 31.5, platelets 298. BMP from yesterday shows a sodium of 138, potassium 4.2, chloride 105, serum bicarb 24, BUN 41, creatinine 1.58, glucose 171. Patient is hemodynamically stable. Progress note dated 05/09/2023. This is a 77-year-old male who was seen for right-sided pleural effusion. The patient's ultrasound showed a small potentially loculated right-sided effusion. For that reason, because the patient's not having any respiratory issues, and is on room air, no thoracentesis was planned. The patient's resting comfortably in room 378. Current laboratory data includes a sodium 138, potassium 4.8, chlorides 104, CO2 25, anion gap 9, BUN 41, and creatinine 1.43. Glucose 267. Calcium is 8.8. The patient was admitted back on May 03. We were only consulted on May 08. Objective - Vital Signs Vital signs: Vital Signs Temp 97.9 F 05/08/23 20:00 Pulse 77 05/09/23 08:41 Resp 16 05/09/23 08:41 BP 154/77 05/09/23 03:24 Pulse Ox 93 L 05/09/23 08:29 FiO2 21 05/07/23 08:21 Intake & Output 05/08/23 05/09/23 05/09/23 18:59 06:59 18:59 Intake Total 472 600 Balance 472 600 Weight 121.3 kg Intake: Oral 472 600 Other: Voiding Method Toilet Toilet Urinal Urinal # Voids 2 - Exam No acute distress, oriented 3. No respiratory distress. Room air saturation 96%. HEENT examination is grossly unremarkable. Mucous membranes are moist. No oral lesions. Neck supple. Full range of motion. No adenopathy thyromegaly or neck vein distention. Cardiovascular examination reveals regular rhythm rate. S1-S2 normal. No S3 or S4. No discernible murmur noted. Heart rate 77 bpm. Lungs reveal slightly diminished breath sounds at the right base. No wheezes. No rhonchi. No crackles. Room air saturation 96%. Abdomen soft bowel sounds are heard. No masses or tenderness. Extremities are intact. No cyanosis clubbing or edema. Skin is without rash or lesion. Neurologic examination is brief but nonfocal. - Labs CBC & Chem 7: 05/08/23 06:19 05/09/23 06:37 Labs: Abnormal Lab Results - Last 24 Hours (Table) 05/08/23 05/08/2323 Range/Units 11:50 16:11 19:53 BUN (9-20) mg/dL Creatinine (0.66-1.25) mg/dL Glucose (74-99) mg/dL POC Glucose (mg/dL) 351 H 378 H 388 H (70-110) mg/dL 05/09/23 05/09/23 Range/Units 06:07 06:37 BUN 41 H (9-20) mg/dL Creatinine 1.43 H (0.66-1.25) mg/dL Glucose 267 H (74-99) mg/dL POC Glucose (mg/dL) 267 H (70-110) mg/dL Microbiology - Last 24 Hours (Table) 05/05/23 09:03 Blood Culture - Preliminary Blood Assessment and Plan Assessment: Acute hypoxemic respiratory failure, on room air. Small right-sided pleural effusion, possibly loculated, no need for thoracentesis at this time. Suspected urinary tract infection. Acute on chronic kidney disease. Anemia of chronic disease. Elevated troponins. Coronary artery disease, with previous coronary stents. History of chronic diastolic CHF. Diabetes mellitus type 2, insulin-dependent. Hypertension. Hyperlipidemia. Unexplained weight loss, reportedly losing 40 pounds in the last month. Obesity, with a BMI of 38.4 kg/m. Remote history of tobacco use. Plan: Plan dated 05/09/2023. The patient's currently on room air, with saturations of 96%. The patient's chest x-ray, and ultrasound, reveals a small to moderate right-sided pleural effusion. It may be loculated. For this reason, and because the patient is asymptomatic, the patient will not have thoracentesis at this time. Should the effusion become larger, and the patient symptomatic, at that time, he can be considered. Additional recommendations and suggestions are forthcoming. Labs, x-rays, medications are reviewed. Prognosis is guarded. Time with Patient: Less than 30
[2023-05-09] MEDS: TAMSULOSIN 0.4 MG CAP.ER.24H PO SCH (12:20)
[2023-05-09] MEDS: CLOPIDOGREL 75 MG TAB PO SCH (12:20)
--- NOTE | 2023-05-09 14:18 | P.PN ---
Subjective Progress Note Date: 05/09/23 HISTORY OF PRESENT ILLNESS: This is a 77-year-old male with a past medical history significant for coronary artery disease with previous stenting, hypertension, hyperlipidemia, chronic kidney disease, diabetes, peripheral vascular disease, and former nicotine dependence. Patient follows in the office with Dr. Cadena. We have been asked to see the patient in consultation for congestive heart failure. Patient examined at the bedside. The patient states he has been feeling short of breath and weak for the past several months. He states yesterday he fell after using the bathroom but did not loss consciousness. He does report feeling lightheaded when he came into the hospital. His blood pressure was low upon arrival to the ER but has since improved. He was started on IV antibiotics for a urinary tract infection and possible pneumonia. * EKG reveals sinus mechanism with no signs of acute ischemia * Chest xray persistent small right basilar effusion. Underlying atelectasis or infiltrate difficult to exclude. Small left-sided effusion suggested as well. * Laboratory data: W BC 15.9. Hemoglobin 12.0. Platelet count 363. BUN 27. Creatinine 1.99. ProBNP 1818. Troponin 0.041. 0.053. 0.051. Pro- calcitonin 17.0 * Current home cardiac medications include aspirin 81 mg daily, Plavix 75 mg daily, Lasix 40 mg daily, fenofibrate 145 mg every 2 days, Imdur 30 mg daily, losartan 100 mg daily, metoprolol tartrate 100 mg with breakfast, 50 mg at noon and 50 mg at 6 PM, rosuvastatin 10 mg daily, amlodipine 5 mg twice a day * Most recent echocardiogram obtained in April 2022 revealed ejection fraction 55%, mild MR, mild TR * Cardiac catheterization history: April 2020 revealing patent stent in RCA. Left circumflex proximal stent was patent. OM was also patent but just before the OM stenting there was a new 95% stenosis and also distal to the stent there was a 50% narrowing. Entire area was stented with a new drug-eluting stent. 05/05/2023 ECHO with EF 55-60%, RVSP 38. Creat 2.21. He has a robledo for urinary retention. He reports that he does have pneumonia. He is feeling a little better today. Blood pressures are still on the lower side. 05/06 Patient complains of cough. He states he has been up to the bathroom only and has done well with this. Patient was started yesterday on IV fluids at 50 mL per hour. Blood pressure 120/65, heart rate in the 80s, afebrile, pulse ox 93% on 2 L. Repeat blood work reveals hemoglobin of 9.6, BUN 48 and creatinine 2.07. 05/07 Patient's weight is down about 1 kg totals since admission. He has been maintained on oral Lasix 40 mg daily. Heart rate is in the 80s, blood pressure 145/68, pulse ox 95% on 3 L nasal cannula. Potassium 4.2, BUN 41 creatinine 1.58. Repeat chest x-ray reveals right-sided consolidation and pleural effusion stable. 05/08 Patient states that his breathing status is better today. Renal function continues to improve. Patient has been seen by pulmonary medicine, possible thoracentesis today. Chest ultrasound revealed old right pleural effusion pocket 3.5 cm. Blood pressure 170/66, heart rate in the 80s, pulse ox 97% on 3 L. The blood work reveals hemoglobin 10.1, potassium 5.5, BUN 34 and creatinine 1.46. 05/09 Pulmonary medicine is planned for no thoracentesis. Blood pressure 154/77, heart rate in the 70s and 80s, pulse ox 96% on room air. Repeat blood work reveals BUN 41 creatinine 1.43. PHYSICAL EXAM: VITAL SIGNS: Reviewed. GENERAL: Well-developed in no acute distress. HEENT: Head is normocephalic. Pupils are equal, round. Sclerae anicteric. Mucous membranes of the mouth are moist. No JVD LUNGS: Respirations even and unlabored. Lungs essentially clear to auscultation bilaterally. HEART: Regular rate and rhythm. S1 and S2 heard. ABDOMEN: Soft. Nondistended. Nontender. EXTREMITIES: Normal range of motion. No clubbing or cyanosis. Peripheral pulses intact. No lower extremity edema NEUROLOGIC: Awake and alert. Oriented x 3. ASSESSMENT: Shortness of breath Generalized weakness Urinary tract infection Pneumonia S/P fall without loss of consciousness Hypotension on admission, improving Coronary artery disease with previous stenting Hypertension Hyperlipidemia Chronic heart failure with preserved EF, currently euvolemic Diabetes with hyperglycemia Chronic kidney disease Peripheral vascular disease Former nicotine dependence PLAN: ECHO reviewed and stable. Continue current cardiac medications. Cardiology will sign off this case and follow on an as-needed basis. Please reconsult for any new concerns. Patient may follow-up in the office in one to 2 weeks. Nurse practitioner note has been reviewed by physician. Signing provider agrees with the documented findings, assessment, and plan of care. Objective - Vital Signs Vital signs: Vital Signs Temp 97.9 F 05/08/23 20:00 Pulse 75 05/09/23 08:29 Resp 16 05/09/23 08:29 BP 154/77 05/09/23 03:24 Pulse Ox 93 L 05/09/23 08:29 FiO2 21 05/07/23 08:21 Intake & Output 05/08/23 05/09/23 05/09/23 18:59 06:59 18:59 Intake Total 472 Balance 472 Weight 121.3 kg Intake: Oral 472 Other: Voiding Method Toilet Toilet Urinal Urinal # Voids 2 - Labs CBC & Chem 7: 05/08/23 06:19 05/09/23 06:37 Labs: Abnormal Lab Results - Last 24 Hours (Table) 05/08/23 05/08/23 05/08/23 Range/Units 06:19 11:50 16:11 BUN (9-20) mg/dL Creatinine (0.66-1.25) mg/dL Glucose (74-99) mg/dL POC Glucose (mg/dL) 351 H 378 H (70-110) mg/dL Procalcitonin 2.01 H (0.02-0.09) ng/mL 05/08/23 05/09/23 05/09/23 Range/Units 19:53 06:07 06:37 BUN 41 H (9-20) mg/dL Creatinine 1.43 H (0.66-1.25) mg/dL Glucose 267 H (74-99) mg/dL POC Glucose (mg/dL) 388 H 267 H (70-110) mg/dL Procalcitonin (0.02-0.09) ng/mL Microbiology - Last 24 Hours (Table) 05/05/23 09:03 Blood Culture - Preliminary Blood
[2023-05-09 14:58] VITALS: BP 154/82; PULSE 84; TEMP 97.8
--- NOTE | 2023-05-09 23:43 | P.DS ---
Providers Date of admission: 05/03/23 15:55 Attending physician: Lima Bruce Consults: 05/03/23 09:28 Consult Physician Routine Consulting Provider: [facility] Consult Reason/Comments: chf Do you want consulting provider notified?: Yes 05/05/23 08:59 Consult Physician Routine Consulting Provider: Marjan Serrano Consult Reason/Comments: fever, procal 17 Do you want consulting provider notified?: Yes 05/07/23 20:17 Consult Physician Routine Consulting Provider: Abiodun Samaniego Consult Reason/Comments: hypoxic resp failure Do you want consulting provider notified?: Yes Primary care physician: [facility] Course: Diagnoses: -Acute community acquired pneumonia and sepsis . Improvement -Acute hypoxic respiratory failure, improved. Patient does not qualify for home Oxygen test. -Diabetes mellitus with hyperglycemia Acute bronchitis- -Acute kidney injury, improved -Small right-sided pleural effusion, possibly loculated, no need for thoracentesis at this time. -Fall without syncope, evaluated by physical therapy recommended home health care -Carotid artery disease with stents in the past -Hypertension patient is normotensive and recommending to hold losartan at this time due to the [place] -Chronic kidney disease stage IV secondary to diabetic nephropathy -Mild elevated troponin secondary to chronic kidney disease and heart failure -Chronic diastolic CHF with ejection fraction 50-60% -Osteoarthritis -Mild possible acute renal failure secondary to prerenal azotemia worsened with diuresis -Hyperlipidemia continue on statin therapy -Benign prostatic hypertrophy remains on flomax , no evidence of urinary retention upon discharge Hospital course: Patient was on 7-year-old male came in with compensative shortness of breath and progressive weakness patient has shortness of breath. Patient is found to have acute community right sided pneumonia, he is been evaluated by infectious disease team and treated with Rocephin and Zithromax as well as Solu-Medrol, he showed interval improvement and currently is on room air, not tachypneic no chest pain or dyspnea, no coughing, he feels improved and patient evaluated by pulmonary and infectious disease team and cleared her for discharge to ensure call so for all antibiotics as per ID team Patient with loculated small right pleural effusion, no need for thoracocentesis as per pulmonary team Acute kidney injury with creatinine 2.2 on admission improved to 1.4 which is baseline of 1.4-1.6 as patient has chronic kidney disease. No urinary symptoms, bladder scan was negative upon discharge. His been evaluat ed for home oxygen and he does not qualify for need oxygen upon discharge. Edge Gluer also were following the case closely. He is on dual antiplatelet therapy with aspirin 81 mg and Plavix, patient confirms to me he has medications at home and he does not require prescription Pertinent that patient states that he is back to baseline today, no other new complaints. Patient is eager to go home today. He does not want to be monitored more in the hospital and he states he can take oral pills and follow- up outpatient. Patient will be discharged on short course of oral antibiotic and tapered pr ednisone for his bronchitis patient was cleared for discharge by all consultants including twist packer, infectious disease team and correctional therapy director Problems and management plan were discussed with the patient and he verbalized understanding and acceptance Patient was found stable and can be discharged home in guarded prognosis however he needs follow-up as an outpatient. Patient was instructed to follow up with PCP Dr. Shabazz within one week and patient agrees, patient told me he has appointment with him tomorrow that he is to follow up with. Patient was instructed to follow up with correctional therapy director Dr. García to 2 weeks, with twist packer Dr. Cadena in 2 weeks Patient was instructed to follow up with his the fracture Dr. Eduardo and with 2 weeks and he agrees and with infectious disease doctors in 1 week and he agrees Physical exam Gen: patient is a AAOx3, no distress CVS: S1-S2, RRR, no murmur Lungs: B/L CTA, no wheezing Abdomen: soft, no distention, no tenderness, positive bowel sounds Extremity: no leg edema or induration Time spent more than 35 minutes Patient Condition at Discharge: Stable Plan - Discharge Summary Discharge Rx Participant: Yes New Discharge Prescriptions: New predniSONE 10 mg PO DIRECTED #40 tab INSULIN LISPRO (HumaLOG) [humaLOG] 5 units SQ AC-TID 30 Days #10 ml Albuterol Inhaler [Ventolin Hfa Inhaler] 1 puff INHALATION QID #8 gm cefUROXime axetiL [Ceftin] 500 mg PO BID 3 Days #6 tab Continue Aspirin [Adult Low Dose Aspirin EC] 81 mg PO W/BRKFST Potassium Chloride ER [K-Dur 10] 10 meq PO BID-W/MEALS Rosuvastatin [Crestor] 10 mg PO PC-SUPPER Fenofibrate Nanocrystallized [Fenofibrate] 145 mg PO Q2D@1800 Timolol 0.5% Ophth Soln [Timoptic 0.5% Ophth Soln] 1 drop BOTH EYES DAILY Dulaglutide [Trulicity] 1.5 mg SQ Q7D Insulin Glargine,Hum.rec.anlog [Toujeo Solostar] 50 units SQ HS Furosemide [Lasix] 40 mg PO W/BRKFST Tamsulosin [Flomax] 0.4 mg PO W/LUNCH amLODIPine [Norvasc] 5 mg PO BID-W/MEALS Isosorbide Mononitrate ER [Imdur] 30 mg PO W/BRKFST Metoprolol Tartrate [Lopressor] 100 mg PO W/BRKFST Empagliflozin [Jardiance] 10 mg PO DAILY cycloSPORINE 0.05% OPHTH SOLN [Restasis] 1 drop BOTH EYES BID Nitroglycerin Sl Tabs [Nitrostat] 0.4 mg SL Q5M PRN PRN Reason: Chest Pain Metoprolol Tartrate [Lopressor] 50 mg PO AC-BID@1200,1800 polyethylene glycoL 3350 [Miralax] 17 gm PO DAILY PRN PRN Reason: Constipation Clopidogrel [Plavix] 75 mg PO W/LUNCH Changed INSULIN LISPRO (humaLOG) [humaLOG] See Protocol SQ ACHS #0 Discontinued metFORMIN HCL [Glucophage] 500 mg PO PC-SUPPER Losartan Potassium 100 mg PO W/LUNCH Discharge Medication List Aspirin [Adult Low Dose Aspirin EC] 81 mg PO W/BRKFST 02/05/18 [History] Potassium Chloride ER [K-Dur 10] 10 meq PO BID-W/MEALS 02/05/18 [History] Rosuvastatin [Crestor] 10 mg PO PC-SUPPER 02/05/18 [History] Fenofibrate Nanocrystallized [Fenofibrate] 145 mg PO Q2D@1800 02/28/18 [History] Dulaglutide [Trulicity] 1.5 mg SQ Q7D 05/05/20 [History] Timolol 0.5% Ophth Soln [Timoptic 0.5% Ophth Soln] 1 drop BOTH EYES DAILY 05/05/20 [History] Metoprolol Tartrate [Lopressor] 100 mg PO W/BRKFST 08/31/22 [History] Insulin Glargine,Hum.rec.anlog [Toujeo Solostar] 50 units SQ HS 05/12/22 [History] Empagliflozin [Jardiance] 10 mg PO DAILY 11/23/22 [History] Furosemide [Lasix] 40 mg PO W/BRKFST 11/23/22 [History] Clopidogrel [Plavix] 75 mg PO W/LUNCH 05/03/23 [History] Isosorbide Mononitrate ER [Imdur] 30 mg PO W/BRKFST 05/03/23 [History] Metoprolol Tartrate [Lopressor] 50 mg PO AC-BID@1200,1800 05/03/23 [History] Nitroglycerin Sl Tabs [Nitrostat] 0.4 mg SL Q5M PRN 05/03/23 [History] Tamsulosin [Flomax] 0.4 mg PO W/LUNCH 05/03/23 [History] amLODIPine [Norvasc] 5 mg PO BID-W/MEALS 05/03/23 [History] cycloSPORINE 0.05% OPHTH SOLN [Restasis] 1 drop BOTH EYES BID 05/03/23 [History] polyethylene glycoL 3350 [Miralax] 17 gm PO DAILY PRN 05/03/23 [History] Albuterol Inhaler [Ventolin Hfa Inhaler] 1 puff INHALATION QID #8 gm 05/09/23 [Rx] INSULIN LISPRO (HumaLOG) [humaLOG] 5 units SQ AC-TID 30 Days #10 ml 05/09/23 [Rx] INSULIN LISPRO (humaLOG) [humaLOG] See Protocol SQ ACHS #0 05/09/23 [Rx] cefUROXime axetiL [Ceftin] 500 mg PO BID 3 Days #6 tab 05/09/23 [Rx] predniSONE 10 mg PO DIRECTED #40 tab 05/09/23 [Rx] Follow up Appointment(s)/Referral(s): Court Joseph MD [STAFF PHYSICIAN] - 2 Weeks (June 01, 9:00) Luther Cadena MD [STAFF PHYSICIAN] - 1 Week (May 28, 9:45) Wellington Ron MD [Primary Care Provider] - 1-2 days (you have appointment tommorow (05/10/23) as you informed the medical team ) Vignesh Eduardo DO [STAFF PHYSICIAN] - As Needed Marjan Serrano MD [STAFF PHYSICIAN] - 2 Weeks Patient Instructions/Handouts: Heart Failure (DC), Urinary Tract Infection in Men (DC), Shortness of Breath (DC) Activity/Diet/Wound Care/Special Instructions: Heart healthy diet Activity is restricted till you see your doctor we recommend to check your glucose 4times per day , before each meal and at bed side,keep the results in a log book and bring it to your doctor on your appointment date if your glucose is less than 70 or more than 400 then call 911 and come to emergency room Discharge Disposition: HOME WITH HOME HEALTH SERVICES
[2023-05-10] MEDS ORDERED: predniSONE 20 MG TAB PO SCH (09:00)
== END 2023-05-09 15:18 | disposition home health service (06) | DRG 871 ==
LOC: EC 07:27 → 3SCARD 15:54 → OBSVTOIN 15:55 → 3SCARD 16:09
PROVIDERS: ADMIT Hospitalist; ATTEND Hospitalist
DX: A41.9 Sepsis, unspecified organism (principal); J18.9 Pneumonia, unspecified organism; J96.01 Acute respiratory failure with hypoxia; N17.9 Acute kidney failure, unspecified; I13.0 Hypertensive heart and chronic kidney disease with heart failure and stage 1 through stage 4 chronic kidney disease, or unspecified chronic kidney disease; N18.4 Chronic kidney disease, stage 4 (severe); I50.32 Chronic diastolic (congestive) heart failure; N39.0 Urinary tract infection, site not specified; I27.20 Pulmonary hypertension, unspecified; E11.22 Type 2 diabetes mellitus with diabetic chronic kidney disease; E11.51 Type 2 diabetes mellitus with diabetic peripheral angiopathy without gangrene; E11.65 Type 2 diabetes mellitus with hyperglycemia; Z79.4 Long term (current) use of insulin; E66.9 Obesity, unspecified; D63.8 Anemia in other chronic diseases classified elsewhere; M19.90 Unspecified osteoarthritis, unspecified site; E78.5 Hyperlipidemia, unspecified; I08.3 Combined rheumatic disorders of mitral, aortic and tricuspid valves; N40.0 Benign prostatic hyperplasia without lower urinary tract symptoms; I25.10 Atherosclerotic heart disease of native coronary artery without angina pectoris; R63.4 Abnormal weight loss; J20.9 Acute bronchitis, unspecified; Z11.52 Encounter for screening for COVID-19; Z68.38 Body mass index [BMI] 38.0-38.9, adult; Z87.891 Personal history of nicotine dependence; H91.90 Unspecified hearing loss, unspecified ear; H40.9 Unspecified glaucoma; W18.30XA Fall on same level, unspecified, initial encounter; Y92.009 Unspecified place in unspecified non-institutional (private) residence as the place of occurrence of the external cause; Z95.5 Presence of coronary angioplasty implant and graft; Z79.82 Long term (current) use of aspirin; Z79.84 Long term (current) use of oral hypoglycemic drugs; Z79.85 Long-term (current) use of injectable non-insulin antidiabetic drugs; Z79.899 Other long term (current) drug therapy; Z79.02 Long term (current) use of antithrombotics/antiplatelets; Z88.8 Allergy status to other drugs, medicaments and biological substances
CPT/HCPCS: 36415; 70450; 71046; 76604; 80048; 80053; 81001; 83036; 83605; 83735; 83880; 84145; 84484; 85025; 85610; 85730; 86738; 87040; 87086; 87449; 87636; 93005; 93306; 94640; 94760; 96365; 96375; 99291

== ENCOUNTER 2023-06-01 09:52 | Inpatient (IN) | payer MEDICARE ==
[2023-06-01 10:34] LABS: Anisocytosis Slight; Basophils % (A) 1 %; Eosinophils # (A) 0.4 k/uL (0-0.7); Eosinophils % (A) 5 %; HCT 38.3 % (39.0-53.0); HGB 12.3 gm/dL (13.0-17.5); Hypochromasia Moderate; Lymphocytes # (A) 1.7 k/uL (1.0-4.8); Lymphocytes % (A) 22 %; MCH 29.6 pg (25.0-35.0); MCHC 32.2 g/dL (31.0-37.0); MCV 92.1 fL (80.0-100.0); Monocytes # (A) 0.4 k/uL (0-1.0); Monocytes % (A) 6 %; Neutrophils # (A) 4.9 k/uL (1.3-7.7); Neutrophils % (A) 65 %; Platelet Count 265 k/uL (150-450); RBC 4.16 m/uL (4.30-5.90); RDW 16.4 % (11.5-15.5); WBC 7.5 k/uL (3.8-10.6)
[2023-06-01 10:45] LABS: INR 0.9 (<1.2); Partial Thromboplastin Time 25.9 sec (22.0-30.0); Prothrombin Time 10.2 sec (10.0-12.5)
[2023-06-01 10:50] LABS: ALT 20 U/L (4-49); AST 22 U/L (17-59); African American GFR (CKD) 50 (>60 ml/min/1.73 sqM); Albumin 3.6 g/dL (3.5-5.0); Alkaline Phosphatase 61 U/L (38-126); Anion Gap 13 mmol/L; Blood Urea Nitrogen 17 mg/dL (9-20); Calcium 8.5 mg/dL (8.4-10.2); Carbon Dioxide 24 mmol/L (22-30); Chloride 103 mmol/L (98-107); Glucose 173 mg/dL (74-99); Non-African American GFR(CKD) 43 (>60 ml/min/1.73 sqM); Potassium 3.9 mmol/L (3.5-5.1); Sodium 140 mmol/L (137-145); Total Bilirubin 0.6 mg/dL (0.2-1.3); Total Protein 6.6 g/dL (6.3-8.2)
[2023-06-01 10:58] LABS: NT-Pro-B-Type Natriuretic Pept 760 pg/mL
--- NOTE | 2023-06-01 11:34 | XR ---
EXAMINATION TYPE: XR chest 2V DATE OF EXAM: 06/01/2023 COMPARISON: 05/07/2023 HISTORY: 78-year-old male difficulty breathing, shortness of breath TECHNIQUE: PA and lateral views FINDINGS: Heart mildly enlarged. A xbxop-yx-pyljsgla right effusion is present, unchanged from prior. [facility] thro ughout the mid and lower thoracic spine. Hyperinflation. IMPRESSION: Mild cardiomegaly and COPD. Also unchanged whoys-qq-hyioklnu right effusion with adjacent atelectasis and/or consolidation.
--- NOTE | 2023-06-01 12:58 | ED ---
SOB HPI - General Chief Complaint: Shortness of Breath Stated Complaint: SOB Time Seen by Provider: 06/01/23 10:00 Source: patient Mode of arrival: ambulatory Limitations: no limitations - History of Present Illness Initial Comments: 78-year-old male presents to the emergency department under the direction of Dr. Peoples. Patient recently was diagnosed with a pleural effusion. He has been following up with Dr. Peoples on the outpatient setting. Dr. Joseph found him to have an oxygen saturation in the 70s upon ambulation today. Patient was resting in the 80s when nonambulatory. Because of this hypoxia, Dr. Peoples did recommend that he come to the emergency department for evaluation. Patient denies any chest pain. Denies home O2 use. No lower externally swelling. No history of DVT or PE. Dr. Peoples does have question of possible mesothelioma. No fevers. No other alleviating, precipitating or modfiying factors - Related Data Home Medications Medication Instructions Recorded Confirmed Aspirin [Adult Low Dose Aspirin EC] 81 mg PO W/BRKFST 02/05/18 06/01/23 Potassium Chloride ER [K-Dur 10] 10 meq PO BID-W/MEALS 02/05/18 06/01/23 Rosuvastatin [Crestor] 10 mg PO PC-SUPPER 02/05/18 06/01/23 Fenofibrate Nanocrystallized 145 mg PO Q2D@1800 02/28/18 06/01/23 [Fenofibrate] Dulaglutide [Trulicity] 1.5 mg SQ MO 05/05/20 06/01/23 Timolol 0.5% Ophth Soln [Timoptic 1 drop BOTH EYES DAILY 05/05/20 06/01/23 0.5% Ophth Soln] Metoprolol Tartrate [Lopressor] 100 mg PO W/BRKFST 01/18/22 06/01/23 Insulin Glargine,Hum.rec.anlog 50 units SQ HS 05/12/22 06/01/23 [Julio Milian] Empagliflozin [Jardiance] 10 mg PO DAILY 11/23/22 06/01/23 Furosemide [Lasix] 40 mg PO W/BRKFST 11/23/22 06/01/23 Clopidogrel [Plavix] 75 mg PO W/LUNCH 05/03/23 06/01/23 Isosorbide Mononitrate ER [Imdur] 30 mg PO W/BRKFST 05/03/23 06/01/23 Metoprolol Tartrate [Lopressor] 50 mg PO AC-BID@1200,1800 05/03/23 06/01/23 Nitroglycerin Sl Tabs [Nitrostat] 0.4 mg SL Q5M PRN 05/03/23 06/01/23 Tamsulosin [Flomax] 0.4 mg PO W/LUNCH 05/03/23 06/01/23 amLODIPine [Norvasc] 5 mg PO BID-W/MEALS 05/03/23 06/01/23 cycloSPORINE 0.05% OPHTH SOLN 1 drop BOTH EYES BID 05/03/23 06/01/23 [Restasis] polyethylene glycoL 3350 [Miralax] 17 gm PO DAILY PRN 05/03/23 06/01/23 Albuterol Inhaler [Ventolin Hfa 2 puff INHALATION RT-QID 06/01/23 06/01/23 Inhaler] INSULIN LISPRO (HumaLOG) [humaLOG] 30 units SQ AC-TID@0630,13,17 06/01/23 06/01/23 INSULIN LISPRO (humaLOG) [humaLOG] 35 units SQ AC-BRKFST@0900 06/01/23 06/01/23 INSULIN LISPRO (humaLOG) [humaLOG] See Protocol SQ ACHS 06/01/23 06/01/23 Previous Rx's Medication Instructions Recorded Amoxic-Pot Clav 875-125Mg 1 each PO Q12HR 7 Days #14 tab 06/04/23 [Augmentin 875-125] Budesonide-Formot 160-4.5 Mcg 2 puff INHALATION RT-BID #100 each 06/04/23 [Symbicort 160-4.5 Mcg Inhaler] predniSONE 10 mg PO DIRECTED #30 tab 06/04/23 Allergies Allergy/AdvReac Type Severity Reaction Status Date / Time cyclobenzaprine Allergy Itching Verified 06/01/23 12:10 [From Flexeril] Review of Systems ROS Statement: Those systems with pertinent positive or pertinent negative responses have been documented in the HPI. ROS Other: All systems not noted in ROS Statement are negative. Past Medical History Past Medical History: Coronary Artery Disease (CAD), Diabetes Mellitus, Eye Disorder, Hearing Disorder / Deafness, Hypertension, Osteoarthritis (OA) Additional Past Medical History / Comment(s): GLAUCOMA. Hard of hearing. History of Any Multi-Drug Resistant Organisms: None Reported Past Surgical History: Heart Catheterization With Stent, Orthopedic Surgery Additional Past Surgical History / Comment(s): Right knee arthroscopy, bilateral cataract surgery, 5 cardiac stents, pain clinic procedure. Past Anesthesia/Blood Transfusion Reactions: Previous Problems w/ Anesthesia Additional Past Anesthesia/Blood Transfusion Reaction / Comment(s): states pt has letter from previous knee surgery in 2010 that indicates that Erasto was a difficult intubation with difficult airway anterior. Date of Last Stent Placement:: 04/2019 Past Psychological History: No Psychological Hx Reported Smoking Status: Former smoker Past Alcohol Use History: None Reported Past Drug Use History: None Reported - Past Family History Mother Family Medical History: Cancer Additional Family Medical History / Comment(s): Stomach cancer. Father Family Medical History: CVA/TIA General Exam Limitations: no limitations General appearance: alert, in no apparent distress Head exam: Present: atraumatic, normocephalic, normal inspection Eye exam: Present: normal appearance, PERRL, EOMI. Absent: scleral icterus, conjunctival injection, periorbital swelling ENT exam: Present: normal exam, mucous membranes moist Neck exam: Present: normal inspection. Absent: tenderness, meningismus, lymphadenopathy Respiratory exam: Present: decreased breath sounds (right lower lobe). Absent: respiratory distress, wheezes, rales, rhonchi, stridor Cardiovascular Exam: Present: regular rate, normal rhythm, normal heart sounds. Absent: systolic murmur, diastolic murmur, rubs, gallop, clicks GI/Abdominal exam: Present: soft, normal bowel sounds. Absent: distended, tenderness, guarding, rebound, rigid Extremities exam: Present: normal inspection, full ROM, normal capillary refill. Absent: tenderness, pedal edema, joint swelling, calf tenderness Back exam: Present: normal inspection Neurological exam: Present: alert, oriented X3, CN II-XII intact Psychiatric exam: Present: normal affect, normal mood Skin exam: Present: warm, dry, intact, normal color. Absent: rash Course Vital Signs 06/01/23 06/01/23 06/01/23 09:54 11:00 11:02 Temperature 97.4 F L Pulse Rate 106 H 94 Respiratory 20 22 Rate Blood Pressure 150/65 161/72 O2 Sat by Pulse 90 L 87 L 96 Oximetry 06/01/23 06/01/23 06/01/23 12:26 14:24 16:02 Temperature Pulse Rate 90 98 93 Respiratory 22 22 20 Rate Blood Pressure 161/77 182/88 182/88 O2 Sat by Pulse 97 95 94 L Oximetry Medical Decision Making - Medical Decision Making Was pt. sent in by a medical professional or institution (, [employer], STREET INSPECTOR, urgent care, hospital, or shelter...) When possible be specific @ -dr. Joseph Did you speak to anyone other than the patient for history (EMS, parent, family, police, friend...)? What history was obtained from this source @ -dr. joseph Did you review nursing and triage notes (agree or disagree)? Why? @ -I reviewed and agree with nursing and triage notes Were old charts reviewed (outside hosp., previous admission, EMS record, old EKG, old radiological studies, urgent care reports/EKG's, shelter records)? Report findings @ -No old charts were reviewed Differential Diagnosis (chest pain, altered mental status, abdominal pain women, abdominal pain men, vaginal bleeding, weakness, fever, dyspnea, syncope, headache, dizziness, GI bleed, back pain, seizure, CVA, palpatations, mental health, musculoskeletal)? @ -pleural effusion, pneumothorax, pneumonia, ateletasis EKG interpreted by me (3pts min.). @ -yes and demonstrates sinus tachycardia with a rate of 101. MT interval 194. QRS 101. QTC of 412. Q waves in lead 3. No acute ST segment elevation X-rays interpreted by me (1pt min.). @ -None done CT interpreted by me (1pt min.). @ -None done U/S interpreted by me (1pt. min.). @ -None done What testing was considered but not performed or refused? (CT, X-rays, U/S, labs)? Why? @ -None What meds were considered but not given or refused? Why? @ -None Did you discuss the management of the patient with other professionals (professionals i.e. , [employer], STREET INSPECTOR, lab, RT, psych nurse, high school social science teacher, alum mixer, teacher, community resource officer, case worker)? Give summary @ -dr. joseph, dr tipton Was smoking cessation discussed for >3mins.? @ -No Was critical care preformed (if so, how long)? @ -No Were there social determinants of health that impacted care today? How? (Homelessness, low income, unemployed, alcoholism, drug addiction, transporta tion, low edu. Level, literacy, decrease access to med. care, senior living, rehab)? @ -No Was there de-escalation of care discussed even if they declined (Discuss DNR or withdrawal of care, Hospice)? DNR status @ -No What co-morbidities impacted this encounter? (DM, HTN, Smoking, COPD, CAD, Cancer, CVA, ARF, Chemo, Hep., AIDS, mental health diagnosis, sleep apnea, morbid obesity)? @ -copd Was patient admitted / discharged? Hospital course, mention meds given and route, prescriptions, significant lab abnormalities, going to OR and other pertinent info. @ -Upon arrival patient was placed into room 21. There are history and physical exam was performed. Laboratory studies are conducted. VQ scan was ordered as this was requested by Dr. Peoples. Patient [facility] be [facility] with pulmonology consult. Spoke with Dr. Tipton who agreed with the admission Undiagnosed new problem with uncertain prognosis? @ -yes Drug Therapy requiring intensive monitoring for toxicity (Heparin, Nitro, Insulin, Cardizem)? @ -No Were any procedures done? @ -No Diagnosis/symptom? @ -acute hypoxic resp failure, pleural effusion Acute, or Chronic, or Acute on Chronic? @ -acute Uncomplicated (without systemic symptoms) or Complicated (systemic symptoms)? @ -complicated Side effects of treatment? @ -No Exacerbation, Progression, or Severe Exacerbation? @ -No Poses a threat to life or bodily function? How? (Chest pain, [place], [place], pneumonia, PE, COPD, DKA, ARF, appy, cholecystitis, CVA, Diverticulitis, Homicidal, Suicidal, threat to staff... and all critical care pts) @ -yes, patient is hypoxic from condition - Lab Data Result diagrams: 06/04/23 06:48 06/04/23 06:48 Lab Results 06/01/23 06/01/23 06/01/23 Range/Units 10:20 10:20 10:20 WBC 7.5 (3.8-10.6) k/uL RBC 4.16 L (4.30-5.90) m/uL Hgb 12.3 L (13.0-17.5) gm/dL Hct 38.3 L (39.0-53.0) % MCV 92.1 (80.0-100.0) fL MCH 29.6 (25.0-35.0) pg MCHC 32.2 (31.0-37.0) g/dL RDW 16.4 H (11.5-15.5) % Plt Count 265 (150-450) k/uL MPV 7.0 Neutrophils % 65 % Lymphocytes % 22 % Monocytes % 6 % Eosinophils % 5 % Basophils % 1 % Neutrophils # 4.9 (1.3-7.7) k/uL Lymphocytes # 1.7 (1.0-4.8) k/uL Monocytes # 0.4 (0-1.0) k/uL Eosinophils # 0.4 (0-0.7) k/uL Basophils # 0.0 (0-0.2) k/uL Hypochromasia Moderate Anisocytosis Slight PT 10.2 (10.0-12.5) sec INR 0.9 (<1.2) APTT 25.9 (22.0-30.0) sec Sodium 140 (137-145) mmol/L Potassium 3.9 (3.5-5.1) mmol/L Chloride 103 (98-107) mmol/L Carbon Dioxide 24 (22-30) mmol/L Anion Gap 13 mmol/L BUN 17 (9-20) mg/dL Creatinine 1.53 H (0.66-1.25) mg/dL Est GFR (CKD-EPI)AfAm 50 (>60 ml/min/1.73 sqM) Est GFR (CKD-EPI)NonAf 43 (>60 ml/min/1.73 sqM) Glucose 173 H (74-99) mg/dL Plasma Lactic Acid Sage (0.7-2.0) mmol/L Calcium 8.5 (8.4-10.2) mg/dL Total Bilirubin 0.6 (0.2-1.3) mg/dL AST 22 (17-59) U/L ALT 20 (4-49) U/L Alkaline Phosphatase 61 (38-126) U/L Troponin I (0.000-0.034) ng/mL NT-Pro-B Natriuret Pep 760 pg/mL Total Protein 6.6 (6.3-8.2) g/dL Albumin 3.6 (3.5-5.0) g/dL 06/01/23 06/01/23 Range/Units 10:20 10:20 WBC (3.8-10.6) k/uL RBC (4.30-5.90) m/uL Hgb (13.0-17.5) gm/dL Hct (39.0-53.0) % MCV (80.0-100.0) fL MCH (25.0-35.0) pg MCHC (31.0-37.0) g/dL RDW (11.5-15.5) % Plt Count (150-450) k/uL MPV Neutrophils % % Lymphocytes % % Monocytes % % Eosinophils % % Basophils % % Neutrophils # (1.3-7.7) k/uL Lymphocytes # (1.0-4.8) k/uL Monocytes # (0-1.0) k/uL Eosinophils # (0-0.7) k/uL Basophils # (0-0.2) k/uL Hypochromasia Anisocytosis PT (10.0-12.5) sec INR (<1.2) APTT (22.0-30.0) sec Sodium (137-145) mmol/L Potassium (3.5-5.1) mmol/L Chloride (98-107) mmol/L Carbon Dioxide (22-30) mmol/L Anion Gap mmol/L BUN (9-20) mg/dL Creatinine (0.66-1.25) mg/dL Est GFR (CKD-EPI)AfAm (>60 ml/min/1.73 sqM) Est GFR (CKD-EPI)NonAf (>60 ml/min/1.73 sqM) Glucose (74-99) mg/dL Plasma Lactic Acid Sage 1.3 (0.7-2.0) mmol/L Calcium (8.4-10.2) mg/dL Total Bilirubin (0.2-1.3) mg/dL AST (17-59) U/L ALT (4-49) U/L Alkaline Phosphatase (38-126) U/L Troponin I <0.012 (0.000-0.034) ng/mL NT-Pro-B Natriuret Pep pg/mL Total Protein (6.3-8.2) g/dL Albumin (3.5-5.0) g/dL Disposition Clinical Impression: Hypoxic respiratory failure, Pleural effusion Disposition: ADMITTED IP TO THIS HOSP Condition: Stable Is patient prescribed a controlled substance at d/c from ED?: No Time of Disposition: 13:08 Decision to Admit Reason: Admit from EC Decision Date: 06/01/23 Decision Time: 13:08
[2023-06-01] MEDS ORDERED: NALOXONE 0.4 MG/ML 1 ML VIAL IV PRN (13:08)
--- NOTE | 2023-06-01 14:40 | NM ---
EXAMINATION TYPE: NM pul vent and perfuse DATE OF EXAM: 06/01/2023 CLINICAL INDICATION: Male, 78 years old with history of sob; Correlation: Radiograph same day TECHNIQUE: Utilizing inhalation of 69.7 mCi Tc 99m DTPA aerosol and intravenous injection of 5.08 mC i of Tc 99m MAA, ventilation and perfusion images are acquired post injection in multiple projections . FINDINGS: Normal radiotracer distribution is noted in the lungs. There is no evidence of mismatched defects. IMPRESSION: Very low probability for pulmonary embolus.
[2023-06-01] MEDS ORDERED: polyethylene glycoL 3350 17 GM POWD.PACK PO PRN (16:28)
[2023-06-01] MEDS ORDERED: DEXTROSE 50% SYRINGE 50 ML IVP PRN ×2 (16:28)
[2023-06-01] MEDS ORDERED: IPRATROPIUM-ALBUTEROL 3 ML NEB INHALATION PRN (16:29)
[2023-06-01] MEDS: SYMBICORT 160-4.5 MCG INHALER INHALATION SCH ×2 (16:52→18:12)
[2023-06-01] MEDS: IPRATROPIUM-ALBUTEROL 3 ML NEB INHALATION SCH ×2 (16:52→18:11)
[2023-06-01] MEDS: POTASSIUM CHLORIDE ER 10 MEQ TAB.ER.PRT PO SCH (16:55)
[2023-06-01] MEDS: amLODIPine 5 MG TAB PO SCH (16:55)
[2023-06-01] MEDS: methylPREDNISolone SOD SUCCI 125 MG/2 ML VIAL IV SCH (16:56)
[2023-06-01 17:18] LABS: Glucose,Whole Blood 128 mg/dL (70-110)
[2023-06-01] MEDS: INSULIN ASPART (NovoLOG) 100 UNIT/ML VIAL SQ SCH ×3 (17:43→21:41)
[2023-06-01] MEDS: METOPROLOL TARTRATE 50 MG TAB PO SCH (17:44)
[2023-06-01] MEDS: ATORVASTATIN 20 MG TAB PO SCH (17:44)
[2023-06-01] MEDS ORDERED: hydrALAZINE HCL 20 MG/ML 1 ML VIAL IVP STA (17:46)
[2023-06-01] MEDS ORDERED: ALBUTEROL HFA INHALER INHALATION SCH (20:00)
[2023-06-01 20:41] LABS: Glucose,Whole Blood 315 mg/dL (70-110)
[2023-06-01] MEDS: IOPAMIDOL CONTRAST (ORAL USE) VIAL PO PRN ×2 (21:32→22:32)
[2023-06-01] MEDS: cycloSPORINE 0.05% OPHTH 0.4 ML DROPERETTE BOTH EYES SCH (21:34)
[2023-06-01] MEDS: INSULIN DETEMIR (LEVEMIR) 100 UNIT/ML SYR SQ SCH (21:35)
--- NOTE | 2023-06-01 23:34 | HP ---
HISTORY AND PHYSICAL CHIEF COMPLAINT: Shortness of breath. HISTORY OF PRESENT ILLNESS: This is a 78-year-old gentleman with a past medical history of multiple medical problems including CAD, diabetes mellitus, being followed Dr. Ron in the outpatient, recently admitted with community-acquired pneumonia. The patient evaluated by Dr. High. The patient had significant pleural effusion and the oxygen saturations wound was found to be 70s on ambulation and the patient was directed to [facility] for further evaluation and treatment. The creatinine is elevated also. There is no history of fever, rigors, chills. V/Q scan is low probability. The patient has significant pleural effusion on right side. 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 PAST MEDICAL HISTORY: Reviewed include diabetes mellitus, CAD rest stress chart is also reviewed. HOME MEDICATIONS: Reviewed include Trulicity, dose and rest of medications reviewed. ALLERGIES: Flexeril. FAMILY HISTORY: History of stomach cancer. SOCIAL HISTORY: History of smoking. REVIEW OF SYSTEMS: A 14-point review is negative except as mentioned earlier. PHYSICAL EXAMINATION: VITAL SIGNS: Pulse is 90, blood pressure 161/70, respirations 22. HEENT: Conjunctivae normal. NECK: No jugular venous distention. CARDIOVASCULAR: S1, S2 muffled. RESPIRATIONS: Diminished at the bases. Few scattered rhonchi. ABDOMEN: Soft,. nontender legs no edema nervous system no focal skin no rash joints no active. LABORATORY DATA: WBC 7 for hemoglobin 12.3 assessment the chest x-ray CT scan reviewed personally assessment. 1. Right pleural effusion, shortness of breath, rule out mesothelioma. 2. Pulmonary embolism ruled out. 3. Possible COPD exacerbation. 4. History of coronary artery disease. 5. Dialysis type 2. 6. History of recent pneumonia. 7. History of CAD. 8. history of low complaint CAD. RECOMMENDATIONS: This 78-year-old gentleman presented with multiple complex medical issues at this time. We will monitor the patient closely. The CT scan is negative, ruling out possible pulmonary embolus. However, the possibly Mesalt anemia remains because of the patient's history. I would recommend CT scan of the chest, abdomen, and pelvis to rule out the possibility of mesothelioma, associated asbestos related complications. I would also recommend to continue current pulmonary consultation, possible thoracocentesis also and further studies of the fluid. A 2D echo was done last year and which showed ejection fraction about 50% to 60% and not much abnormalities. I would recommend resume the home medications once they are confirmed, otherwise bronchodilators. I would also recommend steroids, empirically as well for possible COPD. We will follow the patient closely, prognosis guarded because of multiple complex medical issues for condition were see orders for details. Incentive spirometry. V/Q scan negative low probability as mentioned early. See orders for details. MMODL / IJN: [id number] /
[2023-06-02] MEDS: methylPREDNISolone SOD SUCCI 125 MG/2 ML VIAL IV SCH ×4 (00:06→18:53)
--- NOTE | 2023-06-02 00:50 | CT ---
EXAMINATION TYPE: CT ChestAbdPelvis wo con DATE OF EXAM: 06/01/2023 COMPARISON: Chest x-ray earlier in day HISTORY: rt pleural effusion, asbestos exposure CT DLP: 1653.8 mGycm. Automated Exposure Control for Dose Reduction was Utilized. TECHNIQUE: CT scan of the thorax, abdomen and pelvis is performed with oral but without IV contrast. FINDINGS: Within the limitations of a noncontrast study, the following observations are made LUNGS: Small right-sided pleural effusion is confirmed. There is associated right lung compressive at electasis. There is no significant left-sided pleural effusion. Dependent atelectasis left lung base is seen. No pleural calcifications. MEDIASTINUM: There are prominent but subcentimeter lymph nodes throughout the mediastinum. No cardi omegaly or pericardial effusion is seen. Coronary calcification is present. Calcification or surgica l change at level of the mitral valve. LIVER/GB: Dependent density consistent with small stones and/or gallbladder sludge. PANCREAS: No significant abnormality is seen. SPLEEN: No significant abnormality is seen. ADRENALS: No significant abnormality is seen. KIDNEYS: Cortical thinning bilaterally. There is exophytic 5.7 cm thin-walled cyst lower pole left ki dney image 81. No hydronephrosis seen bilaterally. BOWEL: Small sized hiatal hernia. Diffuse colonic diverticulosis. No CT evidence for acute diverticul itis. Oral contrast does not reach colonic level. Normal-appearing appendix is seen. No abnormal smal l or large bowel dilatation. GENITAL ORGANS: No gross abnormality seen. LYMPH NODES: No greater than 1cm abdominal or pelvic lymph nodes are appreciated. OSSEOUS STRUCTURES: Bridging osteophytes throughout the thoracic spine. Prominent spurs in the lumbar spine with some bridging. Correlate for underlying DISH. OTHER: Moderate to severe calcified plaque of the aorta extends into branch vessels. IMPRESSION: No calcified pleural plaques bilaterally. Small right pleural effusion is confirmed. Dif fuse colonic diverticulosis without CT evidence for acute diverticulitis. No acute findings in the ab domen or pelvis.
[2023-06-02 06:49] LABS: Glucose,Whole Blood 196 mg/dL (70-110)
[2023-06-02] MEDS: FUROSEMIDE 40 MG TAB PO SCH (07:12)
[2023-06-02] MEDS: INSULIN ASPART (NovoLOG) 100 UNIT/ML VIAL SQ SCH ×8 (07:12→21:39)
[2023-06-02] MEDS: ISOSORBIDE MONONITRATE ER 30 MG TAB.ER.24H PO SCH (07:12)
[2023-06-02] MEDS: ASPIRIN 81 MG PO SCH (07:12)
[2023-06-02] MEDS: METOPROLOL TARTRATE 50 MG TAB PO SCH ×3 (07:13→18:34)
[2023-06-02] MEDS: POTASSIUM CHLORIDE ER 10 MEQ TAB.ER.PRT PO SCH ×2 (07:13→18:33)
[2023-06-02] MEDS: PANTOPRAZOLE 40 MG TABLET PO SCH (07:13)
[2023-06-02 07:47] LABS: Anisocytosis Slight; Basophils % (A) 0 %; Eosinophils % (A) 0 %; HCT 41.2 % (39.0-53.0); HGB 12.6 gm/dL (13.0-17.5); Hypochromasia Marked; Lymphocytes # (A) 1.2 k/uL (1.0-4.8); Lymphocytes % (A) 13 %; MCH 28.8 pg (25.0-35.0); MCHC 30.6 g/dL (31.0-37.0); MCV 94.1 fL (80.0-100.0); Mean Platelet Volume 7.6; Monocytes # (A) 0.2 k/uL (0-1.0); Monocytes % (A) 2 %; Neutrophils # (A) 7.6 k/uL (1.3-7.7); Neutrophils % (A) 85 %; Platelet Count 281 k/uL (150-450); RBC 4.37 m/uL (4.30-5.90)
[2023-06-02 08:29] LABS: African American GFR (CKD) 57 (>60 ml/min/1.73 sqM); Anion Gap 15 mmol/L; Blood Urea Nitrogen 19 mg/dL (9-20); Calcium 8.5 mg/dL (8.4-10.2); Carbon Dioxide 24 mmol/L (22-30); Chloride 101 mmol/L (98-107); Glucose 205 mg/dL (74-99); Non-African American GFR(CKD) 50 (>60 ml/min/1.73 sqM); Potassium 4.1 mmol/L (3.5-5.1); Sodium 140 mmol/L (137-145)
--- NOTE | 2023-06-02 08:34 | P.CNPUL ---
History of Present Illness Consult date: 06/02/23 Requesting physician: Phil Hickey Reason for consult: dyspnea, pleural effusion, abnormal CXR/CT Chief complaint: Shortness of breath History of present illness: Pulmonary consult dated 06/02/2023. 78-year-old male seen in the emergency department, after see my partner in the office. The patient apparently is been complaining of shortness of breath for some time, without a clear-cut diagnosis. Currently, he's seen in room 629. The patient does have a right-sided pleural effusion. He short of breath on exertion. He did smoke for 40 years, though he does not smoke currently. He did work at the [employer], and apparently was exposed to asbestos. The patient has a history of coronary disease, diabetes, hearing disorder, hypertension, DJD, glaucoma, and previous stent placement. White count 9, hemoglobin 12.6, hematocrit 41.2, and platelet count 281,000. Sodium 140, potassium 4.1, chlorides 101, CO2 24, BUN and creatinine were 19 and 1.36 respectively. Chest x-ray shows changes of cardiomegaly, and a small right- sided effusion, with adjacent atelectasis. The perfusion lung scan was very low probability for pulmonary embolism. Computed tomography scan of the chest abdomen and pelvis showed a right pleural effusion, and colonic diverticulosis. There is nothing to suggest asbestos involvement of the lung. Review of Systems REVIEW OF SYSTEMS: CONSTITUTIONAL: [Negative.] NEUROLOGIC: [ Negative.] HEENT: [ Negative.] CARDIAC: [Negative.] PULMONARY: Shortness of breath on exertion. GI: [Negative.] : [Negative.] RHEUMATOLOGIC: [ Negative.] IMMUNOLOGIC: [ Negative.] ENDOCRINE: [Negative. ] DERMATOLOGIC: [Negative.] Past Medical History Past Medical History: Coronary Artery Disease (CAD), Diabetes Mellitus, Eye Disorder, Hearing Disorder / Deafness, Hypertension, Osteoarthritis (OA) Additional Past Medical History / Comment(s): GLAUCOMA. Hard of hearing. History of Any Multi-Drug Resistant Organisms: None Reported Past Surgical History: Heart Catheterization With Stent, Orthopedic Surgery Additional Past Surgical History / Comment(s): Right knee arthroscopy, bilateral cataract surgery, 5 cardiac stents, pain clinic procedure. Past Anesthesia/Blood Transfusion Reactions: Previous Problems w/ Anesthesia Additional Past Anesthesia/Blood Transfusion Reaction / Comment(s): states pt has letter from previous knee surgery in 2010 that indicates that Erasto was a difficult intubation with difficult airway anterior. Date of Last Stent Placement:: 04/2019 Past Psychological History: No Psychological Hx Reported Smoking Status: Former smoker Past Alcohol Use History: None Reported Past Drug Use History: None Reported - Past Family History Mother Family Medical History: Cancer Additional Family Medical History / Comment(s): Stomach cancer. Father Family Medical History: CVA/TIA Medications and Allergies Home Medications Medication Instructions Recorded Confirmed Type Aspirin [Adult Low Dose Aspirin EC] 81 mg PO W/BRKFST 02/05/18 06/01/23 History Potassium Chloride ER [K-Dur 10] 10 meq PO BID-W/MEALS 02/05/18 06/01/23 History Rosuvastatin [Crestor] 10 mg PO PC-SUPPER 02/05/18 06/01/23 History Fenofibrate Nanocrystallized 145 mg PO Q2D@1800 02/28/18 06/01/23 History [Fenofibrate] Dulaglutide [Trulicity] 1.5 mg SQ MO 05/05/20 06/01/23 History Timolol 0.5% Ophth Soln [Timoptic 1 drop BOTH EYES DAILY 05/05/20 06/01/23 History 0.5% Ophth Soln] Metoprolol Tartrate [Lopressor] 100 mg PO W/BRKFST 01/18/22 06/01/23 History Insulin Glargine,Hum.rec.anlog 50 units SQ HS 05/12/22 06/01/23 History [Toujeo Solostar] Empagliflozin [Jardiance] 10 mg PO DAILY 11/23/22 06/01/23 History Furosemide [Lasix] 40 mg PO W/BRKFST 11/23/22 06/01/23 History Clopidogrel [Plavix] 75 mg PO W/LUNCH 05/03/23 06/01/23 History Isosorbide Mononitrate ER [Imdur] 30 mg PO W/BRKFST 05/03/23 06/01/23 History Metoprolol Tartrate [Lopressor] 50 mg PO AC-BID@1200,1800 05/03/23 06/01/23 History Nitroglycerin Sl Tabs [Nitrostat] 0.4 mg SL Q5M PRN 05/03/23 06/01/23 History Tamsulosin [Flomax] 0.4 mg PO W/LUNCH 05/03/23 06/01/23 History amLODIPine [Norvasc] 5 mg PO BID-W/MEALS 05/03/23 06/01/23 History cycloSPORINE 0.05% OPHTH SOLN 1 drop BOTH EYES BID 05/03/23 06/01/23 History [Restasis] polyethylene glycoL 3350 [Miralax] 17 gm PO DAILY PRN 05/03/23 06/01/23 History Albuterol Inhaler [Ventolin Hfa 2 puff INHALATION RT-QID 06/01/23 06/01/23 History Inhaler] INSULIN LISPRO (HumaLOG) [humaLOG] 30 units SQ AC-TID@0630,13,17 06/01/23 06/01/23 History INSULIN LISPRO (humaLOG) [humaLOG] 35 units SQ AC-BRKFST@0900 06/01/23 06/01/23 History INSULIN LISPRO (humaLOG) [humaLOG] See Protocol SQ ACHS 06/01/23 06/01/23 History Allergies Allergy/AdvReac Type Severity Reaction Status Date / Time cyclobenzaprine Allergy Itching Verified 06/01/23 12:10 [From Flexeril] Physical Exam Osteopathic Statement: *. No significant issues noted on an osteopathic structural exam other than those noted in the History and Physical/Consult. Vitals: Vital Signs Temp Pulse Pulse Resp BP BP Pulse Ox 06/02/23 02:00 97.5 F L 82 18 173/81 94 L 06/01/23 20:00 98.2 F 86 18 148/66 95 06/01/23 18:38 178/71 06/01/23 18:27 92 06/01/23 18:12 92 06/01/23 17:22 98 F 95 20 209/73 96 06/01/23 17:00 104 H 18 134/67 95 06/01/23 16:02 93 20 182/88 94 L 06/01/23 14:24 98 22 182/88 95 06/01/23 12:26 90 22 161/77 97 06/01/23 11:02 94 22 161/72 96 06/01/23 11:00 87 L 06/01/23 09:54 97.4 F L 106 H 20 150/65 90 L Intake and Output 06/01/23 06/02/23 06/02/23 22:59 06:59 14:59 Other: Voiding Method Toilet Urinal # Voids 2 Weight 124.738 kg No acute distress, oriented 3. No respiratory distress. HEENT examination is grossly unremarkable. Mucous membranes are moist. No oral lesions. Neck supple. Full range of motion. No adenopathy thyromegaly or neck vein d istention. Cardiovascular examination reveals regular rhythm rate. S1-S2 normal. No S3 or S4. No discernible murmur noted. Heart rate 82 bpm. Lungs reveal diminished breath sounds at the right base. Left lung is clear. No wheezes rhonchi or crackles. 3 L saturations 95%. Abdomen soft bowel sounds are heard. No masses or tenderness. Extremities are intact. No cyanosis clubbing or edema. Skin is without rash or lesion. Neurologic examination is brief but nonfocal. Results - Laboratory Findings CBC and BMP: 06/02/23 06:55 06/01/23 10:20 PT/INR, D-dimer PT 10.2 sec (10.0-12.5) 06/01/23 10:20 INR 0.9 (<1.2) 06/01/23 10:20 Abnormal lab findings: Abnormal Labs 06/01/23 06/01/23 06/01/23 10:20 10:20 17:17 RBC 4.16 L Hgb 12.3 L Hct 38.3 L MCHC RDW 16.4 H Creatinine 1.53 H Glucose 173 H POC Glucose (mg/dL) 128 H 06/01/23 06/02/23 06/02/23 20:40 06:47 06:55 RBC Hgb 12.6 L Hct MCHC 30.6 L RDW 16.0 H Creatinine Glucose POC Glucose (mg/dL) 315 H 196 H - Diagnostic Findings Chest x-ray: image reviewed CT scan - chest: image reviewed Assessment and Plan Assessment: Shortness of breath on exertion, of unclear etiology. Right-sided pleural effusion, [id number]. History of CAD with previous stent placement. 40 years of tobacco use. History of diabetes mellitus. History of hypertension. History of hyperlipidemia. History of glaucoma. Morbid obesity. Plan: Plan dated 06/02/2023. The patient does not appear to have an infection. Nonetheless, we'll check a pro-calcitonin level. We'll also do an ultrasound of the right chest, to see if there is fluid which might be amenable to thoracentesis. Labs, x-rays, medications are reviewed. His office notes will be evaluated. Additional recommendations and suggestions are forthcoming. Computed tomography scan did not reveal any evidence of anything that might suggest asbestos lung disease. Prognosis is guarded. Time with Patient: Greater than 30
[2023-06-02] MEDS: IPRATROPIUM-ALBUTEROL 3 ML NEB INHALATION SCH ×3 (09:48→20:31)
[2023-06-02] MEDS: SYMBICORT 160-4.5 MCG INHALER INHALATION SCH ×2 (09:48→20:31)
[2023-06-02] MEDS: DAPAGLIFLOZIN PROPANEDIOL 5 MG TABLET PO SCH (10:14)
[2023-06-02] MEDS: cycloSPORINE 0.05% OPHTH 0.4 ML DROPERETTE BOTH EYES SCH ×2 (10:15→21:39)
[2023-06-02] MEDS: TIMOLOL 0.5% OPHTH DROPS 5 ML BTL BOTH EYES SCH (10:15)
[2023-06-02 12:26] LABS: Glucose,Whole Blood 342 mg/dL (70-110)
[2023-06-02] MEDS: TAMSULOSIN 0.4 MG CAP.ER.24H PO SCH (13:17)
[2023-06-02 17:32] LABS: Glucose,Whole Blood 222 mg/dL (70-110)
[2023-06-02] MEDS ORDERED: FENOFIBRATE 160 MG TAB PO SCH (18:00)
[2023-06-02] MEDS: ATORVASTATIN 20 MG TAB PO SCH (18:34)
[2023-06-02] MEDS: amLODIPine 5 MG TAB PO SCH (18:34)
--- NOTE | 2023-06-02 19:03 | US ---
EXAMINATION TYPE: US chest DATE OF EXAM: 06/02/2023 COMPARISON: NONE CLINICAL INDICATION: Male, 78 years old with history of Right pleural effusion; RT Effusion TECHNIQUE: Targeted ultrasound of the posterior lower right hemithorax EXAM MEASUREMENTS: Right Pleural Effusion pocket size: 4.3 cm Right skin surface to fluid distance: 4.2 cm Right side marked for possible thoracentesis outside the dept. Pulmonologists are able to review the images in the patient?s EMR. IMPRESSIONS: 1. Right pleural effusion
[2023-06-02 20:20] LABS: Glucose,Whole Blood 274 mg/dL (70-110)
[2023-06-02] MEDS: INSULIN DETEMIR (LEVEMIR) 100 UNIT/ML SYR SQ SCH (21:39)
--- NOTE | 2023-06-02 22:08 | PN ---
PROGRESS NOTE DATE OF SERVICE: 06/02/2023 SUBJECTIVE: This is a 78-year-old gentleman, who was admitted with significant right pleural effusion, is being evaluated for possible mesothelioma and asbestosis. The CT chest, abdomen, and pelvis, which was reviewed personally by me showed no calcified plaques and right pleural effusion and chronic diverticulosis. PAST MEDICAL HISTORY: Reviewed. REVIEW OF SYSTEMS: A 14-point review is negative except as mentioned earlier. CURRENT MEDICATIONS: Reviewed include Symbicort and rest of medications. PHYSICAL EXAMINATION: VITAL SIGNS: Pulse is 91, blood pressure 150/70, respirations 16. HEENT: Conjunctivae normal. NECK: No jugular venous distention. CARDIOVASCULAR: S1, S2 muffled. RESPIRATIONS: Diminished at the bases. Few scattered rhonchi. ABDOMEN: Soft. NERVOUS SYSTEM: Nonfocal. LABORATORY DATA: Glucose 342. ASSESSMENT: 1. Right pleural effusion, shortness of breath, rule out mesothelioma or asbestosis. 2. Pulmonary embolism ruled out. 3. Possible chronic obstructive pulmonary disease acute exacerbation, shortness of breath. 4. History of coronary artery disease. 5. Diabetes mellitus, type 2. 6. History of recent pneumonia. RECOMMENDATIONS: Recommended to continue current management and continue symptomatic treatment. Otherwise, 2D echo showed ejection fraction of 50% to 60%. Recommend to monitor blood sugars closely. Otherwise, continue rest of medications. Possible thoracocentesis. Guarded prognosis. Further recommendations to follow. MMODL / IJN: [id number] /
[2023-06-03] MEDS: methylPREDNISolone SOD SUCCI 125 MG/2 ML VIAL IV SCH ×2 (00:23→06:21)
[2023-06-03] MEDS: FUROSEMIDE 40 MG TAB PO SCH (06:21)
[2023-06-03] MEDS: ISOSORBIDE MONONITRATE ER 30 MG TAB.ER.24H PO SCH (06:21)
[2023-06-03] MEDS: PANTOPRAZOLE 40 MG TABLET PO SCH (06:21)
[2023-06-03] MEDS: POTASSIUM CHLORIDE ER 10 MEQ TAB.ER.PRT PO SCH ×2 (06:21→17:55)
[2023-06-03] MEDS: ASPIRIN 81 MG PO SCH (06:21)
[2023-06-03] MEDS: METOPROLOL TARTRATE 50 MG TAB PO SCH ×3 (06:21→17:55)
[2023-06-03] MEDS: amLODIPine 5 MG TAB PO SCH ×2 (06:21→17:55)
[2023-06-03 06:24] LABS: Glucose,Whole Blood 311 mg/dL (70-110)
[2023-06-03] MEDS: INSULIN ASPART (NovoLOG) 100 UNIT/ML VIAL SQ SCH ×8 (06:58→21:18)
--- NOTE | 2023-06-03 08:37 | P.PN ---
Subjective Progress Note Date: 06/03/23 78-year-old male seen in the emergency department, after see my partner in the office. The patient apparently is been complaining of shortness of breath for some time, without a clear-cut diagnosis. Currently, he's seen in room 629. The patient does have a right-sided pleural effusion. He short of breath on exertion. He did smoke for 40 years, though he does not smoke currently. He did work at the [employer], and apparently was exposed to asbestos. The patient has a history of coronary disease, diabetes, hearing disorder, hypertension, DJD, glaucoma, and previous stent placement. White count 9, hemoglobin 12.6, hematocrit 41.2, and platelet count 281,000. Sodium 140, potassium 4.1, chlorides 101, CO2 24, BUN and creatinine were 19 and 1.36 respectively. Chest x-ray shows changes of cardiomegaly, and a small right- sided effusion, with adjacent atelectasis. The perfusion lung scan was very low probability for pulmonary embolism. Computed tomography scan of the chest abdomen and pelvis showed a right pleural effusion, and colonic diverticulosis. There is nothing to suggest asbestos involvement of the lung. The patient is seen today 06/03/2023 in follow-up on the regular medical floor. He is awake and alert in no acute distress. He is currently sitting up in a chair at the bedside. Denies any worsening shortness of breath, cough or congestion. He still has complaints of dyspnea on exertion function testing in our office. He does have stage III chronic obstructive pulmonary disease with an FEV1 value 39% of predicted. He also has restrictive lung disease. Extra pulmonary. Low total lung capacity but normal diffusion capacity. He is maintaining O2 saturations in the mid 90s on 3 L/m per nasal cannula. Temperature 97.3. Blood pressure stable. Ultrasound of the right chest revealed a 4.3 cm pocket. No plans for thoracentesis. His pro-calcitonin did come back at 0.21. He'll be initiated on Augmentin. Continue on DuoNeb inhalations, Court, Solu-Medrol. He remains on oral diuretics. Objective - Vital Signs Vital signs: Vital Signs Temp 97.6 F 06/03/23 01:35 Pulse 85 06/03/23 01:35 Resp 18 06/02/23 19:14 BP 137/71 06/03/23 01:35 Pulse Ox 95 06/03/23 01:35 FiO2 Intake & Output 06/02/23 06/03/23 06/03/23 18:59 06:59 18:59 Intake Total 236 Balance 236 Intake: Oral 236 Other: # Voids 1 1 - Exam GENERAL EXAM: Alert, obese, pleasant 78-year-old male, on 3 L nasal cannula, comfortable in no apparent distress. HEAD: Normocephalic. EYES: Normal reaction of pupils, equal size. NOSE: Clear with pink turbinates. THROAT: No erythema or exudates. NECK: No masses, no JVD. CHEST: No chest wall deformity. LUNGS: Equal air entry with faint crackles right lung base. CVS: S1 and S2 normal with no audible murmur, regular rhythm. ABDOMEN: No hepatosplenomegaly, normal bowel sounds, no guarding or rigidity. SPINE: No scoliosis or deformity SKIN: No rashes CENTRAL NERVOUS SYSTEM: No focal deficits, tone is normal in all 4 extremities. EXTREMITIES: There is no peripheral edema. No clubbing, no cyanosis. Peripheral pulses are intact. - Labs CBC & Chem 7: 06/02/23 06:55 06/02/23 06:55 Labs: Abnormal Lab Results - Last 24 Hours (Table) 06/02/23 06/02/23 06/02/23 Range/Units 06:55 06:55 06:55 Creatinine 1.36 H (0.66-1.25) mg/dL Glucose 205 H (74-99) mg/dL POC Glucose (mg/dL) (70-110) mg/dL Hemoglobin A1c 7.7 H (<=6.0) % Procalcitonin 0.21 H (0.02-0.09) ng/mL 06/02/23 06/02/23 06/02/23 Range/Units 12:25 17:30 20:19 Creatinine (0.66-1.25) mg/dL Glucose (74-99) mg/dL POC Glucose (mg/dL) 342 H 222 H 274 H (70-110) mg/dL Hemoglobin A1c (<=6.0) % Procalcitonin (0.02-0.09) ng/mL 06/03/23 Range/Units 06:23 Creatinine (0.66-1.25) mg/dL Glucose (74-99) mg/dL POC Glucose (mg/dL) 311 H (70-110) mg/dL Hemoglobin A1c (<=6.0) % Procalcitonin (0.02-0.09) ng/mL Assessment and Plan Assessment: Acute hypoxemic respiratory failure secondary to an acute exacerbation of chronic obstructive pulmonary disease. FEV1 value 39% of predicted Right-sided pleural effusion, injuring 4.3 cm. No plans for thoracentesis. Cannot rule out early pneumonia. Pro-calcitonin 0.21. Initiated on antibiotics History of CAD with previous stent placement 40 years of tobacco use History of diabetes mellitus History of hypertension History of hyperlipidemia History of glaucoma Morbid obesity with extra pulmonary restriction Plan: The patient was seen and evaluated Ultrasound of the chest, pulmonary function testing, labs and medications reviewed No plans for thoracentesis at this time Continue bronchodilators, steroids Initiate Augmentin Educated regarding the importance of weight loss Increase his exercise tolerance as tolerated May require home oxygen Probable discharge in the a.m. This patient was seen independently by the pulmonary nurse practitioner addressing pulmonary issues I have personally seen and examined the patient, performed the documentation and the assessment and plan as written. Number of minutes spent on the visit: 24.
[2023-06-03] MEDS: SYMBICORT 160-4.5 MCG INHALER INHALATION SCH ×2 (08:49→18:40)
[2023-06-03] MEDS: IPRATROPIUM-ALBUTEROL 3 ML NEB INHALATION SCH ×3 (08:49→18:40)
[2023-06-03] MEDS: cycloSPORINE 0.05% OPHTH 0.4 ML DROPERETTE BOTH EYES SCH ×2 (09:28→20:29)
[2023-06-03] MEDS: AMOXIC-POT CLAV 875-125MG 1 EACH TAB PO SCH ×2 (09:28→20:29)
[2023-06-03] MEDS: DAPAGLIFLOZIN PROPANEDIOL 5 MG TABLET PO SCH (09:28)
[2023-06-03] MEDS: TIMOLOL 0.5% OPHTH DROPS 5 ML BTL BOTH EYES SCH (09:30)
[2023-06-03 10:05] LABS: Basophils # (A) 0.02 X 10*3/uL (0.00-0.10); Basophils % (A) 0.2 %; Eosinophils # (A) 0 X 10*3/uL (0.04-0.35); Eosinophils % (A) 0 %; HCT 36.6 % (39.6-50.0); HGB 11.3 g/dL (13.0-17.0); Lymphocytes % (A) 4.8 %; MCH 28.3 pg (27.0-32.0); MCHC 30.9 g/dL (32.0-37.0); MCV 91.7 FL (80.0-97.0); Mean Platelet Volume 9.2 FL (9.5-12.2); Monocytes # (A) 0.34 X 10*3/uL (0.20-1.00); Monocytes % (A) 2.7 %; NRBC Per 100 WBC 0 X 10*3/uL (0.00-0.01); Neutrophils # (A) 11.54 X 10*3/uL (1.80-7.70); Neutrophils % (A) 91.8 %; Platelet Count 255 X 10*3/uL (140-440); RBC 3.99 X 10*6/uL (4.40-5.60); WBC 12.56 X 10*3/uL (4.50-10.00)
[2023-06-03 10:12] LABS: ALT 15 U/L (10-49); AST 11 U/L (14-35); Albumin 3.7 g/dL (3.8-4.9); Albumin/Globulin Ratio 1.23 Ratio (1.60-3.17); Alkaline Phosphatase 52 U/L (41-126); BUN/Creat Ratio 16.39 Ratio (12.00-20.00); Blood Urea Nitrogen 29.5 mg/dL (9.0-27.0); Calcium 8.5 mg/dL (8.7-10.3); Carbon Dioxide 24.3 mmol/L (21.6-31.8); Chloride 101 mmol/L (96-109); Glucose 301 mg/dL (70-110); Potassium 4.5 mmol/L (3.5-5.5); Sodium 137 mmol/L (135-145); Total Bilirubin 0.2 mg/dL (0.3-1.2); Total Protein 6.7 g/dL (6.2-8.2)
[2023-06-03 11:36] LABS: Glucose,Whole Blood 292 mg/dL (70-110)
--- NOTE | 2023-06-03 12:23 | PN ---
PROGRESS NOTE DATE OF SERVICE: 06/03/2023 SUBJECTIVE: This 78-year-old gentleman admitted with significant right pleural effusion being closely monitored at this time. The patient had exposure to asbestos as well. The patient also has acute hypoxic respiratory failure. The patient also has COPD, early pneumonia is also a consideration. Procalcitonin mildly elevated. PAST MEDICAL HISTORY: Reviewed. REVIEW OF SYSTEMS: A 14-point review is negative except as mentioned. CURRENT MEDICATIONS: Reviewed include aspirin, Augmentin. PHYSICAL EXAMINATION: VITAL SIGNS: Pulse 88, blood pressure 159/76, respirations 17. CHEST: Few scattered rhonchi and crackles in the right side. ABDOMEN: Soft. NERVOUS SYSTEM: Nonfocal. LABORATORY DATA: WBC 12.0, rest of the labs and chest x-ray reviewed personally. Blood sugars noted. ASSESSMENT: 1. Right pleural effusion, shortness of breath, rule out mesothelioma or asbestosis. 2. Pulmonary embolism ruled out. 3. Chronic obstructive pulmonary disease acute exacerbation with severe shortness of breath. 4. Possible pneumonia. 5. Elevated procalcitonin. 6. Skin infection of the left shoulder. 7. History of coronary artery disease. 8. Diabetes mellitus type 2. 9. History of recent pneumonia. RECOMMENDATIONS: Recommended to continue current management, continue symptomatic treatment, continue with bronchodilators. Continue with steroids. Continue with empiric antibiotics and monitor blood sugars closely. We will cut down the steroids today and closely follow with Pulmonary for possible thoracocentesis. We will repeat chest x-ray. Further recommendations to follow. MMODL / IJN: [id number] /
[2023-06-03] MEDS: TAMSULOSIN 0.4 MG CAP.ER.24H PO SCH (12:41)
[2023-06-03 16:01] VITALS: RESP 16
[2023-06-03 17:15] LABS: Glucose,Whole Blood 95 mg/dL (70-110)
[2023-06-03] MEDS: methylPREDNISolone SOD SUCCI 40 MG/ML 1 ML VIAL IV SCH (17:54)
[2023-06-03] MEDS: ATORVASTATIN 20 MG TAB PO SCH (17:55)
[2023-06-03 20:58] LABS: Glucose,Whole Blood 199 mg/dL (70-110)
[2023-06-03] MEDS: INSULIN DETEMIR (LEVEMIR) 100 UNIT/ML SYR SQ SCH (21:17)
[2023-06-04] MEDS: methylPREDNISolone SOD SUCCI 40 MG/ML 1 ML VIAL IV SCH ×2 (00:20→08:47)
[2023-06-04 06:37] LABS: Glucose,Whole Blood 311 mg/dL (70-110)
[2023-06-04] MEDS: amLODIPine 5 MG TAB PO SCH (06:39)
[2023-06-04] MEDS: ASPIRIN 81 MG PO SCH (06:39)
[2023-06-04] MEDS: FUROSEMIDE 40 MG TAB PO SCH (06:39)
[2023-06-04] MEDS: METOPROLOL TARTRATE 50 MG TAB PO SCH ×2 (06:39→12:36)
[2023-06-04] MEDS: PANTOPRAZOLE 40 MG TABLET PO SCH (06:39)
[2023-06-04] MEDS: POTASSIUM CHLORIDE ER 10 MEQ TAB.ER.PRT PO SCH (06:39)
[2023-06-04] MEDS: ISOSORBIDE MONONITRATE ER 30 MG TAB.ER.24H PO SCH (06:39)
[2023-06-04] MEDS: INSULIN ASPART (NovoLOG) 100 UNIT/ML VIAL SQ SCH ×5 (06:44→12:34)
[2023-06-04] MEDS: SYMBICORT 160-4.5 MCG INHALER INHALATION SCH (08:20)
[2023-06-04] MEDS: IPRATROPIUM-ALBUTEROL 3 ML NEB INHALATION SCH (08:20)
[2023-06-04 08:25] VITALS: TEMP 97.4
[2023-06-04] MEDS: AMOXIC-POT CLAV 875-125MG 1 EACH TAB PO SCH (08:47)
[2023-06-04] MEDS: DAPAGLIFLOZIN PROPANEDIOL 5 MG TABLET PO SCH (08:47)
[2023-06-04] MEDS: cycloSPORINE 0.05% OPHTH 0.4 ML DROPERETTE BOTH EYES SCH (08:47)
[2023-06-04] MEDS: TIMOLOL 0.5% OPHTH DROPS 5 ML BTL BOTH EYES SCH (08:48)
[2023-06-04] MEDS ORDERED: DULAGLUTIDE 0.75 MG/0.5 ML SQ SCH (09:00)
[2023-06-04 11:16] LABS: Basophils # (A) 0.01 X 10*3/uL (0.00-0.10); Basophils % (A) 0.1 %; Eosinophils # (A) 0 X 10*3/uL (0.04-0.35); Eosinophils % (A) 0 %; HCT 38.3 % (39.6-50.0); HGB 11.4 g/dL (13.0-17.0); Lymphocytes # (A) 0.58 X 10*3/uL (0.90-5.00); MCH 27.8 pg (27.0-32.0); MCHC 29.8 g/dL (32.0-37.0); MCV 93.4 FL (80.0-97.0); Mean Platelet Volume 9.1 FL (9.5-12.2); Monocytes % (A) 3.4 %; NRBC Per 100 WBC 0 X 10*3/uL (0.00-0.01); Neutrophils # (A) 10.49 X 10*3/uL (1.80-7.70); Neutrophils % (A) 90.5 %; Platelet Count 298 X 10*3/uL (140-440); RDW 16.2 % (11.5-14.5)
[2023-06-04 11:24] LABS: BUN/Creat Ratio 22.06 Ratio (12.00-20.00); Blood Urea Nitrogen 39.7 mg/dL (9.0-27.0); Calcium 8.4 mg/dL (8.7-10.3); Carbon Dioxide 22.5 mmol/L (21.6-31.8); Chloride 100 mmol/L (96-109); Glucose 311 mg/dL (70-110); Potassium 4.8 mmol/L (3.5-5.5); Sodium 137 mmol/L (135-145)
[2023-06-04 12:15] LABS: Glucose,Whole Blood 75 mg/dL (70-110)
[2023-06-04] MEDS: TAMSULOSIN 0.4 MG CAP.ER.24H PO SCH (12:36)
[2023-06-04 12:48] VITALS: BP 143/66
--- NOTE | 2023-06-04 14:04 | P.PN ---
Subjective Progress Note Date: 06/04/23 78-year-old male seen in the emergency department, after see my partner in the office. The patient apparently is been complaining of shortness of breath for some time, without a clear-cut diagnosis. Currently, he's seen in room 629. The patient does have a right-sided pleural effusion. He short of breath on exertion. He did smoke for 40 years, though he does not smoke currently. He did work at the [employer], and apparently was exposed to asbestos. The patient has a history of coronary disease, diabetes, hearing disorder, hypertension, DJD, glaucoma, and previous stent placement. White count 9, hemoglobin 12.6, hematocrit 41.2, and platelet count 281,000. Sodium 140, potassium 4.1, chlorides 101, CO2 24, BUN and creatinine were 19 and 1.36 respectively. Chest x-ray shows changes of cardiomegaly, and a small right- sided effusion, with adjacent atelectasis. The perfusion lung scan was very low probability for pulmonary embolism. Computed tomography scan of the chest abdomen and pelvis showed a right pleural effusion, and colonic diverticulosis. There is nothing to suggest asbestos involvement of the lung. The patient is seen today 06/03/2023 in follow-up on the regular medical floor. He is awake and alert in no acute distress. He is currently sitting up in a chair at the bedside. Denies any worsening shortness of breath, cough or congestion. He still has complaints of dyspnea on exertion function testing in our office. He does have stage III chronic obstructive pulmonary disease with an FEV1 value 39% of predicted. He also has restrictive lung disease. Extra pulmonary. Low total lung capacity but normal diffusion capacity. He is maintaining O2 saturations in the mid 90s on 3 L/m per nasal cannula. Temperature 97.3. Blood pressure stable. Ultrasound of the right chest revealed a 4.3 cm pocket. No plans for thoracentesis. His pro-calcitonin did come back at 0.21. He'll be initiated on Augmentin. Continue on DuoNeb inhalations, Court, Solu-Medrol. He remains on oral diuretics. On today's evaluation of 06/04/2023, the patient is sitting up on a chair and the patient very much, comfortable. As noted, the patient is small loculated right-sided pleural effusion. Repeat chest x-ray shows stable findings. I think the fluid is small and I do not see the need for immediate thoracentesis at this point in time. The patient's pro-calcitonin level was at 0.21 and this is most likely parapneumonic effusion. The patient is currently on antibiotics. He continues to be on DuoNeb updrafts and IV Solu-Medrol. He denies having any chest pain. No pleurisy. No hemoptysis. No other complaints otherwise.In terms of his blood work, the physical 11.6, hemoglobin 11.4 and a platelet count is 298. BUN is at 39 with a creatinine of 1.8 and sodium levels of 137. Objective - Vital Signs Vital signs: Vital Signs Temp 97.4 F L 06/04/23 07:00 Pulse 85 06/04/23 08:32 Resp 16 06/04/23 07:00 BP 162/81 06/04/23 07:00 Pulse Ox 93 L 06/04/23 11:22 FiO2 Intake & Output 06/03/23 06/04/23 06/04/23 18:59 06:59 18:59 Intake Total 714 420 Balance 714 420 Intake: Oral 714 420 Other: # Voids 5 1 # Bowel Movements 1 - Exam GENERAL EXAM: Alert, obese, pleasant 78-year-old male, on room air oxygen and on enough is going back on nasal cannula between 2 and 3 L/m is cannula. HEAD: Normocephalic. EYES: Normal reaction of pupils, equal size. NOSE: Clear with pink turbinates. THROAT: No erythema or exudates. NECK: No masses, no JVD. CHEST: No chest wall deformity. LUNGS: Equal air entry with faint crackles right lung base. CVS: S1 and S2 normal with no audible murmur, regular rhythm. ABDOMEN: No hepatosplenomegaly, normal bowel sounds, no guarding or rigidity. SPINE: No scoliosis or deformity SKIN: No rashes CENTRAL NERVOUS SYSTEM: No focal deficits, tone is normal in all 4 extremities. EXTREMITIES: There is no peripheral edema. No clubbing, no cyanosis. Pe ripheral pulses are intact. - Labs CBC & Chem 7: 06/04/23 06:48 06/04/23 06:48 Labs: Abnormal Lab Results - Last 24 Hours (Table) 06/03/23 06/04/23 06/04/23 Range/Units 20:57 06:36 06:48 WBC 11.60 H (4.50-10.00) X 10*3/uL RBC 4.10 L (4.40-5.60) X 10*6/uL Hgb 11.4 L (13.0-17.0) g/dL Hct 38.3 L (39.6-50.0) % MCHC 29.8 L (32.0-37.0) g/dL RDW 16.2 H (11.5-14.5) % MPV 9.1 L (9.5-12.2) FL Immature Gran # 0.12 H (0.00-0.04) X 10*3/uL Neutrophils # 10.49 H (1.80-7.70) X 10*3/uL Lymphocytes # 0.58 L (0.90-5.00) X 10*3/uL Eosinophils # 0 L (0.04-0.35) X 10*3/uL Anion Gap (4.00-12.00) mmol/L BUN (9.0-27.0) mg/dL Creatinine (0.6-1.5) mg/dL Est GFR (CKD-EPI) (>=60) BUN/Creatinine Ratio (12.00-20.00) Ratio Glucose (70-110) mg/dL POC Glucose (mg/dL) 199 H 311 H (70-110) mg/dL Calcium (8.7-10.3) mg/dL 06/04/23 Range/Units 06:48 WBC (4.50-10.00) X 10*3/uL RBC (4.40-5.60) X 10*6/uL Hgb (13.0-17.0) g/dL Hct (39.6-50.0) % MCHC (32.0-37.0) g/dL RDW (11.5-14.5) % MPV (9.5-12.2) FL Immature Gran # (0.00-0.04) X 10*3/uL Neutrophils # (1.80-7.70) X 10*3/uL Lymphocytes # (0.90-5.00) X 10*3/uL Eosinophils # (0.04-0.35) X 10*3/uL Anion Gap 14.50 H (4.00-12.00) mmol/L BUN 39.7 H (9.0-27.0) mg/dL Creatinine 1.8 H (0.6-1.5) mg/dL Est GFR (CKD-EPI) 38 L (>=60) BUN/Creatinine Ratio 22.06 H (12.00-20.00) Ratio Glucose 311 H (70-110) mg/dL POC Glucose (mg/dL) (70-110) mg/dL Calcium 8.4 L (8.7-10.3) mg/dL Assessment and Plan Plan: Acute hypoxemic respiratory failure secondary to an acute exacerbation of chronic obstructive pulmonary disease. FEV1 value 39% of predicted, currently stable, patient is stable and the patient is a 2 and 3 L although at times is also taken off his oxygen is able to maintain a pulse ox above 90%. He continues to desaturate with activity. Right-sided pleural effusion, injuring 4.3 cm. No plans for thoracentesis. Is most likely a parapneumonic effusion, small, somewhat loculated. Pro-calcitonin 0.21. The patient was given antibiotics and the patient is currently on Augmentin. No pleurisy. No signs of anyinfection at this point in time. History of CAD with previous stent placement 40 years of tobacco use History of diabetes mellitus History of hypertension History of hyperlipidemia History of glaucoma Morbid obesity with extra pulmonary restriction Plan: I agree to the affected the pleural fluid is small and the risk- of performing a thoracentesis on the basis of benefit. The patient ultimately responded to antibiotics and I do recommend outpatient follow-up on his chest x-ray. The fluid itself remains stable on today's chest x-ray. As such, No plans for thoracentesis at this time Continue bronchodilators, steroids, the patient can be tapered to prednisone burst taper Date a seven-day course of Augmentin Educated regarding the importance of weight loss Increase his exercise tolerance as tolerated May require home oxygen, evaluate for home O2 Probable discharge in the a.m.
[2023-06-04 14:49] VITALS: PULSE 80
--- NOTE | 2023-06-09 12:06 | P.DS ---
Providers Date of admission: 06/01/23 13:14 Expected date of discharge: 06/04/23 Attending physician: Phil Hickey Consults: 06/01/23 13:08 Consult Physician Urgent Consulting Provider: Abiodun Samaniego Reason/Comments: hypoxic resp failure, pleural effusion Do you want consulting provider notified?: Yes Primary care physician: Court Joseph Hospital Course: Final diagnosis Acute hypoxic respiratory failure, multifactorial, likely secondary right pleural effusion as well as COPD exacerbation Pulmonary embolism ruled out Chronic obstructive pulmonary disease acute exacerbation with severe shortness of breath Pneumonia, ruled out Skin infection of the left shoulder follow-up with dermatology outpatient History of coronary artery disease Diabetes mellitus, type II History of recent pneumonia Obesity with a BMI of 39.5 GI prophylaxis DVT prophylaxis Full code Discharge disposition Patient is being discharged in a stable condition with guarded prognosis to home. Patient will follow-up with Dr. Joseph in the outpatient setting upon discharge. Patient is to continue with prednisone taper and antibiotics and outpatient follow-up with pulmonary as scheduled. Total time taken is greater than 35 minutes. 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 Discussion of possible thoracentesis. After further evaluation with Dr. Hernandez effusion felt to be too small versus the risk and patient will continue on prednisone taper as well as antibiotic and close outpatient follow- up with Dr. Joseph. Patient was evaluated for home oxygen although does not qualify maintain oxygen saturations above 90% on room air. Patient will continue on oral Augmentin along with prednisone taper on discharge. Currently no reports of chest pain, shortness of breath, or palpitations. Patient is afebrile. No reports of nausea or vomiting and patient is tolerating diet. Patient will be discharged home today. Guarded prognosis Physical exam: Gen: This is a 78-year-old male who is awake, alert and oriented 3, well- developed, well-nourished, obese HEENT: Head is atraumatic, normocephalic. Pupils equal, round. Sclerae is anicteric. NECK: Supple. No JVD. No lymphadenopathy. No thyromegaly. LUNGS: Breath sounds diminished bilaterally otherwise Clear to auscultation. No wheezes or rhonchi. No intercostal retractions. HEART: Regular rate and rhythm. No murmur. ABDOMEN: Soft. Bowel sounds are present. No masses. No tenderness. EXTREMITIES: No pedal edema. No calf tenderness. NEUROLOGICAL: Patient is awake, alert and oriented x3. Cranial nerves 2 through 12 are grossly intact. Please refer to medication reconciliation sheet for a list of medications. The impression and plan of care has been dictated by Nurse Rosa Maria Buenrostro as directed. Dr. Teo MD I have performed a history and examination and MDM of this patient, discussed the same with the dictator, and agree with the dictator's assessment and plan as written ,documented as a scribe. Based on total visit time, I have performed more than 50% of the visit. Patient Condition at Discharge: Stable Plan - Discharge Summary Discharge Rx Participant: No New Discharge Prescriptions: New Budesonide-Formot 160-4.5 Mcg [Symbicort 160-4.5 Mcg Inhaler] 2 puff INH ALATION RT-BID #100 each predniSONE 10 mg PO DIRECTED #30 tab Amoxic-Pot Clav 875-125Mg [Augmentin 875-125] 1 each PO Q12HR 7 Days #14 tab Continue Aspirin [Adult Low Dose Aspirin EC] 81 mg PO W/BRKFST Potassium Chloride ER [K-Dur 10] 10 meq PO BID-W/MEALS Rosuvastatin [Crestor] 10 mg PO PC-SUPPER Fenofibrate Nanocrystallized [Fenofibrate] 145 mg PO Q2D@1800 Timolol 0.5% Ophth Soln [Timoptic 0.5% Ophth Soln] 1 drop BOTH EYES DAILY Dulaglutide [Trulicity] 1.5 mg SQ MO Insulin Glargine,Hum.rec.anlog [Toujeo Solostar] 50 units SQ HS Furosemide [Lasix] 40 mg PO W/BRKFST Tamsulosin [Flomax] 0.4 mg PO W/LUNCH amLODIPine [Norvasc] 5 mg PO BID-W/MEALS Isosorbide Mononitrate ER [Imdur] 30 mg PO W/BRKFST INSULIN LISPRO (humaLOG) [humaLOG] See Protocol SQ ACHS Albuterol Inhaler [Ventolin Hfa Inhaler] 2 puff INHALATION RT-QID INSULIN LISPRO (humaLOG) [humaLOG] 35 units SQ AC-BRKFST@0900 Metoprolol Tartrate [Lopressor] 100 mg PO W/BRKFST Empagliflozin [Jardiance] 10 mg PO DAILY cycloSPORINE 0.05% OPHTH SOLN [Restasis] 1 drop BOTH EYES BID Nitroglycerin Sl Tabs [Nitrostat] 0.4 mg SL Q5M PRN PRN Reason: Chest Pain Metoprolol Tartrate [Lopressor] 50 mg PO AC-BID@1200,1800 polyethylene glycoL 3350 [Miralax] 17 gm PO DAILY PRN PRN Reason: Constipation Clopidogrel [Plavix] 75 mg PO W/LUNCH INSULIN LISPRO (HumaLOG) [humaLOG] 30 units SQ AC-TID@0630,13,17 Discharge Medication List Aspirin [Adult Low Dose Aspirin EC] 81 mg PO W/BRKFST 02/05/18 [History] Potassium Chloride ER [K-Dur 10] 10 meq PO BID-W/MEALS 02/05/18 [History] Rosuvastatin [Crestor] 10 mg PO PC-SUPPER 02/05/18 [History] Fenofibrate Nanocrystallized [Fenofibrate] 145 mg PO Q2D@1800 02/28/18 [History] Dulaglutide [Trulicity] 1.5 mg SQ MO 05/05/20 [History] Timolol 0.5% Ophth Soln [Timoptic 0.5% Ophth Soln] 1 drop BOTH EYES DAILY 05/05/20 [History] Metoprolol Tartrate [Lopressor] 100 mg PO W/BRKFST 01/18/22 [History] Insulin Glargine,Hum.rec.anlog [Toujeo Solostar] 50 units SQ HS 05/12/22 [History] Empagliflozin [Jardiance] 10 mg PO DAILY 11/23/22 [History] Furosemide [Lasix] 40 mg PO W/BRKFST 11/23/22 [History] Clopidogrel [Plavix] 75 mg PO W/LUNCH 05/03/23 [History] Isosorbide Mononitrate ER [Imdur] 30 mg PO W/BRKFST 05/03/23 [History] Metoprolol Tartrate [Lopressor] 50 mg PO AC-BID@1200,1800 05/03/23 [History] Nitroglycerin Sl Tabs [Nitrostat] 0.4 mg SL Q5M PRN 05/03/23 [History] Tamsulosin [Flomax] 0.4 mg PO W/LUNCH 05/03/23 [History] amLODIPine [Norvasc] 5 mg PO BID-W/MEALS 05/03/23 [History] cycloSPORINE 0.05% OPHTH SOLN [Restasis] 1 drop BOTH EYES BID 05/03/23 [History] polyethylene glycoL 3350 [Miralax] 17 gm PO DAILY PRN 05/03/23 [History] Albuterol Inhaler [Ventolin Hfa Inhaler] 2 puff INHALATION RT-QID 06/01/23 [History] INSULIN LISPRO (HumaLOG) [humaLOG] 30 units SQ AC-TID@0630,13,17 06/01/23 [History] INSULIN LISPRO (humaLOG) [humaLOG] 35 units SQ AC-BRKFST@0900 06/01/23 [History] INSULIN LISPRO (humaLOG) [humaLOG] See Protocol SQ ACHS 06/01/23 [History] Amoxic-Pot Clav 875-125Mg [Augmentin 875-125] 1 each PO Q12HR 7 Days #14 tab 06/04/23 [Rx] Budesonide-Formot 160-4.5 Mcg [Symbicort 160-4.5 Mcg Inhaler] 2 puff INHALATION RT-BID #100 each 06/04/23 [Rx] predniSONE 10 mg PO DIRECTED #30 tab 06/04/23 [Rx] Follow up Appointment(s)/Referral(s): Court Joseph MD [Primary Care Provider] - 06/07/23 9:00 am Patient Instructions/Handouts: Pleural Effusion (DC) Activity/Diet/Wound Care/Special Instructions: Very limited until follow-up Follow-up with primary care/pulmonary outpatient Continue taking medications as prescribed Discharge Disposition: HOME SELF-CARE
--- NOTE | 2023-06-14 13:16 | XR ---
EXAMINATION TYPE: XR chest 1V portable DATE OF EXAM: 06/04/2023 9:28 AM CLINICAL INDICATION:Male, 78 years old with history of rt pl effusion; [facility] COMPARISON: Chest radiographs from TECHNIQUE: XR chest 1V portable Frontal view of the chest. FINDINGS: Lungs/Pleura: No evidence of focal consolidation or pneumothorax. Right pleural effusion is not signi ficantly changed from 06/01/2023. Pulmonary vascularity: Pulmonary vascular congestion. Heart/mediastinum: Cardiomediastinal silhouette is enlarged and stable. Musculoskeletal: No acute osseous pathology. IMPRESSION: Cardiomegaly with right pleural effusion, not significantly changed from 06/01/2023.
== END 2023-06-04 15:03 | disposition home or self-care (01) | DRG 190 ==
LOC: EC 09:52 → 6NMEDSUR 13:13 → OBSVTOIN 13:14 → 6NMEDSUR 16:17
PROVIDERS: ADMIT Internal Medicine; ATTEND Internal Medicine
DX: J44.1 Chronic obstructive pulmonary disease with (acute) exacerbation (principal); J96.01 Acute respiratory failure with hypoxia; J90 Pleural effusion, not elsewhere classified; E66.01 Morbid (severe) obesity due to excess calories; E78.5 Hyperlipidemia, unspecified; H91.90 Unspecified hearing loss, unspecified ear; I25.10 Atherosclerotic heart disease of native coronary artery without angina pectoris; Z68.39 Body mass index [BMI] 39.0-39.9, adult; K57.30 Diverticulosis of large intestine without perforation or abscess without bleeding; M19.90 Unspecified osteoarthritis, unspecified site; E11.9 Type 2 diabetes mellitus without complications; L08.9 Local infection of the skin and subcutaneous tissue, unspecified; Z77.090 Contact with and (suspected) exposure to asbestos; Z79.51 Long term (current) use of inhaled steroids; Z79.82 Long term (current) use of aspirin; Z79.84 Long term (current) use of oral hypoglycemic drugs; Z79.899 Other long term (current) drug therapy; Z80.0 Family history of malignant neoplasm of digestive organs; Z95.5 Presence of coronary angioplasty implant and graft; Z87.01 Personal history of pneumonia (recurrent); Z79.4 Long term (current) use of insulin; Z88.8 Allergy status to other drugs, medicaments and biological substances; Z98.42 Cataract extraction status, left eye; Z98.41 Cataract extraction status, right eye
CPT/HCPCS: 36415; 71045; 71046; 71250; 74176; 76604; 78582; 80048; 80053; 83036; 83605; 83880; 84145; 84484; 85025; 85610; 85730; 93005; 94640; 99285

== ENCOUNTER 2023-07-02 17:23 | Inpatient (IN) | payer MEDICARE ==
[2023-07-02 18:21] LABS: Anisocytosis Slight; Basophils # (A) 0.1 k/uL (0-0.2); Basophils % (A) 1 %; Eosinophils # (A) 0.2 k/uL (0-0.7); Eosinophils % (A) 3 %; HCT 40.4 % (39.0-53.0); HGB 12.5 gm/dL (13.0-17.5); Hypochromasia Moderate; Lymphocytes # (A) 1.4 k/uL (1.0-4.8); Lymphocytes % (A) 17 %; MCH 28.6 pg (25.0-35.0); MCHC 31.1 g/dL (31.0-37.0); Mean Platelet Volume 7.2; Monocytes # (A) 0.4 k/uL (0-1.0); Monocytes % (A) 5 %; Neutrophils # (A) 5.7 k/uL (1.3-7.7); Neutrophils % (A) 73 %; Platelet Count 422 k/uL (150-450); RBC 4.38 m/uL (4.30-5.90); RDW 16.7 % (11.5-15.5); WBC 7.8 k/uL (3.8-10.6)
[2023-07-02 18:46] LABS: INR 0.9 (<1.2); Partial Thromboplastin Time 24.6 sec (22.0-30.0); Prothrombin Time 10.5 sec (10.0-12.5)
--- NOTE | 2023-07-02 19:09 | XR ---
EXAMINATION TYPE: XR chest 2V DATE OF EXAM: 07/02/2023 COMPARISON: 06/01/2023 HISTORY: Difficulty breathing TECHNIQUE: Frontal and lateral views of the chest are obtained. FINDINGS: There is a persistent moderate right pleural effusion and a small left pleural effusion which has inc reased in the interval. The heart is normal for the technique. The pulmonary vasculature is not grossly congested. There is no consolidative/airspace opacity. There is no pneumothorax. The osseous structures are intact IMPRESSION: Acute cardiopulmonary disease with mild interval worsening in the left hemithorax as davonte cribed above.
[2023-07-02 19:34] LABS: ALT 11 U/L (4-49); AST 14 U/L (17-59); African American GFR (CKD) 44 (>60 ml/min/1.73 sqM); Albumin 3.5 g/dL (3.5-5.0); Alkaline Phosphatase 56 U/L (38-126); Anion Gap 7 mmol/L; Blood Urea Nitrogen 27 mg/dL (9-20); Calcium 8.5 mg/dL (8.4-10.2); Carbon Dioxide 28 mmol/L (22-30); Chloride 104 mmol/L (98-107); Glucose 249 mg/dL (74-99); Magnesium 2.2 mg/dL (1.6-2.3); Non-African American GFR(CKD) 38 (>60 ml/min/1.73 sqM); Potassium 4.4 mmol/L (3.5-5.1); Sodium 139 mmol/L (137-145); Total Bilirubin 0.5 mg/dL (0.2-1.3); Total Protein 6.6 g/dL (6.3-8.2)
[2023-07-02 19:42] LABS: NT-Pro-B-Type Natriuretic Pept 1320 pg/mL
[2023-07-02] MEDS: IPRATROPIUM-ALBUTEROL 3 ML NEB INHALATION STA ×2 (19:52)
--- NOTE | 2023-07-02 20:26 | ED ---
General Adult HPI - General Chief complaint: Shortness of Breath Stated complaint: COBY Time Seen by Provider: 07/02/23 17:40 Source: patient, family, RN notes reviewed, old records reviewed Mode of arrival: ambulatory Limitations: no limitations - History of Present Illness Initial comments: Patient is a 78-year-old male with past medical history markable for prior tobacco use, CAD, diabetes, hypertension, pleural effusions who presents emergency department for near identical complaints this is prior to admissions. States he has been feeling more short of breath over the last few weeks since discharge. Was discharged home on antibiotics, inhaler, steroids. States he initially felt better but once the steroids were out, patient began experiencing shortness of breath, and similar complaints as previous. He has a pulse ox at home and over the last few weeks has been satting anywhere from upper 70s to low 90%. Was not discharged home on oxygen. States this is very similar to when he was evaluated back in May as well as April. Workups at that time basically consisted of cardiopulmonary workup as well as a VQ scan which was probability of PE. Presents for further evaluation at this time.Denies any significant cough. Denies any worsening lower extremity edema.States he becomes more short of breath with any type of activity. Improves at rest. - Related Data Home Medications Medication Instructions Recorded Confirmed Aspirin [Adult Low Dose Aspirin EC] 81 mg PO W/BRKFST 02/05/18 07/02/23 Potassium Chloride ER [K-Dur 10] 10 meq PO BID-W/MEALS 02/05/18 07/02/23 Rosuvastatin [Crestor] 10 mg PO PC-SUPPER 02/05/18 07/02/23 Fenofibrate Nanocrystallized 145 mg PO Q2D@1800 02/28/18 07/02/23 [Fenofibrate] Dulaglutide [Trulicity] 1.5 mg SQ MO 05/05/20 07/02/23 Timolol 0.5% Ophth Soln [Timoptic 1 drop BOTH EYES DAILY 05/05/20 07/02/23 0.5% Ophth Soln] Metoprolol Tartrate [Lopressor] 100 mg PO W/BRKFST 01/18/22 07/02/23 Insulin Glargine,Hum.rec.anlog 50 units SQ HS 05/12/22 07/02/23 [Julio Milian] Empagliflozin [Jardiance] 10 mg PO DAILY 11/23/22 07/02/23 Furosemide [Lasix] 40 mg PO W/BRKFST 11/23/22 07/02/23 Clopidogrel [Plavix] 75 mg PO W/LUNCH 05/03/23 07/02/23 Isosorbide Mononitrate ER [Imdur] 30 mg PO W/BRKFST 05/03/23 07/02/23 Metoprolol Tartrate [Lopressor] 50 mg PO AC-BID@1200,1800 05/03/23 07/02/23 Nitroglycerin Sl Tabs [Nitrostat] 0.4 mg SL Q5M PRN 05/03/23 07/02/23 Tamsulosin [Flomax] 0.4 mg PO W/LUNCH 05/03/23 07/02/23 amLODIPine [Norvasc] 5 mg PO BID-W/MEALS 05/03/23 07/02/23 cycloSPORINE 0.05% OPHTH SOLN 1 drop BOTH EYES BID 05/03/23 07/02/23 [Restasis] polyethylene glycoL 3350 [Miralax] 17 gm PO DAILY PRN 05/03/23 07/02/23 Albuterol Inhaler [Ventolin Hfa 2 puff INHALATION RT-QID 06/01/23 07/02/23 Inhaler] INSULIN LISPRO (HumaLOG) [humaLOG] 30 units SQ AC-TID@0630,13,17 06/01/23 07/02/23 INSULIN LISPRO (humaLOG) [humaLOG] 35 units SQ AC-BRKFST@0900 06/01/23 07/02/23 INSULIN LISPRO (humaLOG) [humaLOG] See Protocol SQ ACHS 06/01/23 07/02/23 Losartan [Cozaar] 25 mg PO DAILY 07/02/23 07/02/23 Previous Rx's Medication Instructions Recorded Budesonide-Formot 160-4.5 Mcg 2 puff INHALATION RT-BID #100 each 06/04/23 [Symbicort 160-4.5 Mcg Inhaler] Allergies Allergy/AdvReac Type Severity Reaction Status Date / Time cyclobenzaprine Allergy Itching Verified 07/02/23 20:31 [From Flexeril] Review of Systems ROS Statement: Those systems with pertinent positive or pertinent negative responses have been documented in the HPI. Review of Systems: CONST: Denies fever EYES: Denies blurry vision ENT: Denies nasal congestion C/V: Denies Chest pain RESP: Endorses shortness of breath GI: Denies abdominal pain : Denies dysuria SKIN: Denies rash. MSK: Denies joint pain. NEURO: Denies headache ROS Other: All systems not noted in ROS Statement are negative. Past Medical History Past Medical History: Coronary Artery Disease (CAD), Diabetes Mellitus, Eye Disorder, Hearing Disorder / Deafness, Hypertension, Osteoarthritis (OA) Additional Past Medical History / Comment(s): GLAUCOMA. Hard of hearing. pt is on water pill but was never told he has CHF. History of Any Multi-Drug Resistant Organisms: None Reported Past Surgical History: Heart Catheterization With Stent, Orthopedic Surgery Additional Past Surgical History / Comment(s): Right knee arthroscopy, bilateral cataract surgery, 5 cardiac stents, pain clinic procedure. Past Anesthesia/Blood Transfusion Reactions: Previous Problems w/ Anesthesia Additional Past Anesthesia/Blood Transfusion Reaction / Comment(s): states pt has letter from previous knee surgery in 2010 that indicates that Erasto was a difficult intubation with difficult airway anterior. Date of Last Stent Placement:: 04/2019 Past Psychological History: No Psychological Hx Reported Smoking Status: Former smoker Past Alcohol Use History: None Reported Past Drug Use History: None Reported - Past Family History Mother Family Medical History: Cancer Additional Family Medical History / Comment(s): Stomach cancer. Father Family Medical History: CVA/TIA General Exam - General Exam Comments Initial Comments: General: Appears in no acute distress. HEAD: Normal with no signs of head trauma. EYES: PERRLA, EOMI, conjunctiva normal, no discharge. ENT: Hearing grossly intact, normal oropharynx. RESPIRATORY: Somewhat coarse and mildly wheezy breath sounds bilaterally. Reduced breath sounds in bilateral lung bases. Hypoxic in triage at 72%. Normoxic on 4 to 5 L nasal cannula oxygen between 93 to 95%. No significant i ncreased work of breathing. C/V: Regular rate and rhythm. S1 and S2 auscultated, symmetric lower extremity edema, peripheral pulses 2+ and intact throughout ABD: Abd is soft, nontender, nondistended EXT: Normal range of motion, no obvious deformity SKIN: No rashes or lesions observed on exposed skin. NEURO: Alert and oriented x 4. Limitations: no limitations Course Vital Signs 07/02/23 07/02/23 07/02/23 17:24 17:41 17:53 Temperature 98.1 F Pulse Rate 89 Respiratory 16 22 Rate Blood Pressure 150/75 O2 Sat by Pulse 72 L 93 L Oximetry 07/02/23 07/02/23 07/02/23 19:53 20:00 20:11 Temperature Pulse Rate 84 86 78 Respiratory 19 Rate Blood Pressure 144/72 O2 Sat by Pulse 95 Oximetry Medical Decision Making - Medical Decision Making Was pt. sent in by a medical professional or institution (, PA, ENGLISH FACULTY MEMBER, urgent care, hospital, or longterm...) When possible be specific @ -No Did you speak to anyone other than the patient for history (EMS, parent, family, police, friend...)? What history was obtained from this source @ -Patient's who assisted with patient's history. Did you review nursing and triage notes (agree or disagree)? Why? @ -I reviewed and agree with nursing and triage notes Were old charts reviewed (outside hosp., previous admission, EMS record, old EKG, old radiological studies, urgent care reports/EKG's, longterm records)? Report findings @ -Old charts reviewed Differential Diagnosis (chest pain, altered mental status, abdominal pain women, abdominal pain men, vaginal bleeding, weakness, fever, dyspnea, syncope, headache, dizziness, GI bleed, back pain, seizure, CVA, palpatations, mental health, musculoskeletal)? @ -Differential Dyspnea: Coronary syndrome, arrhythmia, tamponade, asthma, COPD, pulmonary embolism, pneumonia, pneumothorax, pulmonary effusion, anaphylaxis, diabetic ketoacidosis, flailed chest, pulmonary contusion, diaphragmatic rupture, anemia, neuromuscular, this is not meant to be an all-inclusive list. EKG interpreted by me (3pts min.). @ -As above X-rays interpreted by me (1pt min.). @ -Chest x-ray shows worsening left sided pleural effusion as well as the known chronic right-sided pleural effusion. CT interpreted by me (1pt min.). @ -None done U/S interpreted by me (1pt. min.). @ -None done What testing was considered but not performed or refused? (CT, X-rays, U/S, labs)? Why? @ -Considered CT however patient recently had full workup for identical complaints including VQ scan and CT imaging which yielded no significant results. Symptoms have basically, per patient, been a continuation since discharge. What meds were considered but not given or refused? Why? @ -None Did you discuss the management of the patient with other professionals (professionals i.e. , PA, ENGLISH FACULTY MEMBER, lab, RT, psych nurse, social economist, administrative judge, teacher, department of natural resources officer, case coordinator)? Give summary @ -Spoke with Dr. Virk who accepted the admission and was in agreement the plan. We will consult pulmonology. Agreed with deferring any PE workup at this time concerning worsening left-sided pleural effusion, as well as the chronicity of his symptoms with normal workup on prior admission. Was smoking cessation discussed for >3mins.? @ -No Was critical care preformed (if so, how long)? @ -Yes, 35 minutes Were there social determinants of health that impacted care today? How? (Homelessness, low income, unemployed, alcoholism, drug addiction, transportation, low edu. Level, literacy, decrease access to med. care, snf, rehab)? @ -No Was there de-escalation of care discussed even if they declined (Discuss DNR or withdrawal of care, Hospice)? DNR status @ -No What co-morbidities impacted this encounter? (DM, HTN, Smoking, COPD, CAD, Cancer, CVA, ARF, Chemo, Hep., AIDS, mental health diagnosis, sleep apnea, morbid obesity)? @ -Chronic dyspnea Was patient admitted / discharged? Hospital course, mention meds given and route , prescriptions, significant lab abnormalities, going to OR and other pertinent info. @ -Based on the patient's presentation and physical exam, presents complaining of dyspnea. Has been basically continuous since discharge last month for identical complaints in which she was worked up thoroughly and diagnosed with a parapneumonic effusion and placed on breathing treatments, steroids and antibiot ics and sent home. Vital signs have been within acceptable limits. States that the breathing treatments and steroids seem to help him at home however he continued having intermittent hypoxia. States that he has been monitoring his oxygen since discharge and has been varying between 70 and 90%. Presents for reevaluation as his shortness of breath seems to have gotten somewhat worse over the last few days. It has however been present since discharge per patient. Vital signs remarkable for hypoxia, improved on 5 L nasal cannula. Remainder the vital signs within acceptable limits. Patient be symptomatically treated with IV steroids and breathing treatments as this seemed to help him previously. We will also obtain cardiopulmonary workup. Patient in agreement this plan. EKG showed no signs of acute ischemia. Patient's laboratory studies unremarkable including normal lactic acid. BNP is not significantly elevated for the patient's age. Troponin undetectable. Viral swabs negative. Chest x- ray shows worsening left pleural effusion as well as the known right pleural effusion. Right pleural effusion is moderate in size. I discussed the results with the patient. He does feel somewhat improved following treatments however still requiring oxygen. Patient will be admitted a t this time. He was in agreement this plan. Pulmonology will be consulted. I spoke with the admitting physician, Dr. Virk accepted the patient. As stated above, we did discuss working up for PE however as the patient does have obvious worsening pleural effusion as well as the prior negative workup for PE with basically continuation of symptoms he was in agreement with deferring at this time. Will continue with breathing treatments and steroids for the time being. Home meds will be reordered. Undiagnosed new problem with uncertain prognosis? @ -No Drug Therapy requiring intensive monitoring for toxicity (Heparin, Nitro, Insulin, Cardizem)? @ -No Were any procedures done? @ -No Diagnosis/symptom? @ -Hypoxic respiratory failure, pleural effusions, suspect COPD Acute, or Chronic, or Acute on Chronic? @ -Acute Uncomplicated (without systemic symptoms) or Complicated (systemic symptoms)? @ -Complicated Side effects of treatment? @ -No Exacerbation, Progression, or Severe Exacerbation? @ -No Poses a threat to life or bodily function? How? (Chest pain, [place], MA, pneumonia, PE, COPD, DKA, ARF, appy, cholecystitis, CVA, Diverticulitis, Homicidal, Suicidal, threat to staff... and all critical care pts) @ -Yes - Lab Data Result diagrams: 07/02/23 17:56 07/02/23 19:06 Lab Results 07/02/23 07/02/23 07/02/23 Range/Units 17:56 17:56 17:56 WBC 7.8 (3.8-10.6) k/uL RBC 4.38 (4.30-5.90) m/uL Hgb 12.5 L (13.0-17.5) gm/dL Hct 40.4 (39.0-53.0) % MCV 92.0 (80.0-100.0) fL MCH 28.6 (25.0-35.0) pg MCHC 31.1 (31.0-37.0) g/dL RDW 16.7 H (11.5-15.5) % Plt Count 422 (150-450) k/uL MPV 7.2 Neutrophils % 73 % Lymphocytes % 17 % Monocytes % 5 % Eosinophils % 3 % Basophils % 1 % Neutrophils # 5.7 (1.3-7.7) k/uL Lymphocytes # 1.4 (1.0-4.8) k/uL Monocytes # 0.4 (0-1.0) k/uL Eosinophils # 0.2 (0-0.7) k/uL Basophils # 0.1 (0-0.2) k/uL Hypochromasia Moderate Anisocytosis Slight PT 10.5 (10.0-12.5) sec INR 0.9 (<1.2) APTT 24.6 (22.0-30.0) sec Sodium (137-145) mmol/L Potassium (3.5-5.1) mmol/L Chloride (98-107) mmol/L Carbon Dioxide (22-30) mmol/L Anion Gap mmol/L BUN (9-20) mg/dL Creatinine (0.66-1.25) mg/dL Est GFR (CKD-EPI)AfAm (>60 ml/min/1.73 sqM) Est GFR (CKD-EPI)NonAf (>60 ml/min/1.73 sqM) Glucose (74-99) mg/dL Plasma Lactic Acid Sage 1.2 (0.7-2.0) mmol/L Calcium (8.4-10.2) mg/dL Magnesium (1.6-2.3) mg/dL Total Bilirubin (0.2-1.3) mg/dL AST (17-59) U/L ALT (4-49) U/L Alkaline Phosphatase (38-126) U/L Troponin I (0.000-0.034) ng/mL NT-Pro-B Natriuret Pep pg/mL Total Protein (6.3-8.2) g/dL Albumin (3.5-5.0) g/dL Influenza Type A (PCR) (Not Detectd) Influenza Type B (PCR) (Not Detectd) RSV (PCR) (Not Detectd) SARS-CoV-2 (PCR) (Not Detectd) 07/02/23 07/02/23 07/02/23 Range/Units 17:56 17:56 19:06 WBC (3.8-10.6) k/uL RBC (4.30-5.90) m/uL Hgb (13.0-17.5) gm/dL Hct (39.0-53.0) % MCV (80.0-100.0) fL MCH (25.0-35.0) pg MCHC (31.0-37.0) g/dL RDW (11.5-15.5) % Plt Count (150-450) k/uL MPV Neutrophils % % Lymphocytes % % Monocytes % % Eosinophils % % Basophils % % Neutrophils # (1.3-7.7) k/uL Lymphocytes # (1.0-4.8) k/uL Monocytes # (0-1.0) k/uL Eosinophils # (0-0.7) k/uL Basophils # (0-0.2) k/uL Hypochromasia Anisocytosis PT (10.0-12.5) sec INR (<1.2) APTT (22.0-30.0) sec Sodium 139 (137-145) mmol/L Potassium 4.4 (3.5-5.1) mmol/L Chloride 104 (98-107) mmol/L Carbon Dioxide 28 (22-30) mmol/L Anion Gap 7 mmol/L BUN 27 H (9-20) mg/dL Creatinine 1.69 H (0.66-1.25) mg/dL Est GFR (CKD-EPI)AfAm 44 (>60 ml/min/1.73 sqM) Est GFR (CKD-EPI)NonAf 38 (>60 ml/min/1.73 sqM) Glucose 249 H (74-99) mg/dL Plasma Lactic Acid Sage (0.7-2.0) mmol/L Calcium 8.5 (8.4-10.2) mg/dL Magnesium 2.2 (1.6-2.3) mg/dL Total Bilirubin 0.5 (0.2-1.3) mg/dL AST 14 L (17-59) U/L ALT 11 (4-49) U/L Alkaline Phosphatase 56 (38-126) U/L Troponin I <0.012 (0.000-0.034) ng/mL NT-Pro-B Natriuret Pep 1320 pg/mL Total Protein 6.6 (6.3-8.2) g/dL Albumin 3.5 (3.5-5.0) g/dL Influenza Type A (PCR) Not Detected (Not Detectd) Influenza Type B (PCR) Not Detected (Not Detectd) RSV (PCR) Not Detected (Not Detectd) SARS-CoV-2 (PCR) Not Detected (Not Detectd) - EKG Data -: EKG Interpreted by Me EKG Comments: 12-lead Electrocardiogram Interpretation Note EKG was reviewed and interpreted by myself. 12-lead ECG performed at 1741 is interpreted by me as revealing normal sinus rhythm at a rate of 86 beats per minute. [place] is normal. GA interval is 242 ms, QRS durations 101 ms, QTc is 438 ms.. There were no ST or T wave abnormalities to suggest myocardial ischemia or injury. R wave progression across the precordium was satisfactory. By my interpretation this EKG is non-diagnostic for acute ischemia. Critical Care Time Critical Care Time: Yes Total Critical Care Time: 35 Disposition Clinical Impression: Hypoxic respiratory failure, Pleural effusion Disposition: ADMITTED IP TO THIS HOSP Condition: Stable Time of Disposition: 20:40
[2023-07-02] MEDS: methylPREDNISolone SOD SUCCI 125 MG/2 ML VIAL IV STA (20:29)
[2023-07-02] MEDS: methylPREDNISolone SOD SUCCI 40 MG/ML 1 ML VIAL IV SCH (20:56)
[2023-07-02] MEDS ORDERED: NALOXONE 0.4 MG/ML 1 ML VIAL IV PRN (21:00)
[2023-07-02] MEDS: HEPARIN SODIUM,PORCINE 5,000 UNIT/ML 1 ML VIAL SQ SCH (23:08)
[2023-07-03] MEDS: IPRATROPIUM-ALBUTEROL 3 ML NEB INHALATION SCH (01:21)
--- NOTE | 2023-07-03 05:31 | P.CNPUL ---
History of Present Illness Consult date: 07/03/23 Requesting physician: Nguyễn Fernandes Reason for consult: pleural effusion Chief complaint: Worsening exertional dyspnea History of present illness: I am seeing this patient in consultation today July 03, 2023 for worsening exertional dyspnea since his recent hospital discharge approximately 1 month ago in May. At that time, he was admitted for shortness of breath and right- sided pleural effusion. CT of the chest on this admission showed a small right loculated pleural effusion without any calcified pleural plaques bilaterally. He was treated conservatively, with antibiotics and diuretics, and discharged home. Since then he has had worsening shortness of breath and significant activity limitations. He is a 78-year-old male with past medical history significant for coronary artery disease with previous stents, diabetes mellitus, CKD, hypertension, obesity, remote history of tobacco use, and prior work-related asbestos exposure. His PCP is Dr. Ron. He has been seen by Dr. Joseph recently in the pulmonary office. 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 His total lung capacity is 54%, FVC 45%, FEV1 39% of predicted, FEV1/FVC ratio 66%,with a DLCO not corrected for hemoglobin of 45%. Patient states that on his hospital discharge back on June 04 he was feeling relatively better. He was able to ambulate without significant limi tation. Since then, he is progressively become more short of breath with exertion. He becomes severely dyspneic even with walking to the bathroom. Denies any coughing, sputum production, fevers, chest pain. Denies any lower extremity swelling. He does sleep in a recliner at home, so that he does become short of breath. Patient is lying in a semi-Fowlers position, on 6 L/min nasal cannula, in no acute distress. Chest x-ray done on arrival shows a persistent right pleural effusion and small left pleural effusion without any superimposed consolidative/airspace opacities. Cardiac silhouette and pulmonary vasculature are stable. CBC on arrival: WBC count 7.8, hemoglobin 12.5, hematocrit 40.4, platelets 422. BMP on arrival: Sodium 139, potassium 4.4, chloride 104, serum bicarb 28, BUN 27, creatinine 1.69, glucose 249. Troponin less than 0.012. NT proBNP mildly elevated at 1320. Negative for influenza, RSV, COVID. Vital signs are stable. Review of Systems REVIEW OF SYSTEMS: CONSTITUTIONAL: Denies any recent significant weight loss or weight gain. EYES: Denies change in vision. EARS, NOSE, MOUTH, THROAT: Denies headaches, denies sore throat. CARDIOVASCULAR: Denies chest pain, palpitations or syncopal episodes. RESPIRATORY: See HPI. GASTROINTESTINAL: Denies change in appetite, abdominal pain, nausea and vomiting, or diarrhea GENITOURINARY: Denies hematuria, denies infections. MUSKULOSKELETAL: Denies pain, denies swelling. INTEGUMENTARY: Denies rash, denies eczema. NEUROLOGICAL: Denies recent memory loss, no recent seizure activity. PSYCHIATRIC: Denies anxiety, denies depression. HEMATOLOGIC/LYMPHATIC: Denies anemia, denies enlarged lymph node Past Medical History Past Medical History: Coronary Artery Disease (CAD), Diabetes Mellitus, Eye Disorder, Hearing Disorder / Deafness, Hypertension, Osteoarthritis (OA) Additional Past Medical History / Comment(s): GLAUCOMA. Hard of hearing. pt is on water pill but was never told he has CHF. History of Any Multi-Drug Resistant Organisms: None Reported Past Surgical History: Heart Catheterization With Stent, Orthopedic Surgery Additional Past Surgical History / Comment(s): Right knee arthroscopy, bilateral cataract surgery, 5 cardiac stents, pain clinic procedure. Past Anesthesia/Blood Transfusion Reactions: Previous Problems w/ Anesthesia Additional Past Anesthesia/Blood Transfusion Reaction / Comment(s): states pt has letter from previous knee surgery in 2010 that indicates that Erasto was a difficult intubation with difficult airway anterior. Date of Last Stent Placement:: 04/2019 Past Psychological History: No Psychological Hx Reported Smoking Status: Former smoker Past Alcohol Use History: None Reported Past Drug Use History: None Reported - Past Family History Mother Family Medical History: Cancer Additional Family Medical History / Comment(s): Stomach cancer. Father Family Medical History: CVA/TIA Medications and Allergies Home Medications Medication Instructions Recorded Confirmed Type Aspirin [Adult Low Dose Aspirin EC] 81 mg PO W/BRKFST 02/05/18 07/02/23 History Potassium Chloride ER [K-Dur 10] 10 meq PO BID-W/MEALS 02/05/18 07/02/23 History Rosuvastatin [Crestor] 10 mg PO PC-SUPPER 02/05/18 07/02/23 History Fenofibrate Nanocrystallized 145 mg PO Q2D@1800 02/28/18 07/02/23 History [Fenofibrate] Dulaglutide [Trulicity] 1.5 mg SQ MO 05/05/20 07/02/23 History Timolol 0.5% Ophth Soln [Timoptic 1 drop BOTH EYES DAILY 05/05/20 07/02/23 History 0.5% Ophth Soln] Metoprolol Tartrate [Lopressor] 100 mg PO W/BRKFST 01/18/22 07/02/23 History Insulin Glargine,Hum.rec.anlog 50 units SQ HS 05/12/22 07/02/23 History [Toujeo Solostar] Empagliflozin [Jardiance] 10 mg PO DAILY 11/23/22 07/02/23 History Furosemide [Lasix] 40 mg PO W/BRKFST 11/23/22 07/02/23 History Clopidogrel [Plavix] 75 mg PO W/LUNCH 05/03/23 07/02/23 History Isosorbide Mononitrate ER [Imdur] 30 mg PO W/BRKFST 05/03/23 07/02/23 History Metoprolol Tartrate [Lopressor] 50 mg PO AC-BID@1200,1800 05/03/23 07/02/23 History Nitroglycerin Sl Tabs [Nitrostat] 0.4 mg SL Q5M PRN 05/03/23 07/02/23 History Tamsulosin [Flomax] 0.4 mg PO W/LUNCH 05/03/23 07/02/23 History amLODIPine [Norvasc] 5 mg PO BID-W/MEALS 05/03/23 07/02/23 History cycloSPORINE 0.05% OPHTH SOLN 1 drop BOTH EYES BID 05/03/23 07/02/23 History [Restasis] polyethylene glycoL 3350 [Miralax] 17 gm PO DAILY PRN 05/03/23 07/02/23 History Albuterol Inhaler [Ventolin Hfa 2 puff INHALATION RT-QID 06/01/23 07/02/23 History Inhaler] INSULIN LISPRO (HumaLOG) [humaLOG] 30 units SQ AC-TID@0630,13,17 06/01/23 07/02/23 History INSULIN LISPRO (humaLOG) [humaLOG] 35 units SQ AC-BRKFST@0900 06/01/23 07/02/23 History INSULIN LISPRO (humaLOG) [humaLOG] See Protocol SQ ACHS 06/01/23 07/02/23 Hist ory Budesonide-Formot 160-4.5 Mcg 2 puff INHALATION RT-BID #100 each 06/04/23 07/02/23 Rx [Symbicort 160-4.5 Mcg Inhaler] Losartan [Cozaar] 25 mg PO DAILY 07/02/23 07/02/23 History Allergies Allergy/AdvReac Type Severity Reaction Status Date / Time cyclobenzaprine Allergy Itching Verified 07/02/23 20:31 [From Flexeril] Physical Exam Vitals: Vital Signs Temp Pulse Resp BP Pulse Ox 07/03/23 04:45 94 07/03/23 04:34 85 07/03/23 01:33 93 07/03/23 01:22 83 07/03/23 01:00 87 16 124/56 95 07/02/23 23:09 93 20 147/73 91 L 07/02/23 20:11 78 07/02/23 20:00 86 19 144/72 95 07/02/23 19:53 84 07/02/23 17:53 22 07/02/23 17:41 93 L 07/02/23 17:24 98.1 F 89 16 150/75 72 L Intake and Output 07/02/23 07/02/23 07/03/23 14:59 22:59 06:59 Other: Weight 126.099 kg GENERAL EXAM: Alert, 78-year-old obese white male, comfortable in no apparent distress while at rest. HEAD: Normocephalic and atraumatic EYES: Normal reaction of pupils, equal size. NOSE: Clear with pink turbinates. THROAT: No erythema or exudates. NECK: No masses, no JVD. CHEST: No chest wall deformity. LUNGS: Equal air entry with diminished lung sounds at the bilateral bases. No crackles, wheeze, rhonchi or dullness. On 6 L/min nasal cannula. No conversational dyspnea or accessory muscle use while at rest.. CVS: S1 and S2 normal with no audible murmur, regular rhythm. No extra heart sounds ABDOMEN: No hepatosplenomegaly, active bowel sounds, no guarding or rigidity. SPINE: No scoliosis or deformity SKIN: No rashes CENTRAL NERVOUS SYSTEM: No focal deficits, tone is normal in all 4 extremities. EXTREMITIES: There is no peripheral edema, clubbing, or cyanosis. Peripheral pulses are intact. Results - Laboratory Findings CBC and BMP: 07/02/23 17:56 07/02/23 19:06 PT/INR, D-dimer PT 10.5 sec (10.0-12.5) 07/02/23 17:56 INR 0.9 (<1.2) 07/02/23 17:56 Abnormal lab findings: Abnormal Labs 07/02/23 07/02/23 17:56 19:06 Hgb 12.5 L RDW 16.7 H BUN 27 H Creatinine 1.69 H Glucose 249 H AST 14 L - Diagnostic Findings Chest x-ray: image reviewed Assessment and Plan Assessment: Bilateral pleural effusions, small left and moderate right-sided pleural effusion. Possible acute COPD exacerbation Acute hypoxemic respiratory failure, currently on 6 L/min nasal cannula, possibly secondary to above Coronary artery disease, with previous stents Diabetes mellitus Chronic kidney disease stage III Hypertension Hyperlipidemia Obesity, with a BMI of 39.9 kg/m Remote history of tobacco dependence Prior work-related asbestos exposure Plan: Patient's medications, labs, chest x-ray reviewed Continue supplemental oxygen I did repeat patient's chest ultrasound for potential thoracentesis. This would likely require temporarily holding Plavix. Home dose Lasix was restarted. Also started on a combination of DuoNebs [id number], Symbicort inhaler, and IV Solu-Medrol. No need for antibiotics at this point. Negative for influenza, RSV, COVID. We will continue to follow, and further recommendations are forthcoming. I have personally seen and examined the patient, performed the documentation and the assessment and plan as written. Number of minutes spent on the visit:20 Time with Patient: Greater than 30
[2023-07-03 07:07] LABS: African American GFR (CKD) 39 (>60 ml/min/1.73 sqM); Anion Gap 16 mmol/L; Blood Urea Nitrogen 35 mg/dL (9-20); Calcium 8.5 mg/dL (8.4-10.2); Carbon Dioxide 20 mmol/L (22-30); Chloride 103 mmol/L (98-107); Non-African American GFR(CKD) 34 (>60 ml/min/1.73 sqM); Potassium 5.6 mmol/L (3.5-5.1); Sodium 139 mmol/L (137-145)
[2023-07-03 07:10] LABS: Glucose 501 mg/dL (74-99)
[2023-07-03 07:17] LABS: Anisocytosis Slight; Basophils % (A) 0 %; Eosinophils % (A) 0 %; HGB 11.5 gm/dL (13.0-17.5); Hypochromasia Marked; Lymphocytes # (A) 0.5 k/uL (1.0-4.8); Lymphocytes % (A) 7 %; MCH 28.7 pg (25.0-35.0); MCHC 29.6 g/dL (31.0-37.0); Mean Platelet Volume 7.7; Monocytes # (A) 0.1 k/uL (0-1.0); Monocytes % (A) 2 %; Neutrophils # (A) 6.8 k/uL (1.3-7.7); Neutrophils % (A) 91 %; Platelet Count 418 k/uL (150-450); RBC 4.02 m/uL (4.30-5.90); RDW 16.3 % (11.5-15.5); WBC 7.5 k/uL (3.8-10.6)
[2023-07-03 07:58] LABS: Glucose,Whole Blood 489 mg/dL (70-110)
[2023-07-03] MEDS: SYMBICORT 160-4.5 MCG INHALER INHALATION SCH (08:20)
[2023-07-03] MEDS ORDERED: Magnesium Replacement Protocol 1 EACH MISC MISCELLANE PRN (08:24)
[2023-07-03] MEDS ORDERED: Potassium Replacement Protocol 1 EACH MISC MISCELLANE PRN (08:24)
[2023-07-03] MEDS ORDERED: DEXTROSE 50% SYRINGE 50 ML IVP PRN ×2 (08:24)
[2023-07-03] MEDS: ISOSORBIDE MONONITRATE ER 30 MG TAB.ER.24H PO SCH (09:05)
[2023-07-03] MEDS: amLODIPine 5 MG TAB PO SCH (09:05)
[2023-07-03] MEDS: METOPROLOL TARTRATE 50 MG TAB PO SCH ×2 (09:05→12:47)
[2023-07-03] MEDS: ASPIRIN 81 MG PO SCH (09:05)
[2023-07-03] MEDS: POTASSIUM CHLORIDE ER 10 MEQ TAB.ER.PRT PO SCH (09:06)
[2023-07-03] MEDS: LOSARTAN 25 MG TAB PO SCH (09:06)
[2023-07-03] MEDS: TIMOLOL 0.5% OPHTH DROPS 5 ML BTL BOTH EYES SCH (09:07)
[2023-07-03 09:09] LABS: Anisocytosis Slight; Basophils % (A) 0 %; Eosinophils % (A) 0 %; HCT 38.7 % (39.0-53.0); HGB 11.7 gm/dL (13.0-17.5); Hypochromasia Marked; Lymphocytes # (A) 0.5 k/uL (1.0-4.8); Lymphocytes % (A) 8 %; MCH 29.2 pg (25.0-35.0); MCHC 30.1 g/dL (31.0-37.0); MCV 96.9 fL (80.0-100.0); Mean Platelet Volume 7.8; Monocytes # (A) 0.1 k/uL (0-1.0); Monocytes % (A) 2 %; Neutrophils # (A) 6.3 k/uL (1.3-7.7); Neutrophils % (A) 90 %; Platelet Count 424 k/uL (150-450); RDW 16.4 % (11.5-15.5)
--- NOTE | 2023-07-03 09:15 | US ---
EXAMINATION TYPE: US chest DATE OF EXAM: 07/03/2023 COMPARISON: 07/02/2023. CLINICAL INDICATION: Male, 78 years old with history of bilateral pleural effusions; TECHNIQUE: Targeted ultrasound of the posterior lower bilateral hemithoraces EXAM MEASUREMENTS: Right Pleural Effusion pocket size: 4.5 cm Left Pleural Effusion pocket size: 2.0 cm Right side NOT marked for possible thoracentesis outside the dept. due to internal echoes Left side NOT marked for possible thoracentesis outside the dept. due to small fluid pocket Pulmonologists are able to review the images in the patient?s EMR. IMPRESSIONS: Small pleural effusions bilaterally, complex on the right and small/trace on the left.
[2023-07-03] MEDS: INSULIN REGULAR BOLUS (FROM DRIP BAG) IV ONE (09:26)
[2023-07-03] MEDS: INSULIN REGULAR 100 UNIT in SODIUM CHLORIDE 0.9% 100 ML IV SCH (09:27)
[2023-07-03] MEDS: SODIUM CHLORIDE 0.9% 1,000 ML IV SCH (09:28)
[2023-07-03 09:31] LABS: VBG PH 7.24 (7.31-7.41)
[2023-07-03 09:36] LABS: African American GFR (CKD) 40 (>60 ml/min/1.73 sqM); Anion Gap 16 mmol/L; Blood Urea Nitrogen 36 mg/dL (9-20); Carbon Dioxide 17 mmol/L (22-30); Chloride 102 mmol/L (98-107); Non-African American GFR(CKD) 34 (>60 ml/min/1.73 sqM); Potassium 4.8 mmol/L (3.5-5.1); Sodium 135 mmol/L (137-145)
[2023-07-03 09:44] LABS: Glucose 546 mg/dL (74-99)
[2023-07-03] MEDS: FUROSEMIDE 20 MG TAB PO SCH (09:50)
[2023-07-03 10:07] LABS: Glucose,Whole Blood 528 mg/dL (70-110)
[2023-07-03] MEDS ORDERED: ALPRAZolam 0.25 MG TAB PO PRN (11:18)
[2023-07-03] MEDS ORDERED: MELATONIN 3 MG TABLET PO PRN (11:18)
[2023-07-03] MEDS ORDERED: CALCIUM CARBONATE 500 MG CHEWABLE PO PRN (11:18)
[2023-07-03] MEDS ORDERED: ACETAMINOPHEN TAB 325 MG TAB PO PRN (11:18)
[2023-07-03] MEDS ORDERED: LACTULOSE 20 GM/30 ML CUP PO PRN (11:18)
[2023-07-03] MEDS ORDERED: ONDANSETRON 4 MG/2 ML VIAL IVP PRN (11:18)
[2023-07-03 12:05] LABS: Glucose,Whole Blood 429 mg/dL (70-110)
[2023-07-03 12:14] LABS: Anion Gap 12 mmol/L; Blood Urea Nitrogen 37 mg/dL (9-20); Carbon Dioxide 21 mmol/L (22-30); Chloride 103 mmol/L (98-107); Glucose 462 mg/dL (74-99); Potassium 4.6 mmol/L (3.5-5.1); Sodium 136 mmol/L (137-145)
[2023-07-03 12:15] LABS: African American GFR (CKD) 40 (>60 ml/min/1.73 sqM); Non-African American GFR(CKD) 35 (>60 ml/min/1.73 sqM)
[2023-07-03] MEDS: ENOXAPARIN 40 MG/0.4 ML SYRINGE SQ SCH (12:16)
[2023-07-03] MEDS: methylPREDNISolone SOD SUCCI 40 MG/ML 1 ML VIAL IV SCH (12:17)
[2023-07-03] MEDS ORDERED: CLOPIDOGREL 75 MG TAB PO SCH (12:30)
[2023-07-03] MEDS: FORMOTEROL FUMARATE 20 MCG/2 ML NEBU INHALATION SCH (12:33)
[2023-07-03] MEDS: BUDESONIDE 1 MG/2 ML NEBU INHALATION SCH (12:33)
[2023-07-03] MEDS: TAMSULOSIN 0.4 MG CAP.ER.24H PO SCH (12:47)
--- NOTE | 2023-07-03 13:01 | P.HPIM ---
History of Present Illness H&P Date: 07/03/23 Chief Complaint: Short of breath This is a pleasant 78-year-old patient to follow-up with Dr. Wellington Roblero. Has just started seeing also partnership development manager Dr. Joseph. Patient be short of breath for over a year. Progressively getting worse. Denies any edema. He does sleep in a chair. No cough. No fever no chills. Decreased appetite tired. Gets short winded after walking short distances around the house. Review of systems: GEN.: Tired EYES: None HEENT: None NECK: None RESPIRATORY: As above CARDIOVASCULAR: None GASTROINTESTINAL: None GENITOURINARY: None MUSCULOSKELETAL: [Joint pains LYMPHATICS: None HEMATOLOGICAL: None PSYCHIATRY: None NEUROLOGICAL: None Social history: . Smoked a pack a day for approximately on and off for 40 years. Stopped in 2001. 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 Physical examination: VITAL SIGNS: 98.1, 89, 16, 150 x 75, 72% on room air upon presentation GENERAL: BMI 39.9, reclining bed awake slightly tired. EYES: Pupils equal. Conjunctiva baylee l. HEENT: External appearance of nose and ears normal, oral cavity grossly normal. NECK: JVD not raised; masses not palpable. HEART: First and second heart sounds are normal; no edema. LUNGS: Respiratory rate increased, diminished breath sounds. ABDOMEN: Soft, nontender, liver spleen not palpable, no masses palpable. PSYCH: Alert and oriented x3; mood and affect baylee l. MUSCULOSKELETAL:No Clubbing/cyanosis;muscles-grossly intact. OA NEUROLOGICAL: Cranial nerves grossly intact; no facial asymmetry, power and sensation grossly intact. LYMPHATICS: No lymph nodes palpable in the axilla and neck INVESTIGATIONS, reviewed in the clinical context: White count 7 hemoglobin 11.7 platelets 424 sodium 136 potassium 4.6 BUN 37 creatinine 1.83 Blood glucose 546. Serum acetone negative EKG tracing personally reviewed by me-normal sinus rhythm. Nonspecific T wave changes. Chest x-ray film personally reviewed by me-small right pleural effusion. Possible full pulmonary arteries Previous labs: Creatinine 1.8 June 04, 2023 Assessment plan: -Acute severe COPD exacerbation in a patient who smoked on and off for 40 years. 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 Suspect underlying restrictive lung disease will use diffusion capacity and full lung function test. DuoNeb 4 times daily. Nebulized Pulmicort and perform rest. IV Solu-Medrol. -Diabetes mellitus type 2, uncontrolled with hyperglycemia Patient is currently started on insulin drip. Will resume home dose of Levemir and Humalog this evening. Diabetic diet. Home oral medications to be resumed -Essential hypertension Cozaar. Amlodipine 5 mg twice daily. Lopressor -BPH Flomax 0.4 mg -Hyperlipidemia Crestor -CAD with stent Plavix. Aspirin 3 weeks Lopressor. -Full code Consultation to pulmonary. 2D echo. Past Medical History Past Medical History: Coronary Artery Disease (CAD), Diabetes Mellitus, Eye Disorder, Hearing Disorder / Deafness, Hypertension, Osteoarthritis (OA) Additional Past Medical History / Comment(s): GLAUCOMA. Hard of hearing. pt is on water pill but was never told he has CHF. History of Any Multi-Drug Resistant Organisms: None Reported Past Surgical History: Heart Catheterization With Stent, Orthopedic Surgery Additional Past Surgical History / Comment(s): Right knee arthroscopy, bilateral cataract surgery, 5 cardiac stents, pain clinic procedure. Past Anesthesia/Blood Transfusion Reactions: Previous Problems w/ Anesthesia Additional Past Anesthesia/Blood Transfusion Reaction / Comment(s): states pt has letter from previous knee surgery in 2010 that indicates that Erasto was a difficult intubation with difficult airway anterior. Date of Last Stent Placement:: 04/2019 Past Psychological History: No Psychological Hx Reported Smoking Status: Former smoker Past Alcohol Use History: None Reported Past Drug Use History: None Reported - Past Family History Mother Family Medical History: Cancer Additional Family Medical History / Comment(s): Stomach cancer. Father Family Medical History: CVA/TIA Medications and Allergies Home Medications Medication Instructions Recorded Confirmed Type Aspirin [Adult Low Dose Aspirin EC] 81 mg PO W/BRKFST 02/05/18 07/02/23 History Potassium Chloride ER [K-Dur 10] 10 meq PO BID-W/MEALS 02/05/18 07/02/23 History Rosuvastatin [Crestor] 10 mg PO PC-SUPPER 02/05/18 07/02/23 History Fenofibrate Nanocrystallized 145 mg PO Q2D@1800 02/28/18 07/02/23 History [Fenofibrate] Dulaglutide [Trulicity] 1.5 mg SQ MO 05/05/20 07/02/23 History Timolol 0.5% Ophth Soln [Timoptic 1 drop BOTH EYES DAILY 05/05/20 07/02/23 History 0.5% Ophth Soln] Metoprolol Tartrate [Lopressor] 100 mg PO W/BRKFST 01/18/22 07/02/23 History Insulin Glargine,Hum.rec.anlog 50 units SQ HS 05/12/22 07/02/23 History [Toujeo Solostar] Empagliflozin [Jardiance] 10 mg PO DAILY 11/23/22 07/02/23 History Furosemide [Lasix] 40 mg PO W/BRKFST 11/23/22 07/02/23 History Clopidogrel [Plavix] 75 mg PO W/LUNCH 05/03/23 07/02/23 History Isosorbide Mononitrate ER [Imdur] 30 mg PO W/BRKFST 05/03/23 07/02/23 History Metoprolol Tartrate [Lopressor] 50 mg PO AC-BID@1200,1800 05/03/23 07/02/23 History Nitroglycerin Sl Tabs [Nitrostat] 0.4 mg SL Q5M PRN 05/03/23 07/02/23 History Tamsulosin [Flomax] 0.4 mg PO W/LUNCH 05/03/23 07/02/23 History amLODIPine [Norvasc] 5 mg PO BID-W/MEALS 05/03/23 07/02/23 History cycloSPORINE 0.05% OPHTH SOLN 1 drop BOTH EYES BID 05/03/23 07/02/23 History [Restasis] polyethylene glycoL 3350 [Miralax] 17 gm PO DAILY PRN 05/03/23 07/02/23 History Albuterol Inhaler [Ventolin Hfa 2 puff INHALATION RT-QID 06/01/23 07/02/23 History Inhaler] INSULIN LISPRO (HumaLOG) [humaLOG] 30 units SQ AC-TID@0630,13,17 06/01/23 07/02/23 History INSULIN LISPRO (humaLOG) [humaLOG] 35 units SQ AC-BRKFST@0900 06/01/23 07/02/23 History INSULIN LISPRO (humaLOG) [humaLOG] See Protocol SQ ACHS 06/01/23 07/02/23 History Budesonide-Formot 160-4.5 Mcg 2 puff INHALATION RT-BID #100 each 06/04/23 07/02/23 Rx [Symbicort 160-4.5 Mcg Inhaler] Losartan [Cozaar] 25 mg PO DAILY 07/02/23 07/02/23 History Allergies Allergy/AdvReac Type Severity Reaction Status Date / Time cyclobenzaprine Allergy Itching Verified 07/02/23 20:31 [From Flexeril] Physical Exam Vitals: Vital Signs Temp Pulse Pulse Resp BP BP Pulse Ox 07/03/23 08:35 97 07/03/23 08:23 95 07/03/23 08:21 94 07/03/23 08:05 98.3 F 94 16 134/60 96 07/03/23 05:53 86 16 131/56 97 07/03/23 04:45 94 07/03/23 04:34 85 07/03/23 01:33 93 07/03/23 01:22 83 07/03/23 01:00 87 16 124/56 95 07/02/23 23:09 93 20 147/73 91 L 07/02/23 20:11 78 07/02/23 20:00 86 19 144/72 95 07/02/23 19:53 84 07/02/23 17:53 22 07/02/23 17:41 93 L 07/02/23 17:24 98.1 F 89 16 150/75 72 L Intake and Output 07/02/23 07/03/23 07/03/23 22:59 06:59 14:59 Other: Weight 126.099 kg Results CBC & Chem 7: 07/03/23 08:53 07/03/23 11:41 Labs: Abnormal Lab Results - Last 24 Hours (Table) 07/02/23 07/02/23 07/03/23 Range/Units 17:56 19:06 06:38 RBC 4.02 L (4.30-5.90) m/uL Hgb 12.5 L 11.5 L (13.0-17.5) gm/dL Hct (39.0-53.0) % MCHC 29.6 L (31.0-37.0) g/dL RDW 16.7 H 16.3 H (11.5-15.5) % Lymphocytes # 0.5 L (1.0-4.8) k/uL Potassium (3.5-5.1) mmol/L Carbon Dioxide (22-30) mmol/L BUN 27 H (9-20) mg/dL Creatinine 1.69 H (0.66-1.25) mg/dL Glucose 249 H (74-99) mg/dL POC Glucose (mg/dL) (70-110) mg/dL AST 14 L (17-59) U/L 07/03/23 07/03/23 07/03/23 Range/Units 06:38 07:57 08:53 RBC 4.00 L (4.30-5.90) m/uL Hgb 11.7 L (13.0-17.5) gm/dL Hct 38.7 L (39.0-53.0) % MCHC 30.1 L (31.0-37.0) g/dL RDW 16.4 H (11.5-15.5) % Lymphocytes # 0.5 L (1.0-4.8) k/uL Potassium 5.6 H (3.5-5.1) mmol/L Carbon Dioxide 20 L (22-30) mmol/L BUN 35 H (9-20) mg/dL Creatinine 1.88 H (0.66-1.25) mg/dL Glucose 501 H* (74-99) mg/dL POC Glucose (mg/dL) 489 H (70-110) mg/dL AST (17-59) U/L
[2023-07-03 13:11] LABS: Glucose,Whole Blood 352 mg/dL (70-110)
[2023-07-03 14:21] LABS: Glucose,Whole Blood 355 mg/dL (70-110)
[2023-07-03] MEDS: DAPAGLIFLOZIN PROPANEDIOL 5 MG TABLET PO SCH (14:23)
[2023-07-03] MEDS: cycloSPORINE 0.05% OPHTH 0.4 ML DROPERETTE BOTH EYES SCH (14:24)
[2023-07-03 15:32] LABS: Glucose,Whole Blood 366 mg/dL (70-110)
[2023-07-03] MEDS: FUROSEMIDE 40 MG TAB PO SCH (16:20)
[2023-07-03 16:23] LABS: African American GFR (CKD) 45 (>60 ml/min/1.73 sqM); Anion Gap 12 mmol/L; Blood Urea Nitrogen 39 mg/dL (9-20); Carbon Dioxide 20 mmol/L (22-30); Chloride 104 mmol/L (98-107); Glucose 327 mg/dL (74-99); Non-African American GFR(CKD) 38 (>60 ml/min/1.73 sqM); Sodium 136 mmol/L (137-145)
[2023-07-03 16:29] LABS: Glucose,Whole Blood 402 mg/dL (70-110)
[2023-07-03 16:30] LABS: Phosphorus 5.3 mg/dL (2.5-4.5); Potassium 4.7 mmol/L (3.5-5.1)
[2023-07-03] MEDS: INSULIN ASPART (NovoLOG) 100 UNIT/ML VIAL SQ SCH ×2 (17:13→20:44)
[2023-07-03] MEDS: ATORVASTATIN 20 MG TAB PO SCH (17:24)
[2023-07-03 17:44] LABS: Glucose,Whole Blood 404 mg/dL (70-110)
[2023-07-03 18:50] LABS: Glucose,Whole Blood 389 mg/dL (70-110)
[2023-07-03 19:42] LABS: Glucose,Whole Blood 316 mg/dL (70-110)
[2023-07-03 20:34] LABS: Glucose,Whole Blood 230 mg/dL (70-110)
[2023-07-03] MEDS: INSULIN DETEMIR (LEVEMIR) 100 UNIT/ML SYR SQ SCH (20:45)
[2023-07-04 06:02] LABS: Glucose,Whole Blood 240 mg/dL (70-110)
[2023-07-04] MEDS: INSULIN ASPART (NovoLOG) 100 UNIT/ML VIAL SQ SCH (08:37)
[2023-07-04 08:40] LABS: Glucose,Whole Blood 195 mg/dL (70-110)
[2023-07-04 11:23] LABS: Glucose,Whole Blood 87 mg/dL (70-110)
--- NOTE | 2023-07-04 13:14 | P.PN ---
Subjective Progress Note Date: 07/04/23 Principal diagnosis: Acute hypoxic respiratory failure with bilateral pleural effusions, underlying obstructive and restrictive lung disease I am seeing this patient in consultation today July 03, 2023 for worsening exertional dyspnea since his recent hospital discharge approximately 1 month ago in May. At that time, he was admitted for shortness of breath and right- sided pleural effusion. CT of the chest on this admission showed a small right loculated pleural effusion without any calcified pleural plaques bilaterally. He was treated conservatively, with antibiotics and diuretics, and discharged home. Since then he has had worsening shortness of breath and significant activity limitations. He is a 78-year-old male with past medical history significant for coronary artery disease with previous stents, diabetes mellitus, CKD, hypertension, obesity, remote history of tobacco use, and prior work-related asbestos exposure. His PCP is Dr. Ron. He has been seen by Dr. Joseph recently in the pulmonary office. 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 His total lung capacity is 54%, FVC 45%, FEV1 39% of predicted, FEV1/FVC ratio 66%,with a DLCO not corrected for hemoglobin of 45%. Patient states that on his hospital discharge back on June 04 he was feeling relatively better. He was able to ambulate without significant limitation. Since then, he is progressively become more short of breath with exertion. He becomes severely dyspneic even with walking to the bathroom. Denies any coughing, sputum production, fevers, chest pain. Denies any lower extremity swelling. He does sleep in a recliner at home, so that he does become short of breath. Patient is lying in a semi-Fowlers position, on 6 L/min nasal cannula, in no acute distress. Chest x-ray done on arrival shows a persistent right pleural effusion and small left pleural effusion without any superimposed consolidative/airspace opacities. Cardiac silhouette and pulmonary vasculature are stable. CBC on arrival: WBC count 7.8, hemoglobin 12.5, hematocrit 40.4, platelets 422. BMP on arrival: Sodium 139, potassium 4.4, chloride 104, serum bicarb 28, BUN 27, creatinine 1.69, glucose 249. Troponin less than 0.012. NT proBNP mildly elevated at 1320. Negative for influenza, RSV, COVID. Vital signs are stable. Patient was reevaluated today on 07/04/2023, on 4 L nasal cannula with O2 sats of 92%, feeling slightly better, still receiving diuretics bronchodilators and steroids, interventional radiology is reluctant to place a pigtail catheter has right-sided pleural effusion which is loculated unless Plavix is on hold for 5 days. Plavix is presently on hold, labs today WBC count is 7 hemoglobin 11.7 basic metabolic profile is normal bicarb is 20 BUN is 39 creatinine 1.68, influenza RSV and COVID-19 negative screening noted Objective - Vital Signs Vital signs: Vital Signs Temp 98.0 F 07/04/23 08:00 Pulse 84 07/04/23 12:56 Resp 20 07/04/23 12:00 BP 142/66 07/04/23 12:00 Pulse Ox 92 L 07/04/23 12:00 FiO2 Intake & Output 07/03/23 07/04/23 07/04/23 18:59 06:59 18:59 Intake Total 101 641.392 220 Balance 101 641.392 220 Weight 126.099 kg 125.5 kg Intake: Intake, IV Titration 101 41.392 Amount Insulin Regular 100 unit 101 41.392 In Sodium Chloride 0.9% 100 ml @ 0.1 UNITS/KG/HR 12.736 mls/hr IV .[id number] [facility] Rx#:[id number] Oral 600 220 Other: Voiding Method Toilet Toilet # Voids 1 1 - Exam General: The patient is awake and alert, in no distress, and does not appear acutely ill. On 4 L nasal cannula Skin: Skin is warm and dry and no rashes or lesions are noted. Eye: Pupils are equal, round and reactive to light, extra-ocular movements are intact; there is normal conjunctiva bilaterally. Ears, nose, mouth and throat: There are moist mucous membranes and no oral lesions. Neck: The neck is supple, there is no tenderness or JVD. Cardiovascular: There is a regular rate and rhythm. No murmur, rub or gallop is appreciated. Respiratory: Diminished breath sound bilaterally no crackles rhonchi or wheezes Gastrointestinal: Soft, non-distended, non-tender abdomen without masses or organomegaly noted. There is no rebound or guarding present. Bowel sounds are unremarkable. Back: There is no tenderness to palpation in the midline. There is no obvious deformity. Musculoskeletal: Normal ROM, no tenderness, There is no pedal edema. There is no calf tenderness or swelling. No cords were appreciated. Neurological: CN II-XII intact, Cranial nerves III through XII are intact. There are no obvious motor or sensory deficits. Coordination appears grossly intact. Speech is normal. Psychiatric: Cooperative, appropriate mood & affect, normal judgment. - Labs CBC & Chem 7: 07/03/23 08:53 07/03/23 15:37 Labs: Abnormal Lab Results - Last 24 Hours (Table) 07/03/23 07/03/23 07/03/23 Range/Units 13:10 14:20 15:30 Sodium (137-145) mmol/L Carbon Dioxide (22-30) mmol/L BUN (9-20) mg/dL Creatinine (0.66-1.25) mg/dL Glucose (74-99) mg/dL POC Glucose (mg/dL) 352 H 355 H 366 H (70-110) mg/dL Phosphorus (2.5-4.5) mg/dL 07/03/23 07/03/23 07/03/23 Range/Units 15:37 16:27 17:43 Sodium 136 L (137-145) mmol/L Carbon Dioxide 20 L (22-30) mmol/L BUN 39 H (9-20) mg/dL Creatinine 1.68 H (0.66-1.25) mg/dL Glucose 327 H (74-99) mg/dL POC Glucose (mg/dL) 402 H 404 H (70-110) mg/dL Phosphorus 5.3 H (2.5-4.5) mg/dL 07/03/23 07/03/23 07/03/23 Range/Units 18:48 19:40 20:32 Sodium (137-145) mmol/L Carbon Dioxide (22-30) mmol/L BUN (9-20) mg/dL Creatinine (0.66-1.25) mg/dL Glucose (74-99) mg/dL POC Glucose (mg/dL) 389 H 316 H 230 H (70-110) mg/dL Phosphorus (2.5-4.5) mg/dL 07/04/23 07/04/23 Range/Units 06:00 08:35 Sodium (137-145) mmol/L Carbon Dioxide (22-30) mmol/L BUN (9-20) mg/dL Creatinine (0.66-1.25) mg/dL Glucose (74-99) mg/dL POC Glucose (mg/dL) 240 H 195 H (70-110) mg/dL Phosphorus (2.5-4.5) mg/dL Assessment and Plan Assessment: impression: Bilateral pleural effusions, small left and moderate right-sided pleural effusion. Underlying obstructive and restrictive lung disease Acute hypoxemic respiratory failure, currently on 4 L/min nasal cannula, possibly secondary to above Coronary artery disease, with previous stents Diabetes mellitus Chronic kidney disease stage III Hypertension Hyperlipidemia Obesity, with a BMI of 39.9 kg/m Remote history of tobacco dependence History of asbestos exposure Recommendation: Continue oxygen and titrate accordingly Continue to hold Plavix Continue bronchodilators including DuoNeb Symbicort and IV Solu-Medrol Continue diuretics Interventional radiology will eventually place a pigtail catheter after holding Plavix for 5 days Will continue to follow Time with Patient: Less than 30
[2023-07-04 14:18] VITALS: BMI 39.6
[2023-07-04 16:26] LABS: Glucose,Whole Blood 78 mg/dL (70-110)
[2023-07-04 20:25] LABS: Glucose,Whole Blood 203 mg/dL (70-110)
--- NOTE | 2023-07-04 20:36 | P.PN ---
Progress Note - Text Progress Note Date: 07/04/23 Chief Complaint: Short of breath This is a pleasant 78-year-old patient to follow-up with Dr. Wellington Roblero. Has just started seeing also value analysis coordinator Dr. Joseph. Patient be short of breath for over a year. Progressively getting worse. Denies any edema. He does sleep in a chair. No cough. No fever no chills. Decreased appetite tired. Gets short winded after walking short distances around the house. Admitted with severe COPD exacerbation: July 04: Breathing a bit better. Less cough. Eating well. Told the patient sit up in a chair. Use incentive spirometry. Continue with bronchodilators inhaled and IV Solu-Medrol. Active Medications Acetaminophen (Acetaminophen Tab 325 Mg Tab) 650 mg PO Q6HR PRN PRN Reason: Mild Pain or Fever > 100.5 Albuterol/Ipratropium (Ipratropium-Albuterol 3 Ml Neb) 3 ml INHALATION RT-Q4H [facility] Last Admin: 07/04/23 16:22 Dose: 3 ml Alprazolam (Alprazolam 0.25 Mg Tab) 0.25 mg PO Q6HR PRN PRN Reason: Anxiety Amlodipine Besylate (Amlodipine 5 Mg Tab) 5 mg PO BID-W/MEALS [facility] Last Admin: 07/04/23 17:57 Dose: 5 mg Aspirin (Aspirin 81 Mg) 81 mg PO W/BRKFST [facility] Last Admin: 07/04/23 06:23 Dose: 81 mg Atorvastatin Calcium (Atorvastatin 20 Mg Tab) 20 mg PO PC-SUPPER [facility] Last Admin: 07/04/23 17:57 Dose: 20 mg Budesonide (Budesonide 1 Mg/2 Ml Nebu) 1 mg INHALATION RT-BID [facility] Last Admin: 07/04/23 09:33 Dose: 1 mg Calcium Carbonate/Glycine (Calcium Carbonate 500 Mg Chewable) 1,000 mg PO Q4HR PRN PRN Reason: Dyspepsia Cyclosporine (Cyclosporine 0.05% Ophth 0.4 Ml Droperette) 1 drops BOTH EYES BID [facility] Last Admin: 07/04/23 08:36 Dose: 1 drops Dapagliflozin (Dapagliflozin Propanediol 5 Mg Tablet) 5 mg PO DAILY [facility] Last Admin: 07/04/23 08:36 Dose: 5 mg Dextrose/Water (Dextrose 50% Syringe 50 Ml) 25 ml IVP PER PROTOCOL PRN; Protocol PRN Reason: Hypoglycemia Dextrose/Water (Dextrose 50% Syringe 50 Ml) 50 ml IVP PER PROTOCOL PRN; Protocol PRN Reason: Hypoglycemia Enoxaparin Sodium (Enoxaparin 40 Mg/0.4 Ml Syringe) 40 mg SQ DAILY [facility] Last Admin: 07/04/23 08:37 Dose: 40 mg Formoterol Fumarate (Formoterol Fumarate 20 Mcg/2 Ml Nebu) 20 mcg INHALATION RT-BID [facility] Last Admin: 07/04/23 09:33 Dose: 20 mcg Furosemide (Furosemide 40 Mg Tab) 40 mg PO BID@0900,1600 [facility] Last Admin: 07/04/23 17:57 Dose: 40 mg Insulin Aspart (Insulin Aspart (Novolog) 100 Unit/Ml Vial) 30 unit SQ AC- TID@0630,13,17 [facility] Last Admin: 07/04/23 12:44 Dose: 30 unit Insulin Aspart (Insulin Aspart (Novolog) 100 Unit/Ml Vial) 0 unit SQ ACHS [facility]; Protocol Last Admin: 07/04/23 17:57 Dose: Not Given Insulin Aspart (Insulin Aspart (Novolog) 100 Unit/Ml Vial) 35 unit SQ AC- BRKFST@0830 [facility] Last Admin: 07/04/23 08:37 Dose: 35 unit Insulin Detemir (Insulin Detemir (Levemir) 100 Unit/Ml Syr) 60 unit SQ HS [facility] Last Admin: 07/03/23 20:45 Dose: 60 unit Isosorbide Mononitrate (Isosorbide Mononitrate Er 30 Mg Tab.Er.24h) 30 mg PO W/BRKFST [facility] Last Admin: 07/04/23 06:23 Dose: 30 mg Lactulose (Lactulose 20 Gm/30 Ml Cup) 20 gm PO DAILY PRN PRN Reason: Constipation Losartan Potassium (Losartan 25 Mg Tab) 25 mg PO DAILY [facility] Last Admin: 07/04/23 08:36 Dose: 25 mg Melatonin (Melatonin 3 Mg Tablet) 3 mg PO HS PRN PRN Reason: Insomnia Methylprednisolone Sodium Succinate (Methylprednisolone Sod Succi 40 Mg/Ml 1 Ml Vial) 40 mg IV Q8HR [facility] Last Admin: 07/04/23 17:57 Dose: 40 mg Metoprolol Tartrate (Metoprolol Tartrate 50 Mg Tab) 50 mg PO AC-BID@1200,1800 [facility] Last Admin: 07/04/23 12:44 Dose: 50 mg Metoprolol Tartrate (Metoprolol Tartrate 50 Mg Tab) 100 mg PO W/BRKFST [facility] Last Admin: 07/04/23 06:23 Dose: 100 mg Miscellaneous Information (Magnesium Replacement Protocol 1 Each Misc) 1 each MISCELLANE DAILY PRN; Protocol PRN Reason: Per Protocol Miscellaneous Information (Potassium Replacement Protocol 1 Each Misc) 1 each MISCELLANE DAILY PRN PRN Reason: Per Protocol Naloxone HCl (Naloxone 0.4 Mg/Ml 1 Ml Vial) 0.2 mg IV Q2M PRN PRN Reason: Opioid Reversal Patient's Own ( Dulaglutide [ Trulicity] 0.75 Mg/0 .5 Ml Pen.Injctr) 1.5 mg SQ MO [facility] Ondansetron HCl (Ondansetron 4 Mg/2 Ml Vial) 4 mg IVP Q8HR PRN PRN Reason: Nausea And Vomiting Potassium Chloride (Potassium Chloride Er 10 Meq Tab.Er.Prt) 10 meq PO BID-W/ EALS [facility] Last Admin: 07/04/23 17:57 Dose: 10 meq Tamsulosin HCl (Tamsulosin 0.4 Mg Cap.Er.24h) 0.4 mg PO W/LUNCH [facility] Last Admin: 07/04/23 12:45 Dose: 0.4 mg Timolol Maleate (Timolol 0.5% Ophth Drops 5 Ml Btl) 1 drops BOTH EYES DAILY [facility] Last Admin: 07/04/23 12:44 Dose: 1 drops Social history: . Smoked a pack a day for approximately on and off for 40 years. Stopped in 2001. 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 Physical examination: VITAL SIGNS: 97.4, 85, 16, 151 x 71, 93% on 4 L GENERAL: Reclining in bed, bed tired EYES: Pupils equal. Conjunctiva baylee l. HEENT: External appearance of nose and ears normal, oral cavity grossly normal. NECK: JVD not raised; masses not palpable. HEART: First and second heart sounds are normal; no edema. LUNGS: Respiratory rate increased, diminished breath sounds. ABDOMEN: Soft, nontender, liver spleen not palpable, no masses palpable. PSYCH: Alert and oriented x3; mood and affect baylee l. MUSCULOSKELETAL:No Clubbing/cyanosis;muscles-grossly intact. OA INVESTIGATIONS, reviewed in the clinical context: White count 7 hemoglobin 11.7 platelets 424 sodium 136 potassium 4.6 BUN 37 creatinine 1.83 Blood glucose 546. Serum acetone negative EKG tracing personally reviewed by me-normal sinus rhythm. Nonspecific T wave changes. Chest x-ray film personally reviewed by me-small right pleural effusion. Possible full pulmonary arteries Previous labs: Creatinine 1.8 June 04, 2023 Assessment plan: -Acute severe COPD exacerbation in a patient who smoked on and off for 40 years. 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 Suspect underlying restrictive lung disease will use diffusion capacity and full lung function test.: Slow improvement DuoNeb 4 times daily. Nebulized Pulmicort and performorist IV Solu-Medrol 40 mg every 8. -Diabetes mellitus type 2, chronically on insulin Levemir. 48 units at night.. Diabetic diet. Home oral medications to be resumed -Essential hypertension Cozaar. Amlodipine 5 mg twice daily. Lopressor -BPH Flomax 0.4 mg -Hyperlipidemia Crestor -CAD with stent Plavix. Aspirin 3 weeks Lopressor. -Full code Increase activity. Up in a chair. Incentive spirometry. Continue with IV Solu-Medrol. Follow-up with pulmonary Past Medical History Past Medical History: Coronary Artery Disease (CAD), Diabetes Mellitus, Eye Disorder, Hearing Disorder / Deafness, Hypertension, Osteoarthritis (OA) Additional Past Medical History / Comment(s): GLAUCOMA. Hard of hearing. pt is on water pill but was never told he has CHF. History of Any Multi-Drug Resistant Organisms: None Reported Past Surgical History: Heart Catheterization With Stent, Orthopedic Surgery Additional Past Surgical History / Comment(s): Right knee arthroscopy, bilateral cataract surgery, 5 cardiac stents, pain clinic procedure. Past Anesthesia/Blood Transfusion Reactions: Previous Problems w/ Anesthesia Additional Past Anesthesia/Blood Transfusion Reaction / Comment(s): states pt has letter from previous knee surgery in 2010 that indicates that Erasto was a difficult intubation with difficult airway anterior. Date of Last Stent Placement:: 04/2019 Past Psychological History: No Psychological Hx Reported Smoking Status: Former smoker Past Alcohol Use History: None Reported Past Drug Use History: None Reported
[2023-07-04] MEDS: INSULIN DETEMIR (LEVEMIR) 100 UNIT/ML SYR SQ SCH (21:49)
[2023-07-05 05:39] LABS: Glucose,Whole Blood 259 mg/dL (70-110)
[2023-07-05 11:23] LABS: Glucose,Whole Blood 239 mg/dL (70-110)
--- NOTE | 2023-07-05 14:17 | P.PN ---
Subjective Progress Note Date: 07/05/23 Principal diagnosis: Acute hypoxic respiratory failure with bilateral pleural effusions, underlying obstructive and restrictive lung disease I am seeing this patient in consultation today July 03, 2023 for worsening exertional dyspnea since his recent hospital discharge approximately 1 month ago in May. At that time, he was admitted for shortness of breath and right- sided pleural effusion. CT of the chest on this admission showed a small right loculated pleural effusion without any calcified pleural plaques bilaterally. He was treated conservatively, with antibiotics and diuretics, and discharged home. Since then he has had worsening shortness of breath and significant activity limitations. He is a 78-year-old male with past medical history significant for coronary artery disease with previous stents, diabetes mellitus, CKD, hypertension, obesity, remote history of tobacco use, and prior work-related asbestos exposure. His PCP is Dr. Ron. He has been seen by Dr. Joseph recently in the pulmonary office. 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 His total lung capacity is 54%, FVC 45%, FEV1 39% of predicted, FEV1/FVC ratio 66%,with a DLCO not corrected for hemoglobin of 45%. Patient states that on his hospital discharge back on June 04 he was feeling relatively better. He was able to ambulate without significant limitation. Since then, he is progressively become more short of breath with exertion. He becomes severely dyspneic even with walking to the bathroom. Denies any coughing, sputum production, fevers, chest pain. Denies any lower extremity swelling. He does sleep in a recliner at home, so that he does become short of breath. Patient is lying in a semi-Fowlers position, on 6 L/min nasal cannula, in no acute distress. Chest x-ray done on arrival shows a persistent right pleural effusion and small left pleural effusion without any superimposed consolidative/airspace opacities. Cardiac silhouette and pulmonary vasculature are stable. CBC on arrival: WBC count 7.8, hemoglobin 12.5, hematocrit 40.4, platelets 422. BMP on arrival: Sodium 139, potassium 4.4, chloride 104, serum bicarb 28, BUN 27, creatinine 1.69, glucose 249. Troponin less than 0.012. NT proBNP mildly elevated at 1320. Negative for influenza, RSV, COVID. Vital signs are stable. Patient was reevaluated today on 07/04/2023, on 4 L nasal cannula with O2 sats of 92%, feeling slightly better, still receiving diuretics bronchodilators and steroids, interventional radiology is reluctant to place a pigtail catheter has right-sided pleural effusion which is loculated unless Plavix is on hold for 5 days. Plavix is presently on hold, labs today WBC count is 7 hemoglobin 11.7 basic metabolic profile is normal bicarb is 20 BUN is 39 creatinine 1.68, influenza RSV and COVID-19 negative screening noted Reevaluated today on 07/05/2023, patient remains on nasal cannula, 4 L/min, O2 sats 93%, hoping to get a pigtail catheter placement tomorrow by interventional radiology, patient has been off Plavix. Patient is showing slight improvement but not back to his baseline, continues to have shortness of breath and still requiring 4 L nasal cannula remains on diuretics, bronchodilators Objective - Vital Signs Vital signs: Vital Signs Temp 97.5 F L 07/05/23 12:00 Pulse 80 07/05/23 12:50 Resp 18 07/05/23 12:50 BP 164/72 07/05/23 12:00 Pulse Ox 93 L 07/05/23 12:00 FiO2 Intake & Output 07/04/23 07/05/23 07/05/23 18:59 06:59 18:59 Intake Total 460 540 350 Balance 460 540 350 Weight 125.5 kg 124.4 kg Intake: Oral 460 540 350 Other: Voiding Method Toilet Toilet Toilet # Voids 1 - Exam General: The patient is awake and alert, in no distress, and does not appear acutely ill. On 4 L nasal cannula Skin: Skin is warm and dry and no rashes or lesions are noted. Eye: Pupils are equal, round and reactive to light, extra-ocular movements are intact; there is normal conjunctiva bilaterally. Ears, nose, mouth and throat: There are moist mucous membranes and no oral lesions. Neck: The neck is supple, there is no tenderness or JVD. Cardiovascular: There is a regular rate and rhythm. No murmur, rub or gallop is appreciated. Respiratory: Diminished breath sound bilaterally no crackles rhonchi or wheezes Gastrointestinal: Soft, non-distended, non-tender abdomen without masses or organomegaly noted. There is no rebound or guarding present. Bowel sounds are unremarkable. Back: There is no tenderness to palpation in the midline. There is no obvious deformity. Musculoskeletal: Normal ROM, no tenderness, There is no pedal edema. There is no calf tenderness or swelling. No cords were appreciated. Neurological: CN II-XII intact, Cranial nerves III through XII are intact. There are no obvious motor or sensory deficits. Coordination appears grossly intact. Speech is normal. Psychiatric: Cooperative, appropriate mood & affect, normal judgment. - Labs CBC & Chem 7: 07/03/23 08:53 07/03/23 15:37 Labs: Abnormal Lab Results - Last 24 Hours (Table) 07/04/23 07/05/23 07/05/23 Range/Units 20:23 05:37 11:21 POC Glucose (mg/dL) 203 H 259 H 239 H (70-110) mg/dL Assessment and Plan Assessment: impression: Bilateral pleural effusions, small left and moderate right-sided pleural effusion. Underlying obstructive and restrictive lung disease Acute hypoxemic respiratory failure, currently on 4 L/min nasal cannula, possibly secondary to above Coronary artery disease, with previous stents Diabetes mellitus Chronic kidney disease stage III Hypertension Hyperlipidemia Obesity, with a BMI of 39.9 kg/m Remote history of tobacco dependence History of asbestos exposure Recommendation: Continue oxygen and titrate accordingly Continue to hold Plavix Continue bronchodilators including DuoNeb Symbicort and IV Solu-Medrol Continue diuretics Interventional radiology will likely place pigtail catheter tomorrow Will continue to follow Time with Patient: Less than 30
[2023-07-05 16:20] LABS: Glucose,Whole Blood 227 mg/dL (70-110)
--- NOTE | 2023-07-05 18:40 | P.PN ---
Progress Note - Text Progress Note Date: 07/05/23 Chief Complaint: Short of breath This is a pleasant 78-year-old patient to follow-up with Dr. Wellington Roblero. Has just started seeing also anode machine operator Dr. Joseph. Patient be short of breath for over a year. Progressively getting worse. Denies any edema. He does sleep in a chair. No cough. No fever no chills. Decreased appetite tired. Gets short winded after walking short distances around the house. Admitted with severe COPD exacerbation: July 04: Breathing a bit better. Less cough. Eating well. Told the patient sit up in a chair. Use incentive spirometry. Continue with bronchodilators inhaled and IV Solu-Medrol. July 05: Some improvement in breathing. Sitting up in a chair. Oral intake fair. Pulmonary considering IR to do possible thoracentesis. Family at the bedside. Patient reminded to do incentive spirometry. Active Medications Acetaminophen (Acetaminophen Tab 325 Mg Tab) 650 mg PO Q6HR PRN PRN Reason: Mild Pain or Fever > 100.5 Albuterol/Ipratropium (Ipratropium-Albuterol 3 Ml Neb) 3 ml INHALATION RT-Q4H [facility] Last Admin: 07/05/23 16:11 Dose: 3 ml Alprazolam (Alprazolam 0.25 Mg Tab) 0.25 mg PO Q6HR PRN PRN Reason: Anxiety Amlodipine Besylate (Amlodipine 5 Mg Tab) 5 mg PO BID-W/MEALS [facility] Last Admin: 07/05/23 17:10 Dose: 5 mg Aspirin (Aspirin 81 Mg) 81 mg PO W/BRKFST [facility] Last Admin: 07/05/23 18:34 Dose: Not Given Atorvastatin Calcium (Atorvastatin 20 Mg Tab) 20 mg PO PC-SUPPER [facility] Last Admin: 07/05/23 18:29 Dose: 20 mg Budesonide (Budesonide 1 Mg/2 Ml Nebu) 1 mg INHALATION RT-BID [facility] Last Admin: 07/05/23 09:06 Dose: 1 mg Calcium Carbonate/Glycine (Calcium Carbonate 500 Mg Chewable) 1,000 mg PO Q4HR PRN PRN Reason: Dyspepsia Cyclosporine (Cyclosporine 0.05% Ophth 0.4 Ml Droperette) 1 drops BOTH EYES BID [facility] Last Admin: 07/05/23 09:05 Dose: 1 drops Dapagliflozin (Dapagliflozin Propanediol 5 Mg Tablet) 5 mg PO DAILY [facility] Last Admin: 07/05/23 09:05 Dose: 5 mg Dextrose/Water (Dextrose 50% Syringe 50 Ml) 25 ml IVP PER PROTOCOL PRN; Protocol PRN Reason: Hypoglycemia Dextrose/Water (Dextrose 50% Syringe 50 Ml) 50 ml IVP PER PROTOCOL PRN; Protocol PRN Reason: Hypoglycemia Formoterol Fumarate (Formoterol Fumarate 20 Mcg/2 Ml Nebu) 20 mcg INHALATION RT-BID [facility] Last Admin: 07/05/23 09:05 Dose: 20 mcg Furosemide (Furosemide 40 Mg Tab) 40 mg PO BID@0900,1600 [facility] Last Admin: 07/05/23 15:39 Dose: 40 mg Insulin Aspart (Insulin Aspart (Novolog) 100 Unit/Ml Vial) 30 unit SQ AC- TID@0630,13,17 [facility] Last Admin: 07/05/23 17:09 Dose: 30 unit Insulin Aspart (Insulin Aspart (Novolog) 100 Unit/Ml Vial) 0 unit SQ ACHS [facility]; Protocol Last Admin: 07/05/23 17:09 Dose: 4 unit Insulin Aspart (Insulin Aspart (Novolog) 100 Unit/Ml Vial) 35 unit SQ AC- BRKFST@0830 [facility] Last Admin: 07/05/23 09:03 Dose: Not Given Insulin Detemir (Insulin Detemir (Levemir) 100 Unit/Ml Syr) 48 unit SQ HS [facility] Last Admin: 07/04/23 21:49 Dose: 48 unit Isosorbide Mononitrate (Isosorbide Mononitrate Er 30 Mg Tab.Er.24h) 30 mg PO W/BRKFST [facility] Last Admin: 07/05/23 06:20 Dose: 30 mg Lactulose (Lactulose 20 Gm/30 Ml Cup) 20 gm PO DAILY PRN PRN Reason: Constipation Losartan Potassium (Losartan 25 Mg Tab) 25 mg PO DAILY [facility] Last Admin: 07/05/23 12:41 Dose: Not Given Melatonin (Melatonin 3 Mg Tablet) 3 mg PO HS PRN PRN Reason: Insomnia Methylprednisolone Sodium Succinate (Methylprednisolone Sod Succi 40 Mg/Ml 1 Ml Vial) 40 mg IV Q8HR [facility] Last Admin: 07/05/23 15:39 Dose: 40 mg Metoprolol Tartrate (Metoprolol Tartrate 50 Mg Tab) 50 mg PO AC-BID@1200,1800 [facility] Last Admin: 07/05/23 17:10 Dose: 50 mg Metoprolol Tartrate (Metoprolol Tartrate 50 Mg Tab) 100 mg PO W/BRKFST [facility] Last Admin: 07/05/23 06:20 Dose: 100 mg Miscellaneous Information (Magnesium Replacement Protocol 1 Each Misc) 1 each MISCELLANE DAILY PRN; Protocol PRN Reason: Per Protocol Miscellaneous Information (Potassium Replacement Protocol 1 Each Misc) 1 each MISCELLANE DAILY PRN PRN Reason: Per Protocol Naloxone HCl (Naloxone 0.4 Mg/Ml 1 Ml Vial) 0.2 mg IV Q2M PRN PRN Reason: Opioid Reversal Patient's Own ( Dulaglutide [ Trulicity] 0.75 Mg/0 .5 Ml Pen.Injctr) 1.5 mg SQ MO [facility] Ondansetron HCl (Ondansetron 4 Mg/2 Ml Vial) 4 mg IVP Q8HR PRN PRN Reason: Nausea And Vomiting Potassium Chloride (Potassium Chloride Er 10 Meq Tab.Er.Prt) 10 meq PO BID- W/MEALS [facility] Last Admin: 07/05/23 17:10 Dose: 10 meq Tamsulosin HCl (Tamsulosin 0.4 Mg Cap.Er.24h) 0.4 mg PO W/LUNCH [facility] Last Admin: 07/05/23 12:41 Dose: 0.4 mg Timolol Maleate (Timolol 0.5% Ophth Drops 5 Ml Btl) 1 drops BOTH EYES DAILY [facility] Last Admin: 07/05/23 09:03 Dose: 1 drops Social history: . Smoked a pack a day for approximately on and off for 40 years. Stopped in 2001. 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 Physical examination: VITAL SIGNS: 97.5, 77, 20, 164 x 72, 93% on 4 L GENERAL: Up in a recliner EYES: Pupils equal. Conjunctiva baylee l. HEENT: External appearance of nose and ears normal, oral cavity grossly normal. NECK: JVD not raised; masses not palpable. HEART: First and second heart sounds are normal; no edema. LUNGS: Respiratory rate increased, diminished breath sounds. ABDOMEN: Soft, nontender, liver spleen not palpable, no masses palpable. PSYCH: Alert and oriented x3; mood and affect baylee l. MUSCULOSKELETAL:No Clubbing/cyanosis;muscles-grossly intact. OA INVESTIGATIONS, reviewed in the clinical context: White count 7 hemoglobin 11.7 platelets 424 sodium 136 potassium 4.6 BUN 37 creatinine 1.83 Blood glucose 546. Serum acetone negative EKG tracing personally reviewed by me-normal sinus rhythm. Nonspecific T wave changes. Chest x-ray film personally reviewed by me-small right pleural effusion. Possible full pulmonary arteries Previous labs: Creatinine 1.8 June 04, 2023 Assessment plan: -Acute severe COPD exacerbation in a patient who smoked on and off for 40 years. 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 Suspect underlying restrictive lung disease will use diffusion capacity and full lung function test.: Slow improvement DuoNeb 4 times daily. Nebulized Pulmicort and performorist IV Solu-Medrol 40 mg every 8. -Diabetes mellitus type 2, chronically on insulin Levemir. 48 units at night.. Diabetic diet. Home oral medications to be resumed -Essential hypertension Cozaar. Amlodipine 5 mg twice daily. Lopressor -BPH Flomax 0.4 mg -Hyperlipidemia Crestor -CAD with stent Plavix. Aspirin 3 weeks Lopressor. -Full code Continue with incentive spirometry. Continue with IV Solu-Medrol. Follow-up with pulmonary. Discussed Past Medical History Past Medical History: Coronary Artery Disease (CAD), Diabetes Mellitus, Eye Disorder, Hearing Disorder / Deafness, Hypertension, Osteoarthritis (OA) Additional Past Medical History / Comment(s): GLAUCOMA. Hard of hearing. pt is on water pill but was never told he has CHF. History of Any Multi-Drug Resistant Organisms: None Reported Past Surgical History: Heart Catheterization With Stent, Orthopedic Surgery Additional Past Surgical History / Comment(s): Right knee arthroscopy, bilateral cataract surgery, 5 cardiac stents, pain clinic procedure. Past Anesthesia/Blood Transfusion Reactions: Previous Problems w/ Anesthesia Additional Past Anesthesia/Blood Transfusion Reaction / Comment(s): states pt has letter from previous knee surgery in 2010 that indicates that Erasto was a difficult intubation with difficult airway anterior. Date of Last Stent Placement:: 04/2019 Past Psychological History: No Psychological Hx Reported Smoking Status: Former smoker Past Alcohol Use History: None Reported Past Drug Use History: None Reported
[2023-07-05 20:01] LABS: Glucose,Whole Blood 147 mg/dL (70-110)
[2023-07-06 06:18] LABS: Glucose,Whole Blood 268 mg/dL (70-110)
[2023-07-06 11:59] LABS: Glucose,Whole Blood 220 mg/dL (70-110)
--- NOTE | 2023-07-06 15:00 | P.PN ---
Subjective Progress Note Date: 07/06/23 Principal diagnosis: Acute hypoxic respiratory failure with bilateral pleural effusions, underlying obstructive and restrictive lung disease I am seeing this patient in consultation today July 03, 2023 for worsening exertional dyspnea since his recent hospital discharge approximately 1 month ago in May. At that time, he was admitted for shortness of breath and right- sided pleural effusion. CT of the chest on this admission showed a small right loculated pleural effusion without any calcified pleural plaques bilaterally. He was treated conservatively, with antibiotics and diuretics, and discharged home. Since then he has had worsening shortness of breath and significant activity limitations. He is a 78-year-old male with past medical history significant for coronary artery disease with previous stents, diabetes mellitus, CKD, hypertension, obesity, remote history of tobacco use, and prior work-related asbestos exposure. His PCP is Dr. Ron. He has been seen by Dr. Joseph recently in the pulmonary office. 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 His total lung capacity is 54%, FVC 45%, FEV1 39% of predicted, FEV1/FVC ratio 66%,with a DLCO not corrected for hemoglobin of 45%. Patient states that on his hospital discharge back on June 04 he was feeling relatively better. He was able to ambulate without significant limitation. Since then, he is progressively become more short of breath with exertion. He becomes severely dyspneic even with walking to the bathroom. Denies any coughing, sputum production, fevers, chest pain. Denies any lower extremity swelling. He does sleep in a recliner at home, so that he does become short of breath. Patient is lying in a semi-Fowlers position, on 6 L/min nasal cannula, in no acute distress. Chest x-ray done on arrival shows a persistent right pleural effusion and small left pleural effusion without any superimposed consolidative/airspace opacities. Cardiac silhouette and pulmonary vasculature are stable. CBC on arrival: WBC count 7.8, hemoglobin 12.5, hematocrit 40.4, platelets 422. BMP on arrival: Sodium 139, potassium 4.4, chloride 104, serum bicarb 28, BUN 27, creatinine 1.69, glucose 249. Troponin less than 0.012. NT proBNP mildly elevated at 1320. Negative for influenza, RSV, COVID. Vital signs are stable. Patient was reevaluated today on 07/04/2023, on 4 L nasal cannula with O2 sats of 92%, feeling slightly better, still receiving diuretics bronchodilators and steroids, interventional radiology is reluctant to place a pigtail catheter has right-sided pleural effusion which is loculated unless Plavix is on hold for 5 days. Plavix is presently on hold, labs today WBC count is 7 hemoglobin 11.7 basic metabolic profile is normal bicarb is 20 BUN is 39 creatinine 1.68, influenza RSV and COVID-19 negative screening noted Reevaluated today on 07/05/2023, patient remains on nasal cannula, 4 L/min, O2 sats 93%, hoping to get a pigtail catheter placement tomorrow by interventional radiology, patient has been off Plavix. Patient is showing slight improvement but not back to his baseline, continues to have shortness of breath and still requiring 4 L nasal cannula remains on diuretics, bronchodilators Reevaluate today on 07/06/2023, patient is scheduled to have pigtail catheter placement today, hopefully the pigtail catheter will be diagnostic and therapeutic at the same time. Patient is doing well in the meantime, remains on oxygen via nasal cannula, not in any distress. His shortness of breath is improving steadily. Objective - Vital Signs Vital signs: Vital Signs Temp 97.5 F L 07/06/23 07:40 Pulse 80 07/06/23 12:30 Resp 18 07/06/23 12:30 BP 172/80 07/06/23 12:30 Pulse Ox 94 L 07/06/23 12:30 FiO2 Intake & Output 07/05/23 07/06/23 07/06/23 18:59 06:59 18:59 Intake Total 460 110 Output Total 20 Balance 460 90 Intake: Oral 460 110 Output: Chest Tube Drainage 20 Chest Tube Right 20 Posterior Chest Other: Voiding Method Toilet Toilet Toilet - Exam General: The patient is awake and alert, in no distress, and does not appear acutely ill. On 3 L nasal cannula Skin: Skin is warm and dry and no rashes or lesions are noted. Eye: Pupils are equal, round and reactive to light, extra-ocular movements are intact; there is normal conjunctiva bilaterally. Ears, nose, mouth and throat: There are moist mucous membranes and no oral lesions. Neck: The neck is supple, there is no tenderness or JVD. Cardiovascular: There is a regular rate and rhythm. No murmur, rub or gallop is appreciated. Respiratory: Diminished breath sound bilaterally no crackles rhonchi or wheezes Gastrointestinal: Soft, non-distended, non-tender abdomen without masses or organomegaly noted. There is no rebound or guarding present. Bowel sounds are unremarkable. Back: There is no tenderness to palpation in the midline. There is no obvious deformity. Musculoskeletal: Normal ROM, no tenderness, There is no pedal edema. There is no calf tenderness or swelling. No cords were appreciated. Neurological: CN II-XII intact, Cranial nerves III through XII are intact. There are no obvious motor or sensory deficits. Coordination appears grossly intact. Speech is normal. Psychiatric: Cooperative, appropriate mood & affect, normal judgment. - Labs CBC & Chem 7: 07/03/23 08:53 07/03/23 15:37 Labs: Abnormal Lab Results - Last 24 Hours (Table) 07/05/23 07/05/23 07/06/23 Range/Units 16:19 20:00 06:15 POC Glucose (mg/dL) 227 H 147 H 268 H (70-110) mg/dL 07/06/23 Range/Units 11:57 POC Glucose (mg/dL) 220 H (70-110) mg/dL Assessment and Plan Assessment: impression: Bilateral pleural effusions, small left and moderate right-sided pleural effusion./Loculated Underlying obstructive and restrictive lung disease Acute hypoxemic respiratory failure, currently on 4 L/min nasal cannula, po ssibly secondary to above Coronary artery disease, with previous stents Diabetes mellitus Chronic kidney disease stage III Hypertension Hyperlipidemia Obesity, with a BMI of 39.9 kg/m Remote history of tobacco dependence History of asbestos exposure Recommendation: Pigtail catheter to be placed today. Fluid will be sent for different diagnostic studies. Continue oxygen and titrate accordingly Continue to hold Plavix, restart Plavix tomorrow Continue bronchodilators including DuoNeb Symbicort and IV Solu-Medrol Continue diuretics Will continue to follow Time with Patient: Less than 30
--- NOTE | 2023-07-06 15:26 | XR ---
EXAMINATION TYPE: XR chest 1V portable DATE OF EXAM: 07/06/2023 Comparison: 07/02/2023 Clinical History: 78-year-old male chest tube Findings: There is mildly large. Right basilar chest tube in place. A similar small right pleural effusion with some patchy right basilar opacity. There may be a trace left effusion improved from prior. Upper chiquis gs appear clear. No appreciable pneumothorax. Impression: Similar small right pleural effusion with adjacent atelectasis and/or consolidation. Right-sided basi lar pleural catheter demonstrated. A trace left effusion appears decreased from prior.
--- NOTE | 2023-07-06 15:27 | P.PN ---
Progress Note - Text Progress Note Date: 07/06/23 Chief Complaint: Short of breath This is a pleasant 78-year-old patient to follow-up with Dr. Wellington Roblero. Has just started seeing also pastor Dr. Joseph. Patient be short of breath for over a year. Progressively getting worse. Denies any edema. He does sleep in a chair. No cough. No fever no chills. Decreased appetite tired. Gets short winded after walking short distances around the house. Admitted with severe COPD exacerbation: July 04: Breathing a bit better. Less cough. Eating well. Told the patient sit up in a chair. Use incentive spirometry. Continue with bronchodilators inhaled and IV Solu-Medrol. July 05: Some improvement in breathing. Sitting up in a chair. Oral intake fair. Pulmonary considering IR to do possible thoracentesis. Family at the bedside. Patient reminded to do incentive spirometry. July 06: Patient had a pigtail placed on the right side. Exact amount drained unknown. Some breathing better. Family at the bedside. Tolerating diet. Active Medications Acetaminophen (Acetaminophen Tab 325 Mg Tab) 650 mg PO Q6HR PRN PRN Reason: Mild Pain or Fever > 100.5 Albuterol/Ipratropium (Ipratropium-Albuterol 3 Ml Neb) 3 ml INHALATION RT-Q4H [facility] Last Admin: 07/06/23 11:42 Dose: Not Given Alprazolam (Alprazolam 0.25 Mg Tab) 0.25 mg PO Q6HR PRN PRN Reason: Anxiety Amlodipine Besylate (Amlodipine 5 Mg Tab) 5 mg PO BID-W/MEALS [facility] Last Admin: 07/06/23 06:31 Dose: 5 mg Aspirin (Aspirin 81 Mg) 81 mg PO W/BRKFST [facility] Last Admin: 07/05/23 18:34 Dose: Not Given Atorvastatin Calcium (Atorvastatin 20 Mg Tab) 20 mg PO PC-SUPPER [facility] Last Admin: 07/05/23 18:29 Dose: 20 mg Budesonide (Budesonide 1 Mg/2 Ml Nebu) 1 mg INHALATION RT-BID [facility] Last Admin: 07/06/23 08:12 Dose: Not Given Calcium Carbonate/Glycine (Calcium Carbonate 500 Mg Chewable) 1,000 mg PO Q4HR PRN PRN Reason: Dyspepsia Cyclosporine (Cyclosporine 0.05% Ophth 0.4 Ml Droperette) 1 drops BOTH EYES BID [facility] Last Admin: 07/06/23 08:10 Dose: 1 drops Dapagliflozin (Dapagliflozin Propanediol 5 Mg Tablet) 5 mg PO DAILY [facility] Last Admin: 07/06/23 08:09 Dose: 5 mg Dextrose/Water (Dextrose 50% Syringe 50 Ml) 25 ml IVP PER PROTOCOL PRN; Protocol PRN Reason: Hypoglycemia Dextrose/Water (Dextrose 50% Syringe 50 Ml) 50 ml IVP PER PROTOCOL PRN; Protocol PRN Reason: Hypoglycemia Formoterol Fumarate (Formoterol Fumarate 20 Mcg/2 Ml Nebu) 20 mcg INHALATION RT-BID [facility] Last Admin: 07/06/23 08:12 Dose: Not Given Furosemide (Furosemide 40 Mg Tab) 40 mg PO BID@0900,1600 [facility] Last Admin: 07/06/23 08:10 Dose: 40 mg Insulin Aspart (Insulin Aspart (Novolog) 100 Unit/Ml Vial) 30 unit SQ AC- TID@0630,13,17 [facility] Last Admin: 07/06/23 12:10 Dose: 30 unit Insulin Aspart (Insulin Aspart (Novolog) 100 Unit/Ml Vial) 0 unit SQ ACHS [facility]; Protocol Last Admin: 07/06/23 12:10 Dose: 4 unit Insulin Aspart (Insulin Aspart (Novolog) 100 Unit/Ml Vial) 35 unit SQ AC- BRKFST@0830 [facility] Last Admin: 07/06/23 12:02 Dose: Not Given Insulin Detemir (Insulin Detemir (Levemir) 100 Unit/Ml Syr) 48 unit SQ HS [facility] Last Admin: 07/05/23 20:32 Dose: 48 unit Isosorbide Mononitrate (Isosorbide Mononitrate Er 30 Mg Tab.Er.24h) 30 mg PO W/BRKFST [facility] Last Admin: 07/06/23 06:31 Dose: 30 mg Lactulose (Lactulose 20 Gm/30 Ml Cup) 20 gm PO DAILY PRN PRN Reason: Constipation Losartan Potassium (Losartan 25 Mg Tab) 25 mg PO DAILY [facility] Last Admin: 07/06/23 08:09 Dose: 25 mg Melatonin (Melatonin 3 Mg Tablet) 3 mg PO HS PRN PRN Reason: Insomnia Methylprednisolone Sodium Succinate (Methylprednisolone Sod Succi 40 Mg/Ml 1 Ml Vial) 40 mg IV Q8HR [facility] Last Admin: 07/06/23 08:07 Dose: 40 mg Metoprolol Tartrate (Metoprolol Tartrate 50 Mg Tab) 50 mg PO AC-BID@1200,1800 [facility] Last Admin: 07/06/23 12:10 Dose: 50 mg Metoprolol Tartrate (Metoprolol Tartrate 50 Mg Tab) 100 mg PO W/BRKFST [facility] Last Admin: 07/06/23 06:31 Dose: 100 mg Miscellaneous Information (Magnesium Replacement Protocol 1 Each Misc) 1 each MISCELLANE DAILY PRN; Protocol PRN Reason: Per Protocol Miscellaneous Information (Potassium Replacement Protocol 1 Each Misc) 1 each MISCELLANE DAILY PRN PRN Reason: Per Protocol Naloxone HCl (Naloxone 0.4 Mg/Ml 1 Ml Vial) 0.2 mg IV Q2M PRN PRN Reason: Opioid Reversal Patient's Own ( Dulaglutide [ Trulicity] 0.75 Mg/0 .5 Ml Pen.Injctr) 1.5 mg SQ MO [facility] Ondansetron HCl (Ondansetron 4 Mg/2 Ml Vial) 4 mg IVP Q8HR PRN PRN Reason: Nausea And Vomiting Potassium Chloride (Potassium Chloride Er 10 Meq Tab.Er.Prt) 10 meq PO BID- W/MEALS [facility] Last Admin: 07/06/23 06:31 Dose: 10 meq Tamsulosin HCl (Tamsulosin 0.4 Mg Cap.Er.24h) 0.4 mg PO W/LUNCH [facility] Last Admin: 07/06/23 12:09 Dose: 0.4 mg Timolol Maleate (Timolol 0.5% Ophth Drops 5 Ml Btl) 1 drops BOTH EYES DAILY [facility] Last Admin: 07/06/23 08:11 Dose: 1 drops Social history: . Smoked a pack a day for approximately on and off for 40 years. Stopped in 2001. 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 Physical examination: VITAL SIGNS: 97.5, 75, 16, 155 x 39, 96% on 3 L GENERAL: Reclining in bed. Right-sided pigtail catheter EYES: Pupils equal. Conjunctiva baylee l. HEENT: External appearance of nose and ears normal, oral cavity grossly normal. NECK: JVD not raised; masses not palpable. HEART: First and second heart sounds are normal; no edema. LUNGS: Respiratory rate increased, diminished breath sounds. ABDOMEN: Soft, nontender, liver spleen not palpable, no masses palpable. PSYCH: Alert and oriented x3; mood and affect baylee l. MUSCULOSKELETAL:No Clubbing/cyanosis;muscles-grossly intact. OA INVESTIGATIONS, reviewed in the clinical context: White count 7 hemoglobin 11.7 platelets 424 sodium 136 potassium 4.6 BUN 37 creatinine 1.83 Blood glucose 546. Serum acetone negative EKG tracing personally reviewed by me-normal sinus rhythm. Nonspecific T wave changes. Chest x-ray film personally reviewed by me-small right pleural effusion. Possible full pulmonary arteries Previous labs: Creatinine 1.8 June 04, 2023 Assessment plan: -Acute severe COPD exacerbation in a patient who smoked on and off for 40 years. 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 Suspect underlying restrictive lung disease will use diffusion capacity and full lung function test.: Some improvement DuoNeb 4 times daily. Nebulized Pulmicort and performorist IV Solu-Medrol 40 mg every 8. -Diabetes mellitus type 2, chronically on insulin Levemir. 48 units at night.. Diabetic diet. Home oral medications to be resumed -Right-sided pleural effusion Pigtail catheter placed on July 06, 2023. Await testing and biochemistry of the fluid. Follow-up with pulmonary. -Essential hypertension Cozaar. Amlodipine 5 mg twice daily. Lopressor -BPH Flomax 0.4 mg -Hyperlipidemia Crestor -CAD with stent Plavix. Aspirin 3 weeks Lopressor. -Full code Right-sided pigtail catheter placed. Other medications to continue. Follow-up with pulmonary. Discussed with patient and family. Past Medical History Past Medical History: Coronary Artery Disease (CAD), Diabetes Mellitus, Eye Disorder, Hearing Disorder / Deafness, Hypertension, Osteoarthritis (OA) Additional Past Medical History / Comment(s): GLAUCOMA. Hard of hearing. pt is on water pill but was never told he has CHF. History of Any Multi-Drug Resistant Organisms: None Reported Past Surgical History: Heart Catheterization With Stent, Orthopedic Surgery Additional Past Surgical History / Comment(s): Right knee arthroscopy, bilateral cataract surgery, 5 cardiac stents, pain clinic procedure. Past Anesthesia/Blood Transfusion Reactions: Previous Problems w/ Anesthesia Additional Past Anesthesia/Blood Transfusion Reaction / Comment(s): states pt has letter from previous knee surgery in 2010 that indicates that Erasto was a difficult intubation with difficult airway anterior. Date of Last Stent Placement:: 04/2019 Past Psychological History: No Psychological Hx Reported Smoking Status: Former smoker Past Alcohol Use History: None Reported Past Drug Use History: None Reported
--- NOTE | 2023-07-06 16:24 | US ---
EXAMINATION TYPE: US guided chest tube insertion DATE OF EXAM: 07/06/2023 11:40 AM CLINICAL INDICATION:Male, 78 years old with history of Right chest pigtail catheter insertion COMPARISON: Ultrasound 07/03/2023 TECHNIQUE: Ultrasound-guided chest tube insertion with trocar technique. No sedation was utilized. PROCEDURE: Informed consent was obtained. Risks including bleeding, infection, damage to surrounding structures, and the potential need for further procedures as well as benefits were explained. All patient questi ons were answered. Initial ultrasound images were taken which showed safest access to right pleural space. The patient was prepped and draped. Under sterile technique with 1% lidocaine local anesthesia 8.5 Barbadian cathete r was inserted. The patient tolerated the procedure well without complication. The patient was transf erred to recovery in stable condition. IMPRESSION: Successful right pleural chest wall catheter insertion under ultrasound guidance.
[2023-07-06 16:29] LABS: Glucose,Whole Blood 170 mg/dL (70-110)
[2023-07-06 19:57] LABS: Glucose,Whole Blood 104 mg/dL (70-110)
[2023-07-06] MEDS ORDERED: IPRATROPIUM-ALBUTEROL 3 ML NEB INHALATION PRN (21:03)
[2023-07-06 22:04] LABS: Amylase, Fluid Source Pleural Fluid; Amylase,Body Fluid 15 U/L; Glucose, BF Source Pleural Fluid; Glucose, Body Fluid 189 mg/dL; LDH, Body Fluid Source Pleural Fluid; T. Protein, Body Fluid Source Pleural Fluid; Total Protein, Body Fluid 2160 mg/dL
[2023-07-07 02:23] LABS: Appearance,BF Clear (Clear)
[2023-07-07 06:12] LABS: Glucose,Whole Blood 258 mg/dL (70-110)
--- NOTE | 2023-07-07 07:13 | XR ---
EXAMINATION TYPE: XR chest 1V portable DATE OF EXAM: 07/07/2023 CLINICAL HISTORY: Difficulty breathing progress study. See detailed catheter removed. TECHNIQUE: Single AP portable upright view of the chest is obtained. COMPARISON: Chest x-ray from one day earlier and older studies. FINDINGS: Interval follow-up right basilar pleural drainage catheter. Stable small to moderate-sized right pleural fluid collection. Cardiomegaly redemonstrated. Tiny left pleural effusion suspected si milar to prior. Osseous structures are intact. IMPRESSION: Stable small to moderate sized right basilar pleural fluid collection after pigtail pleur al drainage catheter removal.
[2023-07-07] MEDS: IPRATROPIUM-ALBUTEROL 3 ML NEB INHALATION SCH (07:37)
[2023-07-07 07:57] LABS: Glucose,Whole Blood 308 mg/dL (70-110)
[2023-07-07 10:56] LABS: Anisocytosis Slight; Basophils % (A) 0 %; Eosinophils % (A) 0 %; HCT 38.5 % (39.0-53.0); HGB 11.8 gm/dL (13.0-17.5); Hypochromasia Marked; Lymphocytes # (A) 0.6 k/uL (1.0-4.8); Lymphocytes % (A) 7 %; MCH 28.8 pg (25.0-35.0); MCHC 30.8 g/dL (31.0-37.0); MCV 93.7 fL (80.0-100.0); Mean Platelet Volume 7.4; Monocytes # (A) 0.3 k/uL (0-1.0); Monocytes % (A) 4 %; Neutrophils # (A) 6.7 k/uL (1.3-7.7); Neutrophils % (A) 88 %; Platelet Count 402 k/uL (150-450); RBC 4.11 m/uL (4.30-5.90); RDW 16.3 % (11.5-15.5); WBC 7.7 k/uL (3.8-10.6)
[2023-07-07 11:02] VITALS: TEMP 97.6
[2023-07-07] MEDS: CLOPIDOGREL 75 MG TAB PO SCH (11:13)
[2023-07-07 11:15] LABS: ALT 15 U/L (4-49); AST 18 U/L (17-59); African American GFR (CKD) 46 (>60 ml/min/1.73 sqM); Albumin 3.5 g/dL (3.5-5.0); Alkaline Phosphatase 58 U/L (38-126); Anion Gap 9 mmol/L; Blood Urea Nitrogen 53 mg/dL (9-20); Calcium 8.6 mg/dL (8.4-10.2); Carbon Dioxide 28 mmol/L (22-30); Chloride 97 mmol/L (98-107); Glucose 294 mg/dL (74-99); Non-African American GFR(CKD) 40 (>60 ml/min/1.73 sqM); Potassium 5.2 mmol/L (3.5-5.1); Sodium 134 mmol/L (137-145); Total Bilirubin 0.5 mg/dL (0.2-1.3); Total Protein 6.3 g/dL (6.3-8.2)
[2023-07-07 11:34] LABS: Glucose,Whole Blood 180 mg/dL (70-110)
--- NOTE | 2023-07-07 11:56 | P.DS ---
Providers Date of admission: 07/02/23 21:02 Expected date of discharge: 07/07/23 Attending physician: Rashi Virk Consults: 07/02/23 20:59 Consult Physician Routine Consulting Provider: Court Joseph Consult Reason/Comments: hypoxic resp failure, bilateral pleural effusions, copd Do you want consulting provider notified?: Yes Primary care physician: Wellington Ron [facility] Course: Discharge diagnoses; Bilateral pleural effusions, small left and moderate right-sided pleural effusion./Loculated Underlying obstructive and restrictive lung disease Acute hypoxemic respiratory failure Coronary artery disease, with previous stents Diabetes mellitus Chronic kidney disease stage III Hypertension Hyperlipidemia Obesity, with a BMI of 39.9 kg/m Remote history of tobacco dependence History of asbestos exposure Hospital course; This is a pleasant 78-year-old patient to follow-up with Dr. Wellington Roblero. 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 Joseph. Patient be short of breath for over a year. Progressively getting worse. Denies any edema. He does sleep in a chair. No cough. No fever no chills. Decreased appetite tired. Gets short winded after walking short distances around the house. Admitted with severe COPD exacerbation: July 04: Breathing a bit better. Less cough. Eating well. Told the patient sit up in a chair. Use incentive spirometry. Continue with bronchodilators inhaled and IV Solu-Medrol. July 05: Some improvement in breathing. Sitting up in a chair. Oral intake fair. Pulmonary considering IR to do possible thoracentesis. Family at the bedside. Patient reminded to do incentive spirometry. July 06: Patient had a pigtail placed on the right side. Exact amount drained unknown. Some breathing better. Family at the bedside. Tolerating diet. 07/07. Dr. Yun total took over care. Patient had pigtail catheter pulled out accidentally overnight. Patient was seen by pulmonary this morning, pleural fluid studies reviewed, at this time pulmonology recommended discharging patient on tapering dose of prednisone. Patient walking nursing pulse ox done, showing patient to require 4 L of oxygen on exertion and 2 L at rest. Outpatient follow-up with pulmonology and PCP PHYSICAL EXAMINATION: GENERAL: The patient is alert and oriented x3, not in any acute distress. Well developed, well nourished. HEENT: Pupils are round and equally reacting to light. EOMI. No scleral icterus. No conjunctival pallor. Normocephalic, atraumatic. No pharyngeal erythema. No thyromegaly. CARDIOVASCULAR: S1 and S2 present. No murmurs, rubs, or gallops. PULMONARY: Coarse breath sound bilaterally, no wheezing or crackles. ABDOMEN: Soft, nontender, nondistended, normoactive bowel sounds. No palpable organomegaly. MUSCULOSKELETAL: No joint swelling or deformity. EXTREMITIES: No cyanosis, clubbing, or pedal edema. NEUROLOGICAL: Gross neurological examination did not reveal any focal deficits. SKIN: No rashes. Dictation was produced using [employer] dictation software. please excuse any grammatical, word or spelling errors. Patient Condition at Discharge: Stable Plan - Discharge Summary Discharge Rx Participant: No New Discharge Prescriptions: New Furosemide [Lasix] 40 mg PO BID@0900,1600 #30 tab predniSONE 10 mg PO DAILY 8 Days #20 tab Continue Aspirin [Adult Low Dose Aspirin EC] 81 mg PO W/BRKFST Potassium Chloride ER [K-Dur 10] 10 meq PO BID-W/MEALS Rosuvastatin [Crestor] 10 mg PO PC-SUPPER Fenofibrate Nanocrystallized [Fenofibrate] 145 mg PO Q2D@1800 Timolol 0.5% Ophth Soln [Timoptic 0.5% Ophth Soln] 1 drop BOTH EYES DAILY Dulaglutide [Trulicity] 1.5 mg SQ MO Insulin Glargine,Hum.rec.anlog [Toujeo Solostar] 50 units SQ HS Tamsulosin [Flomax] 0.4 mg PO W/LUNCH amLODIPine [Norvasc] 5 mg PO BID-W/MEALS Isosorbide Mononitrate ER [Imdur] 30 mg PO W/BRKFST INSULIN LISPRO (humaLOG) [humaLOG] See Protocol SQ ACHS Albuterol Inhaler [Ventolin Hfa Inhaler] 2 puff INHALATION RT-QID Budesonide-Formot 160-4.5 Mcg [Symbicort 160-4.5 Mcg Inhaler] 2 puff I NHALATION RT-BID #100 each Losartan [Cozaar] 25 mg PO DAILY Metoprolol Tartrate [Lopressor] 100 mg PO W/BRKFST Empagliflozin [Jardiance] 10 mg PO DAILY cycloSPORINE 0.05% OPHTH SOLN [Restasis] 1 drop BOTH EYES BID Nitroglycerin Sl Tabs [Nitrostat] 0.4 mg SL Q5M PRN PRN Reason: Chest Pain Metoprolol Tartrate [Lopressor] 50 mg PO AC-BID@1200,1800 polyethylene glycoL 3350 [Miralax] 17 gm PO DAILY PRN PRN Reason: Constipation Clopidogrel [Plavix] 75 mg PO W/LUNCH INSULIN LISPRO (HumaLOG) [humaLOG] 30 units SQ AC-TID@0630,13,17 Discontinued Furosemide [Lasix] 40 mg PO W/BRKFST INSULIN LISPRO (humaLOG) [humaLOG] 35 units SQ AC-BRKFST@0900 Discharge Medication List Aspirin [Adult Low Dose Aspirin EC] 81 mg PO W/BRKFST 02/05/18 [History] Potassium Chloride ER [K-Dur 10] 10 meq PO BID-W/MEALS 02/05/18 [History] Rosuvastatin [Crestor] 10 mg PO PC-SUPPER 02/05/18 [History] Fenofibrate Nanocrystallized [Fenofibrate] 145 mg PO Q2D@1800 02/28/18 [History] Dulaglutide [Trulicity] 1.5 mg SQ MO 05/05/20 [History] Timolol 0.5% Ophth Soln [Timoptic 0.5% Ophth Soln] 1 drop BOTH EYES DAILY 05/05/20 [History] Metoprolol Tartrate [Lopressor] 100 mg PO W/BRKFST 01/18/22 [History] Insulin Glargine,Hum.rec.anlog [Toujeo Solostar] 50 units SQ HS 05/12/22 [History] Empagliflozin [Jardiance] 10 mg PO DAILY 11/23/22 [History] Clopidogrel [Plavix] 75 mg PO W/LUNCH 05/03/23 [History] Isosorbide Mononitrate ER [Imdur] 30 mg PO W/BRKFST 05/03/23 [History] Metoprolol Tartrate [Lopressor] 50 mg PO AC-BID@1200,1800 05/03/23 [History] Nitroglycerin Sl Tabs [Nitrostat] 0.4 mg SL Q5M PRN 05/03/23 [History] Tamsulosin [Flomax] 0.4 mg PO W/LUNCH 05/03/23 [History] amLODIPine [Norvasc] 5 mg PO BID-W/MEALS 05/03/23 [History] cycloSPORINE 0.05% OPHTH SOLN [Restasis] 1 drop BOTH EYES BID 05/03/23 [History] polyethylene glycoL 3350 [Miralax] 17 gm PO DAILY PRN 05/03/23 [History] Albuterol Inhaler [Ventolin Hfa Inhaler] 2 puff INHALATION RT-QID 06/01/23 [History] INSULIN LISPRO (HumaLOG) [humaLOG] 30 units SQ AC-TID@0630,13,17 06/01/23 [History] INSULIN LISPRO (humaLOG) [humaLOG] See Protocol SQ ACHS 06/01/23 [History] Budesonide-Formot 160-4.5 Mcg [Symbicort 160-4.5 Mcg Inhaler] 2 puff INHALATION RT-BID #100 each 06/04/23 [Rx] Losartan [Cozaar] 25 mg PO DAILY 07/02/23 [History] Furosemide [Lasix] 40 mg PO BID@0900,1600 #30 tab 07/07/23 [Rx] predniSONE 10 mg PO DAILY 8 Days #20 tab 07/07/23 [Rx] Follow up Appointment(s)/Referral(s): Wellington Ron MD [Primary Care Provider] - 1-[address] Joseph MD [STAFF PHYSICIAN] - 1 Week Discharge Disposition: HOME SELF-CARE
[2023-07-07 14:42] VITALS: BP 154/71; PULSE 73; RESP 19
--- NOTE | 2023-07-07 15:04 | P.PN ---
Subjective Progress Note Date: 07/07/23 I am seeing this patient in consultation today July 03, 2023 for worsening exertional dyspnea since his recent hospital discharge approximately 1 month ago in May. At that time, he was admitted for shortness of breath and right- sided pleural effusion. CT of the chest on this admission showed a small right loculated pleural effusion without any calcified pleural plaques bilaterally. He was treated conservatively, with antibiotics and diuretics, and discharged home. Since then he has had worsening shortness of breath and significant activity limitations. He is a 78-year-old male with past medical history significant for coronary artery disease with previous stents, diabetes mellitus, CKD, hypertension, obesity, remote history of tobacco use, and prior work-related asbestos exposure. His PCP is Dr. Ron. He has been seen by Dr. Joseph recently in the pulmonary office. 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 His total lung capacity is 54%, FVC 45%, FEV1 39% of predicted, FEV1/FVC ratio 66%,with a DLCO not corrected for hemoglobin of 45%. Patient states that on his hospital discharge back on June 04 he was feeling relatively better. He was able to ambulate without significant limitation. Since then, he is progressively become more short of breath with exertion. He becomes severely dyspneic even with walking to the bathroom. Denies any coughing, sputum production, fevers, chest pain. Denies any lower extremity swelling. He does sleep in a recliner at home, so that he does become short of breath. Patient is lying in a semi-Fowlers position, on 6 L/min nasal cannula, in no acute distress. Chest x-ray done on arrival shows a persistent right pleural effusion and small left pleural effusion without any superimposed consolidative/airspace opacities. Cardiac silhouette and pulmonary vasculature are stable. CBC on arrival: WBC count 7.8, hemoglobin 12.5, hematocrit 40.4, platelets 422. BMP on arrival: Sodium 139, potassium 4.4, chloride 104, serum bicarb 28, BUN 27, creatinine 1.69, glucose 249. Troponin less than 0.012. NT proBNP mildly elevated at 1320. Negative for influenza, RSV, COVID. Vital signs are stable. Patient was reevaluated today on 07/04/2023, on 4 L nasal cannula with O2 sats of 92%, feeling slightly better, still receiving diuretics bronchodilators and steroids, interventional radiology is reluctant to place a pigtail catheter has right-sided pleural effusion which is loculated unless Plavix is on hold for 5 days. Plavix is presently on hold, labs today WBC count is 7 hemoglobin 11.7 basic metabolic profile is normal bicarb is 20 BUN is 39 creatinine 1.68, influenza RSV and COVID-19 negative screening noted Reevaluated today on 07/05/2023, patient remains on nasal cannula, 4 L/min, O2 sa ts 93%, hoping to get a pigtail catheter placement tomorrow by interventional radiology, patient has been off Plavix. Patient is showing slight improvement but not back to his baseline, continues to have shortness of breath and still requiring 4 L nasal cannula remains on diuretics, bronchodilators Reevaluate today on 07/06/2023, patient is scheduled to have pigtail catheter placement today, hopefully the pigtail catheter will be diagnostic and therapeutic at the same time. Patient is doing well in the meantime, remains on oxygen via nasal cannula, not in any distress. His shortness of breath is improving steadily. The patient is seen today July 07, 2023 in follow-up on the selective care unit. His pigtail catheter was inadvertently dislodged last night. He is currently sitting up in a chair at the bedside. Awake and alert in no acute distress. He denies any worsening shortness of breath, cough or congestion. He is maintaining O2 saturations in the 90s on 2 L/min per nasal cannula. Pleural fluid cultures are pending. Count 7.7. Hemoglobin 11.8. Platelets 402. Sodium 134. Potassium 5.2. Bicarb 28. BUN 53. Creatinine 1.63. Glucose 180. Luiz on bronchodilators, steroids. Continued on oral diuretics. Objective - Vital Signs Vital signs: Vital Signs Temp 97.6 F 07/07/23 08:00 Pulse 78 07/07/23 12:11 Resp 19 07/07/23 12:00 BP 154/71 07/07/23 12:00 Pulse Ox 96 07/07/23 12:00 FiO2 Intake & Output 07/06/23 07/07/23 07/07/23 18:59 06:59 18:59 Intake Total 220 Output Total 186 Balance 34 Weight 121.5 kg Intake: Oral 220 Output: Chest Tube Drainage 186 Chest Tube Right 186 Posterior Chest Other: Voiding Method Toilet Toilet Toilet # Voids 1 - Exam General: 78-year-old male patient, awake and alert, in no distress, and does not appear acutely ill. On 2 L nasal cannula Skin: Skin is warm and dry and no rashes or lesions are noted. Eye: Pupils are equal, round and reactive to light, extra-ocular movements are intact; there is normal conjunctiva bilaterally. Ears, nose, mouth and throat: There are moist mucous membranes and no oral lesions. Neck: The neck is supple, there is no tenderness or JVD. Cardiovascular: There is a regular rate and rhythm. No murmur, rub or gallop is appreciated. Respiratory: Diminished breath sound bilaterally no crackles rhonchi or wheezes Gastrointestinal: Soft, non-distended, non-tender abdomen without masses or organomegaly noted. There is no rebound or guarding present. Bowel sounds are unremarkable. Back: There is no tenderness to palpation in the midline. There is no obvious deformity. Musculoskeletal: Normal ROM, no tenderness, There is no pedal edema. There is no calf tenderness or swelling. No cords were appreciated. Neurological: CN II-XII intact, Cranial nerves III through XII are intact. There are no obvious motor or sensory deficits. Coordination appears grossly intact. Speech is normal. Psychiatric: Cooperative, appropriate mood & affect, normal judgment. - Labs CBC & Chem 7: 07/07/23 10:01 07/07/23 10:01 Labs: Abnormal Lab Results - Last 24 Hours (Table) 07/06/23 07/07/23 07/07/23 Range/Units 16:28 06:10 07:55 RBC (4.30-5.90) m/uL Hgb (13.0-17.5) gm/dL Hct (39.0-53.0) % MCHC (31.0-37.0) g/dL RDW (11.5-15.5) % Lymphocytes # (1.0-4.8) k/uL Sodium (137-145) mmol/L Potassium (3.5-5.1) mmol/L Chloride (98-107) mmol/L BUN (9-20) mg/dL Creatinine (0.66-1.25) mg/dL Glucose (74-99) mg/dL POC Glucose (mg/dL) 170 H 258 H 308 H (70-110) mg/dL 07/07/23 07/07/23 07/07/23 Range/Units 10:01 10:01 11:33 RBC 4.11 L (4.30-5.90) m/uL Hgb 11.8 L (13.0-17.5) gm/dL Hct 38.5 L (39.0-53.0) % MCHC 30.8 L (31.0-37.0) g/dL RDW 16.3 H (11.5-15.5) % Lymphocytes # 0.6 L (1.0-4.8) k/uL Sodium 134 L (137-145) mmol/L Potassium 5.2 H (3.5-5.1) mmol/L Chloride 97 L (98-107) mmol/L BUN 53 H (9-20) mg/dL Creatinine 1.63 H (0.66-1.25) mg/dL Glucose 294 H (74-99) mg/dL POC Glucose (mg/dL) 180 H (70-110) mg/dL Microbiology - Last 24 Hours (Table) 07/06/23 12:03 Gram Stain - Preliminary Pleural Fluid Body Fluid Culture - Preliminary Assessment and Plan Assessment: Bilateral pleural effusions, small left and moderate right-sided pleural effusion./Loculated. Status post right-sided pigtail catheter placement and subsequent inadvertent removal, cultures and cytology pending Underlying obstructive and restrictive lung disease Acute hypoxemic respiratory failure, currently on 4 L/min nasal cannula, possibly secondary to above Coronary artery disease, with previous stents Diabetes mellitus Chronic kidney disease stage III Hypertension Hyperlipidemia Obesity, with a BMI of 39.9 kg/m Remote history of tobacco dependence History of asbestos exposure Plan: The patient was seen and evaluated Labs and medications reviewed Pigtail catheter inadvertently removed last evening Cultures and cytology pending Stable for discharge from the pulmonary standpoint Plavix resumed Follow-up in the office in 1 week I have personally seen and examined the patient, performed the documentation and the assessment and plan as written. Number of minutes spent on the visit: 10.
[2023-07-09] MEDS ORDERED: DULAGLUTIDE 0.75 MG/0.5 ML SQ SCH (09:00)
== END 2023-07-07 15:32 | disposition home or self-care (01) | DRG 189 ==
LOC: EC 17:23 → 4SSUR 21:02 → 3SCARD 07-03 08:28
PROVIDERS: ADMIT Hospitalist; ATTEND Hospitalist
PROC: 0W9930Z Drainage of Right Pleural Cavity with Drainage Device, Percutaneous Approach (ICD-10-PCS; principal; 2023-07-06)
DX: J96.01 Acute respiratory failure with hypoxia (principal); J91.8 Pleural effusion in other conditions classified elsewhere; J44.1 Chronic obstructive pulmonary disease with (acute) exacerbation; Z77.090 Contact with and (suspected) exposure to asbestos; Z68.39 Body mass index [BMI] 39.0-39.9, adult; N18.30 Chronic kidney disease, stage 3 unspecified; K59.00 Constipation, unspecified; J98.4 Other disorders of lung; I25.10 Atherosclerotic heart disease of native coronary artery without angina pectoris; I12.9 Hypertensive chronic kidney disease with stage 1 through stage 4 chronic kidney disease, or unspecified chronic kidney disease; H91.90 Unspecified hearing loss, unspecified ear; E11.22 Type 2 diabetes mellitus with diabetic chronic kidney disease; E78.5 Hyperlipidemia, unspecified; E66.9 Obesity, unspecified; T83.028A Displacement of other urinary catheter, initial encounter; Z87.891 Personal history of nicotine dependence; Z95.5 Presence of coronary angioplasty implant and graft; Z79.899 Other long term (current) drug therapy; Z79.84 Long term (current) use of oral hypoglycemic drugs; Z79.82 Long term (current) use of aspirin; Z79.51 Long term (current) use of inhaled steroids; Z79.4 Long term (current) use of insulin; Z79.02 Long term (current) use of antithrombotics/antiplatelets; Z88.8 Allergy status to other drugs, medicaments and biological substances; Z11.52 Encounter for screening for COVID-19
CPT/HCPCS: 32551; 36415; 71045; 71046; 76604; 76942; 80048; 80051; 80053; 82009; 82150; 82565; 82803; 82945; 82947; 83605; 83615; 83735; 83880; 84100; 84155; 84157; 84311; 84484; 84520; 85025; 85610; 85730; 87070; 87075; 87116; 87205; 87206; 87636; 88108; 88305; 89050; 93005; 94640; 94760; 96361; 96372; 96374; 96375; 96376; 99291

== ENCOUNTER → 2023-07-18 | Outpatient (CLI) | payer MEDICARE ==
--- NOTE | 2023-07-18 20:22 | FL ---
Fluoroscopy for sniff test INDICATION: Difficulty breathing FINDINGS: There is diminished excursion of the right diaphragm. Paradoxical motion is not identified. Images obtained: 0. IMPRESSION: 1. Diminished excursion of the right diaphragm. Paradoxical motion to confirm paralysis however is no t identified at this time.
== END | disposition home or self-care (01) ==
LOC: RADUSWWP 09:40
PROVIDERS: ATTEND Internal Medicine
DX: J98.6 Disorders of diaphragm (principal); R06.00 Dyspnea, unspecified
CPT/HCPCS: 76000

== ENCOUNTER 2023-11-02 16:24 | Emergency (ER) | payer MEDICARE ==
[2023-11-02 16:49] VITALS: RESP 18
--- NOTE | 2023-11-02 17:02 | ED ---
General Adult HPI - General Chief complaint: Shortness of Breath Stated complaint: SOB/Rash Time Seen by Provider: 11/02/23 16:34 Source: patient, family, RN notes reviewed Mode of arrival: ambulatory Limitations: no limitations - History of Present Illness Initial comments: Patient is a pleasant 78-year-old male presenting to the emergency department f [facility] urgent care. Patient went there for a rash on his right upper arm. Patient states it is slightly itchy and has been there for a couple of days. At urgent care patient's oxygen was found to be low. Patient does have chronic dyspnea. Patient states his dyspnea has been unchanged for the past year and a half. Patient states his dyspnea is mostly with ambulating around 20 feet. Patient does wear oxygen at home however usually only at bedtime. No new cough. No fever. - Related Data Home Medications Medication Instructions Recorded Confirmed Aspirin [Adult Low Dose Aspirin EC] 81 mg PO W/BRKFST 02/05/18 07/02/23 Potassium Chloride ER [K-Dur 10] 10 meq PO BID-W/MEALS 02/05/18 07/02/23 Rosuvastatin [Crestor] 10 mg PO PC-SUPPER 02/05/18 07/02/23 Fenofibrate Nanocrystallized 145 mg PO Q2D@1800 02/28/18 07/02/23 [Fenofibrate] Dulaglutide [Trulicity] 1.5 mg SQ MO 05/05/20 07/02/23 Timolol 0.5% Ophth Soln [Timoptic 1 drop BOTH EYES DAILY 05/05/20 07/02/23 0.5% Ophth Soln] Metoprolol Tartrate [Lopressor] 100 mg PO W/BRKFST 01/18/22 07/02/23 Insulin Glargine,Hum.rec.anlog 50 units SQ HS 05/12/22 07/02/23 [Toubhavesh Solostar] Empagliflozin [Jardiance] 10 mg PO DAILY 11/23/22 07/02/23 Clopidogrel [Plavix] 75 mg PO W/LUNCH 05/03/23 07/02/23 Isosorbide Mononitrate ER [Imdur] 30 mg PO W/BRKFST 05/03/23 07/02/23 Metoprolol Tartrate [Lopressor] 50 mg PO AC-BID@1200,1800 05/03/23 07/02/23 Nitroglycerin Sl Tabs [Nitrostat] 0.4 mg SL Q5M PRN 05/03/23 07/02/23 Tamsulosin [Flomax] 0.4 mg PO W/LUNCH 05/03/23 07/02/23 amLODIPine [Norvasc] 5 mg PO BID-W/MEALS 05/03/23 07/02/23 cycloSPORINE 0.05% OPHTH SOLN 1 drop BOTH EYES BID 05/03/23 07/02/23 [Restasis] polyethylene glycoL 3350 [Miralax] 17 gm PO DAILY PRN 05/03/23 07/02/23 Albuterol Inhaler [Ventolin Hfa 2 puff INHALATION RT-QID 06/01/23 07/02/23 Inhaler] INSULIN LISPRO (HumaLOG) [humaLOG] 30 units SQ AC-TID@0630,13,17 06/01/23 07/02/23 INSULIN LISPRO (humaLOG) [humaLOG] See Protocol SQ ACHS 06/01/23 07/02/23 Losartan [Cozaar] 25 mg PO DAILY 07/02/23 07/02/23 Previous Rx's Medication Instructions Recorded Budesonide-Formot 160-4.5 Mcg 2 puff INHALATION RT-BID #100 each 06/04/23 [Symbicort 160-4.5 Mcg Inhaler] Furosemide [Lasix] 40 mg PO BID@0900,1600 #30 tab 07/07/23 predniSONE 10 mg PO DAILY 8 Days #20 tab 07/07/23 Triamcinolone 0.1% Cream [Kenalog 1 applicatio TOPICAL BID #30 gm 11/02/23 0.1% Cream] Allergies Allergy/AdvReac Type Severity Reaction Status Date / Time cyclobenzaprine Allergy Itching Verified 07/02/23 20:31 [From Flexeril] Review of Systems ROS Statement: Those systems with pertinent positive or pertinent negative responses have been documented in the HPI. ROS Other: All systems not noted in ROS Statement are negative. Constitutional: Denies: fever Eyes: Denies: as per HPI ENT: Denies: ear pain Respiratory: Reports: as per HPI Cardiovascular: Denies: chest pain Endocrine: Denies: fatigue Skin: Reports: as per HPI Past Medical History Past Medical History: Coronary Artery Disease (CAD), Diabetes Mellitus, Eye Disorder, Hearing Disorder / Deafness, Hypertension, Osteoarthritis (OA) Additional Past Medical History / Comment(s): GLAUCOMA. Hard of hearing. pt is on water pill but was never told he has CHF. Diabetes type 2 History of Any Multi-Drug Resistant Organisms: None Reported Past Surgical History: Heart Catheterization With Stent, Orthopedic Surgery Additional Past Surgical History / Comment(s): Right knee arthroscopy, bilateral cataract surgery, 5 cardiac stents, pain clinic procedure. Past Anesthesia/Blood Transfusion Reactions: Previous Problems w/ Anesthesia Additional Past Anesthesia/Blood Transfusion Reaction / Comment(s): states pt has letter from previous knee surgery in 2010 that indicates that Erasto was a difficult intubation with difficult airway anterior. Date of Last Stent Placement:: 04/2019 Past Psychological History: No Psychological Hx Reported Smoking Status: Former smoker Past Alcohol Use History: None Reported Past Drug Use History: None Reported - Past Family History Mother Family Medical History: Cancer Additional Family Medical History / Comment(s): Stomach cancer. Father Family Medical History: CVA/TIA General Exam Limitations: no limitations General appearance: alert, in no apparent distress Head exam: Present: normocephalic Eye exam: Present: normal appearance Neck exam: Present: normal inspection Respiratory exam: Present: decreased breath sounds Cardiovascular Exam: Present: regular rate, normal rhythm GI/Abdominal exam: Present: soft. Absent: tenderness Extremities exam: Present: normal inspection. Absent: pedal edema, calf tender ness Neurological exam: Present: alert Psychiatric exam: Present: normal affect, normal mood Skin exam: Present: other (Right mid lateral arm with patch of macular papular rash.) Course Vital Signs 11/02/23 11/02/23 11/02/23 16:26 16:28 18:28 Temperature 97.7 F Pulse Rate 92 90 87 Respiratory 20 18 18 Rate Blood Pressure 106/65 96/45 100/58 O2 Sat by Pulse 88 L 92 L 91 L Oximetry - Reevaluation(s) Reevaluation #1: 11/02/23 17:02 Pulse ox does go up to 94% on room air while I am in the room EKG Findings - EKG Results: EKG: interpreted by ERMD (Left axis. Inferior Q waves.), sinus rhythm, normal ST/T Medical Decision Making - Medical Decision Making MDM back was pt. sent in by a medical professional or institution (CONCHITA Stephenson, PAROLE AGENT, urgent care, hospital, or long term...) When possible be specific @ -Patient was sent by urgent care Did you speak to anyone other than the patient for history (EMS, parent, family, police, friend...)? What history was obtained from this source @ -Family is present helps provide history including chronic lung problems and home O2 use Did you review nursing and triage notes (agree or disagree)? Why? @ -I reviewed and agree with nursing and triage notes Were old charts reviewed (outside hosp., previous admission, EMS record, old EKG, old radiological studies, urgent care reports/EKG's, long term records)? Report findings @ -Previous chest x-ray reviewed Differential Diagnosis (chest pain, altered mental status, abdominal pain women, abdominal pain men, vaginal bleeding, weakness, fever, dyspnea, syncope, headache, dizziness, GI bleed, back pain, seizure, CVA, palpatations, mental health, musculoskeletal)? @ -MDM differential differential Dyspnea: Coronary syndrome, arrhythmia, tamponade, asthma, COPD, pulmonary embolism, pneu monia, pneumothorax, pulmonary effusion, anaphylaxis, diabetic ketoacidosis, flailed chest, pulmonary contusion, diaphragmatic rupture, anemia, neuromuscular, this is not meant to be an all-inclusive list. EKG interpreted by me (3pts min.). @ -As above X-rays interpreted by me (1pt min.). @ -Chest x-ray shows chronic bilateral effusions, similarities to previous chest x-rays. CT interpreted by me (1pt min.). @ -None done U/S interpreted by me (1pt. min.). @ -None done What testing was considered but not performed or refused? (CT, X-rays, U/S, labs)? Why? @ -None What meds were considered but not given or refused? Why? @ -None Did you discuss the management of the patient with other professionals (professionals i.e. CONCHITA Stephenson, PAROLE AGENT, lab, RT, psych nurse, vp digital marketing social media and crm, pulley maintainer, teacher, special officer automat, immigration case manager)? Give summary @ -No Was smoking cessation discussed for >3mins.? @ -No Was critical care preformed (if so, how long)? @ -No Were there social determinants of health that impacted care today? How? (Homelessness, low income, unemployed, alcoholism, drug addiction, shannon sportation, low edu. Level, literacy, decrease access to med. care, fdc, rehab)? @ -No Was there de-escalation of care discussed even if they declined (Discuss DNR or withdrawal of care, Hospice)? DNR status @ -No What co-morbidities impacted this encounter? (DM, HTN, Smoking, COPD, CAD, Cancer, CVA, ARF, Chemo, Hep., AIDS, mental health diagnosis, sleep apnea, morbid obesity)? @ -COPD history with home O2 use Was patient admitted / discharged? Hospital course, mention meds given and route, prescriptions, significant lab abnormalities, going to OR and other pertinent info. @ -Patient presents with mild rash to the right arm. Patient offered steroids for this however refuses and just wants a cream. Patient denies any change in chronic dyspnea. On reevaluation at this time prior to discharge pulse ox is 92% on room air. Patient is requesting discharge home and agreeable with follo w-up Undiagnosed new problem with uncertain prognosis? @ -No Drug Therapy requiring intensive monitoring for toxicity (Heparin, Nitro, Insulin, Cardizem)? @ -No Were any procedures done? @ -No Diagnosis/symptom? @ -Arm rash, chronic lung disease Acute, or Chronic, or Acute on Chronic? @ -Acute, chronic Uncomplicated (without systemic symptoms) or Complicated (systemic symptoms)? @ -Default Side effects of treatment? @ -No Exacerbation, Progression, or Severe Exacerbation? @ -No Poses a threat to life or bodily function? How? (Chest pain, [place], [place], pneumonia, PE, COPD, DKA, ARF, appy, cholecystitis, CVA, Diverticulitis, Homicidal, Suicidal, threat to staff... and all critical care pts) @ -No - Lab Data Result diagrams: 11/02/23 16:56 11/02/23 16:56 Lab Results 11/02/23 11/02/23 11/02/23 Range/Units 16:56 16:56 16:56 WBC 12.4 H (3.8-10.6) k/uL RBC 4.63 (4.30-5.90) m/uL Hgb 13.0 (13.0-17.5) gm/dL Hct 41.5 (39.0-53.0) % MCV 89.6 (80.0-100.0) fL MCH 28.1 (25.0-35.0) pg MCHC 31.4 (31.0-37.0) g/dL RDW 15.3 (11.5-15.5) % Plt Count 325 (150-450) k/uL MPV 7.6 Neutrophils % 67 % Lymphocytes % 16 % Monocytes % 5 % Eosinophils % 10 % Basophils % 0 % Neutrophils # 8.3 H (1.3-7.7) k/uL Lymphocytes # 2.0 (1.0-4.8) k/uL Monocytes # 0.6 (0-1.0) k/uL Eosinophils # 1.2 H (0-0.7) k/uL Basophils # 0.0 (0-0.2) k/uL Hypochromasia Slight PT 10.6 (10.0-12.5) sec INR 1.0 (<1.2) APTT 24.8 (22.0-30.0) sec Sodium 136 L (137-145) mmol/L Potassium 5.1 (3.5-5.1) mmol/L Chloride 100 (98-107) mmol/L Carbon Dioxide 27 (22-30) mmol/L Anion Gap 9 mmol/L BUN 60 H (9-20) mg/dL Creatinine 2.53 H (0.66-1.25) mg/dL Est GFR (CKD-EPI)AfAm 27 (>60 ml/min/1.73 sqM) Est GFR (CKD-EPI)NonAf 23 (>60 ml/min/1.73 sqM) Glucose 148 H (74-99) mg/dL Plasma Lactic Acid Sage (0.7-2.0) mmol/L Calcium 9.1 (8.4-10.2) mg/dL Magnesium 2.3 (1.6-2.3) mg/dL Total Bilirubin 0.5 (0.2-1.3) mg/dL AST 16 L (17-59) U/L ALT 15 (4-49) U/L Alkaline Phosphatase 54 (38-126) U/L NT-Pro-B Natriuret Pep 754 pg/mL Total Protein 7.5 (6.3-8.2) g/dL Albumin 4.3 (3.5-5.0) g/dL Influenza Type A (PCR) (Not Detectd) Influenza Type B (PCR) (Not Detectd) RSV (PCR) (Not Detectd) SARS-CoV-2 (PCR) (Not Detectd) 11/02/23 11/02/23 Range/Units 16:56 16:56 WBC (3.8-10.6) k/uL RBC (4.30-5.90) m/uL Hgb (13.0-17.5) gm/dL Hct (39.0-53.0) % MCV (80.0-100.0) fL MCH (25.0-35.0) pg MCHC (31.0-37.0) g/dL RDW (11.5-15.5) % Plt Count (150-450) k/uL MPV Neutrophils % % Lymphocytes % % Monocytes % % Eosinophils % % Basophils % % Neutrophils # (1.3-7.7) k/uL Lymphocytes # (1.0-4.8) k/uL Monocytes # (0-1.0) k/uL Eosinophils # (0-0.7) k/uL Basophils # (0-0.2) k/uL Hypochromasia PT (10.0-12.5) sec INR (<1.2) APTT (22.0-30.0) sec Sodium (137-145) mmol/L Potassium (3.5-5.1) mmol/L Chloride (98-107) mmol/L Carbon Dioxide (22-30) mmol/L Anion Gap mmol/L BUN (9-20) mg/dL Creatinine (0.66-1.25) mg/dL Est GFR (CKD-EPI)AfAm (>60 ml/min/1.73 sqM) Est GFR (CKD-EPI)NonAf (>60 ml/min/1.73 sqM) Glucose (74-99) mg/dL Plasma Lactic Acid Sage 1.6 (0.7-2.0) mmol/L Calcium (8.4-10.2) mg/dL Magnesium (1.6-2.3) mg/dL Total Bilirubin (0.2-1.3) mg/dL AST (17-59) U/L ALT (4-49) U/L Alkaline Phosphatase (38-126) U/L NT-Pro-B Natriuret Pep pg/mL Total Protein (6.3-8.2) g/dL Albumin (3.5-5.0) g/dL Influenza Type A (PCR) Not Detected (Not Detectd) Influenza Type B (PCR) Not Detected (Not Detectd) RSV (PCR) Not Detected (Not Detectd) SARS-CoV-2 (PCR) Not Detected (Not Detectd) Disposition Clinical Impression: Rash, COPD (chronic obstructive pulmonary disease) Disposition: HOME SELF-CARE Condition: Stable Instructions (If sedation given, give patient instructions): Acute Rash (ED), COPD (Chronic Obstructive Pulmonary Disease) (ED) Additional Instructions: Please do follow-up with your primary care physician in the next 1 or 2 days for recheck. Return for difficulty breathing, cough, fever, low oxygen, increased rash, worsening symptoms or other concerns. Prescription has been sent to pharmacy Prescriptions: Triamcinolone 0.1% Cream [Kenalog 0.1% Cream] 1 applicatio TOPICAL BID #30 gm Is patient prescribed a controlled substance at d/c from ED?: No Referrals: Wellington Ron MD [Primary Care Provider] - 1-2 days Time of Disposition: 19:33
[2023-11-02 18:06] LABS: Basophils % (A) 0 %; Eosinophils # (A) 1.2 k/uL (0-0.7); Eosinophils % (A) 10 %; HCT 41.5 % (39.0-53.0); Hypochromasia Slight; Lymphocytes % (A) 16 %; MCH 28.1 pg (25.0-35.0); MCHC 31.4 g/dL (31.0-37.0); MCV 89.6 fL (80.0-100.0); Mean Platelet Volume 7.6; Monocytes # (A) 0.6 k/uL (0-1.0); Monocytes % (A) 5 %; Neutrophils # (A) 8.3 k/uL (1.3-7.7); Neutrophils % (A) 67 %; Platelet Count 325 k/uL (150-450); RBC 4.63 m/uL (4.30-5.90); RDW 15.3 % (11.5-15.5); WBC 12.4 k/uL (3.8-10.6)
[2023-11-02 18:09] LABS: Partial Thromboplastin Time 24.8 sec (22.0-30.0); Prothrombin Time 10.6 sec (10.0-12.5)
[2023-11-02 18:11] LABS: ALT 15 U/L (4-49); AST 16 U/L (17-59); African American GFR (CKD) 27 (>60 ml/min/1.73 sqM); Albumin 4.3 g/dL (3.5-5.0); Alkaline Phosphatase 54 U/L (38-126); Anion Gap 9 mmol/L; Blood Urea Nitrogen 60 mg/dL (9-20); Calcium 9.1 mg/dL (8.4-10.2); Carbon Dioxide 27 mmol/L (22-30); Chloride 100 mmol/L (98-107); Glucose 148 mg/dL (74-99); Magnesium 2.3 mg/dL (1.6-2.3); Non-African American GFR(CKD) 23 (>60 ml/min/1.73 sqM); Potassium 5.1 mmol/L (3.5-5.1); Sodium 136 mmol/L (137-145); Total Bilirubin 0.5 mg/dL (0.2-1.3); Total Protein 7.5 g/dL (6.3-8.2)
[2023-11-02 18:18] LABS: NT-Pro-B-Type Natriuretic Pept 754 pg/mL
--- NOTE | 2023-11-02 19:13 | XR ---
EXAMINATION TYPE: XR chest 2V DATE OF EXAM: 11/02/2023 COMPARISON: 07/07/2023 TECHNIQUE: PA and lateral views submitted. HISTORY: Difficulty breathing FINDINGS: Bilateral consolidation and small effusion.. Heart size normal and no overt failure. Osseous structu res demonstrate hypertrophic and degenerative changes of the spine. Chronic appearing arthropathy of the shoulders. IMPRESSION: 1. Bilateral consolidation and small pleural effusion.
[2023-11-02] MEDS: IPRATROPIUM-ALBUTEROL 3 ML NEB INHALATION STA (19:30)
[2023-11-02 19:52] VITALS: BP 106/61; PULSE 89; TEMP 98.7
== END 2023-11-02 19:52 | disposition home or self-care (01) ==
LOC: EC 16:24
DX: J44.9 Chronic obstructive pulmonary disease, unspecified (principal); R21 Rash and other nonspecific skin eruption; Z95.5 Presence of coronary angioplasty implant and graft; Z88.8 Allergy status to other drugs, medicaments and biological substances; Z87.891 Personal history of nicotine dependence
CPT/HCPCS: 36415; 71046; 80053; 83605; 83735; 83880; 85025; 85610; 85730; 87636; 93005; 94640; 99285

== ENCOUNTER 2023-12-23 12:28 | Inpatient (IN) | payer MEDICARE ==
--- NOTE | 2023-12-23 12:55 | ED ---
SOB HPI - General Chief Complaint: Shortness of Breath Stated Complaint: SOB Time Seen by Provider: 12/23/23 12:53 Source: patient, family, RN notes reviewed, old records reviewed Mode of arrival: wheelchair Limitations: no limitations - History of Present Illness Initial Comments: This is a 78-year-old male to ER with shortness of breath and hypoxia. History of shortness of breath on oxygen, patient has low oxygen for 5 days now at home significantly low with oral allergy to albuterol no COPD history MD Complaint: shortness of breath -: days(s) (5) Radiation: other Severity: severe Severity scale (1-10): 9 Consistency: constant Improves With: nothing Worsens With: nothing Context: recent URI, anxiety Associated Symptoms: denies other symptoms - Related Data Home Medications Medication Instructions Recorded Confirmed Aspirin [Adult Low Dose Aspirin EC] 81 mg PO DAILY 02/05/18 12/23/23 Potassium Chloride ER [K-Dur 10] 10 meq PO BID-W/MEALS 02/05/18 12/23/23 Rosuvastatin [Crestor] 10 mg PO HS 02/05/18 12/23/23 Fenofibrate Nanocrystallized 145 mg PO Q2D@1700 02/28/18 12/23/23 [Fenofibrate] Dulaglutide [Trulicity] 1.5 mg SQ MO 05/05/20 12/23/23 Timolol 0.5% Ophth Soln [Timoptic 1 drop BOTH EYES DAILY 05/05/20 12/23/23 0.5% Ophth Soln] Metoprolol Tartrate [Lopressor] 100 mg PO W/BRKFST 01/18/22 12/23/23 Insulin Glargine,Hum.rec.anlog 60 units SQ HS 05/12/22 12/23/23 [Toujeo Solostar] Empagliflozin [Jardiance] 10 mg PO DAILY 11/23/22 12/23/23 Clopidogrel [Plavix] 75 mg PO W/LUNCH 05/03/23 12/23/23 Isosorbide Mononitrate ER [Imdur] 30 mg PO DAILY 05/03/23 12/23/23 Metoprolol Tartrate [Lopressor] 50 mg PO AC-BID@1200,1800 05/03/23 12/23/23 Nitroglycerin Sl Tabs [Nitrostat] 0.4 mg SL Q5M PRN 05/03/23 12/23/23 Tamsulosin [Flomax] 0.4 mg PO W/LUNCH 05/03/23 12/23/23 amLODIPine [Norvasc] 5 mg PO BID 05/03/23 12/23/23 cycloSPORINE 0.05% OPHTH SOLN 1 drop BOTH EYES BID 05/03/23 12/23/23 [Restasis] Albuterol Inhaler [Ventolin Hfa 2 puff INHALATION RT-QID PRN 06/01/23 12/23/23 Inhaler] Losartan [Cozaar] 25 mg PO DAILY 07/02/23 12/23/23 Cholecalciferol [Vitamin D3 (25 25 mcg PO DAILY 12/23/23 12/23/23 Mcg = 1000 Iu)] Insulin Lispro [humaLOG Kwikpen] 30 unit SQ AC-TID 12/23/23 12/23/23 Insulin Lispro [humaLOG Kwikpen] See Protocol SQ AC-TID 12/23/23 12/23/23 metOLazone [Zaroxolyn] 2.5 mg PO MOWEFR 12/23/23 12/23/23 Previous Rx's Medication Instructions Recorded Furosemide [Lasix] 40 mg PO BID@0900,1600 #30 tab 07/07/23 Allergies Allergy/AdvReac Type Severity Reaction Status Date / Time cyclobenzaprine Allergy Itching Verified 12/23/23 12:50 [From Flexeril] Review of Systems ROS Statement: Those systems with pertinent positive or pertinent negative responses have been documented in the HPI. ROS Other: All systems not noted in ROS Statement are negative. Past Medical History Past Medical History: Coronary Artery Disease (CAD), Diabetes Mellitus, Eye Disorder, Hearing Disorder / Deafness, Hypertension, Osteoarthritis (OA) Additional Past Medical History / Comment(s): GLAUCOMA. Hard of hearing. pt is on water pill but was never told he has CHF. Diabetes type 2 History of Any Multi-Drug Resistant Organisms: None Reported Past Surgical History: Heart Catheterization With Stent, Orthopedic Surgery Additional Past Surgical History / Comment(s): Right knee arthroscopy, bilateral cataract surgery, 5 cardiac stents, pain clinic procedure. Past Anesthesia/Blood Transfusion Reactions: Previous Problems w/ Anesthesia Additional Past Anesthesia/Blood Transfusion Reaction / Comment(s): states pt has letter from previous knee surgery in 2010 that indicates that Erasto was a difficult intubation with difficult airway anterior. Date of Last Stent Placement:: 04/2019 Past Psychological History: No Psychological Hx Reported Smoking Status: Former smoker Past Alcohol Use History: None Reported Past Drug Use History: None Reported - Past Family History Mother Family Medical History: Cancer Additional Family Medical History / Comment(s): Stomach cancer. Father Family Medical History: CVA/TIA General Exam Limitations: no limitations General appearance: alert, anxious, in distress Head exam: Present: atraumatic, normocephalic, normal inspection Eye exam: Present: normal appearance, PERRL, EOMI. Absent: scleral icterus, conjunctival injection, periorbital swelling ENT exam: Present: normal exam, mucous membranes moist Neck exam: Present: normal inspection. Absent: tenderness, meningismus, lymphadenopathy Respiratory exam: Present: respiratory distress, wheezes, accessory muscle use, decreased breath sounds, prolonged expiratory. Absent: rales, rhonchi, stridor Cardiovascular Exam: Present: regular rate, normal rhythm, normal heart sounds. Absent: systolic murmur, diastolic murmur, rubs, gallop, clicks GI/Abdominal exam: Present: soft, normal bowel sounds. Absent: distended, tenderness, guarding, rebound, rigid Extremities exam: Present: normal inspection, full ROM, normal capillary refill. Absent: tenderness, pedal edema, joint swelling, calf tenderness Back exam: Present: normal inspection Neurological exam: Present: alert, oriented X3, CN II-XII intact Psychiatric exam: Present: normal affect, normal mood Skin exam: Present: warm, dry, intact, normal color. Absent: rash Course Vital Signs 12/23/23 12/23/23 12/23/23 12:45 13:12 15:01 Temperature 97.9 F Pulse Rate 88 74 Respiratory 18 24 Rate Blood Pressure 102/55 163/81 O2 Sat by Pulse 80 L 92 L 93 L Oximetry 12/23/23 12/23/23 12/23/23 15:45 15:57 16:31 Temperature Pulse Rate 70 72 86 Respiratory 24 Rate Blood Pressure 141/59 O2 Sat by Pulse 94 L Oximetry 12/23/23 19:20 Temperature Pulse Rate 82 Respiratory 20 Rate Blood Pressure 144/74 O2 Sat by Pulse 94 L Oximetry - Reevaluation(s) Reevaluation #1: 12/23/23 13:45 Medical records reviewed Reevaluation #2: Patient remains in severe respiratory distress Reevaluation #3: Patient informed of results and questions Reevaluation #4: Was pt. sent in by a medical professional or institution ([facility], ASSOCIATE, urgent care, hospital, or [facility]...) When possible be specific @ -no Did you speak to anyone other than the patient for history (EMS, parent, family, police, friend...)? What history was obtained from this source @ -no Did you review nursing and triage notes (agree or disagree)? Why? @ -agree Are old charts reviewed (outside hosp., previous admission, EMS record, old EKG, old radiological studies, urgent care reports/EKG's, [facility] records)? Report findings @ -yes Differential Diagnosis (chest pain, altered mental status, abdominal pain women, abdominal pain men, vaginal bleeding, weakness, fever, dyspnea, syncope, headache, dizziness, GI bleed, back pain, seizure, CVA, palpatations, mental health, musculoskeletal)? @ -prior EKG interpreted by me (3pts min.). @ -yes X-rays interpreted by me (1pt min.). @ -yes negative for acute disease CT interpreted by me (1pt min.). @ -no U/S interpreted by me (1pt. min.). @ -no What testing was considered but not performed or refused? (CT, X-rays, U/S, labs)? Why? @ -none What meds were considered but not given or refused? Why? @ -none Did you discuss the management of the patient with other professionals (professionals i.e. [facility] Stephenson, ASSOCIATE, lab, RT, psych nurse, manager social responsibility, performance engineer, teacher, ecological technical officer, child welfare caseworker)? Give summary @ -no Was smoking cessation discussed for >3mins.? @ -no Was critical care preformed (if so, how long)? @ -yes31 Were there social determinants of health that impacted care today? How? (Homelessness, low income, unemployed, alcoholism, drug addiction, transportation, low edu. Level, literacy, decrease access to med. care, longterm, rehab)? @ -none Was there de-escalation of care discussed even if they declined (Discuss DNR or withdrawal of care, Hospice)? DNR status @ -no What co-morbidities impacted this encounter? (DM, HTN, Smoking, COPD, CAD, Cancer, CVA, ARF, Chemo, Hep., AIDS, mental health diagnosis, sleep apnea, morbid obesity)? @ -none Was patient admitted / discharged? Hospital course, mention meds given and route, prescriptions, significant lab abnormalities, going to OR and other perti nent info. @ - 78 male in respiratory failure hypoxia with CHF and COPD contributing to respiratory failure Admitted Undiagnosed new problem with uncertain prognosis? @ -no Drug Therapy requiring intensive monitoring for toxicity (Heparin, Nitro, Insulin, Cardizem)? @ -no Were any procedures done? @ -no Diagnosis/symptom? @ -COPD CHF hypoxia Acute, or Chronic, or Acute on Chronic? @ -Acute Uncomplicated (without systemic symptoms) or Complicated (systemic symptoms)? @ -Complicated Side effects of treatment? @ -no Exacerbation, Progression, or Severe Exacerbation? @ -exacerbation Poses a threat to life or bodily function? How? (Chest pain, USA, NC, pneumonia, PE, COPD, DKA, ARF, appy, cholecystitis, CVA, Diverticulitis, Homicidal, Suicidal, threat to staff... and all critical care pts) @ -yes with respiratory distress Reevaluation #5: Differential Dyspnea: Coronary syndrome, arrhythmia, tamponade, asthma, COPD, pulmonary embolism, pneumonia, pneumothorax, pulmonary effusion, anaphylaxis, diabetic ketoacidosis, flailed chest, pulmonary contusion, diaphragmatic rupture, anemia, neuromuscular, this is not meant to be an all-inclusive list. Medical Decision Making - Medical Decision Making 78 male in respiratory failure hypoxia with CHF and COPD contributing to respiratory failure - Lab Data Result diagrams: 12/23/23 13:00 12/23/23 13:00 Lab Results 12/23/23 12/23/23 12/23/23 Range/Units 13:00 13:00 13:00 WBC 9.1 (3.8-10.6) k/uL RBC 3.86 L (4.30-5.90) m/uL Hgb 11.4 L (13.0-17.5) gm/dL Hct 36.1 L (39.0-53.0) % MCV 93.6 (80.0-100.0) fL MCH 29.5 (25.0-35.0) pg MCHC 31.5 (31.0-37.0) g/dL RDW 15.6 H (11.5-15.5) % Plt Count 370 (150-450) k/uL MPV 7.1 Neutrophils % 74 % Lymphocytes % 15 % Monocytes % 7 % Eosinophils % 3 % Basophils % 1 % Neutrophils # 6.7 (1.3-7.7) k/uL Lymphocytes # 1.4 (1.0-4.8) k/uL Monocytes # 0.6 (0-1.0) k/uL Eosinophils # 0.3 (0-0.7) k/uL Basophils # 0.1 (0-0.2) k/uL Hypochromasia Marked PT 10.3 (10.0-12.5) sec INR 0.9 (<1.2) APTT 25.6 (22.0-30.0) sec D-Dimer 0.94 H (<0.60) mg/L FEU Sodium 140 (137-145) mmol/L Potassium 5.1 (3.5-5.1) mmol/L Chloride 106 (98-107) mmol/L Carbon Dioxide 28 (22-30) mmol/L Anion Gap 6 mmol/L BUN 40 H (9-20) mg/dL Creatinine 1.85 H (0.66-1.25) mg/dL Est GFR (CKD-EPI)AfAm 40 (>60 ml/min/1.73 sqM) Est GFR (CKD-EPI)NonAf 34 (>60 ml/min/1.73 sqM) Glucose 190 H (74-99) mg/dL Plasma Lactic Acid Sage (0.7-2.0) mmol/L Calcium 8.8 (8.4-10.2) mg/dL Magnesium 2.5 H (1.6-2.3) mg/dL Total Bilirubin 0.6 (0.2-1.3) mg/dL AST 17 (17-59) U/L ALT 13 (4-49) U/L Alkaline Phosphatase 40 (38-126) U/L Troponin I (0.000-0.034) ng/mL NT-Pro-B Natriuret Pep 1050 pg/mL Total Protein 7.0 (6.3-8.2) g/dL Albumin 4.0 (3.5-5.0) g/dL 12/23/23 12/23/23 Range/Units 13:00 13:00 WBC (3.8-10.6) k/uL RBC (4.30-5.90) m/uL Hgb (13.0-17.5) gm/dL Hct (39.0-53.0) % MCV (80.0-100.0) fL MCH (25.0-35.0) pg MCHC (31.0-37.0) g/dL RDW (11.5-15.5) % Plt Count (150-450) k/uL MPV Neutrophils % % Lymphocytes % % Monocytes % % Eosinophils % % Basophils % % Neutrophils # (1.3-7.7) k/uL Lymphocytes # (1.0-4.8) k/uL Monocytes # (0-1.0) k/uL Eosinophils # (0-0.7) k/uL Basophils # (0-0.2) k/uL Hypochromasia PT (10.0-12.5) sec INR (<1.2) APTT (22.0-30.0) sec D-Dimer (<0.60) mg/L FEU Sodium (137-145) mmol/L Potassium (3.5-5.1) mmol/L Chloride (98-107) mmol/L Carbon Dioxide (22-30) mmol/L Anion Gap mmol/L BUN (9-20) mg/dL Creatinine (0.66-1.25) mg/dL Est GFR (CKD-EPI)AfAm (>60 ml/min/1.73 sqM) Est GFR (CKD-EPI)NonAf (>60 ml/min/1.73 sqM) Glucose (74-99) mg/dL Plasma Lactic Acid Sage 1.5 (0.7-2.0) mmol/L Calcium (8.4-10.2) mg/dL Magnesium (1.6-2.3) mg/dL Total Bilirubin (0.2-1.3) mg/dL AST (17-59) U/L ALT (4-49) U/L Alkaline Phosphatase (38-126) U/L Troponin I <0.012 (0.000-0.034) ng/mL NT-Pro-B Natriuret Pep pg/mL Total Protein (6.3-8.2) g/dL Albumin (3.5-5.0) g/dL - EKG Data -: EKG Interpreted by Me (EKG is sinus 74 MO 314 QRS 112 QTc 434) - Radiology Data Radiology results: report reviewed (Chest x-ray is positive CHF), image reviewed Critical Care Time Critical Care Time: Yes Total Critical Care Time: 31 Disposition Clinical Impression: Hypoxic respiratory failure, Elevated troponin, COPD exacerbation, Pleural effusion, Acute respiratory distress syndrome in adult Disposition: ADMITTED IP TO THIS HOSP Condition: Serious
[2023-12-23 13:40] LABS: Basophils # (A) 0.1 k/uL (0-0.2); Basophils % (A) 1 %; Eosinophils # (A) 0.3 k/uL (0-0.7); Eosinophils % (A) 3 %; HCT 36.1 % (39.0-53.0); HGB 11.4 gm/dL (13.0-17.5); Hypochromasia Marked; Lymphocytes # (A) 1.4 k/uL (1.0-4.8); Lymphocytes % (A) 15 %; MCH 29.5 pg (25.0-35.0); MCHC 31.5 g/dL (31.0-37.0); MCV 93.6 fL (80.0-100.0); Mean Platelet Volume 7.1; Monocytes # (A) 0.6 k/uL (0-1.0); Monocytes % (A) 7 %; Neutrophils # (A) 6.7 k/uL (1.3-7.7); Neutrophils % (A) 74 %; Platelet Count 370 k/uL (150-450); RBC 3.86 m/uL (4.30-5.90); RDW 15.6 % (11.5-15.5); WBC 9.1 k/uL (3.8-10.6)
[2023-12-23 13:54] LABS: INR 0.9 (<1.2); Partial Thromboplastin Time 25.6 sec (22.0-30.0); Prothrombin Time 10.3 sec (10.0-12.5)
[2023-12-23 13:55] LABS: ALT 13 U/L (4-49); AST 17 U/L (17-59); African American GFR (CKD) 40 (>60 ml/min/1.73 sqM); Alkaline Phosphatase 40 U/L (38-126); Anion Gap 6 mmol/L; Blood Urea Nitrogen 40 mg/dL (9-20); Calcium 8.8 mg/dL (8.4-10.2); Carbon Dioxide 28 mmol/L (22-30); Chloride 106 mmol/L (98-107); Glucose 190 mg/dL (74-99); Magnesium 2.5 mg/dL (1.6-2.3); Non-African American GFR(CKD) 34 (>60 ml/min/1.73 sqM); Potassium 5.1 mmol/L (3.5-5.1); Sodium 140 mmol/L (137-145); Total Bilirubin 0.6 mg/dL (0.2-1.3)
--- NOTE | 2023-12-23 13:57 | XR ---
EXAMINATION TYPE: XR chest 1V portable DATE OF EXAM: 12/23/2023 1:44 PM CLINICAL INDICATION:Male, 78 years old with history of sob; [facility] COMPARISON: Chest radiographs from 11/02/2023 TECHNIQUE: XR chest 1V portable Frontal view of the chest. FINDINGS: Lungs/Pleura: Bibasilar atelectasis. No evidence for pneumothorax, pleural effusion or focal consolid ation. Pulmonary vascularity: Pulmonary vascular congestion. Heart/mediastinum: Cardiomediastinal silhouette is obscured due to overlying and adjacent opacities. Musculoskeletal: No acute osseous pathology. IMPRESSION: Cardiomegaly and mild pulmonary vascular congestion. Correlate with BNP for congestive heart failure.
[2023-12-23 14:04] LABS: NT-Pro-B-Type Natriuretic Pept 1050 pg/mL
[2023-12-23] MEDS ORDERED: NALOXONE 0.4 MG/ML 1 ML VIAL IVP PRN (15:03)
[2023-12-23] MEDS: FUROSEMIDE 10 MG/ML 4 ML VIAL IV SCH (15:28)
[2023-12-23] MEDS: IPRATROPIUM-ALBUTEROL 3 ML NEB INHALATION STA ×2 (15:40→15:45)
[2023-12-23] MEDS: ALBUTEROL NEBULIZED 2.5 MG/3 ML INHALATION SCH (15:41)
[2023-12-23] MEDS: FUROSEMIDE 10 MG/ML 4 ML VIAL IV STA (15:58)
--- NOTE | 2023-12-23 19:30 | P.HPIM ---
History of Present Illness H&P Date: 12/23/23 Chief Complaint: Shortness of breath 78-year-old male, history of hypertension, diabetes mellitus, coronary artery disease, presents to ER with shortness of breath and hypoxia. History of shortness of breath on oxygen, patient has low oxygen for 5 days now at home significantly low with oral allergy to albuterol no COPD history Blood work completed in ED reveals WBC of 9.1, hemoglobin of 11.4 and platelet count of 370, sodium 140, potassium 5.1, BUNs/creatinine of 40/1.85, blood glucose of 190, magnesium elevated at 2.5, troponin of 0.012, BNP at 1050 Chest x-ray reveals cardiomegaly and mild pulmonary vascular congestion Review of Systems REVIEW OF SYSTEMS: CONSTITUTIONAL: No fever, no malaise, no fatigue. HEENT: No recent visual problems or hearing problems. Denied any sore throat. CARDIOVASCULAR: No chest pain, orthopnea, PND, no palpitations, no syncope. PULMONARY: No shortness of breath, no cough, no hemoptysis. GASTROINTESTINAL: No diarrhea, no nausea, no vomiting, no abdominal pain. NEUROLOGICAL: No headaches, no weakness, no numbness. HEMATOLOGICAL: Denies any bleeding or petechiae. GENITOURINARY: Denies any burning micturition, frequency, or urgency. MUSCULOSKELETAL/RHEUMATOLOGICAL: Denies any joint pain, swelling, or any muscle pain. ENDOCRINE: Denies any polyuria or polydipsia. The rest of the 14-point review of systems is negative. Past Medical History Past Medical History: Coronary Artery Disease (CAD), Diabetes Mellitus, Eye Disorder, Hearing Disorder / Deafness, Hypertension, Osteoarthritis (OA) Additional Past Medical History / Comment(s): GLAUCOMA. Hard of hearing. pt is on water pill but was never told he has CHF. Diabetes type 2 History of Any Multi-Drug Resistant Organisms: None Reported Past Surgical History: Heart Catheterization With Stent, Orthopedic Surgery Additional Past Surgical History / Comment(s): Right knee arthroscopy, bilateral cataract surgery, 5 cardiac stents, pain clinic procedure. Past Anesthesia/Blood Transfusion Reactions: Previous Problems w/ Anesthesia Additional Past Anesthesia/Blood Transfusion Reaction / Comment(s): states pt has letter from previous knee surgery in 2010 that indicates that Erasto was a difficult intubation with difficult airway anterior. Date of Last Stent Placement:: 04/2019 Past Psychological History: No Psychological Hx Reported Smoking Status: Former smoker Past Alcohol Use History: None Reported Past Drug Use History: None Reported - Past Family History Mother Family Medical History: Cancer Additional Family Medical History / Comment(s): Stomach cancer. Father Family Medical History: CVA/TIA Medications and Allergies Home Medications Medication Instructions Recorded Confirmed Type Aspirin [Adult Low Dose Aspirin EC] 81 mg PO DAILY 02/05/18 12/23/23 History Potassium Chloride ER [K-Dur 10] 10 meq PO BID-W/MEALS 02/05/18 12/23/23 History Rosuvastatin [Crestor] 10 mg PO HS 02/05/18 12/23/23 History Fenofibrate Nanocrystallized 145 mg PO Q2D@1700 02/28/18 12/23/23 History [Fenofibrate] Dulaglutide [Trulicity] 1.5 mg SQ MO 05/05/20 12/23/23 History Timolol 0.5% Ophth Soln [Timoptic 1 drop BOTH EYES DAILY 05/05/20 12/23/23 History 0.5% Ophth Soln] Metoprolol Tartrate [Lopressor] 100 mg PO W/BRKFST 01/18/22 12/23/23 History Insulin Glargine,Hum.rec.anlog 60 units SQ HS 05/12/22 12/23/23 History [Toujeo Solostar] Empagliflozin [Jardiance] 10 mg PO DAILY 11/23/22 12/23/23 History Clopidogrel [Plavix] 75 mg PO W/LUNCH 05/03/23 12/23/23 History Isosorbide Mononitrate ER [Imdur] 30 mg PO DAILY 05/03/23 12/23/23 History Metoprolol Tartrate [Lopressor] 50 mg PO AC-BID@1200,1800 05/03/23 12/23/23 History Nitroglycerin Sl Tabs [Nitrostat] 0.4 mg SL Q5M PRN 05/03/23 12/23/23 History Tamsulosin [Flomax] 0.4 mg PO W/LUNCH 05/03/23 12/23/23 History amLODIPine [Norvasc] 5 mg PO BID 05/03/23 12/23/23 History cycloSPORINE 0.05% OPHTH SOLN 1 drop BOTH EYES BID 05/03/23 12/23/23 History [Restasis] Albuterol Inhaler [Ventolin Hfa 2 puff INHALATION RT-QID PRN 06/01/23 12/23/23 History Inhaler] Losartan [Cozaar] 25 mg PO DAILY 07/02/23 12/23/23 History Furosemide [Lasix] 40 mg PO BID@0900,1600 #30 tab 07/07/23 12/23/23 Rx Cholecalciferol [Vitamin D3 (25 25 mcg PO DAILY 12/23/23 12/23/23 History Mcg = 1000 Iu)] Insulin Lispro [humaLOG Kwikpen] 30 unit SQ AC-TID 12/23/23 12/23/23 History Insulin Lispro [humaLOG Kwikpen] See Protocol SQ AC-TID 12/23/23 12/23/23 History metOLazone [Zaroxolyn] 2.5 mg PO MOWEFR 12/23/23 12/23/23 History Allergies Allergy/AdvReac Type Severity Reaction Status Date / Time cyclobenzaprine Allergy Itching Verified 12/23/23 12:50 [From Flexeril] Physical Exam Vitals: Vital Signs Temp Pulse Resp BP Pulse Ox 12/23/23 16:31 86 24 141/59 94 L 12/23/23 15:57 72 12/23/23 15:45 70 12/23/23 15:01 74 24 163/81 93 L 12/23/23 13:12 92 L 12/23/23 12:45 97.9 F 88 18 102/55 80 L Intake and Output 12/23/23 12/23/23 12/23/23 06:59 14:59 22:59 Other: Weight 121.109 kg General appearance: alert, in no apparent distress Head exam: Present: atraumatic, normocephalic, normal inspection Eye exam: Present: normal appearance, PERRL, EOMI. Absent: scleral icterus, conjunctival injection, periorbital swelling ENT exam: Present: normal exam, mucous membranes moist Neck exam: Present: normal inspection. Absent: tenderness, meningismus, lymphadenopathy Respiratory exam: Present: normal lung sounds bilaterally. Absent: respiratory distress, wheezes, rales, rhonchi, stridor Cardiovascular Exam: Present: regular rate, normal rhythm, normal heart sounds. Absent: systolic murmur, diastolic murmur, rubs, gallop, clicks GI/Abdominal exam: Present: soft, normal bowel sounds. Absent: distended, tenderness, guarding, rebound, rigid Extremities exam: Present: normal inspection, full ROM, normal capillary refill. Absent: tenderness, pedal edema, joint swelling, calf tenderness Back exam: Present: normal inspection Neurological exam: Present: alert, oriented X3, CN II-XII intact Psychiatric exam: Present: normal affect, normal mood Skin exam: Present: warm, dry, intact, normal color. Absent: rash Results CBC & Chem 7: 12/23/23 13:00 12/23/23 13:00 Labs: Abnormal Lab Results - Last 24 Hours (Table) 12/23/23 12/23/23 12/23/23 Range/Units 13:00 13:00 13:00 RBC 3.86 L (4.30-5.90) m/uL Hgb 11.4 L (13.0-17.5) gm/dL Hct 36.1 L (39.0-53.0) % RDW 15.6 H (11.5-15.5) % D-Dimer 0.94 H (<0.60) mg/L FEU BUN 40 H (9-20) mg/dL Creatinine 1.85 H (0.66-1.25) mg/dL Glucose 190 H (74-99) mg/dL Magnesium 2.5 H (1.6-2.3) mg/dL Assessment and Plan Assessment: 1. Acute exacerbation CHF -Patient received Lasix 40 mg IV in ED and has been placed on Lasix 40 mg IV every 12 hours -We will monitor strict SHANTELL's, daily weights, low-salt and fluid restricted diet -Order 2D echo; we will consult cardiology 2. Hypoxia/dyspnea; patient has obstructive and restrictive lung disease -Follows up with pulmonary as an outpatient -We will consult pulmonary for further evaluation 3. Diabetes mellitus with long-term insulin use; patient uses Toujeo; we will monitor Accu-Cheks before every meal and at bedtime with insulin sliding scale 4. Hypertension; metoprolol 50 mg twice daily and 100 mg with breakfast; Norvasc 5 mg daily; Cozaar 25 mg daily; Imdur 30 mg daily 5. Hyperlipidemia; Crestor 10 mg p.o. nightly 6. Chronic kidney disease stage III; to be at baseline; strict SHANTELL's, daily weights, renal function and electrolytes; avoid nephrotoxins and hypotension 7. History of coronary artery disease; patient takes aspirin, Plavix, metoprolol, Imdur and Crestor DVT prophylaxis; SCDs/subcu heparin CODE STATUS; full code
[2023-12-23 20:52] LABS: Glucose,Whole Blood 268 mg/dL (70-110)
[2023-12-23] MEDS: ATORVASTATIN 20 MG TAB PO SCH (22:27)
[2023-12-23] MEDS: INSULIN DETEMIR (LEVEMIR) 100 UNIT/ML SYR SQ SCH (22:28)
[2023-12-23] MEDS: amLODIPine 5 MG TAB PO SCH (22:28)
[2023-12-23 23:44] VITALS: BP 154/66
[2023-12-24] MEDS ORDERED: TIMOLOL 0.5% OPHTH DROPS 5 ML BTL ONE (00:01)
[2023-12-24] MEDS ORDERED: INSULIN DETEMIR (LEVEMIR) 100 UNIT/ML SYR SQ ONE (00:01)
[2023-12-24] MEDS ORDERED: IPRATROPIUM-ALBUTEROL 3 ML NEB INHALATION PRN (03:26)
--- NOTE | 2023-12-24 03:35 | P.CNPUL ---
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 He did have a hospitalization in June,. He had a loculated right-sided pleural effusion, this was treated with a pigtail catheter, which was subsequently inadvertently removed. Pleural fluid had an LDH of 225, fluid total protein of 2.2 g. Cytology did not demonstrate any malignant cells. Pleural fluid microbiology was negative. Patient has since followed in the pulmonary office with Dr. Joseph. His pulmonary function test suggesting a combination of obstructive/restrictive disease. FEV1/FVC ratio 62%, FEV1 was 1.17 L or 39% of predicted, FVC 45% of predicted, TLC 54% of predicted, uncorrected DLCO 45%. He is chronically oxygen dependent on 2 L/min nasal cannula. He reportedly has an appointment scheduled at the [facility] on January 14 for a second opinion. He returned to the emergency department yesterday afternoon complaining of worsening exertional dyspnea over the last 5 to 7 days. He denies any coughing, sputum production, fevers. Denies sick contacts. He denies any chest pain, heart palpitations, lightheadedness, syncopal events. Denies any lower extremity swelling. He does sleep in recliner at home. States that he was told that he does not have heart failure. He did have an echocardiogram done 05/03/2023 which estimated a preserved left ventricular ejection fraction of 55 to 60%, with mild pulmonary hypertension. He takes Lasix 40 mg twice a day at home. Denies missing any doses. Chest x-ray taken on admission shows cardiomegaly with mild pulmonary vascular congestion, and probable small bilateral pleural effusions with associated atelectasis. CBC: WBC count 9.1, hemoglobin 11.4, hematocrit 36.1, platelets 370. CMP: Sodium 140, potassium 5.1, chloride 106, serum bicarb 40, creatinine 1.85, glucose 190. Lactic 1.5. LFTs not elevated. Troponin less than 0.012. NT proBNP 1050. He is currently lying in bed, on 5 L/min nasal cannula, in no acute distress. Shortness of breath is mostly only with exertion, however, it takes very little exertion to make him short of breath. He cannot walk from the bathroom and back without significant dyspnea. Afebrile. Vital signs are stable. Review of Systems REVIEW OF SYSTEMS: CONSTITUTIONAL: Denies any recent significant weight loss or weight gain. EYES: Denies change in vision. EARS, NOSE, MOUTH, THROAT: Denies headaches, denies sore throat. CARDIOVASCULAR: Denies chest pain, palpitations or syncopal episodes. RESPIRATORY: See HPI GASTROINTESTINAL: Denies change in appetite, abdominal pain, nausea and vomi ting, or diarrhea GENITOURINARY: Denies hematuria, denies infections. MUSKULOSKELETAL: Denies pain, denies swelling. INTEGUMENTARY: Denies rash, denies eczema. NEUROLOGICAL: Denies recent memory loss, no recent seizure activity. PSYCHIATRIC: Denies anxiety, denies depression. HEMATOLOGIC/LYMPHATIC: Denies anemia, denies enlarged lymph node Past Medical History Past Medical History: Coronary Artery Disease (CAD), Heart Failure, Diabetes Mellitus, Eye Disorder, Hearing Disorder / Deafness, Hypertension, Osteoarthritis (OA) Additional Past Medical History / Comment(s): GLAUCOMA. Hard of hearing. pt is on water pill but was never told he has CHF. Diabetes type 2; HF 12/23/23 History of Any Multi-Drug Resistant Organisms: None Reported Past Surgical History: Heart Catheterization With Stent, Orthopedic Surgery Additional Past Surgical History / Comment(s): Right knee arthroscopy, bilateral cataract surgery, 5 cardiac stents, Past Anesthesia/Blood Transfusion Reactions: Previous Problems w/ Anesthesia Additional Past Anesthesia/Blood Transfusion Reaction / Comment(s): states pt has letter from previous knee surgery in 2010 that indicates that Erasto was a difficult intubation with difficult airway anterior. Date of Last Stent Placement:: 04/2019 Smoking Status: Former smoker - Past Family History Mother Family Medical History: Cancer Additional Family Medical History / Comment(s): Stomach cancer. Father Family Medical History: CVA/TIA Medications and Allergies Home Medications Medication Instructions Recorded Confirmed Type Aspirin [Adult Low Dose Aspirin EC] 81 mg PO DAILY 02/05/18 12/23/23 History Potassium Chloride ER [K-Dur 10] 10 meq PO BID-W/MEALS 02/05/18 12/23/23 History Rosuvastatin [Crestor] 10 mg PO HS 02/05/18 12/23/23 History Fenofibrate Nanocrystallized 145 mg PO Q2D@1700 02/28/18 12/23/23 History [Fenofibrate] Dulaglutide [Trulicity] 1.5 mg SQ MO 05/05/20 12/23/23 History Timolol 0.5% Ophth Soln [Timoptic 1 drop BOTH EYES DAILY 05/05/20 12/23/23 History 0.5% Ophth Soln] Metoprolol Tartrate [Lopressor] 100 mg PO W/BRKFST 01/18/22 12/23/23 History Insulin Glargine,Hum.rec.anlog 60 units SQ HS 05/12/22 12/23/23 History [Toujeo Solostar] Empagliflozin [Jardiance] 10 mg PO DAILY 11/23/22 12/23/23 History Clopidogrel [Plavix] 75 mg PO W/LUNCH 05/03/23 12/23/23 History Isosorbide Mononitrate ER [Imdur] 30 mg PO DAILY 05/03/23 12/23/23 History Metoprolol Tartrate [Lopressor] 50 mg PO AC-BID@1200,1800 05/03/23 12/23/23 History Nitroglycerin Sl Tabs [Nitrostat] 0.4 mg SL Q5M PRN 05/03/23 12/23/23 History Tamsulosin [Flomax] 0.4 mg PO W/LUNCH 05/03/23 12/23/23 History amLODIPine [Norvasc] 5 mg PO BID 05/03/23 12/23/23 History cycloSPORINE 0.05% OPHTH SOLN 1 drop BOTH EYES BID 05/03/23 12/23/23 History [Restasis] Albuterol Inhaler [Ventolin Hfa 2 puff INHALATION RT-QID PRN 06/01/23 12/23/23 H istory Inhaler] Losartan [Cozaar] 25 mg PO DAILY 07/02/23 12/23/23 History Furosemide [Lasix] 40 mg PO BID@0900,1600 #30 tab 07/07/23 12/23/23 Rx Cholecalciferol [Vitamin D3 (25 25 mcg PO DAILY 12/23/23 12/23/23 History Mcg = 1000 Iu)] Insulin Lispro [humaLOG Kwikpen] 30 unit SQ AC-TID 12/23/23 12/23/23 History Insulin Lispro [humaLOG Kwikpen] See Protocol SQ AC-TID 12/23/23 12/23/23 History metOLazone [Zaroxolyn] 2.5 mg PO MOWEFR 12/23/23 12/23/23 History Allergies Allergy/AdvReac Type Severity Reaction Status Date / Time cyclobenzaprine Allergy Itching Verified 12/23/23 12:50 [From Flexeril] Physical Exam Vitals: Vital Signs Temp Pulse Pulse Resp BP BP Pulse Ox 12/23/23 23:44 97.8 F 92 20 154/66 92 L 12/23/23 22:36 97.9 F 97 20 162/63 94 L 12/23/23 21:17 80 12/23/23 21:08 78 12/23/23 19:20 82 20 144/74 94 L 12/23/23 16:31 86 24 141/59 94 L 12/23/23 15:57 72 12/23/23 15:45 70 12/23/23 15:01 74 24 163/81 93 L 12/23/23 13:12 92 L 12/23/23 12:45 97.9 F 88 18 102/55 80 L Intake and Output 12/23/23 12/23/23 12/24/23 14:59 22:59 06:59 Intake Total 540 Output Total 700 Balance -160 Intake: Oral 540 Output: Urine 700 Other: Voiding Method Toilet # Voids 2 Weight 121.109 kg 121.109 kg GENERAL EXAM: Alert, 78-year-old white male appearing stated age, on 5 L/min nasal cannula, in no acute distress while at rest. HEAD: Normocephalic and atraumatic EYES: Normal reaction of pupils, equal size. NOSE: Clear with pink turbinates. THROAT: No erythema or exudates. NECK: No masses, no JVD. CHEST: No chest wall deformity. LUNGS: Equal air entry with no crackles, wheeze, rhonchi or dullness. No conversational dyspnea or accessory muscle use. On 5 L/min nasal cannula. CVS: S1 and S2 normal with no audible murmur, regular rhythm. No extra heart sounds ABDOMEN: No hepatosplenomegaly, active bowel sounds, no guarding or rigidity. SPINE: No scoliosis or deformity SKIN: No rashes CENTRAL NERVOUS SYSTEM: No focal deficits, tone is normal in all 4 extremities. EXTREMITIES: There is no peripheral edema, clubbing, or cyanosis. Peripheral pulses are intact. Results - Laboratory Findings CBC and BMP: 12/23/23 13:00 12/23/23 13:00 PT/INR, D-dimer PT 10.3 sec (10.0-12.5) 12/23/23 13:00 INR 0.9 (<1.2) 12/23/23 13:00 D-Dimer 0.94 mg/L FEU (<0.60) H 12/23/23 13:00 Abnormal lab findings: Abnormal Labs 12/23/23 12/23/23 12/23/23 13:00 13:00 13:00 RBC 3.86 L Hgb 11.4 L Hct 36.1 L RDW 15.6 H D-Dimer 0.94 H BUN 40 H Creatinine 1.85 H Glucose 190 H POC Glucose (mg/dL) Magnesium 2.5 H 12/23/23 20:50 RBC Hgb Hct RDW D-Dimer BUN Creatinine Glucose POC Glucose (mg/dL) 268 H Magnesium - Diagnostic Findings Chest x-ray: image reviewed Assessment and Plan Assessment: Acute on chronic hypoxemic respiratory failure, possibly secondary to diastolic CHF exacerbation, chest x-ray demonstrating mild cardiomegaly, pulmonary vascular congestion, and blunting of the costophrenic angles with adjacent atelectasis. NT proBNP modestly elevated at 1050. Combined obstructive and restrictive lung disease Chronic hypoxemic respiratory failure, normally maintained on 2 L/min nasal cannula Exertional dyspnea History of right-sided pleural effusion, with previous pigtail catheter insertion, fluid cytology and microbiology unremarkable History of CAD with previous stents Remote history of tobacco use History of hypertension History of hyperlipidemia Diabetes mellitus, insulin-dependent Chronic kidney disease stage III History of glaucoma Obesity, with a BMI of 38.3 kg/m Plan: Patient's medications, labs, chest x-ray reviewed Continue supplemental O2 Agree with resuming diuretics in the form of Lasix 40 mg twice daily Follow-up echocardiogram is pending Resume maintenance COPD medications, on my evaluation his COPD does not appear particularly active Cardiology also consulted Patient reportedly has a appointment at the [facility] later this month to address his ongoing exertional shortness of breath We will continue to follow I have personally seen and examined the patient, performed the documentation and the assessment and plan as written. Number of minutes spent on the visit:20 Time with Patient: Greater than 30
[2023-12-24 04:38] VITALS: PULSE 83; RESP 16; TEMP 97.6
[2023-12-24 05:58] LABS: Glucose,Whole Blood 167 mg/dL (70-110)
[2023-12-24] MEDS: POTASSIUM CHLORIDE ER 10 MEQ TAB.ER.PRT PO SCH (06:26)
[2023-12-24] MEDS: INSULIN ASPART (NovoLOG) 100 UNIT/ML VIAL SQ SCH (06:27)
[2023-12-24] MEDS: METOPROLOL TARTRATE 50 MG TAB PO SCH (06:27)
[2023-12-24] MEDS ORDERED: IPRATROPIUM-ALBUTEROL 3 ML NEB INHALATION SCH (08:00)
[2023-12-24] MEDS ORDERED: SYMBICORT 160-4.5 MCG INHALER INHALATION SCH (08:00)
[2023-12-24] MEDS ORDERED: ISOSORBIDE MONONITRATE ER 30 MG TAB.ER.24H PO ONE (08:35)
[2023-12-24] MEDS ORDERED: CHOLECALCIFEROL 25 MCG (1000 IU) TABLET ONE (08:35)
[2023-12-24] MEDS ORDERED: ASPIRIN 81 MG ONE (08:35)
[2023-12-24] MEDS ORDERED: LOSARTAN 25 MG TAB ONE (08:35)
[2023-12-24] MEDS ORDERED: amLODIPine 5 MG TAB ONE ×2 (08:36→21:31)
[2023-12-24] MEDS ORDERED: DAPAGLIFLOZIN PROPANEDIOL 5 MG TABLET ONE (08:36)
[2023-12-24] MEDS ORDERED: FUROSEMIDE 10 MG/ML 4 ML VIAL ONE ×2 (08:36→21:30)
[2023-12-24] MEDS ORDERED: FUROSEMIDE 10 MG/ML 4 ML VIAL IV SCH (09:00)
[2023-12-24] MEDS ORDERED: ISOSORBIDE MONONITRATE ER 30 MG TAB.ER.24H PO SCH (09:00)
[2023-12-24] MEDS ORDERED: TIMOLOL 0.5% OPHTH DROPS 5 ML BTL BOTH EYES SCH (09:00)
[2023-12-24] MEDS ORDERED: CHOLECALCIFEROL 25 MCG (1000 IU) TABLET PO SCH (09:00)
[2023-12-24] MEDS ORDERED: ASPIRIN 81 MG PO SCH (09:00)
[2023-12-24] MEDS ORDERED: DAPAGLIFLOZIN PROPANEDIOL 5 MG TABLET PO SCH (09:00)
[2023-12-24] MEDS ORDERED: LOSARTAN 25 MG TAB PO SCH (09:00)
[2023-12-24 11:21] LABS: Glucose,Whole Blood 242 mg/dL (70-110)
[2023-12-24] MEDS ORDERED: CLOPIDOGREL 75 MG TAB ONE (11:49)
[2023-12-24] MEDS ORDERED: TAMSULOSIN 0.4 MG CAP.ER.24H PO ONE (11:49)
[2023-12-24] MEDS ORDERED: METOPROLOL TARTRATE 50 MG TAB ONE ×2 (11:49→17:12)
[2023-12-24] MEDS ORDERED: INSULIN ASPART (NovoLOG) 100 UNIT/ML VIAL SQ ONE ×2 (11:49→21:47)
[2023-12-24] MEDS ORDERED: METOPROLOL TARTRATE 50 MG TAB PO SCH (12:00)
[2023-12-24] MEDS ORDERED: TAMSULOSIN 0.4 MG CAP.ER.24H PO SCH (12:30)
[2023-12-24] MEDS ORDERED: CLOPIDOGREL 75 MG TAB PO SCH (12:30)
[2023-12-24] MEDS ORDERED: IPRATROPIUM-ALBUTEROL 3 ML NEB ONE ×2 (15:00→19:47)
[2023-12-24 17:01] LABS: Glucose,Whole Blood 244 mg/dL (70-110)
[2023-12-24] MEDS ORDERED: POTASSIUM CHLORIDE ER 10 MEQ TAB.ER.PRT PO ONE (17:12)
[2023-12-24] MEDS ORDERED: HEPARIN SODIUM,PORCINE 5,000 UNIT/ML 1 ML VIAL ONE (17:12)
[2023-12-24] MEDS ORDERED: metOLazone 2.5 MG TAB PO SCH (19:27)
[2023-12-24 20:03] LABS: Glucose,Whole Blood 292 mg/dL (70-110)
[2023-12-24] MEDS ORDERED: ATORVASTATIN 20 MG TAB ONE (21:30)
[2023-12-25] MEDS ORDERED: INSULIN DETEMIR (LEVEMIR) 100 UNIT/ML SYR SQ ONE (00:01)
[2023-12-25 06:03] LABS: Glucose,Whole Blood 179 mg/dL (70-110)
[2023-12-25] MEDS ORDERED: INSULIN ASPART (NovoLOG) 100 UNIT/ML VIAL SQ ONE ×4 (06:17→22:27)
[2023-12-25] MEDS ORDERED: IPRATROPIUM-ALBUTEROL 3 ML NEB ONE ×4 (07:51→20:01)
[2023-12-25] MEDS ORDERED: LOSARTAN 25 MG TAB ONE (08:01)
[2023-12-25] MEDS ORDERED: DAPAGLIFLOZIN PROPANEDIOL 5 MG TABLET ONE (08:01)
[2023-12-25] MEDS ORDERED: CHOLECALCIFEROL 25 MCG (1000 IU) TABLET ONE (08:01)
[2023-12-25] MEDS ORDERED: ASPIRIN 81 MG ONE (08:01)
[2023-12-25] MEDS ORDERED: ISOSORBIDE MONONITRATE ER 30 MG TAB.ER.24H PO ONE (08:01)
[2023-12-25] MEDS ORDERED: FUROSEMIDE 10 MG/ML 4 ML VIAL ONE ×2 (08:01→19:37)
[2023-12-25] MEDS ORDERED: amLODIPine 5 MG TAB ONE ×2 (08:01→19:38)
[2023-12-25] MEDS ORDERED: HEPARIN SODIUM,PORCINE 5,000 UNIT/ML 1 ML VIAL ONE ×2 (08:03→18:33)
[2023-12-25 11:37] LABS: Glucose,Whole Blood 188 mg/dL (70-110)
[2023-12-25] MEDS ORDERED: METOPROLOL TARTRATE 50 MG TAB ONE ×2 (11:43→17:16)
[2023-12-25] MEDS ORDERED: TAMSULOSIN 0.4 MG CAP.ER.24H PO ONE (11:43)
[2023-12-25] MEDS ORDERED: CLOPIDOGREL 75 MG TAB ONE (11:43)
[2023-12-25 16:50] LABS: Glucose,Whole Blood 401 mg/dL (70-110)
[2023-12-25] MEDS ORDERED: FENOFIBRATE 160 MG TAB PO SCH (17:00)
[2023-12-25 17:14] LABS: Glucose,Whole Blood 378 mg/dL (70-110)
[2023-12-25] MEDS ORDERED: POTASSIUM CHLORIDE ER 10 MEQ TAB.ER.PRT PO ONE (17:16)
[2023-12-25] MEDS ORDERED: FENOFIBRATE 160 MG TAB ONE (19:37)
[2023-12-25] MEDS ORDERED: ATORVASTATIN 20 MG TAB ONE (19:38)
[2023-12-25 19:57] LABS: Glucose,Whole Blood 321 mg/dL (70-110)
[2023-12-26] MEDS ORDERED: metOLazone 2.5 MG TAB ONE (00:01)
[2023-12-26] MEDS ORDERED: INSULIN DETEMIR (LEVEMIR) 100 UNIT/ML SYR SQ ONE (00:01)
[2023-12-26] MEDS ORDERED: INSULIN ASPART (NovoLOG) 100 UNIT/ML VIAL SQ ONE ×4 (00:01→16:54)
[2023-12-26] MEDS ORDERED: SYMBICORT 160-4.5 MCG INHALER INHALATION ONE (00:01)
[2023-12-26 06:05] LABS: Glucose,Whole Blood 202 mg/dL (70-110)
[2023-12-26] MEDS ORDERED: POTASSIUM CHLORIDE ER 10 MEQ TAB.ER.PRT PO ONE ×2 (07:39→16:54)
[2023-12-26] MEDS ORDERED: LOSARTAN 25 MG TAB ONE (07:39)
[2023-12-26] MEDS ORDERED: CHOLECALCIFEROL 25 MCG (1000 IU) TABLET ONE (07:39)
[2023-12-26] MEDS ORDERED: METOPROLOL TARTRATE 50 MG TAB ONE ×3 (07:39→16:54)
[2023-12-26] MEDS ORDERED: ASPIRIN 81 MG ONE (07:39)
[2023-12-26] MEDS ORDERED: amLODIPine 5 MG TAB ONE ×2 (07:40→21:07)
[2023-12-26] MEDS ORDERED: HEPARIN SODIUM,PORCINE 5,000 UNIT/ML 1 ML VIAL ONE ×2 (07:40→16:54)
[2023-12-26] MEDS ORDERED: ISOSORBIDE MONONITRATE ER 30 MG TAB.ER.24H PO ONE (07:40)
[2023-12-26] MEDS ORDERED: DAPAGLIFLOZIN PROPANEDIOL 5 MG TABLET ONE (07:40)
[2023-12-26] MEDS ORDERED: FUROSEMIDE 10 MG/ML 4 ML VIAL ONE ×2 (07:40→21:07)
[2023-12-26] MEDS ORDERED: IPRATROPIUM-ALBUTEROL 3 ML NEB ONE ×4 (07:41→19:48)
[2023-12-26 11:24] LABS: Glucose,Whole Blood 286 mg/dL (70-110)
[2023-12-26] MEDS ORDERED: CLOPIDOGREL 75 MG TAB ONE (12:17)
[2023-12-26] MEDS ORDERED: TAMSULOSIN 0.4 MG CAP.ER.24H PO ONE (12:17)
[2023-12-26 16:43] LABS: Glucose,Whole Blood 321 mg/dL (70-110)
[2023-12-26 19:52] LABS: Glucose,Whole Blood 264 mg/dL (70-110)
[2023-12-26] MEDS ORDERED: ATORVASTATIN 20 MG TAB ONE (21:07)
[2023-12-27] MEDS ORDERED: HEPARIN SODIUM,PORCINE 5,000 UNIT/ML 1 ML VIAL ONE ×2 (00:13→08:32)
[2023-12-27 05:59] LABS: Glucose,Whole Blood 256 mg/dL (70-110)
[2023-12-27] MEDS ORDERED: INSULIN ASPART (NovoLOG) 100 UNIT/ML VIAL SQ ONE ×2 (06:16→12:09)
[2023-12-27] MEDS ORDERED: LOSARTAN 25 MG TAB ONE (08:31)
[2023-12-27] MEDS ORDERED: ASPIRIN 81 MG ONE (08:31)
[2023-12-27] MEDS ORDERED: ISOSORBIDE MONONITRATE ER 30 MG TAB.ER.24H PO ONE (08:32)
[2023-12-27] MEDS ORDERED: CHOLECALCIFEROL 25 MCG (1000 IU) TABLET ONE (08:32)
[2023-12-27] MEDS ORDERED: DAPAGLIFLOZIN PROPANEDIOL 5 MG TABLET ONE (08:32)
[2023-12-27] MEDS ORDERED: FUROSEMIDE 10 MG/ML 4 ML VIAL ONE (08:32)
[2023-12-27] MEDS ORDERED: POTASSIUM CHLORIDE ER 10 MEQ TAB.ER.PRT PO ONE (08:32)
[2023-12-27] MEDS ORDERED: METOPROLOL TARTRATE 50 MG TAB ONE ×2 (08:33→12:08)
[2023-12-27] MEDS ORDERED: amLODIPine 5 MG TAB ONE (08:33)
[2023-12-27] MEDS ORDERED: CLOPIDOGREL 75 MG TAB ONE (12:08)
[2023-12-27] MEDS ORDERED: TAMSULOSIN 0.4 MG CAP.ER.24H PO ONE (12:08)
--- NOTE | 2024-01-11 15:51 | HP ---
HISTORY AND PHYSICAL HISTORY OF PRESENT ILLNESS: The patient is a 78-year-old male with known history of congestive heart failure. Echocardiogram is not available and ejection fraction is not available at this time. The patient also takes Lasix at home. Given complains of shortness of breath, orthopnea, and increased requirements of oxygen, the patient uses 2 L of oxygen and requiring 5 L at this time. The patient is found to be in congestive heart failure. Although, I do not have any lab data or imaging available at this time. The patient was started on IV Lasix with good diuresis and improvement in the shortness of breath a little bit. REVIEW OF SYSTEMS: All other review of systems are negative except those mentioned above. HOME MEDICATIONS: Include, 1. Aspirin. 2. Crestor. 3. Trulicity. 4. Metoprolol. 5. Insulin 60 mg long-acting. 6. Jardiance. 7. Plavix. 8. Isosorbide mononitrate. 9. Metoprolol. 10.Nitroglycerin. 11.Tamsulosin. 12.Amlodipine. 13.Cyclosporine. The patient's present medications: 1. Albuterol. 2. Ipratropium. 3. Atorvastatin. 4. Plavix. 5. Lasix. 6. Losartan. 7. Levemir 60 units. 8. Aspart as needed sliding scale. 9. Metolazone. 10.Metoprolol. 11.IV Lasix 40 mg twice a day. 12.Naloxone. 13.Tamsulosin. 14.Timolol eyedrops. PAST MEDICAL HISTORY: Hypertension, type 2 diabetes mellitus, congestive heart failure. FAMILY HISTORY: Are not available at this time and not much relevant at this time either. SOCIAL HISTORY: Are not available at this time and not much relevant at this time either. PHYSICAL EXAMINATION: VITAL SIGNS: Temperature afebrile, pulse of 86, respiratory rate of 24, blood pressure is 141/59, saturating at 94% on 5 L of oxygen. HEAD: Normocephalic, atraumatic. NECK: Supple, thyroid gland is not enlarged, no JVP is noted, no lymphadenopathy noted. ENT: No foci of infection. EYES: MEGAN, external eye movements are normal, conjunctivae are pink. LUNGS: Clear to auscultation bilaterally. HEART: S1, S2 can be heard, no gallops, rubs, or murmurs. ABDOMEN: Soft, nontender, no organomegaly, bowel sounds are heard in all four quadrants. EXTREMITIES: Lower extremities, the patient does have pedal edema, 1+ pitting bilateral lower extremities extending up to the level of the ankles. CRANIAL NERVES: II to XII are intact. SKIN LIFTER BACON: There are no gross sensory or motor deficits, DTRS 2+ bilaterally. MUSCULOSKELETAL: Muscle strength is symmetrical. ASSESSMENT AND PLAN: 1. Congestive heart failure. Systolic function is not known at this time. With acute exacerbation, continue with 40 mg twice a day of Lasix along with metolazone. 2. Hypertension. Resume home medications. 3. Type 2 diabetes mellitus. Resume home medications. Monitor blood sugars. Titrate depending on his blood sugars. 4. Hyperlipidemia. 5. Chronic obstructive pulmonary disease. 6. Benign prostatic hypertrophy. For the above mentioned chronic medical problems, the patient will be started on appropriate home medications. DVT prophylaxis. Subcutaneous heparin 5000 t.i.d. MMAFSANEHL / NICHON: [id number] /
== END 2023-12-27 15:24 | disposition home or self-care (01) | DRG 291 ==
LOC: EC 12:28 → 3SCARD 15:16
PROVIDERS: ADMIT Hospitalist; ATTEND Hospitalist
DX: I13.0 Hypertensive heart and chronic kidney disease with heart failure and stage 1 through stage 4 chronic kidney disease, or unspecified chronic kidney disease (principal); I50.33 Acute on chronic diastolic (congestive) heart failure; J96.21 Acute and chronic respiratory failure with hypoxia; J44.1 Chronic obstructive pulmonary disease with (acute) exacerbation; N17.9 Acute kidney failure, unspecified; R79.89 Other specified abnormal findings of blood chemistry; E11.22 Type 2 diabetes mellitus with diabetic chronic kidney disease; Z77.090 Contact with and (suspected) exposure to asbestos; Z68.38 Body mass index [BMI] 38.0-38.9, adult; N18.30 Chronic kidney disease, stage 3 unspecified; E66.9 Obesity, unspecified; E78.5 Hyperlipidemia, unspecified; I34.0 Nonrheumatic mitral (valve) insufficiency; I25.10 Atherosclerotic heart disease of native coronary artery without angina pectoris; H91.90 Unspecified hearing loss, unspecified ear; M19.90 Unspecified osteoarthritis, unspecified site; I27.20 Pulmonary hypertension, unspecified; J98.4 Other disorders of lung; N40.0 Benign prostatic hyperplasia without lower urinary tract symptoms; Z88.8 Allergy status to other drugs, medicaments and biological substances; Z99.81 Dependence on supplemental oxygen; Z95.5 Presence of coronary angioplasty implant and graft; Z87.891 Personal history of nicotine dependence; Z79.899 Other long term (current) drug therapy; Z79.84 Long term (current) use of oral hypoglycemic drugs; Z79.82 Long term (current) use of aspirin; Z79.4 Long term (current) use of insulin
CPT/HCPCS: 36415; 71045; 80048; 80053; 83605; 83735; 83880; 84484; 85025; 85027; 85379; 85610; 85730; 93005; 93306; 94640; 94760; 96361; 96365; 96366; 96372; 99291

== ENCOUNTER → 2024-04-01 | Outpatient (CLI) | payer MEDICARE ==
--- NOTE | 2024-04-08 23:58 | P.PCN ---
Date of Procedure: 04/01/24 Operative Findings: Home sleep study testing Date of service is 04/08/2024 Pertinent history A 78-year-old male patient, suspected to have obstructive sleep apnea the patient was referred to the sleep center for a home sleep study. The patient has an Goodridge score of 12. He suffers from excessive tiredness and sleepiness during the day. He has history of diastolic heart failure and he also has multiple other comorbidities including coronary artery disease, chronic kidney disease, diabetes mellitus type 2, hypertension, and the patient is obese. Pertinent physical findings Weight is 267 pounds with a body mass index of 38.3 Technical description The [employer] system was used to complete his home sleep study. This is a type III home sleep study evaluation. The total recording duration was 8 hours and 37 minutes. This study started at 9:52 PM and ended at 6:30 AM in the morning. There was a total of 8 hours and 50 minutes of flow monitoring in 8 hours and 5 minutes of oxygen saturation evaluation and monitoring. As such, this was an adequate study Results Respiratory analysis showed a total of 19 obstructive apneas and 46 obstructive hypopneas. The resulting AHI was 7.9 Oxygenation analysis The baseline pulse ox was 88% while the patient was on room air and awake. Av erage pulse ox during sleep was 85% with a minimum pulse ox of 65% and the patient spent approximately 7 hours and 40 minutes of sleep time below pulse ox of 89%. Cardiac analysis Average heart rate was 72 minimum heart rate of 61 and a maximum heart rate of 97 Assessment Obstructive sleep apnea, mild in severity with an AHI of 7.9 Chronic hypoxemia with significant nocturnal oxygen desaturation with a minimum pulse ox of 65% during sleep Diastolic heart failure Obesity with a BMI of 38.3 Chronic hypoxic respiratory failure, typically maintained on oxygen 2 L/min nasal cannula History of right-sided pleural effusion Coronary artery disease with previous coronary stenting Diabetes mellitus type 2 Chronic stage III kidney disease Hypertension Hyperlipidemia Glaucoma Chronic restrictive lung physiology based on the recent pulmonary function test Plan This is a case of mild obstructive sleep apnea. Of significance is due to chronic hypoxemia and significant nocturnal oxygen desaturation to the patient encountered during sleep. This patient needs to be supplemented with O2 at least overnight to maintain saturation above 90%. CPAP therapy may also have some benefits as the patient is a case of mild AGNIESZKA. This needs to be discussed with the patient and if willing to undertake the treatment, and in-lab CPAP titration would be recommended especially with his ongoing comorbidities. Will keep the final decision for treatment to Dr. Sullivan and patient discussion
== END ==
LOC: 3 N SLEEP 16:45
PROVIDERS: ATTEND Internal Medicine Critical Care Medicine
DX: G47.33 Obstructive sleep apnea (adult) (pediatric) (principal); G47.36 Sleep related hypoventilation in conditions classified elsewhere; I13.0 Hypertensive heart and chronic kidney disease with heart failure and stage 1 through stage 4 chronic kidney disease, or unspecified chronic kidney disease; I50.30 Unspecified diastolic (congestive) heart failure; E11.22 Type 2 diabetes mellitus with diabetic chronic kidney disease; N18.30 Chronic kidney disease, stage 3 unspecified; I25.10 Atherosclerotic heart disease of native coronary artery without angina pectoris; E11.39 Type 2 diabetes mellitus with other diabetic ophthalmic complication; H42 Glaucoma in diseases classified elsewhere; E66.9 Obesity, unspecified; E78.5 Hyperlipidemia, unspecified; J96.10 Chronic respiratory failure, unspecified whether with hypoxia or hypercapnia; J98.9 Respiratory disorder, unspecified; Z68.38 Body mass index [BMI] 38.0-38.9, adult; Z87.09 Personal history of other diseases of the respiratory system; Z95.5 Presence of coronary angioplasty implant and graft; Z88.8 Allergy status to other drugs, medicaments and biological substances; Z87.891 Personal history of nicotine dependence; Z79.02 Long term (current) use of antithrombotics/antiplatelets; Z79.4 Long term (current) use of insulin; Z79.899 Other long term (current) drug therapy